=== PATIENT | female | born 1955 | race Hispanic/Latino ===

== ENCOUNTER 2016-11-26 18:21 | Inpatient (IN) | payer MEDICARE ==
[~2016-11-26 18:21] MED LIST: AMIDATE IV ONE; QUELICIN ONE
[2016-11-26] MEDS ORDERED: ARTIFICIAL TEARS OPHTH OINT OU PRN (18:43)
[2016-11-26] MEDS ORDERED: VASELINE LIP THERAPY TP PRN (18:43)
[2016-11-26] MEDS ORDERED: fentaNYL DRIP Premix 2,000 MCG/100 ML BAG IV SCH (19:00)
[2016-11-26] MEDS ORDERED: ATIVAN 100 MG in NACL 0.9% 50 ML, VIAFLEX EMPTY CONTAINER 0 ML IV SCH (19:00)
[2016-11-26] MEDS ORDERED: TYLENOL PR ONE (19:09)
[2016-11-26 19:13] LABS: Basophils % (Auto) 0.6 % (0.0-1.8); Eosinophils % (Auto) 0.8 % (0.0-4.3); Hematocrit 30.2 % (30.3-42.9); Hemoglobin 9.7 gm/dl (10.1-14.3); Mean Corpuscular HGB Conc 32 % (30-34); Mean Corpuscular Hemoglobin 32 pg (28-32); Mean Corpuscular Volume 98 fl (79-97); Platelet Count 319 K/mm3 (140-440); Red Blood Count 3.07 M/mm3 (3.65-5.03); Red Cell Distribution Width 18.8 % (13.2-15.2); White Blood Count 7.6 K/mm3 (4.5-11.0)
[2016-11-26] MEDS ORDERED: MILK OF MAGNESIA PO PRN (19:13)
[2016-11-26] MEDS ORDERED: VANCOMYCIN VIAL IV ONE (19:13)
[2016-11-26] MEDS ORDERED: ALUM-MAG HYDROX-SIMETH 200-200-20MG/5ML PO PRN (19:13)
[2016-11-26] MEDS ORDERED: NACL 0.9% 1000 ML IV ONE (19:13)
[2016-11-26] MEDS ORDERED: DULCOLAX PR PRN (19:13)
[2016-11-26] MEDS ORDERED: NACL 0.9% 250ML 250 ML IV ONE (19:13)
--- NOTE | 2016-11-26 19:13 | History and Physical Report ---
History of Present Illness History of present illness: 61 YO Female NHR with GERD, HTN, DM, Atrial Fib, BLE pressure sores presents to ED for evaluation. SNF staff notified ED because patient noticed to be confused , and minimally responsive. Pt transported to [facility] for evaluation. PT unable to provide history. Pt seen and evaluated in ED and found to be in severe distress and unable to protect her airway. Pt intubated and placed on vent support. Pt found to have sepsis, and evidence of aspiration pneumonia, and UTI. Pt treated IAW sepsis protocol. Past History Past Medical History: atrial fib, diabetes, GERD, hypertension Past Surgical History: No surgical history, Other (reviewed) Social history: single. denies: smoking, alcohol abuse, prescription drug abuse Family history: no significant family history (reviewed) Medications and Allergies Allergies Allergy/AdvReac Type Severity Reaction Status Date / Time codeine Allergy Unknown Verified 11/26/16 18:38 Active Meds: Active Medications Hydrophilic Ointment (Vaseline Lip Therapy) 1 applic TP Q2HR PRN PRN Reason: Dry Lips Fentanyl Citrate (Fentanyl Drip Premix) 2,000 mcg in 100 mls @ 3.969 mls/hr IV TITR OCTAVIO; 1 MCG/KG/HR PRN Reason: Protocol Lorazepam 100 mg/ Sodium Chloride/ Miscellaneous Information 100 mls @ 1 mls/ hr IV TITR OCTAVIO; 1 MG/HR PRN Reason: Protocol Multi-Ingred Cream/Lotion/Oil/Oint (Artificial Tears Ophth Oint) 1 applic OU Q4HR PRN PRN Reason: Dry Eye(s) Review of Systems ROS unobtainable: due to mental status Exam - Constitutional Vitals: Temp Pulse Resp BP Pulse Ox 114 H 140/83 100 11/26/16 19:03 11/26/16 19:03 11/26/16 19:03 General appearance: Present: severe distress, cachectic, disheveled, malodorous - Neck Neck: Present: supple, normal ROM - Respiratory Respiratory effort: labored Respiratory: bilateral: diminished - Cardiovascular Rhythm: regular Heart Sounds: Present: S1 & S2 - Extremities Extremities: no ischemia Peripheral Pulses: within normal limits - Abdominal General gastrointestinal: Present: soft, non-tender, non-distended, normal bowel sounds Female genitourinary: Present: normal - Integumentary Integumentary: Present: clear, dry, decreased turgor - Musculoskeletal Musculoskeletal: generalized weakness - Psychiatric Psychiatric: no intact judgment & insight, no memory intact - Neurologic Neurologic: no gait normal Results - Labs CBC & Chem 7: 11/26/16 18:40 11/26/16 18:40 Assessment and Plan - Patient Problems (1) Sepsis Current Visit: Yes Status: Acute Qualifiers: Sepsis type: S Plan to address problem: IV ABx, IVF, supportive care, monitor uop q shift, blood cultures, lactate level , The high probability of a clinically significant, sudden or life threatening deterioration of the [cardiac, pulmonary, renal] system(s) required my full and direct attention, intervention and personal management. The aggregate critical care time was [65] minutes. This time is in addition to time spent performing reported procedures but includes the following: [x] Data Review and interpretation [x] Patient assessment and monitoring of vital signs [x] Documentation [x] Medication orders and management (2) Aspiration pneumonia Current Visit: Yes Status: Acute Qualifiers: Aspiration pneumonia type: A Laterality: L Lung location: L Plan to address problem: IV abx, wean vent as tolerated, pulmonary consulted, ABG in am, pneumonia protocol, blood cultures (3) Encephalopathy acute Current Visit: Yes Status: Acute Plan to address problem: Treat pneumonia, sepsis, uti with abx therapy, IVF replacement (4) UTI (urinary tract infection) Current Visit: Yes Status: Acute Qualifiers: Urinary tract infection type: U Hematuria presence: H Indwelling urinary catheter type: I Encounter type: E Plan to address problem: IV abx (5) Respiratory failure Current Visit: Yes Status: Acute Qualifiers: Chronicity: acute Respiratory failure complication: unspecified whether with hypoxia or hypercapnia Qualified Code(s): J96.00 - Acute respiratory failure, unspecified whether with hypoxia or hypercapnia Plan to address problem: Wean vent as tolerated, SBT in am, pulmonary consulted, (6) DVT prophylaxis Current Visit: Yes Status: Acute
--- NOTE | 2016-11-26 19:14 | Emergency Department Report ---
ED General Adult HPI - General Chief complaint: Altered Mental Status Stated complaint: AMS Time Seen by Provider: 11/26/16 19:03 Source: EMS Mode of arrival: Stretcher Limitations: Altered Mental Status - History of Present Illness Initial comments: Patient presents to the emergency department with shallow respirations and obvious respiratory or impending respiratory failure. Medics were summoned to the long term because the patient was said to have slurred speech. Medics noted no focal neurological deficit. On arrival the patient was unable to state her name. She would respond somewhat to stimuli and a nonfocal manner. However, she was clearly unable to protect her airway and required elective intubation. - Related Data Allergies Allergy/AdvReac Type Severity Reaction Status Date / Time codeine Allergy Unknown Verified 11/26/16 18:38 ED Review of Systems ROS: Stated complaint: AMS Other details as noted in HPI Comment: Unobtainable due to pts medical conditions ED Past Medical Hx - Past Medical History Hx Hypertension: Yes Hx Diabetes: Yes Hx GERD: Yes Hx Psychiatric Treatment: Yes Additional medical history: gi bleed, anemia, a-fib - Surgical History Additional Surgical History: unknown - Social History Smoking Status: Unknown if ever smoked Substance Use Type: None ED Physical Exam - General Limitations: Altered Mental Status General appearance: alert, in no apparent distress - Head Head exam: Present: atraumatic, normocephalic - Eye Eye exam: Present: normal appearance - ENT ENT exam: Present: mucous membranes moist - Neck Neck exam: Present: normal inspection - Respiratory Respiratory exam: Present: respiratory distress, rhonchi, accessory muscle use, decreased breath sounds - Cardiovascular Cardiovascular Exam: Present: regular rate, normal rhythm. Absent: systolic murmur, diastolic murmur, rubs, gallop - GI/Abdominal GI/Abdominal exam: Present: soft, normal bowel sounds. Absent: distended, tenderness, guarding, rebound, rigid - Extremities Exam Extremities exam: Present: normal inspection - Back Exam Back exam: Present: normal inspection - Neurological Exam Neurological exam: Present: altered, CN II-XII intact (exam is very limited. There is no facial paresis. The eyes are conjugate. The pupils were equal and reactive.). Absent: motor sensory deficit (the patient withdraws minimally to painful stimuli and a symmetrical fashion exam is limited secondary to mental status.) - Psychiatric Psychiatric exam: Present: other (somnolent) - Skin Skin exam: Present: warm, dry, intact, normal color. Absent: rash ED Course Vital Signs 11/26/16 11/26/16 18:39 19:03 Pulse Rate 112 H 114 H Blood Pressure 121/67 140/83 O2 Sat by Pulse 100 100 Oximetry - Reevaluation(s) Reevaluation #1: CT the head is Pending. Patient was treated for pulmonary edema UTI sepsis pneumonia could not be excluded and respiratory failure. She is admitted to the hospitalist service further care and evaluation. CT the head ordered for altered mental status. An acute stroke is not clinically suspected. 11/26/16 19:49 Reevaluation #2: Patient will be admitted by Dr. Gutierrez to the intensive care unit. 11/26/16 19:50 - Central Line Placement Right SC Consent Obtained: emergent situation Time Out Performed: No Patient Placed on Monitor/Pulse Ox: No MD Prep: mask, gown, gloves Central Line Prep: Chlorhexidine scrub Local Anesthesia Used: Lidocaine 1% Amount of Anesthesia Used (mls): 3 Ultrasound Used for Placement: No Central Line Lumen Inserted: triple Bloods Obtained for Lab: Yes Central Line Position: good blood return, all ports aspirated, flus, sutured in place with 3-0 Dressing Applied: Tegaderm Post Procedure X-Ray: tip of catheter in good p Patient Tolerated Procedure: well Complications: none (single puncture inserted without difficulty.) - Intubation Time Out Performed: No Sedative: Etomidate Paralytic: Succinylcholine Laryngoscope: Caesar Size: 4 ET Tube Size: 7.5 Tube Secured Depth (cm): 23 Tube Secured Location: lips Tube Placement Confirmation: visualized tube passing t, equal breath sounds bilat, no breath sounds over epi, confirmation by capnometr Intubation Complications: none Additional Comments: To position was little too close to the jose pulled back 1-2 cm ED Medical Decision Making - Lab Data Result diagrams: 11/26/16 18:40 11/26/16 18:40 Laboratory Results - last 24 hr 11/26/16 11/26/16 11/26/16 18:35 18:40 18:40 WBC 7.6 RBC 3.07 L Hgb 9.7 L Hct 30.2 L MCV 98 H MCH 32 MCHC 32 RDW 18.8 H Plt Count 319 Lymph % (Auto) 20.0 [place] % (Auto) 8.8 H Eos % (Auto) 0.8 Baso % (Auto) 0.6 Lymph # 1.5 [place] # 0.7 Eos # 0.1 Baso # 0.0 Seg Neutrophils % 69.8 Seg Neutrophils # 5.3 PT 15.8 H INR 1.20 H VBG pH Sodium Potassium Chloride Carbon Dioxide Anion Gap BUN Creatinine Estimated GFR BUN/Creatinine Ratio Glucose Lactic Acid Calcium Total Bilirubin AST ALT Alkaline Phosphatase Total Protein Albumin Albumin/Globulin Ratio Urine Color Matilde Urine Turbidity Turbid Urine pH 6.0 Ur Specific [place] 1.018 Urine Protein 100 mg/dl Urine Glucose (UA) Neg Urine Ketones Neg Urine Blood Neg Urine Nitrite Neg Urine Bilirubin Neg Urine Urobilinogen < 2.0 Ur Leukocyte Esterase Mod Urine WBC (Auto) > 182.0 H Urine RBC (Auto) 6.0 Urine Bacteria (Auto) 4+ Urine WBC Clumps 3+ Urine Mucus 3+ 11/26/16 11/26/16 11/26/16 18:40 18:40 18:40 WBC RBC Hgb Hct MCV MCH MCHC RDW Plt Count Lymph % (Auto) [place] % (Auto) Eos % (Auto) Baso % (Auto) Lymph # [place] # Eos # Baso # Seg Neutrophils % Seg Neutrophils # PT INR VBG pH 7.376 Sodium 141 Potassium 4.4 Chloride 106.4 Carbon Dioxide 25 Anion Gap 14 BUN 10 Creatinine 0.4 L Estimated GFR > 60 BUN/Creatinine Ratio 25.00 Glucose 107 H Lactic Acid 1.70 Calcium 7.5 L Total Bilirubin 0.20 AST 15 ALT 7 Alkaline Phosphatase 256 H Total Protein 4.9 L Albumin 1.6 L Albumin/Globulin Ratio 0.5 Urine Color Urine Turbidity Urine pH Ur Specific [place] Urine Protein Urine Glucose (UA) Urine Ketones Urine Blood Urine Nitrite Urine Bilirubin Urine Urobilinogen Ur Leukocyte Esterase Urine WBC (Auto) Urine RBC (Auto) Urine Bacteria (Auto) Urine WBC Clumps Urine Mucus - EKG Data -: EKG Interpreted by Me EKG shows normal: sinus rhythm Rate: tachycardia - EKG Data Interpretation: nonspecific ST-T wave олег, other (low-voltage EKG appears to be sinus tachycardia) - Radiology Data interpreted by me: Chest x-ray shows an endotracheal tube tilted slightly towards the right mainstem but still above the jose. This has been moved back (I have ordered it to be withdrawn 1-2 cm with respiratory. The right subclavian line is in the SVC. There is no pneumothorax. There are bilateral effusions. This may be more likely to be the picture of pulmonary edema but pneumonia cannot be excluded. Critical care attestation.: If time is entered above; I have spent that time in minutes in the direct care of this critically ill patient, excluding procedure time. ED Disposition Clinical Impression: Respiratory failure Qualifiers: Chronicity: acute Respiratory failure complication: unspecified whether with hypoxia or hypercapnia Qualified Code(s): J96.00 - Acute respiratory failure, unspecified whether with hypoxia or hypercapnia Pulmonary edema Qualifiers: Chronicity: acute Qualified Code(s): J81.0 - Acute pulmonary edema Altered mental status Qualifiers: Altered mental status type: stupor Qualified Code(s): R40.1 - Stupor Anemia Qualifiers: Anemia type: unspecified type Qualified Code(s): D64.9 - Anemia, unspecified Disposition: DC-09 OP ADMIT IP TO THIS HOSP Is pt being admited?: Yes Does the pt Need Aspirin: Yes Condition: Stable Instructions: Pulmonary Edema (ED) Referrals: PRIMARY CARE, [Primary Care Provider] - 3-5 Days Time of Disposition: 19:52
[2016-11-26 19:23] LABS: Bacteria,Urine 4+ /HPF (Negative); Bilirubin,Urine NEG (Negative); Blood,Urine NEG (Negative); Ketones,Urine NEG (Negative); Leukocyte Esterase,Urine MOD (Negative); Mucus,Urine 3+ /HPF; Nitrite,Urine NEG (Negative); Urobilinogen,Urine < 2.0 mg/dL (<2.0)
[2016-11-26] MEDS ORDERED: SUBLIMAZE ONE (19:24)
[2016-11-26 19:26] LABS: Alanine Aminotransferase 7 units/L (7-56); Albumin 1.6 g/dL (3.9-5); Albumin/Globulin Ratio 0.5 %; Alkaline Phosphatase 256 units/L (35-129); Anion Gap 14 mmol/L; Blood Urea Nitrogen 10 mg/dL (7-17); Calcium 7.5 mg/dL (8.4-10.2); Carbon Dioxide 25 mmol/L (22-30); Chloride 106.4 mmol/L (98-107); Glucose 107 mg/dL (65-100); Potassium 4.4 mmol/L (3.6-5.0); Sodium 141 mmol/L (137-145); Total Protein 4.9 g/dL (6.3-8.2)
[2016-11-26 19:28] LABS: WBC,Urine > 182.0 /HPF (0.0-6.0)
[2016-11-26 19:29] LABS: INR 1.2 (0.87-1.13)
[2016-11-26] MEDS ORDERED: LASIX IV ONE (19:43)
--- NOTE | 2016-11-26 19:43 | XRay Report ---
FINAL REPORT EXAM: XR CHEST 1V AP HISTORY: ETT placement TECHNIQUE: AP portable view of the chest. PRIORS: None. FINDINGS: There is endotracheal tube in place with the distal tip at the proximal right mainstem bronchus. Withdrawal of 3-5 cm is recommended. There is a right-sided central venous catheter with the tip in the right atrium. There is a metallic wire foreign object overlying the right upper chest possibly representing a dental bridge. The cardiac silhouette is mildly to moderately enlarged. There are bilateral patchy infiltrates. There blunting of the bilateral costophrenic angles consistent with pleural effusions. The bones and soft tissues are unremarkable. IMPRESSION: 1. Endotracheal tube is in too far with the distal tip at the proximal right stem bronchus. Withdrawal of 3-5 cm is recommended. 2. Confirm location and identify the metallic wire foreign object overlying the right upper chest that may represent a dental bridge. 3. Cardiomegaly 4. Bilateral patchy infiltrates consistent with pneumonia or pulmonary edema 5. Bilateral pleural effusions I gave a verbal report by phone to Dr. Greenwood at 7:35 p.m. eastern daylight time. He told me that the ET tube had already been repositioned.
[2016-11-26 19:44] LABS: Creatine Kinase MB 1.4 ng/mL (0.0-4.0)
[2016-11-26 19:45] LABS: Creatine Kinase 18 units/L (30-135)
[2016-11-26] MEDS ORDERED: PROTONIX IV ONE (19:45)
[2016-11-26] MEDS ORDERED: ASPIRIN PR ONE (19:52)
[2016-11-26] MEDS ORDERED: VANCOMYCIN PHARMACY TO DOSE IV SCH (20:00)
[2016-11-26] MEDS: UNASYN/NS 3 GM/100 ML 3 GM/100 ML BAG IV SCH (20:02)
[2016-11-26] MEDS: LEVAQUIN 750MG/150ML 750 MG/150 ML BAG IV SCH (20:03)
[2016-11-26] MEDS: VANCOMYCIN VIAL 1,250 MG in NACL 0.9% 250ML 250 ML IV SCH (20:10)
[2016-11-26] MEDS ORDERED: TYLENOL PR PRN (20:22)
[2016-11-26 20:26] LABS: ISTAT Base Excess -1; ISTAT HCO3 24.6; ISTAT PCO2 43.2 (35-45); ISTAT PH 7.364 (7.35-7.45); ISTAT PO2 57 (80-105); ISTAT SO2 88; ISTAT TCO2 26
--- NOTE | 2016-11-26 23:00 | Cat Scan Report ---
FINAL REPORT PROCEDURE: CT HEAD/BRAIN WO CON TECHNIQUE: Computerized tomography of the head was performed without contrast material. HISTORY: AMS COMPARISON: No prior studies are available for comparison. FINDINGS: Fluid in the paranasal sinuses is likely due to indwelling endotracheal tube. Mastoid air cells appear clear. No calvarial fracture is seen. The cerebral ventricles are normal in size. Minimal chronic small vessel ischemic changes are seen in the periventricular white matter. No acute CVA is seen. No acute intracranial hemorrhage or mass effect is seen. IMPRESSION: Minimal chronic small vessel ischemic changes are seen without evidence of acute abnormality.
[2016-11-27] MEDS: UNASYN/NS 3 GM/100 ML 3 GM/100 ML BAG IV SCH ×4 (02:00→20:37)
[2016-11-27] MEDS: VANCOMYCIN VIAL 1,250 MG in NACL 0.9% 250ML 250 ML IV SCH ×2 (04:43→12:54)
[2016-11-27] MEDS ORDERED: NACL 0.9% 1000 ML 1,000 ML IV ONE (04:45)
[2016-11-27 05:52] LABS: ISTAT Base Excess 6; ISTAT HCO3 27.6; ISTAT PCO2 29.9 (35-45); ISTAT PH 7.574 (7.35-7.45); ISTAT PO2 147 (80-105); ISTAT SO2 100; ISTAT TCO2 28
--- NOTE | 2016-11-27 09:50 | XRay Report ---
AP CHEST :11/27/16 01:52 CLINICAL: Intubated.Follow up respiratory failure. COMPARISON:11/26/16 FINDINGS: The endotracheal tube is in satisfactory position. A right PICC line tip is in the SVC. Continued bilateral patchy perihilar lung opacities as well as more peripheral right upper lobe lung opacities. No pneumothorax. IMPRESSION: Bilateral pulmonary edema versus pneumonia without change.
[2016-11-27] MEDS ORDERED: SODIUM BICARBONATE FEEDTUBE PRN (09:57)
[2016-11-27] MEDS ORDERED: SIMPLE SYRUP FEEDTUBE PRN ×2 (09:57)
[2016-11-27] MEDS ORDERED: PANCREAZE DR 10,500 UNIT FEEDTUBE PRN (09:57)
--- NOTE | 2016-11-27 15:59 | Admit Criteria Form ---
Admission Criteria Documentation: RESPIRATORY FAILURE GRG Clinical Indications for Admission to Inpatient Care (Place 'X' for any and all applicable criteria): Hospital admission is needed for appropriate care of the patient because of acute respiratory failure or insufficiency as indicated by ANY ONE of the following(1)(2)(3)(4)(5)(6)(7)(8): [ ]I. Mechanical ventilation needed (acute invasive or noninvasive) [ ]II. Severe ventilation deficit as indicated by ANY ONE of the following (9) [ ]a) Respiratory acidosis (pH less than 7.32 and partial pressure of carbon dioxide greater than 40 mm Hg (5.3 kPa)) [ ]b) Partial pressure of carbon dioxide greater than 44 mm Hg (5.9 kPa ) (new) [ ]c) Airflow measurements less than 25% of predicted (eg, peak expiratory flow rate less than 100 L/minute) [ ]d) Forced vital capacity less than 15 mL/kg of ideal body weight, or 50% decrease in vital capacity from baseline [ ]III. Noncardiac pulmonary edema not resolving with rapid emergency treatment (8) [ X]IV. Severe respiratory distress as indicated by ANY ONE of the following: [ ]a) Severe tachypnea (respiratory rate greater than 30, greater than 45 for 6-month-old, greater than 60 for ) [ ]b) Severe hypoxemia (partial pressure of oxygen less than 50 mm Hg ( 6.7 kPa) on greater than 50% oxygen or partial pressure of oxygen to FIO2 ratio less than 200) [X ]c) Mental status deterioration from respiratory disease [ ]V. Airway obstruction or inadequate protection [A](10)(11) The original [employer] content created by [employer] has been revised. The portions of the content which have been revised are identified through the use of italic text or in bold, and [facility] [employer] has neither reviewed nor approved the modified material. All other unmodified content is copyright [employer]. Please see references footnoted in the original [employer] edition 2016 Admission Criteria Met: Yes
--- NOTE | 2016-11-27 16:42 | Progress Note ---
Assessment and Plan Assessment and plan: 61-year-old female brought via EMS from half-way after she was found to have difficulty of breathing, decreased responsiveness. Patient medical history significant for hypertension, diabetes mellitus, A. fib, bilateral lower extremity pressure sores. Patient was unable to protect her airway and she was intubated in the emergency department. Acute respiratory failure Aspiration pneumonia versus community acquired pneumonia Sepsis with hypotension Acute metabolic encephalopathy UTI - Patient is intubated and mechanically ventilated in the emergency department - Patient is treated according to sepsis protocol with IV antibiotics, fluid, blood cultures taken - Pulmonary consulted The high probability of a clinically significant, sudden or life threatening deterioration of the [neurology, cardiovascular, respiratory] system(s) required my full and direct attention, intervention and personal management. The aggregate critical care time was [x] minutes. This time is in addition to time spent performing reported procedures but includes the following: [x] Data Review and interpretation [x] Patient assessment and monitoring of vital signs [x] Documentation [x] Medication orders and managementDVT prophylaxis - Lovenox Disposition - Transferred to ICU, she insisted in the emergency department waiting for bed. History Interval history: Patient was seen and evaluated this morning, patient is intubated, mechanically ventilated, on sedation. I have discussed the management plan with her brother. Hospitalist Physical - Physical exam Narrative exam: Patient is intubated and mechanically ventilated. The patient appeared well nourished and normally developed. Vital signs as documented. Head exam is unremarkable. No scleral icterus . Neck is without jugular venous distension, thyromegaly, or carotid bruits. Lungs are clear to auscultation. Cardiac exam reveals regular rate and Rhythm. First and second heart sounds normal. No murmurs, rubs or gallops. Abdominal exam reveals normal bowel sounds, no masses, no organomegaly and no aortic enlargement. Extremities clean dressing on bilateral lower extremities, on the sores. REGULATORY SUBMISSIONS SPECIALIST: Sedated. - Constitutional Vitals: Temp Pulse Resp BP Pulse Ox 98.8 F 107 H 12 86/54 100 11/27/16 04:00 11/27/16 12:04 11/27/16 11:45 11/27/16 12:04 11/27/16 12:04 General appearance: Present: severe distress, cachectic, disheveled, malodorous Results - Labs CBC & Chem 7: 11/26/16 18:40 11/26/16 18:40 Labs: Laboratory Last Values WBC 7.6 K/mm3 (4.5-11.0) 11/26/16 18:40 RBC 3.07 M/mm3 (3.65-5.03) L 11/26/16 18:40 Hgb 9.7 gm/dl (10.1-14.3) L 11/26/16 18:40 Hct 30.2 % (30.3-42.9) L 11/26/16 18:40 MCV 98 fl (79-97) H 11/26/16 18:40 MCH 32 pg (28-32) 11/26/16 18:40 MCHC 32 % (30-34) 11/26/16 18:40 RDW 18.8 % (13.2-15.2) H 11/26/16 18:40 Plt Count 319 K/mm3 (140-440) 11/26/16 18:40 Lymph % (Auto) 20.0 % (13.4-35.0) 11/26/16 18:40 [place] % (Auto) 8.8 % (0.0-7.3) H 11/26/16 18:40 Eos % (Auto) 0.8 % (0.0-4.3) 11/26/16 18:40 Baso % (Auto) 0.6 % (0.0-1.8) 11/26/16 18:40 Lymph # 1.5 K/mm3 (1.2-5.4) 11/26/16 18:40 [place] # 0.7 K/mm3 (0.0-0.8) 11/26/16 18:40 Eos # 0.1 K/mm3 (0.0-0.4) 11/26/16 18:40 Baso # 0.0 K/mm3 (0.0-0.1) 11/26/16 18:40 Seg Neutrophils % 69.8 % (40.0-70.0) 11/26/16 18:40 Seg Neutrophils # 5.3 K/mm3 (1.8-7.7) 11/26/16 18:40 PT 15.8 Sec. (12.2-14.9) H 11/26/16 18:40 INR 1.20 (0.87-1.13) H 11/26/16 18:40 POC ABG pH 7.574 (7.35-7.45) H 11/27/16 05:43 POC ABG pCO2 29.9 (35-45) L 11/27/16 05:43 POC ABG pO2 147 (80-105) H 11/27/16 05:43 POC ABG HCO3 27.6 11/27/16 05:43 POC ABG Total CO2 28 11/27/16 05:43 POC ABG O2 Sat 100 11/27/16 05:43 POC ABG Base Excess 6 11/27/16 05:43 VBG pH 7.376 (7.320-7.420) 11/26/16 18:40 FiO2 100 % 11/27/16 05:43 Sodium 141 mmol/L (137-145) 11/26/16 18:40 Potassium 4.4 mmol/L (3.6-5.0) 11/26/16 18:40 Chloride 106.4 mmol/L (98-107) 11/26/16 18:40 Carbon Dioxide 25 mmol/L (22-30) 11/26/16 18:40 Anion Gap 14 mmol/L 11/26/16 18:40 BUN 10 mg/dL (7-17) 11/26/16 18:40 Creatinine 0.4 mg/dL (0.7-1.2) L 11/26/16 18:40 Estimated GFR > 60 ml/min 11/26/16 18:40 BUN/Creatinine Ratio 25.00 % 11/26/16 18:40 Glucose 107 mg/dL (65-100) H 11/26/16 18:40 Lactic Acid 1.70 mmol/L (0.7-2.0) 11/26/16 18:40 Calcium 7.5 mg/dL (8.4-10.2) L 11/26/16 18:40 Total Bilirubin 0.20 mg/dL (0.1-1.2) 11/26/16 18:40 AST 15 units/L (5-40) 11/26/16 18:40 ALT 7 units/L (7-56) 11/26/16 18:40 Alkaline Phosphatase 256 units/L (35-129) H 11/26/16 18:40 Total Creatine Kinase 18 units/L (30-135) L 11/26/16 18:40 CK-MB (CK-2) 1.4 ng/mL (0.0-4.0) 11/26/16 18:40 CK-MB (CK-2) Rel Index 7.7 (0-4) H 11/26/16 18:40 Troponin T < 0.010 ng/mL (0.00-0.029) 11/26/16 18:40 NT-Pro-B Natriuret Pep 67005 pg/mL (0-900) H 11/26/16 18:40 Total Protein 4.9 g/dL (6.3-8.2) L 11/26/16 18:40 Albumin 1.6 g/dL (3.9-5) L 11/26/16 18:40 Albumin/Globulin Ratio 0.5 % 11/26/16 18:40 Urine Color Matilde (Yellow) 11/26/16 18:35 Urine Turbidity Turbid (Clear) 11/26/16 18:35 Urine pH 6.0 (5.0-7.0) 11/26/16 18:35 Ur Specific [place] 1.018 (1.003-1.030) 11/26/16 18:35 Urine Protein 100 mg/dl mg/dL (Negative) 11/26/16 18:35 Urine Glucose (UA) Neg mg/dL (Negative) 11/26/16 18:35 Urine Ketones Neg mg/dL (Negative) 11/26/16 18:35 Urine Blood Neg (Negative) 11/26/16 18:35 Urine Nitrite Neg (Negative) 11/26/16 18:35 Urine Bilirubin Neg (Negative) 11/26/16 18:35 Urine Urobilinogen < 2.0 mg/dL (<2.0) 11/26/16 18:35 Ur Leukocyte Esterase Mod (Negative) 11/26/16 18:35 Urine WBC (Auto) > 182.0 /HPF (0.0-6.0) H 11/26/16 18:35 Urine RBC (Auto) 6.0 /HPF (0.0-6.0) 11/26/16 18:35 Urine Bacteria (Auto) 4+ /HPF (Negative) 11/26/16 18:35 Urine WBC Clumps 3+ /HPF 11/26/16 18:35 Urine Mucus 3+ /HPF 11/26/16 18:35
[2016-11-27] MEDS: LEVAQUIN 750MG/150ML 750 MG/150 ML BAG IV SCH (22:06)
[2016-11-27] MEDS: NACL 0.9% 1000 ML 1,000 ML IV SCH (22:07)
[2016-11-28] MEDS ORDERED: LEVOPHED DRIP 4 MG/NS 250 ML 4 MG/250 ML BAG IV SCH (02:00)
[2016-11-28] MEDS: UNASYN/NS 3 GM/100 ML 3 GM/100 ML BAG IV SCH ×3 (02:20→13:59)
[2016-11-28 05:34] LABS: Hematocrit 30.9 % (30.3-42.9); Hemoglobin 9.4 gm/dl (10.1-14.3); Mean Corpuscular HGB Conc 31 % (30-34); Mean Corpuscular Hemoglobin 31 pg (28-32); Mean Corpuscular Volume 102 fl (79-97); Platelet Count 145 K/mm3 (140-440); Red Blood Count 3.04 M/mm3 (3.65-5.03); Red Cell Distribution Width 19.9 % (13.2-15.2); White Blood Count 6.5 K/mm3 (4.5-11.0)
[2016-11-28 05:41] LABS: BUN/Creatinine Ratio 23.33; Blood Urea Nitrogen 7 mg/dL (7-17); Carbon Dioxide 20 mmol/L (22-30); Glucose 66 mg/dL (65-100); Sodium 140 mmol/L (137-145)
[2016-11-28 05:51] LABS: Anion Gap 14 mmol/L
[2016-11-28 07:07] LABS: Basophils % (Manual) 0 % (0.0-1.8); Blastocytes % (Manual) 0 %; Platelet Estimate Consistent w Auto
[2016-11-28 07:08] LABS: Diff Status Complete; Macrocytosis Few
--- NOTE | 2016-11-28 08:59 | XRay Report ---
AP CHEST: HISTORY: Followup respiratory failure Lines and support devices remain in good position. A nasogastric tube has been inserted which is followed to the proximal stomach. Mild cardiomegaly and moderate pulmonary venous congestion are identified. Small pleural effusions are likely present. Little change is demonstrated since yesterday's exam. IMPRESSION: No significant change.
[2016-11-28] MEDS ORDERED: LOVENOX SUB-Q SCH ×2 (10:00)
[2016-11-28] MEDS: VANCOMYCIN VIAL 1,250 MG in NACL 0.9% 250ML 250 ML IV SCH ×3 (10:27→17:13)
[2016-11-28] MEDS: NACL 0.9% 1000 ML 1,000 ML IV SCH (10:35)
--- NOTE | 2016-11-28 12:27 | Consultation ---
History of Present Illness Consult date: 11/28/16 Reason for consult: dyspnea, other (acute respiratory failure) History of present illness: 61-year-old female that were asked to see at the ICU, after admitted with respiratory failure. The patient is currently intubated and history is obtained from record review. 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 On arrival, response was poor and it was decided to intubate the patient because of increasing respiratory distress. She was then transferred to the hospital and admitted to the ICU last night. History of prior events his scarce. No documented history of aspiration or prior fever. No family at the bedside. Past History Past Medical History: atrial fib, diabetes, GERD, hypertension Past Surgical History: No surgical history, Other (reviewed) Social history: single. denies: smoking, alcohol abuse, prescription drug abuse Family history: no significant family history (reviewed) Medications and Allergies Allergies Allergy/AdvReac Type Severity Reaction Status Date / Time codeine Allergy Unknown Verified 11/26/16 18:38 Active Meds: Active Medications Acetaminophen (Tylenol) 650 mg NV Q4H PRN PRN Reason: Pain, Mild (1-3) Last Admin: 11/26/16 19:05 Dose: 650 mg Al Hydrox/Mg Hydrox/Simethicone (Alum-Mag Hydrox-Simeth [id number]/5ml) 30 ml PO Q4H PRN PRN Reason: Indigestion Lipase/Protease/Amylase (Pancreaze Dr 10,500 Unit) 1 each FEEDTUBE PRN PRN PRN Reason: For Clogged Feeding Tube Bisacodyl (Dulcolax) 10 mg NV QDAY PRN PRN Reason: constipation unrelieved by MOM Enoxaparin Sodium (Lovenox) 40 mg SUB-Q QDAY@1000 OCTAVIO Last Admin: 11/28/16 09:09 Dose: 40 mg Hydrophilic Ointment (Vaseline Lip Therapy) 1 applic TP Q2HR PRN PRN Reason: Dry Lips Fentanyl Citrate (Fentanyl Drip Premix) 2,000 mcg in 100 mls @ 3.969 mls/hr IV TITR OCTAVIO; 1 MCG/KG/HR PRN Reason: Protocol Last Admin: 11/26/16 22:22 Dose: 1 mcg/kg/hr, 3.969 mls/hr Lorazepam 100 mg/ Sodium Chloride/ Miscellaneous Information 100 mls @ 1 mls/ hr IV TITR OCTAVIO; 1 MG/HR PRN Reason: Protocol Last Titration: 11/28/16 12:21 Dose: 2 mg/hr, 2 mls/hr Ampicillin Sodium/Sulbactam Sodium (Unasyn/Ns 3 Gm/100 Ml) 3 gm in 100 mls @ 100 mls/hr IV Q6H OCTAVIO PRN Reason: Protocol Last Admin: 11/28/16 08:57 Dose: 100 mls/hr Levofloxacin/Dextrose (Levaquin 750mg/150ml) 750 mg in 150 mls @ 100 mls/hr IV Q24H OCTAVIO PRN Reason: Protocol Last Admin: 11/27/16 22:06 Dose: 100 mls/hr Vancomycin HCl 1,250 mg/ (Sodium Chloride) 250 mls @ 166.667 mls/hr IV Q8H OCTAVIO Last Admin: 11/28/16 10:27 Dose: 166.667 mls/hr Sodium Chloride (Nacl 0.9% 1000 Ml) 1,000 mls @ 75 mls/hr IV DIRECT OCTAVIO Last Admin: 11/28/16 10:35 Dose: 75 mls/hr Norepinephrine (Levophed Drip 4 Mg/Ns 250 Ml) 4 mg in 250 mls @ 7.5 mls/hr IV TITR OCTAVIO; 2 MCG/MIN PRN Reason: Protocol Magnesium Hydroxide (Milk Of Magnesia) 30 ml PO Q4H PRN PRN Reason: Constipation Multi-Ingred Cream/Lotion/Oil/Oint (Artificial Tears Ophth Oint) 1 applic OU Q4HR PRN PRN Reason: Dry Eye(s) Simple Syrup (Simple Syrup) 15 ml FEEDTUBE PRN PRN PRN Reason: Hypoglycemia Last Admin: 11/28/16 00:22 Dose: 15 ml Simple Syrup (Simple Syrup) 30 ml FEEDTUBE PRN PRN PRN Reason: Hypoglycemia Sodium Bicarbonate (Sodium Bicarbonate) 325 mg FEEDTUBE PRN PRN PRN Reason: For Clogged Feeding Tube Vancomycin HCl (Vancomycin Pharmacy To Dose) 1 each IV PKCONSULT OCTAVIO PRN Reason: Protocol Review of Systems ROS unobtainable: due to endotracheal tube, due to mental status Physical Examination Vital signs: Vital Signs Pulse Pulse Ox 111 H 96 11/26/16 18:18 11/26/16 18:18 General appearance: no acute distress, other (sedated and intubated) Eyes: non-icteric ENT: other (ETT of 22) Effort: normal Ascultation: Bilateral: clear, diminished breath sounds, rhonchi (sporadic) Cardiovascular: regular rate and rhythm Gastrointestinal: normoactive bowel sounds, non-distended Integumentary: normal Extremities: no cyanosis, no edema other (sedated, RASS -3) Results - Laboratory Findings CBC and BMP: 11/28/16 04:52 11/28/16 04:52 ABG POC ABG pH 7.574 (7.35-7.45) H 11/27/16 05:43 POC ABG pCO2 29.9 (35-45) L 11/27/16 05:43 POC ABG pO2 147 (80-105) H 11/27/16 05:43 POC ABG HCO3 27.6 11/27/16 05:43 POC ABG Total CO2 28 11/27/16 05:43 POC ABG O2 Sat 100 11/27/16 05:43 PT/INR, D-dimer PT 15.8 Sec. (12.2-14.9) H 11/26/16 18:40 INR 1.20 (0.87-1.13) H 11/26/16 18:40 Abnormal lab findings: Abnormal Labs 11/26/16 11/27/16 11/27/16 20:20 05:43 23:43 RBC Hgb MCV RDW Seg Neuts % (Manual) Lymphocytes % (Manual) Lymphocytes # (Manual) POC ABG pH 7.574 H POC ABG pCO2 29.9 L POC ABG pO2 57 L 147 H Chloride Carbon Dioxide Creatinine POC Glucose 63 L Calcium 11/28/16 11/28/16 04:52 04:52 RBC 3.04 L Hgb 9.4 L MCV 102 H D RDW 19.9 H Seg Neuts % (Manual) 83.0 H Lymphocytes % (Manual) 6.0 L Lymphocytes # (Manual) 0.4 L POC ABG pH POC ABG pCO2 POC ABG pO2 Chloride 110.0 H Carbon Dioxide 20 L Creatinine 0.3 L POC Glucose Calcium 7.0 L Assessment and Plan Acute respiratory failure Aspiration pneumonia. Chest x-ray postintubation with not only infiltrates AMS. Mr. evaluate further for stroke. Poorly controlled blood sugar. Sliding scale initiated Recommendations Adjust tidal volume down from 400 mL Adjust FiO2 to maintain oximetry over 94% at all times Ventilator protocol orders. Suggest holding on sedation and monitor neurological status. Zosyn IV ETTtube culture Neurology evaluation DVT prophylaxis PUD prophylaxis
--- NOTE | 2016-11-28 17:08 | Progress Note ---
Assessment and Plan Assessment and plan: 61-year-old female brought via EMS from [facility] after she was found to have difficulty of breathing, decreased responsiveness. Patient medical history significant for hypertension, diabetes mellitus, A. fib, bilateral lower extremity pressure sores. Patient was unable to protect her airway and she was intubated in the emergency department. Acute respiratory failure Aspiration pneumonia versus community acquired pneumonia Sepsis with hypotension Acute metabolic encephalopathy UTI - Patient is intubated and mechanically ventilated in the emergency department - Patient is treated according to sepsis protocol with IV vancomycin and clindamycin, IV fluids - Blood culture negative so far - Pulmonary consult appreciated - Sedation was off and the patient didn't wake up, neurology consult is placed The high probability of a clinically significant, sudden or life threatening deterioration of the [neurology, cardiovascular, respiratory] system(s) required my full and direct attention, intervention and personal management. The aggregate critical care time was [x] minutes. This time is in addition to time spent performing reported procedures but includes the following: [x] Data Review and interpretation [x] Patient assessment and monitoring of vital signs [x] Documentation [x] Medication orders and managementDVT prophylaxis - Lovenox Disposition - Transferred to ICU, she insisted in the emergency department waiting for bed. History Interval history: Patient was seen and evaluated this morning, patient is intubated, mechanically ventilated, on sedation. I have discussed the management plan with her brother yesterday, nobody was in the room today. Hospitalist Physical - Physical exam Narrative exam: Patient is intubated and mechanically ventilated. The patient appeared well nourished and normally developed. Vital signs as documented. Head exam is unremarkable. No scleral icterus . Neck is without jugular venous distension, thyromegaly, or carotid bruits. Lungs are clear to auscultation. Cardiac exam reveals regular rate and Rhythm. First and second heart sounds normal. No murmurs, rubs or gallops. Abdominal exam reveals normal bowel sounds, no masses, no organomegaly and no aortic enlargement. Extremities clean dressing on bilateral lower extremities, on the sores. 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 - Constitutional Vitals: Temp Pulse Resp BP Pulse Ox 97.5 F L 108 H 25 H 110/68 100 11/28/16 16:00 11/28/16 15:00 11/28/16 15:00 11/28/16 15:11/28/16 15:00 General appearance: Present: severe distress, cachectic, disheveled, malodorous Results - Labs CBC & Chem 7: 11/28/16 04:52 11/28/16 04:52 Labs: Laboratory Last Values WBC 6.5 K/mm3 (4.5-11.0) 11/28/16 04:52 RBC 3.04 M/mm3 (3.65-5.03) L 11/28/16 04:52 Hgb 9.4 gm/dl (10.1-14.3) L 11/28/16 04:52 Hct 30.9 % (30.3-42.9) 11/28/16 04:52 MCV 102 fl (79-97) H D 11/28/16 04:52 MCH 31 pg (28-32) 11/28/16 04:52 MCHC 31 % (30-34) 11/28/16 04:52 RDW 19.9 % (13.2-15.2) H 11/28/16 04:52 Plt Count 145 K/mm3 (140-440) 11/28/16 04:52 Lymph % (Auto) Basic Acoustic Analyst 11/28/16 04:52 [place] % (Auto) Basic Acoustic Analyst 11/28/16 04:52 Eos % (Auto) Basic Acoustic Analyst 11/28/16 04:52 Baso % (Auto) Basic Acoustic Analyst 11/28/16 04:52 Lymph # Basic Acoustic Analyst 11/28/16 04:52 [place] # Basic Acoustic Analyst 11/28/16 04:52 Eos # Basic Acoustic Analyst 11/28/16 04:52 Baso # Basic Acoustic Analyst 11/28/16 04:52 Add Manual Diff Complete 11/28/16 04:52 Total Counted 100 11/28/16 04:52 Seg Neutrophils % Basic Acoustic Analyst 11/28/16 04:52 Seg Neuts % (Manual) 83.0 % (40.0-70.0) H 11/28/16 04:52 Band Neutrophils % 7.0 % 11/28/16 04:52 Lymphocytes % (Manual) 6.0 % (13.4-35.0) L 11/28/16 04:52 Reactive Lymphs % (Man) 0 % 11/28/16 04:52 Monocytes % (Manual) 1.0 % (0.0-7.3) 11/28/16 04:52 Eosinophils % (Manual) 3.0 % (0.0-4.3) 11/28/16 04:52 Basophils % (Manual) 0 % (0.0-1.8) 11/28/16 04:52 Metamyelocytes % 0 % 11/28/16 04:52 Myelocytes % 0 % 11/28/16 04:52 Promyelocytes % 0 % 11/28/16 04:52 Blast Cells % 0 % 11/28/16 04:52 Nucleated RBC % Not Reportable 11/28/16 04:52 Seg Neutrophils # Basic Acoustic Analyst 11/28/16 04:52 Seg Neutrophils # Man 5.4 K/mm3 (1.8-7.7) 11/28/16 04:52 Band Neutrophils # 0.5 K/mm3 11/28/16 04:52 Lymphocytes # (Manual) 0.4 K/mm3 (1.2-5.4) L 11/28/16 04:52 Abs React Lymphs (Man) 0.0 K/mm3 11/28/16 04:52 Monocytes # (Manual) 0.1 K/mm3 (0.0-0.8) 11/28/16 04:52 Eosinophils # (Manual) 0.2 K/mm3 (0.0-0.4) 11/28/16 04:52 Basophils # (Manual) 0.0 K/mm3 (0.0-0.1) 11/28/16 04:52 Metamyelocytes # 0.0 K/mm3 11/28/16 04:52 Myelocytes # 0.0 K/mm3 11/28/16 04:52 Promyelocytes # 0.0 K/mm3 11/28/16 04:52 Blast Cells # 0.0 K/mm3 11/28/16 04:52 WBC Morphology Not Reportable 11/28/16 04:52 Hypersegmented Neuts Not Reportable 11/28/16 04:52 Hyposegmented Neuts Not Reportable 11/28/16 04:52 Hypogranular Neuts Not Reportable 11/28/16 04:52 Smudge Cells Not Reportable 11/28/16 04:52 Toxic Granulation Not Reportable 11/28/16 04:52 Toxic Vacuolation Not Reportable 11/28/16 04:52 Dohle Bodies Not Reportable 11/28/16 04:52 Pelger-Huet Anomaly Not Reportable 11/28/16 04:52 Caitlin Rods Not Reportable 11/28/16 04:52 Platelet Estimate Consistent w auto 11/28/16 04:52 Clumped Platelets Not Reportable 11/28/16 04:52 Plt Clumps, EDTA Not Reportable 11/28/16 04:52 Large Platelets Not Reportable 11/28/16 04:52 Giant Platelets Not Reportable 11/28/16 04:52 Platelet Satelliting Not Reportable 11/28/16 04:52 Plt Morphology Comment Not Reportable 11/28/16 04:52 RBC Morphology Not Reportable 11/28/16 04:52 Dimorphic RBCs Not Reportable 11/28/16 04:52 Polychromasia Not Reportable 11/28/16 04:52 Hypochromasia Not Reportable 11/28/16 04:52 Poikilocytosis Not Reportable 11/28/16 04:52 Anisocytosis Not Reportable 11/28/16 04:52 Microcytosis Not Reportable 11/28/16 04:52 Macrocytosis Few 11/28/16 04:52 Spherocytes Not Reportable 11/28/16 04:52 Pappenheimer Bodies Not Reportable 11/28/16 04:52 Sickle Cells Not Reportable 11/28/16 04:52 Target Cells Not Reportable 11/28/16 04:52 Tear Drop Cells Not Reportable 11/28/16 04:52 Ovalocytes Not Reportable 11/28/16 04:52 Helmet Cells Not Reportable 11/28/16 04:52 Sheets-Niota Bodies Not Reportable 11/28/16 04:52 Adams Rings Not Reportable 11/28/16 04:52 Dave Cells Not Reportable 11/28/16 04:52 Bite Cells Not Reportable 11/28/16 04:52 Crenated Cell Not Reportable 11/28/16 04:52 Elliptocytes Not Reportable 11/28/16 04:52 Acanthocytes (Spur) Not Reportable 11/28/16 04:52 Rouleaux Not Reportable 11/28/16 04:52 Hemoglobin C Crystals Not Reportable 11/28/16 04:52 Schistocytes Not Reportable 11/28/16 04:52 Malaria parasites Not Reportable 11/28/16 04:52 Javon Bodies Not Reportable 11/28/16 04:52 Hem Pathologist Commnt No 11/28/16 04:52 PT 15.8 Sec. (12.2-14.9) H 11/26/16 18:40 INR 1.20 (0.87-1.13) H 11/26/16 18:40 POC ABG pH 7.574 (7.35-7.45) H 11/27/16 05:43 POC ABG pCO2 29.9 (35-45) L 11/27/16 05:43 POC ABG pO2 147 (80-105) H 11/27/16 05:43 POC ABG HCO3 27.6 11/27/16 05:43 POC ABG Total CO2 28 11/27/16 05:43 POC ABG O2 Sat 100 11/27/16 05:43 POC ABG Base Excess 6 11/27/16 05:43 VBG pH 7.376 (7.320-7.420) 11/26/16 18:40 FiO2 100 % 11/27/16 05:43 Sodium 140 mmol/L (137-145) 11/28/16 04:52 Potassium 4.0 mmol/L (3.6-5.0) 11/28/16 04:52 Chloride 110.0 mmol/L (98-107) H 11/28/16 04:52 Carbon Dioxide 20 mmol/L (22-30) L 11/28/16 04:52 Anion Gap 14 mmol/L 11/28/16 04:52 BUN 7 mg/dL (7-17) 11/28/16 04:52 Creatinine 0.3 mg/dL (0.7-1.2) L 11/28/16 04:52 Estimated GFR > 60 ml/min 11/28/16 04:52 BUN/Creatinine Ratio 23.33 % 11/28/16 04:52 Glucose 66 mg/dL (65-100) 11/28/16 04:52 POC Glucose 84 (70-105) 11/28/16 12:16 Lactic Acid 0.90 mmol/L (0.7-2.0) 11/27/16 20:41 Calcium 7.0 mg/dL (8.4-10.2) L 11/28/16 04:52 Total Bilirubin 0.20 mg/dL (0.1-1.2) 11/26/16 18:40 AST 15 units/L (5-40) 11/26/16 18:40 ALT 7 units/L (7-56) 11/26/16 18:40 Alkaline Phosphatase 256 units/L (35-129) H 11/26/16 18:40 Total Creatine Kinase 18 units/L (30-135) L 11/26/16 18:40 CK-MB (CK-2) 1.4 ng/mL (0.0-4.0) 11/26/16 18:40 CK-MB (CK-2) Rel Index 7.7 (0-4) H 11/26/16 18:40 Troponin T < 0.010 ng/mL (0.00-0.029) 11/26/16 18:40 NT-Pro-B Natriuret Pep 13034 pg/mL (0-900) H 11/26/16 18:40 Total Protein 4.9 g/dL (6.3-8.2) L 11/26/16 18:40 Albumin 1.6 g/dL (3.9-5) L 11/26/16 18:40 Albumin/Globulin Ratio 0.5 % 11/26/16 18:40 Urine Color Matilde (Yellow) 11/26/16 18:35 Urine Turbidity Turbid (Clear) 11/26/16 18:35 Urine pH 6.0 (5.0-7.0) 11/26/16 18:35 Ur Specific [place] 1.018 (1.003-1.030) 11/26/16 18:35 Urine Protein 100 mg/dl mg/dL (Negative) 11/26/16 18:35 Urine Glucose (UA) Neg mg/dL (Negative) 11/26/16 18:35 Urine Ketones Neg mg/dL (Negative) 11/26/16 18:35 Urine Blood Neg (Negative) 11/26/16 18:35 Urine Nitrite Neg (Negative) 11/26/16 18:35 Urine Bilirubin Neg (Negative) 11/26/16 18:35 Urine Urobilinogen < 2.0 mg/dL (<2.0) 11/26/16 18:35 Ur Leukocyte Esterase Mod (Negative) 11/26/16 18:35 Urine WBC (Auto) > 182.0 /HPF (0.0-6.0) H 11/26/16 18:35 Urine RBC (Auto) 6.0 /HPF (0.0-6.0) 11/26/16 18:35 Urine Bacteria (Auto) 4+ /HPF (Negative) 11/26/16 18:35 Urine WBC Clumps 3+ /HPF 11/26/16 18:35 Urine Mucus 3+ /HPF 11/26/16 18:35 Blood Type B POSITIVE 11/26/16 20:38 Antibody Screen TNR 11/26/16 20:38 NIRAV Antibody Screen Negative 11/26/16 20:38
[2016-11-28] MEDS ORDERED: CLEOCIN 600 MG/50 mL 600 MG/50 ML BAG IV SCH (18:00)
[2016-11-28] MEDS: FEOSOL PO SCH (20:52)
[2016-11-28] MEDS: SENOKOT PO SCH (21:30)
[2016-11-28] MEDS: LOPRESSOR PO SCH (21:34)
[2016-11-28] MEDS: REMERON PO SCH (21:35)
[2016-11-29] MEDS: NACL 0.9% 1000 ML 1,000 ML IV SCH ×3 (00:08→20:02)
[2016-11-29] MEDS: VANCOMYCIN VIAL 1,250 MG in NACL 0.9% 250ML 250 ML IV SCH ×2 (00:08→09:11)
[2016-11-29] MEDS: CLEOCIN 600 MG/50 mL 600 MG/50 ML BAG IV SCH ×3 (05:06→20:02)
[2016-11-29 05:49] LABS: Basophils % (Auto) 0.2 % (0.0-1.8); Eosinophils % (Auto) 1.1 % (0.0-4.3); Hematocrit 28.6 % (30.3-42.9); Hemoglobin 9.2 gm/dl (10.1-14.3); Mean Corpuscular HGB Conc 32 % (30-34); Mean Corpuscular Hemoglobin 31 pg (28-32); Mean Corpuscular Volume 97 fl (79-97); Platelet Count 204 K/mm3 (140-440); Red Blood Count 2.95 M/mm3 (3.65-5.03); Red Cell Distribution Width 19.5 % (13.2-15.2); White Blood Count 6.2 K/mm3 (4.5-11.0)
[2016-11-29 06:07] LABS: Anion Gap 14 mmol/L; Blood Urea Nitrogen 6 mg/dL (7-17); Calcium 7.1 mg/dL (8.4-10.2); Carbon Dioxide 22 mmol/L (22-30); Chloride 112.3 mmol/L (98-107); Glucose 100 mg/dL (65-100); Potassium 3.1 mmol/L (3.6-5.0); Sodium 145 mmol/L (137-145)
[2016-11-29 06:35] LABS: ISTAT Base Excess -1; ISTAT HCO3 22.2; ISTAT PCO2 30.2 (35-45); ISTAT PH 7.474 (7.35-7.45); ISTAT PO2 95 (80-105); ISTAT SO2 98; ISTAT TCO2 23
[2016-11-29] MEDS: XARELTO PO SCH (09:11)
[2016-11-29] MEDS: LOPRESSOR PO SCH ×2 (09:11→21:25)
[2016-11-29] MEDS: FEOSOL PO SCH (09:11)
[2016-11-29] MEDS ORDERED: POTASSIUM CHLORIDE FEEDTUBE ONE ×2 (10:00→14:00)
--- NOTE | 2016-11-29 10:00 | XRay Report ---
AP CHEST: HISTORY: Followup respiratory failure Mild improvement in the pulmonary venous congestion and small bilateral pleural effusions is demonstrated since yesterday's exam. Borderline to mild cardiomegaly is stable. There are atelectatic changes at the left lung base. No convincing pneumonia or pneumothorax. IMPRESSION: Mild improvement in CHF since yesterday's exam.
[2016-11-29] MEDS: PEPCID PO SCH ×2 (10:15→21:25)
--- NOTE | 2016-11-29 13:01 | Progress Note ---
Assessment and Plan Acute respiratory failure Aspiration pneumonia. Chest x-ray postintubation with not only infiltrates AMS. Poorly controlled blood sugar. Recommendations Continue vent support Neurology consult DVT prophylaxis SBT reassessment in am CCT 35 min Subjective Date of service: 11/29/16 Interval history: Intubated.Off sedation sunce last night. Brother in room- states she used to be talkative in NH until recently, when she was noted more slurred, confused Objective Vital Signs - 12hr 11/29/16 11/29/16 11/29/16 01:30 02:00 02:30 Temperature Pulse Rate 110 H 109 H 110 H Pulse Rate [ From Monitor] Respiratory 16 13 19 Rate Blood Pressure 114/64 110/63 121/61 O2 Sat by Pulse 99 100 100 Oximetry 11/29/16 11/29/16 11/29/16 03:00 03:30 04:00 Temperature 98.8 F Pulse Rate 111 H 112 H 110 H Pulse Rate [ 119 H From Monitor] Respiratory 22 25 H 24 Rate Blood Pressure 117/67 112/64 122/73 O2 Sat by Pulse 99 98 99 Oximetry 11/29/16 11/29/16 11/29/16 04:30 05:00 05:30 Temperature Pulse Rate 152 H 123 H 119 H Pulse Rate [ From Monitor] Respiratory 11 L 25 H 8 L Rate Blood Pressure 125/66 114/64 106/58 O2 Sat by Pulse 95 99 99 Oximetry 11/29/16 11/29/16 11/29/16 06:00 06:30 07:00 Temperature Pulse Rate 119 H 116 H 110 H Pulse Rate [ From Monitor] Respiratory 8 L 25 H 17 Rate Blood Pressure 108/64 103/61 114/63 O2 Sat by Pulse 99 100 99 Oximetry 11/29/16 11/29/16 11/29/16 07:30 08:00 08:30 Temperature 98.6 F Pulse Rate 119 H 119 H 120 H Pulse Rate [ From Monitor] Respiratory 23 25 H 20 Rate Blood Pressure 110/65 104/62 105/61 O2 Sat by Pulse 100 100 100 Oximetry 11/29/16 11/29/16 11/29/16 09:00 09:11 09:30 Temperature Pulse Rate 120 H 120 H 115 H Pulse Rate [ From Monitor] Respiratory 23 24 Rate Blood Pressure 101/60 101/60 100/59 O2 Sat by Pulse 100 100 Oximetry 11/29/16 11/29/16 11/29/16 10:00 10:30 11:00 Temperature Pulse Rate 115 H 114 H 112 H Pulse Rate [ From Monitor] Respiratory 21 24 20 Rate Blood Pressure 97/61 93/57 95/59 O2 Sat by Pulse 100 100 100 Oximetry 11/29/16 11/29/16 11/29/16 11:29 11:30 12:00 Temperature Pulse Rate 112 H 112 H 114 H Pulse Rate [ From Monitor] Respiratory 21 27 H Rate Blood Pressure 96/59 92/58 92/56 O2 Sat by Pulse 100 100 100 Oximetry Constitutional: no acute distress, comatose, other ( intubated) Eyes: non-icteric ENT: other (ETT of 22) Effort: normal Ascultation: Bilateral: clear, diminished breath sounds Cardiovascular: regular rate and rhythm Gastrointestinal: normoactive bowel sounds, non-distended Integumentary: normal Extremities: no cyanosis, no edema CBC and BMP: 11/29/16 05:15 11/29/16 05:15 ABG, PT/INR, D-dimer: ABG POC ABG pH 7.474 (7.35-7.45) H 11/29/16 05:23 POC ABG pCO2 30.2 (35-45) L 11/29/16 05:23 POC ABG pO2 95 (80-105) 11/29/16 05:23 POC ABG HCO3 22.2 11/29/16 05:23 POC ABG Total CO2 23 11/29/16 05:23 POC ABG O2 Sat 98 11/29/16 05:23 PT/INR, D-dimer PT 15.8 Sec. (12.2-14.9) H 11/26/16 18:40 INR 1.20 (0.87-1.13) H 11/26/16 18:40 Abnormal lab findings: Abnormal Labs 11/26/16 11/27/16 11/27/16 20:20 05:43 23:43 RBC Hgb Hct MCV RDW Lymph % (Auto) [place] % (Auto) Lymph # Seg Neutrophils % Seg Neuts % (Manual) Lymphocytes % (Manual) Lymphocytes # (Manual) POC ABG pH 7.574 H POC ABG pCO2 29.9 L POC ABG pO2 57 L 147 H Potassium Chloride Carbon Dioxide BUN Creatinine POC Glucose 63 L Calcium Vancomycin Trough 11/28/16 11/28/16 11/29/16 04:52 04:52 05:15 RBC 3.04 L 2.95 L Hgb 9.4 L 9.2 L Hct 28.6 L MCV 102 H D RDW 19.9 H 19.5 H Lymph % (Auto) 13.1 L [place] % (Auto) 7.9 H Lymph # 0.8 L Seg Neutrophils % 77.7 H Seg Neuts % (Manual) 83.0 H Lymphocytes % (Manual) 6.0 L Lymphocytes # (Manual) 0.4 L POC ABG pH POC ABG pCO2 POC ABG pO2 Potassium Chloride 110.0 H Carbon Dioxide 20 L BUN Creatinine 0.3 L POC Glucose Calcium 7.0 L Vancomycin Trough 11/29/16 11/29/16 11/29/16 05:15 05:23 06:18 RBC Hgb Hct MCV RDW Lymph % (Auto) [place] % (Auto) Lymph # Seg Neutrophils % Seg Neuts % (Manual) Lymphocytes % (Manual) Lymphocytes # (Manual) POC ABG pH 7.474 H POC ABG pCO2 30.2 L POC ABG pO2 Potassium 3.1 L D Chloride 112.3 H Carbon Dioxide BUN 6 L Creatinine 0.3 L POC Glucose 120 H Calcium 7.1 L Vancomycin Trough 11/29/16 11/29/16 07:05 11:54 RBC Hgb Hct MCV RDW Lymph % (Auto) [place] % (Auto) Lymph # Seg Neutrophils % Seg Neuts % (Manual) Lymphocytes % (Manual) Lymphocytes # (Manual) POC ABG pH POC ABG pCO2 POC ABG pO2 Potassium Chloride Carbon Dioxide BUN Creatinine POC Glucose 122 H Calcium Vancomycin Trough 41.9 H
--- NOTE | 2016-11-29 13:16 | Consultation ---
History of Present Illness Consult date: 11/29/16 Requesting physician: TRIPP GUARDADO Reason for Consult: AMS Chief complaint: AMS limits direct hx History of present illness: 61 YO F Hx HTN/DM2/AFib Tsf from [place] 11/27 for difficulty of breathing, decreased responsiveness unable to protect her airway and she was intubated in the emergency department found to have Acute respiratory failure, Aspiration pneumonia versus community acquired pneumonia. Sepsis with hypotension and Acute metabolic encephalopathy as well as UTI. off sedation since 11/28 PM she is not following commands. Sx of AMS are constant. Sx are constant but waxing and waning. There are no clear aggravating, relieving or temporal factors. Severity is such to limit ADLs. Past History Past Medical History: atrial fib, diabetes, GERD, hypertension Past Surgical History: No surgical history, Other (reviewed) Social history: single. denies: smoking, alcohol abuse, prescription drug abuse Family history: no significant family history (reviewed) Medications and Allergies Allergies Allergy/AdvReac Type Severity Reaction Status Date / Time codeine Allergy Unknown Verified 11/26/16 18:38 Home Medications Medication Instructions Recorded Confirmed Last Taken Type Acetaminophen [Shake That Ache] 500 mg PO Q6H PRN 11/28/16 11/28/16 Unknown History Ascorbic Acid [Vitamin C with [place] 500 mg PO BID 11/28/16 11/28/16 Unknown History Hips] Cholecalciferol Vit D3 [Vitamin D3] 50,000 unit PO QWEEK 11/28/16 11/28/16 Unknown History Docusate Sodium [Dok] 100 mg PO BID 11/28/16 11/28/16 Unknown History Esomeprazole Magnesium [NexIUM] 40 mg PO QAM 11/28/16 11/28/16 Unknown History Ferrous Sulfate [Feosol] 325 mg PO TID 11/28/16 11/28/16 Unknown History Metoprolol [Lopressor] 75 mg PO BID 11/28/16 11/28/16 Unknown History Mirtazapine [Remeron] 15 mg PO HS 11/28/16 11/28/16 Unknown History Multivitamin Tab [Multiple Vitamin 1 each PO QDAY 11/28/16 11/28/16 Unknown History TAB (Theragran)] Rivaroxaban [Xarelto] 20 mg PO QAM 11/28/16 11/28/16 Unknown History Sennosides [Senna Lax] 8.6 mg PO HS 11/28/16 11/28/16 Unknown History Vitamin A Palmitate [Vitamin A] 10,000 unit PO QDAY 11/28/16 11/28/16 Unknown History Zinc Sulfate 220 mg PO QDAY 11/28/16 11/28/16 Unknown History Active Meds: Active Medications Acetaminophen (Tylenol) 650 mg CO Q4H PRN PRN Reason: Pain, Mild (1-3) Last Admin: 11/26/16 19:05 Dose: 650 mg Al Hydrox/Mg Hydrox/Simethicone (Alum-Mag Hydrox-Simeth [phone]/5ml) 30 ml PO Q4H PRN PRN Reason: Indigestion Lipase/Protease/Amylase (Pancreaze Dr 10,500 Unit) 1 each FEEDTUBE PRN PRN PRN Reason: For Clogged Feeding Tube Bisacodyl (Dulcolax) 10 mg CO QDAY PRN PRN Reason: constipation unrelieved by MOM Famotidine (Pepcid) 20 mg PO BID OCT[facility] Last Admin: 11/29/16 10:15 Dose: 20 mg Ferrous Sulfate (Ferrous Sulfate) 300 mg PO TID OCTAV[facility] Hydrophilic Ointment (Vaseline Lip Therapy) 1 applic TP Q2HR PRN PRN Reason: Dry Lips Fentanyl Citrate (Fentanyl Drip Premix) 2,000 mcg in 100 mls @ 3.969 mls/hr IV TITR OCTAVIO; 1 MCG/KG/HR PRN Reason: Protocol Last Titration: 11/28/16 07:00 Dose: 0 mcg/kg/hr, 0 mls/hr Lorazepam 100 mg/ Sodium Chloride/ Miscellaneous Information 100 mls @ 1 mls/ hr IV TITR OCTAVIO; 1 MG/HR PRN Reason: Protocol Last Titration: 11/28/16 17:20 Dose: 0 mg/hr, 0 mls/hr Sodium Chloride (Nacl 0.9% 1000 Ml) 1,000 mls @ 75 mls/hr IV DIRECT OCTAVIO Last Admin: 11/29/16 00:08 Dose: 75 mls/hr Norepinephrine (Levophed Drip 4 Mg/Ns 250 Ml) 4 mg in 250 mls @ 7.5 mls/hr IV TITR OCTAVIO; 2 MCG/MIN PRN Reason: Protocol Clindamycin HCl (Cleocin 600 Mg/50 Ml) 600 mg in 50 mls @ 100 mls/hr IV Q8H OCTAVIO PRN Reason: Protocol Last Admin: 11/29/16 05:06 Dose: 100 mls/hr Magnesium Hydroxide (Milk Of Magnesia) 30 ml PO Q4H PRN PRN Reason: Constipation Metoprolol Tartrate (Lopressor) 75 mg PO BID [facility] Last Admin: 11/29/16 09:11 Dose: 75 mg Mirtazapine (Remeron) 15 mg PO [facility] Last Admin: 11/28/16 21:35 Dose: Not Given Multi-Ingred Cream/Lotion/Oil/Oint (Artificial Tears Ophth Oint) 1 applic OU Q4HR PRN PRN Reason: Dry Eye(s) Rivaroxaban (Xarelto) 20 mg PO QAM [facility] PRN Reason: Protocol Last Admin: 11/29/16 09:11 Dose: 20 mg Senna (Senokot) 8.6 mg PO [facility] Last Admin: 11/28/16 21:30 Dose: 8.6 mg Simple Syrup (Simple Syrup) 15 ml FEEDTUBE PRN PRN PRN Reason: Hypoglycemia Last Admin: 11/28/16 00:22 Dose: 15 ml Simple Syrup (Simple Syrup) 30 ml FEEDTUBE PRN PRN PRN Reason: Hypoglycemia Sodium Bicarbonate (Sodium Bicarbonate) 325 mg FEEDTUBE PRN PRN PRN Reason: For Clogged Feeding Tube Vancomycin HCl (Vancomycin Pharmacy To Dose) 1 each IV PKCONSULT [facility] PRN Reason: Protocol Review of Systems ROS unobtainable: due to endotracheal tube, due to mental status Physical Examination - Vital Signs Vital Signs: Vital Signs Pulse Pulse Ox 111 H 96 11/26/16 18:18 11/26/16 18:18 - Constitutional General appearance: acutely ill, chronically ill - EENT EENT: Present: ATNC, PERRL, mucous membranes moist, hearing intact - Respiratory Respiratory: Present: chest non-tender, normal breath sounds, decreased breath sounds - Cardiovascular Cardiovascular: Present: regular rate Extremities: Present: no peripheral edema bilatateraly, no clubbing, cyanosis, no inflammation, no ischemia or petechiae - Gastrointestinal Gastrointestinal: Present: normoactive bowel sounds, soft, non-distended - Integumentary Integumentary: Present: normal - Neurologic Cranial nerve examination: PERRL, face symmetric, intact, intact corneal reflex Speech examination: other (no speech, not following commands) Detailed motor examination: other (faint UE/LE withdrawal 1-2/5) Motor examination - right side: 2/5: biceps, triceps, wrist flexion, wrist extension, muffle operator, hip flexors, knee extensors, dorsiflexion, toe extension (EHL) , plantarflexion Motor examination - left side: 2/5: biceps, triceps, wrist flexion, wrist extension, muffle operator, hip flexors, knee extensors, dorsiflexion, toe extension (EHL) , plantarflexion Detailed sensory examination: intact, pain Reflexes: 0: ankle, knee, 1+: bicep, tricep - Musculoskeletal Musculoskeletal: Present: no fluid collection, no pain, normal range of motion Results - Laboratory Findings CBC and BMP: 11/29/16 05:15 11/29/16 05:15 Abnormal Lab Findings: Abnormal Labs 11/26/16 11/27/16 11/27/16 20:20 05:43 23:43 RBC Hgb Hct MCV RDW Lymph % (Auto) [place] % (Auto) Lymph # Seg Neutrophils % Seg Neuts % (Manual) Lymphocytes % (Manual) Lymphocytes # (Manual) POC ABG pH 7.574 H POC ABG pCO2 29.9 L POC ABG pO2 57 L 147 H Potassium Chloride Carbon Dioxide BUN Creatinine POC Glucose 63 L Calcium Vancomycin Trough 11/28/16 11/28/16 11/29/16 04:52 04:52 05:15 RBC 3.04 L 2.95 L Hgb 9.4 L 9.2 L Hct 28.6 L MCV 102 H D RDW 19.9 H 19.5 H Lymph % (Auto) 13.1 L [place] % (Auto) 7.9 H Lymph # 0.8 L Seg Neutrophils % 77.7 H Seg Neuts % (Manual) 83.0 H Lymphocytes % (Manual) 6.0 L Lymphocytes # (Manual) 0.4 L POC ABG pH POC ABG pCO2 POC ABG pO2 Potassium Chloride 110.0 H Carbon Dioxide 20 L BUN Creatinine 0.3 L POC Glucose Calcium 7.0 L Vancomycin Trough 11/29/16 11/29/16 11/29/16 05:15 05:23 06:18 RBC Hgb Hct MCV RDW Lymph % (Auto) [place] % (Auto) Lymph # Seg Neutrophils % Seg Neuts % (Manual) Lymphocytes % (Manual) Lymphocytes # (Manual) POC ABG pH 7.474 H POC ABG pCO2 30.2 L POC ABG pO2 Potassium 3.1 L D Chloride 112.3 H Carbon Dioxide BUN 6 L Creatinine 0.3 L POC Glucose 120 H Calcium 7.1 L Vancomycin Trough 11/29/16 11/29/16 07:05 11:54 RBC Hgb Hct MCV RDW Lymph % (Auto) [place] % (Auto) Lymph # Seg Neutrophils % Seg Neuts % (Manual) Lymphocytes % (Manual) Lymphocytes # (Manual) POC ABG pH POC ABG pCO2 POC ABG pO2 Potassium Chloride Carbon Dioxide BUN Creatinine POC Glucose 122 H Calcium Vancomycin Trough 41.9 H Assessment and Plan 61 YO F Hx HTN/DM2/AFib Tsf from [place] 11/27 for SOB/AMS intubated in the emergency department found to have Acute resp failure, Asp PNA vs. CAP, Sepsis with hypotension as well as UTI. On exam pt w/ depressed level of arousal, poor attention/concentration, paucity of speech, not following midline/peripheral commands but slight faint withdrawal to pain. I suspect toxic metabolic infectious derangement as the etiology for neurologic decompensation. There is no clear new focality on neurologic examination to suggest acute HYDROLOGICAL TECHNICAL OFFICER process e.g. Stroke, Seizure or Meningitis. CTH neg. TSH/B12/NH4 neg Recommendations: 1. MRI Brain w/o [place] to r/o acute HYDROLOGICAL TECHNICAL OFFICER lesion. 2. Cont Infectious work up/medical management for UTI, PNA, cellulitis, bacteremia, etc. 3. Avoid hyponatremia,o/hyper-calcemia, hypo/hyperglycemia, acidosis, hypoxia/ hypoxemia, hypercarbia/hypercapnia 4. Avoid institution of any new psychoactive medications (e.g. antihistamines, anticholinergics, BZD, hypnotics, opiates) as able unless low doses of low potency antipsychotic needed for behavioral issues complicating medical care 5. Specific neurologic assessment of likelihood of prognosis back to baseline @ this point is limited as there is no active primary neurologic issue ongoing, and therefore prognosis will be completely secondary to any potential progress patient is able to make from multiple ongoing critical medical issues as above. 6. Thiamine/Folate/CIWA protocol accordingly for any hx obtained to suggest EtOH withdrawal 7. Cont home meds-there is no neurologic indication to change
--- NOTE | 2016-11-29 13:42 | Progress Note ---
Assessment and Plan Assessment and plan: 61-year-old female brought via EMS from longterm after she was found to have difficulty of breathing, decreased responsiveness. Patient medical history significant for hypertension, diabetes mellitus, A. fib, bilateral lower extremity pressure sores. Patient was unable to protect her airway and she was intubated in the emergency department. Acute respiratory failure Aspiration pneumonia versus community acquired pneumonia Sepsis with hypotension Acute metabolic encephalopathy UTI - Patient is intubated and on mechanical ventilation - Patient is treated according to sepsis protocol with IV vancomycin and clindamycin, IV fluids - Blood culture negative so far - Pulmonary consult appreciated - Sedation was off and the patient didn't wake up, neurology consult is placed - MRI ordered Prognosis is poor. Patient is Full code. The high probability of a clinically significant, sudden or life threatening deterioration of the [neurology, cardiovascular, respiratory] system(s) required my full and direct attention, intervention and personal management. The aggregate critical care time was [x] minutes. This time is in addition to time spent performing reported procedures but includes the following: [x] Data Review and interpretation [x] Patient assessment and monitoring of vital signs [x] Documentation [x] Medication orders and managementDVT prophylaxis - Lovenox Disposition - Transferred to ICU, she insisted in the emergency department waiting for bed. History Interval history: Patient was seen and evaluated this morning, patient is intubated, mechanically ventilated, she is off sedation and comatose. I have discussed the management plan with her brothers, they were in the room while I examine the patient. Hospitalist Physical - Physical exam Narrative exam: Patient is intubated and mechanically ventilated. Comatose. The patient appeared well nourished and normally developed. Vital signs as documented. Head exam is unremarkable. No scleral icterus . Neck is without jugular venous distension, thyromegaly, or carotid bruits. Lungs are clear to auscultation. Cardiac exam reveals regular rate and Rhythm. First and second heart sounds normal. No murmurs, rubs or gallops. Abdominal exam reveals normal bowel sounds, no masses, no organomegaly and no aortic enlargement. Extremities clean dressing on bilateral lower extremities, on the sores. HEMODIALYSIS PATIENT CARE SPECIALIST: comatose. - Constitutional Vitals: Temp Pulse Resp BP Pulse Ox 98.2 F 114 H 27 H 92/56 100 11/29/16 12:00 11/29/16 12:00 11/29/16 12:00 11/29/16 12:00 11/29/16 12:00 General appearance: Present: severe distress, cachectic, disheveled, malodorous Results - Labs CBC & Chem 7: 11/29/16 05:15 11/29/16 05:15 Labs: Laboratory Last Values WBC 6.2 K/mm3 (4.5-11.0) 11/29/16 05:15 RBC 2.95 M/mm3 (3.65-5.03) L 11/29/16 05:15 Hgb 9.2 gm/dl (10.1-14.3) L 11/29/16 05:15 Hct 28.6 % (30.3-42.9) L 11/29/16 05:15 MCV 97 fl (79-97) D 11/29/16 05:15 MCH 31 pg (28-32) 11/29/16 05:15 MCHC 32 % (30-34) 11/29/16 05:15 RDW 19.5 % (13.2-15.2) H 11/29/16 05:15 Plt Count 204 K/mm3 (140-440) 11/29/16 05:15 Lymph % (Auto) 13.1 % (13.4-35.0) L 11/29/16 05:15 [place] % (Auto) 7.9 % (0.0-7.3) H 11/29/16 05:15 Eos % (Auto) 1.1 % (0.0-4.3) 11/29/16 05:15 Baso % (Auto) 0.2 % (0.0-1.8) 11/29/16 05:15 Lymph # 0.8 K/mm3 (1.2-5.4) L 11/29/16 05:15 [place] # 0.5 K/mm3 (0.0-0.8) 11/29/16 05:15 Eos # 0.1 K/mm3 (0.0-0.4) 11/29/16 05:15 Baso # 0.0 K/mm3 (0.0-0.1) 11/29/16 05:15 Add Manual Diff Complete 11/28/16 04:52 Total Counted 100 11/28/16 04:52 Seg Neutrophils % 77.7 % (40.0-70.0) H 11/29/16 05:15 Seg Neuts % (Manual) 83.0 % (40.0-70.0) H 11/28/16 04:52 Band Neutrophils % 7.0 % 11/28/16 04:52 Lymphocytes % (Manual) 6.0 % (13.4-35.0) L 11/28/16 04:52 Reactive Lymphs % (Man) 0 % 11/28/16 04:52 Monocytes % (Manual) 1.0 % (0.0-7.3) 11/28/16 04:52 Eosinophils % (Manual) 3.0 % (0.0-4.3) 11/28/16 04:52 Basophils % (Manual) 0 % (0.0-1.8) 11/28/16 04:52 Metamyelocytes % 0 % 11/28/16 04:52 Myelocytes % 0 % 11/28/16 04:52 Promyelocytes % 0 % 11/28/16 04:52 Blast Cells % 0 % 11/28/16 04:52 Nucleated RBC % Not Reportable 11/28/16 04:52 Seg Neutrophils # 4.9 K/mm3 (1.8-7.7) 11/29/16 05:15 Seg Neutrophils # Man 5.4 K/mm3 (1.8-7.7) 11/28/16 04:52 Band Neutrophils # 0.5 K/mm3 11/28/16 04:52 Lymphocytes # (Manual) 0.4 K/mm3 (1.2-5.4) L 11/28/16 04:52 Abs React Lymphs (Man) 0.0 K/mm3 11/28/16 04:52 Monocytes # (Manual) 0.1 K/mm3 (0.0-0.8) 11/28/16 04:52 Eosinophils # (Manual) 0.2 K/mm3 (0.0-0.4) 11/28/16 04:52 Basophils # (Manual) 0.0 K/mm3 (0.0-0.1) 11/28/16 04:52 Metamyelocytes # 0.0 K/mm3 11/28/16 04:52 Myelocytes # 0.0 K/mm3 11/28/16 04:52 Promyelocytes # 0.0 K/mm3 11/28/16 04:52 Blast Cells # 0.0 K/mm3 11/28/16 04:52 WBC Morphology Not Reportable 11/28/16 04:52 Hypersegmented Neuts Not Reportable 11/28/16 04:52 Hyposegmented Neuts Not Reportable 11/28/16 04:52 Hypogranular Neuts Not Reportable 11/28/16 04:52 Smudge Cells Not Reportable 11/28/16 04:52 Toxic Granulation Not Reportable 11/28/16 04:52 Toxic Vacuolation Not Reportable 11/28/16 04:52 Dohle Bodies Not Reportable 11/28/16 04:52 Pelger-Huet Anomaly Not Reportable 11/28/16 04:52 Caitlin Rods Not Reportable 11/28/16 04:52 Platelet Estimate Consistent w auto 11/28/16 04:52 Clumped Platelets Not Reportable 11/28/16 04:52 Plt Clumps, EDTA Not Reportable 11/28/16 04:52 Large Platelets Not Reportable 11/28/16 04:52 Giant Platelets Not Reportable 11/28/16 04:52 Platelet Satelliting Not Reportable 11/28/16 04:52 Plt Morphology Comment Not Reportable 11/28/16 04:52 RBC Morphology Not Reportable 11/28/16 04:52 Dimorphic RBCs Not Reportable 11/28/16 04:52 Polychromasia Not Reportable 11/28/16 04:52 Hypochromasia Not Reportable 11/28/16 04:52 Poikilocytosis Not Reportable 11/28/16 04:52 Anisocytosis Not Reportable 11/28/16 04:52 Microcytosis Not Reportable 11/28/16 04:52 Macrocytosis Few 11/28/16 04:52 Spherocytes Not Reportable 11/28/16 04:52 Pappenheimer Bodies Not Reportable 11/28/16 04:52 Sickle Cells Not Reportable 11/28/16 04:52 Target Cells Not Reportable 11/28/16 04:52 Tear Drop Cells Not Reportable 11/28/16 04:52 Ovalocytes Not Reportable 11/28/16 04:52 Helmet Cells Not Reportable 11/28/16 04:52 [place] Bodies Not Reportable 11/28/16 04:52 [place] Rings Not Reportable 11/28/16 04:52 [place] Cells Not Reportable 11/28/16 04:52 Bite Cells Not Reportable 11/28/16 04:52 Crenated Cell Not Reportable 11/28/16 04:52 Elliptocytes Not Reportable 11/28/16 04:52 Acanthocytes (Spur) Not Reportable 11/28/16 04:52 Rouleaux Not Reportable 11/28/16 04:52 Hemoglobin C Crystals Not Reportable 11/28/16 04:52 Schistocytes Not Reportable 11/28/16 04:52 Malaria parasites Not Reportable 11/28/16 04:52 Javon Bodies Not Reportable 11/28/16 04:52 Hem Pathologist Commnt No 11/28/16 04:52 PT 15.8 Sec. (12.2-14.9) H 11/26/16 18:40 INR 1.20 (0.87-1.13) H 11/26/16 18:40 POC ABG pH 7.474 (7.35-7.45) H 11/29/16 05:23 POC ABG pCO2 30.2 (35-45) L 11/29/16 05:23 POC ABG pO2 95 (80-105) 11/29/16 05:23 POC ABG HCO3 22.2 11/29/16 05:23 POC ABG Total CO2 23 11/29/16 05:23 POC ABG O2 Sat 98 11/29/16 05:23 POC ABG Base Excess -1 11/29/16 05:23 VBG pH 7.376 (7.320-7.420) 11/26/16 18:40 FiO2 40 % 11/29/16 05:23 Sodium 145 mmol/L (137-145) 11/29/16 05:15 Potassium 3.1 mmol/L (3.6-5.0) L D 11/29/16 05:15 Chloride 112.3 mmol/L (98-107) H 11/29/16 05:15 Carbon Dioxide 22 mmol/L (22-30) 11/29/16 05:15 Anion Gap 14 mmol/L 11/29/16 05:15 BUN 6 mg/dL (7-17) L 11/29/16 05:15 Creatinine 0.3 mg/dL (0.7-1.2) L 11/29/16 05:15 Estimated GFR > 60 ml/min 11/29/16 05:15 BUN/Creatinine Ratio 20.00 % 11/29/16 05:15 Glucose 100 mg/dL (65-100) 11/29/16 05:15 POC Glucose 122 (70-105) H 11/29/16 11:54 Lactic Acid 0.90 mmol/L (0.7-2.0) 11/27/16 20:41 Calcium 7.1 mg/dL (8.4-10.2) L 11/29/16 05:15 Total Bilirubin 0.20 mg/dL (0.1-1.2) 11/26/16 18:40 AST 15 units/L (5-40) 11/26/16 18:40 ALT 7 units/L (7-56) 11/26/16 18:40 Alkaline Phosphatase 256 units/L (35-129) H 11/26/16 18:40 Ammonia 37.0 umol/L (25-60) 11/29/16 11:15 Total Creatine Kinase 18 units/L (30-135) L 11/26/16 18:40 CK-MB (CK-2) 1.4 ng/mL (0.0-4.0) 11/26/16 18:40 CK-MB (CK-2) Rel Index 7.7 (0-4) H 11/26/16 18:40 Troponin T < 0.010 ng/mL (0.00-0.029) 11/26/16 18:40 NT-Pro-B Natriuret Pep 03538 pg/mL (0-900) H 11/26/16 18:40 Total Protein 4.9 g/dL (6.3-8.2) L 11/26/16 18:40 Albumin 1.6 g/dL (3.9-5) L 11/26/16 18:40 Albumin/Globulin Ratio 0.5 % 11/26/16 18:40 Vitamin B12 768.6 pg/mL (211-911) 11/29/16 11:15 TSH 2.120 mlU/mL (0.270-4.200) 11/29/16 11:15 Urine Color Matilde (Yellow) 11/26/16 18:35 Urine Turbidity Turbid (Clear) 11/26/16 18:35 Urine pH 6.0 (5.0-7.0) 11/26/16 18:35 Ur Specific [place] 1.018 (1.003-1.030) 11/26/16 18:35 Urine Protein 100 mg/dl mg/dL (Negative) 11/26/16 18:35 Urine Glucose (UA) Neg mg/dL (Negative) 11/26/16 18:35 Urine Ketones Neg mg/dL (Negative) 11/26/16 18:35 Urine Blood Neg (Negative) 11/26/16 18:35 Urine Nitrite Neg (Negative) 11/26/16 18:35 Urine Bilirubin Neg (Negative) 11/26/16 18:35 Urine Urobilinogen < 2.0 mg/dL (<2.0) 11/26/16 18:35 Ur Leukocyte Esterase Mod (Negative) 11/26/16 18:35 Urine WBC (Auto) > 182.0 /HPF (0.0-6.0) H 11/26/16 18:35 Urine RBC (Auto) 6.0 /HPF (0.0-6.0) 11/26/16 18:35 Urine Bacteria (Auto) 4+ /HPF (Negative) 11/26/16 18:35 Urine WBC Clumps 3+ /HPF 11/26/16 18:35 Urine Mucus 3+ /HPF 11/26/16 18:35 Vancomycin Trough 41.9 ug/mL (5.0-20.0) H 11/29/16 07:05 Blood Type B POSITIVE 11/26/16 20:38 Antibody Screen TNR 11/26/16 20:38 NIRAV Antibody Screen Negative 11/26/16 20:38
[2016-11-29] MEDS: FERROUS SULFATE PO SCH ×2 (14:53→20:03)
[2016-11-29] MEDS: REMERON PO SCH (21:25)
[2016-11-29] MEDS: SENOKOT PO SCH (21:26)
[2016-11-30 04:17] LABS: ISTAT Base Excess -2; ISTAT HCO3 22.1; ISTAT PCO2 30.6 (35-45); ISTAT PH 7.468 (7.35-7.45); ISTAT PO2 85 (80-105); ISTAT SO2 97; ISTAT TCO2 23
[2016-11-30] MEDS: CLEOCIN 600 MG/50 mL 600 MG/50 ML BAG IV SCH (05:38)
[2016-11-30] MEDS: NACL 0.9% 1000 ML 1,000 ML IV SCH ×2 (05:39→20:13)
--- NOTE | 2016-11-30 07:38 | XRay Report ---
Single view chest: Compared to 11/29/16. History: Followup of respiratory failure. Findings: Cardiomegaly. Trachea is midline. Stable support system. Bilateral pleural effusion with mild pulmonary venous congestion. No significant interval change. Impression: No significant interval change.
[2016-11-30 08:02] LABS: Hematocrit 24.8 % (30.3-42.9); Hemoglobin 7.7 gm/dl (10.1-14.3); Mean Corpuscular HGB Conc 31 % (30-34); Mean Corpuscular Hemoglobin 31 pg (28-32); Mean Corpuscular Volume 99 fl (79-97); Platelet Count 165 K/mm3 (140-440); Red Blood Count 2.51 M/mm3 (3.65-5.03); Red Cell Distribution Width 19.4 % (13.2-15.2); White Blood Count 5.8 K/mm3 (4.5-11.0)
[2016-11-30 08:23] LABS: Alanine Aminotransferase 6 units/L (7-56); Alkaline Phosphatase 167 units/L (35-129); Anion Gap 12 mmol/L; Blood Urea Nitrogen 7 mg/dL (7-17); Calcium 7.1 mg/dL (8.4-10.2); Carbon Dioxide 23 mmol/L (22-30); Chloride 113.7 mmol/L (98-107); Glucose 97 mg/dL (65-100); Potassium 3.9 mmol/L (3.6-5.0); Sodium 145 mmol/L (137-145)
--- NOTE | 2016-11-30 09:05 | Progress Note ---
Assessment and Plan Acute respiratory failure. Adequate bedside oximetry and ABGs. Aspiration pneumonia. Completed antibiotics AMS. Renal improvement Poorly controlled blood sugar. Recommendations Continue current ventilator support Will wait for MRI today for further review of neurological status. Plan is to proceed with weaning assessment trial in the next 24 hours, once neurological evaluation/MRI testing updated Discussed with patient's family at the bedside in detail. All questions answered Critical care time was 31 minutes of [id number] evaluation and coordination of care Subjective Date of service: 11/30/16 Principal diagnosis: acute respiratory failure Interval history: No new events overnight. He remains intubated. Objective Vital Signs - 12hr 11/29/16 11/29/16 11/29/16 21:25 21:30 22:00 Temperature Pulse Rate 111 H 111 H 113 H Pulse Rate [ From Monitor] Respiratory 20 21 Rate Blood Pressure 96/54 98/58 87/51 O2 Sat by Pulse 99 99 Oximetry 11/29/16 11/29/16 11/29/16 22:30 23:00 23:01 Temperature Pulse Rate 108 H 107 H 107 H Pulse Rate [ From Monitor] Respiratory 20 23 20 Rate Blood Pressure 88/51 106/60 106/60 O2 Sat by Pulse 98 99 98 Oximetry 11/29/16 11/29/16 11/30/16 23:30 23:44 00:00 Temperature 100.3 F H Pulse Rate 108 H 108 H 109 H Pulse Rate [ From Monitor] Respiratory 22 18 Rate Blood Pressure 93/53 93/53 95/54 O2 Sat by Pulse 99 99 99 Oximetry 11/30/16 11/30/16 11/30/16 00:30 01:00 01:30 Temperature Pulse Rate 109 H 108 H 109 H Pulse Rate [ From Monitor] Respiratory 22 20 18 Rate Blood Pressure 91/50 92/52 89/50 O2 Sat by Pulse 99 99 99 Oximetry 11/30/16 11/30/16 11/30/16 02:00 02:30 03:01 Temperature Pulse Rate 109 H 111 H 121 H Pulse Rate [ 114 H From Monitor] Respiratory 18 22 20 Rate Blood Pressure 90/51 100/54 94/67 O2 Sat by Pulse 99 98 Oximetry 11/30/16 11/30/16 11/30/16 03:31 03:49 04:00 Temperature 99.0 F Pulse Rate 118 H 118 H 119 H Pulse Rate [ From Monitor] Respiratory 19 25 H Rate Blood Pressure 111/62 111/62 104/60 O2 Sat by Pulse 98 97 98 Oximetry 11/30/16 11/30/16 11/30/16 04:30 05:00 05:30 Temperature Pulse Rate 117 H 117 H 118 H Pulse Rate [ From Monitor] Respiratory 19 18 14 Rate Blood Pressure 99/57 97/57 90/51 O2 Sat by Pulse 98 98 98 Oximetry 11/30/16 11/30/16 11/30/16 06:00 06:30 07:00 Temperature Pulse Rate 115 H 113 H 113 H Pulse Rate [ 111 H From Monitor] Respiratory 23 24 18 Rate Blood Pressure 101/61 98/57 102/58 O2 Sat by Pulse 98 98 99 Oximetry 11/30/16 11/30/16 11/30/16 07:30 08:00 08:31 Temperature 98.7 F Pulse Rate 113 H 116 H Pulse Rate [ 117 H From Monitor] Respiratory 22 22 22 Rate Blood Pressure 100/55 110/60 O2 Sat by Pulse 98 99 99 Oximetry Constitutional: no acute distress, comatose, other ( intubated) Eyes: non-icteric ENT: other (ETT of 22) Effort: normal Ascultation: Bilateral: clear, diminished breath sounds Cardiovascular: regular rate and rhythm Gastrointestinal: normoactive bowel sounds, non-distended Integumentary: normal Extremities: no cyanosis, no edema Neurologic: other ( 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 (12.2-14.9) H 11/26/16 18:40 INR 1.20 (0.87-1.13) H 11/26/16 18:40 Abnormal lab findings: Abnormal Labs 11/26/16 11/27/16 11/27/16 20:20 05:43 23:43 RBC Hgb Hct MCV RDW Lymph % (Auto) [place] % (Auto) Lymph # Seg Neutrophils % Seg Neuts % (Manual) Lymphocytes % (Manual) Lymphocytes # (Manual) POC ABG pH 7.574 H POC ABG pCO2 29.9 L POC ABG pO2 57 L 147 H Potassium Chloride Carbon Dioxide BUN Creatinine POC Glucose 63 L Calcium ALT Alkaline Phosphatase Albumin Vancomycin Trough 11/28/16 11/28/16 11/29/16 04:52 04:52 05:15 RBC 3.04 L 2.95 L Hgb 9.4 L 9.2 L Hct 28.6 L MCV 102 H D RDW 19.9 H 19.5 H Lymph % (Auto) 13.1 L [place] % (Auto) 7.9 H Lymph # 0.8 L Seg Neutrophils % 77.7 H Seg Neuts % (Manual) 83.0 H Lymphocytes % (Manual) 6.0 L Lymphocytes # (Manual) 0.4 L POC ABG pH POC ABG pCO2 POC ABG pO2 Potassium Chloride 110.0 H Carbon Dioxide 20 L BUN Creatinine 0.3 L POC Glucose Calcium 7.0 L ALT Alkaline Phosphatase Albumin Vancomycin Trough 11/29/16 11/29/16 11/29/16 05:15 05:23 06:18 RBC Hgb Hct MCV RDW Lymph % (Auto) [place] % (Auto) Lymph # Seg Neutrophils % Seg Neuts % (Manual) Lymphocytes % (Manual) Lymphocytes # (Manual) POC ABG pH 7.474 H POC ABG pCO2 30.2 L POC ABG pO2 Potassium 3.1 L D Chloride 112.3 H Carbon Dioxide BUN 6 L Creatinine 0.3 L POC Glucose 120 H Calcium 7.1 L ALT Alkaline Phosphatase Albumin Vancomycin Trough 11/29/16 11/29/16 11/29/16 07:05 11:54 18:31 RBC Hgb Hct MCV RDW Lymph % (Auto) [place] % (Auto) Lymph # Seg Neutrophils % Seg Neuts % (Manual) Lymphocytes % (Manual) Lymphocytes # (Manual) POC ABG pH POC ABG pCO2 POC ABG pO2 Potassium Chloride Carbon Dioxide BUN Creatinine POC Glucose 122 H 179 H Calcium ALT Alkaline Phosphatase Albumin Vancomycin Trough 41.9 H 06/11/30/16 11/30/16 23:16 04:01 07:40 RBC 2.51 L Hgb 7.7 L Hct 24.8 L MCV 99 H RDW 19.4 H Lymph % (Auto) [place] % (Auto) Lymph # Seg Neutrophils % Seg Neuts % (Manual) Lymphocytes % (Manual) Lymphocytes # (Manual) POC ABG pH 7.468 H POC ABG pCO2 30.6 L POC ABG pO2 Potassium Chloride Carbon Dioxide BUN Creatinine POC Glucose 149 H Calcium ALT Alkaline Phosphatase Albumin Vancomycin Trough 11/30/16 07:40 RBC Hgb Hct MCV RDW Lymph % (Auto) [place] % (Auto) Lymph # Seg Neutrophils % Seg Neuts % (Manual) Lymphocytes % (Manual) Lymphocytes # (Manual) POC ABG pH POC ABG pCO2 POC ABG pO2 Potassium Chloride 113.7 H Carbon Dioxide BUN Creatinine 0.5 L D POC Glucose Calcium 7.1 L ALT 6 L Alkaline Phosphatase 167 H Albumin 1.0 L Vancomycin Trough
[2016-11-30] MEDS: XARELTO PO SCH (09:16)
[2016-11-30] MEDS: FERROUS SULFATE PO SCH ×3 (09:16→20:13)
[2016-11-30] MEDS: LOPRESSOR PO SCH ×2 (09:16→21:39)
[2016-11-30] MEDS: PEPCID PO SCH ×2 (09:17→21:39)
[2016-11-30 09:40] LABS: Albumin/Globulin Ratio 0.3 %
--- NOTE | 2016-11-30 13:36 | Magnetic Resonance Report ---
MRI of the brain with and without contrast. History: Altered metal status. Procedure: Routine brain protocol without contrast. Findings: The posterior fossa is normal. The ventricles are normal in size and contour. There is mild hyperintense T2 and flair signal in the periventricular white matter bilaterally. There are no masses or extra-axial collections. There is no restricted diffusion. The pituitary gland is normal. After gadolinium administration, there are no areas of abnormal parenchymal enhancement. Extensive abnormal hyperintensity is seen in the mastoid air cells bilaterally. There is diffuse hyperintense signal in the sphenoid and right maxillary sinus with minimal involvement of the anterior ethmoid air cells. Impression: 1. No acute intracranial abnormalities. 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 2. Chronic bilateral mastoiditis. 3. Findings in the paranasal sinuses which are most pronounced in the sphenoid sinus could represent acute or chronic sinusitis.
--- NOTE | 2016-11-30 15:54 | Progress Note ---
Assessment and Plan Assessment and plan: --Acute hypoxic respiratory failure requiring intubation continue supportive care pulmonary following,wean as tolerated and extubate --Sepsis with hypotension now off pressors,closely monitor --Aspiration pneumonia continue antibiotics and f/u cultures --Metabolic encephalopathy MRI no acute findings --History of A. fib rate controlled Continue beta blockers --Chronic anticoagulation ,on Xeralto closely monitor --DVT prophylaxis; patient on Xeralto Plan of care d/w family at bed side Critical care time 32 min The high probability of a clinically significant, sudden or life threatening deterioration of the [neurology, cardiovascular, respiratory] system(s) required my full and direct attention, intervention and personal management. The aggregate critical care time was [32] minutes. This time is in addition to time spent performing reported procedures but includes the following: [x] Data Review and interpretation [x] Patient assessment and monitoring of vital signs [x] Documentation [x] Medication orders and managementDVT prophylaxis History Interval history: Patient seen and evaluated,med records reviewed Orally intubated sedated Hospitalist Physical - Constitutional Vitals: Temp Pulse Resp BP Pulse Ox 98.8 F 117 H 22 90/54 100 11/30/16 12:00 11/30/16 15:00 11/30/16 15:00 11/30/16 15:00 11/30/16 15:00 General appearance: Present: no acute distress, cachectic, disheveled, other ( intubated and sedated) - EENT Eyes: Present: PERRL, EOM intact - Neck Neck: Present: supple, normal ROM - Respiratory Respiratory effort: normal Respiratory: bilateral: diminished, rhonchi, negative: rales, wheezing - Cardiovascular Rhythm: regular Heart Sounds: Present: S1 & S2 - Extremities Extremities: no ischemia, pulses intact, pulses symmetrical Peripheral Pulses: within normal limits - Abdominal General gastrointestinal: soft, non-tender, non-distended, normal bowel sounds - Integumentary Integumentary: Present: clear, warm - Psychiatric Psychiatric: other (sedated) - Neurologic Neurologic: other (sedated) Results - Labs CBC & Chem 7: 11/30/16 07:40 11/30/16 07:40 Labs: Laboratory Last Values WBC 5.8 K/mm3 (4.5-11.0) 11/30/16 07:40 RBC 2.51 M/mm3 (3.65-5.03) L 11/30/16 07:40 Hgb 7.7 gm/dl (10.1-14.3) L 11/30/16 07:40 Hct 24.8 % (30.3-42.9) L 11/30/16 07:40 MCV 99 fl (79-97) H 11/30/16 07:40 MCH 31 pg (28-32) 11/30/16 07:40 MCHC 31 % (30-34) 11/30/16 07:40 RDW 19.4 % (13.2-15.2) H 11/30/16 07:40 Plt Count 165 K/mm3 (140-440) 11/30/16 07:40 Lymph % (Auto) 13.1 % (13.4-35.0) L 11/29/16 05:15 [place] % (Auto) 7.9 % (0.0-7.3) H 11/29/16 05:15 Eos % (Auto) 1.1 % (0.0-4.3) 11/29/16 05:15 Baso % (Auto) 0.2 % (0.0-1.8) 11/29/16 05:15 Lymph # 0.8 K/mm3 (1.2-5.4) L 11/29/16 05:15 [place] # 0.5 K/mm3 (0.0-0.8) 11/29/16 05:15 Eos # 0.1 K/mm3 (0.0-0.4) 11/29/16 05:15 Baso # 0.0 K/mm3 (0.0-0.1) 11/29/16 05:15 Add Manual Diff Complete 11/28/16 04:52 Total Counted 100 11/28/16 04:52 Seg Neutrophils % 77.7 % (40.0-70.0) H 11/29/16 05:15 Seg Neuts % (Manual) 83.0 % (40.0-70.0) H 11/28/16 04:52 Band Neutrophils % 7.0 % 11/28/16 04:52 Lymphocytes % (Manual) 6.0 % (13.4-35.0) L 11/28/16 04:52 Reactive Lymphs % (Man) 0 % 11/28/16 04:52 Monocytes % (Manual) 1.0 % (0.0-7.3) 11/28/16 04:52 Eosinophils % (Manual) 3.0 % (0.0-4.3) 11/28/16 04:52 Basophils % (Manual) 0 % (0.0-1.8) 11/28/16 04:52 Metamyelocytes % 0 % 11/28/16 04:52 Myelocytes % 0 % 11/28/16 04:52 Promyelocytes % 0 % 11/28/16 04:52 Blast Cells % 0 % 11/28/16 04:52 Nucleated RBC % Not Reportable 11/28/16 04:52 Seg Neutrophils # 4.9 K/mm3 (1.8-7.7) 11/29/16 05:15 Seg Neutrophils # Man 5.4 K/mm3 (1.8-7.7) 11/28/16 04:52 Band Neutrophils # 0.5 K/mm3 11/28/16 04:52 Lymphocytes # (Manual) 0.4 K/mm3 (1.2-5.4) L 11/28/16 04:52 Abs React Lymphs (Man) 0.0 K/mm3 11/28/16 04:52 Monocytes # (Manual) 0.1 K/mm3 (0.0-0.8) 11/28/16 04:52 Eosinophils # (Manual) 0.2 K/mm3 (0.0-0.4) 11/28/16 04:52 Basophils # (Manual) 0.0 K/mm3 (0.0-0.1) 11/28/16 04:52 Metamyelocytes # 0.0 K/mm3 11/28/16 04:52 Myelocytes # 0.0 K/mm3 11/28/16 04:52 Promyelocytes # 0.0 K/mm3 11/28/16 04:52 Blast Cells # 0.0 K/mm3 11/28/16 04:52 WBC Morphology Not Reportable 11/28/16 04:52 Hypersegmented Neuts Not Reportable 11/28/16 04:52 Hyposegmented Neuts Not Reportable 11/28/16 04:52 Hypogranular Neuts Not Reportable 11/28/16 04:52 Smudge Cells Not Reportable 11/28/16 04:52 Toxic Granulation Not Reportable 11/28/16 04:52 Toxic Vacuolation Not Reportable 11/28/16 04:52 Dohle Bodies Not Reportable 11/28/16 04:52 Pelger-Huet Anomaly Not Reportable 11/28/16 04:52 Caitlin Rods Not Reportable 11/28/16 04:52 Platelet Estimate Consistent w auto 11/28/16 04:52 Clumped Platelets Not Reportable 11/28/16 04:52 Plt Clumps, EDTA Not Reportable 11/28/16 04:52 Large Platelets Not Reportable 11/28/16 04:52 Giant Platelets Not Reportable 11/28/16 04:52 Platelet Satelliting Not Reportable 11/28/16 04:52 Plt Morphology Comment Not Reportable 11/28/16 04:52 RBC Morphology Not Reportable 11/28/16 04:52 Dimorphic RBCs Not Reportable 11/28/16 04:52 Polychromasia Not Reportable 11/28/16 04:52 Hypochromasia Not Reportable 11/28/16 04:52 Poikilocytosis Not Reportable 11/28/16 04:52 Anisocytosis Not Reportable 11/28/16 04:52 Microcytosis Not Reportable 11/28/16 04:52 Macrocytosis Few 11/28/16 04:52 Spherocytes Not Reportable 11/28/16 04:52 Pappenheimer Bodies Not Reportable 11/28/16 04:52 Sickle Cells Not Reportable 11/28/16 04:52 Target Cells Not Reportable 11/28/16 04:52 Tear Drop Cells Not Reportable 11/28/16 04:52 Ovalocytes Not Reportable 11/28/16 04:52 Helmet Cells Not Reportable 11/28/16 04:52 [place] Bodies Not Reportable 11/28/16 04:52 [place] Rings Not Reportable 11/28/16 04:52 Dave Cells Not Reportable 11/28/16 04:52 Bite Cells Not Reportable 11/28/16 04:52 Crenated Cell Not Reportable 11/28/16 04:52 Elliptocytes Not Reportable 11/28/16 04:52 Acanthocytes (Spur) Not Reportable 11/28/16 04:52 Rouleaux Not Reportable 11/28/16 04:52 Hemoglobin C Crystals Not Reportable 11/28/16 04:52 Schistocytes Not Reportable 11/28/16 04:52 Malaria parasites Not Reportable 11/28/16 04:52 Javon Bodies Not Reportable 11/28/16 04:52 Hem Pathologist Commnt No 11/28/16 04:52 PT 15.8 Sec. (12.2-14.9) H 11/26/16 18:40 INR 1.20 (0.87-1.13) H 11/26/16 18:40 POC ABG pH 7.468 (7.35-7.45) H 11/30/16 04:01 POC ABG pCO2 30.6 (35-45) L 11/30/16 04:01 POC ABG pO2 85 (80-105) 11/30/16 04:01 POC ABG HCO3 22.1 11/30/16 04:01 POC ABG Total CO2 23 11/30/16 04:01 POC ABG O2 Sat 97 11/30/16 04:01 POC ABG Base Excess -2 11/30/16 04:01 VBG pH 7.376 (7.320-7.420) 11/26/16 18:40 FiO2 40 % 11/30/16 04:01 Sodium 145 mmol/L (137-145) 11/30/16 07:40 Potassium 3.9 mmol/L (3.6-5.0) D 11/30/16 07:40 Chloride 113.7 mmol/L (98-107) H 11/30/16 07:40 Carbon Dioxide 23 mmol/L (22-30) 11/30/16 07:40 Anion Gap 12 mmol/L 11/30/16 07:40 BUN 7 mg/dL (7-17) 11/30/16 07:40 Creatinine 0.5 mg/dL (0.7-1.2) L D 11/30/16 07:40 Estimated GFR > 60 ml/min 11/30/16 07:40 BUN/Creatinine Ratio 14.00 % 11/30/16 07:40 Glucose 97 mg/dL (65-100) 11/30/16 07:40 POC Glucose 134 (70-105) H 11/30/16 12:42 Lactic Acid 0.90 mmol/L (0.7-2.0) 11/27/16 20:41 Calcium 7.1 mg/dL (8.4-10.2) L 11/30/16 07:40 Total Bilirubin 0.30 mg/dL (0.1-1.2) 11/30/16 07:40 AST 9 units/L (5-40) 11/30/16 07:40 ALT 6 units/L (7-56) L 11/30/16 07:40 Alkaline Phosphatase 167 units/L (35-129) H 11/30/16 07:40 Ammonia 37.0 umol/L (25-60) 11/29/16 11:15 Total Creatine Kinase 18 units/L (30-135) L 11/26/16 18:40 CK-MB (CK-2) 1.4 ng/mL (0.0-4.0) 11/26/16 18:40 CK-MB (CK-2) Rel Index 7.7 (0-4) H 11/26/16 18:40 Troponin T < 0.010 ng/mL (0.00-0.029) 11/26/16 18:40 NT-Pro-B Natriuret Pep 87072 pg/mL (0-900) H 11/26/16 18:40 Total Protein 4.0 g/dL (6.3-8.2) L 11/30/16 07:40 Albumin 1.0 g/dL (3.9-5) L 11/30/16 07:40 Albumin/Globulin Ratio 0.3 % 11/30/16 07:40 Vitamin B12 768.6 pg/mL (211-911) 11/29/16 11:15 TSH 2.120 mlU/mL (0.270-4.200) 11/29/16 11:15 Urine Color Matilde (Yellow) 11/26/16 18:35 Urine Turbidity Turbid (Clear) 11/26/16 18:35 Urine pH 6.0 (5.0-7.0) 11/26/16 18:35 Ur Specific [place] 1.018 (1.003-1.030) 11/26/16 18:35 Urine Protein 100 mg/dl mg/dL (Negative) 11/26/16 18:35 Urine Glucose (UA) Neg mg/dL (Negative) 11/26/16 18:35 Urine Ketones Neg mg/dL (Negative) 11/26/16 18:35 Urine Blood Neg (Negative) 11/26/16 18:35 Urine Nitrite Neg (Negative) 11/26/16 18:35 Urine Bilirubin Neg (Negative) 11/26/16 18:35 Urine Urobilinogen < 2.0 mg/dL (<2.0) 11/26/16 18:35 Ur Leukocyte Esterase Mod (Negative) 11/26/16 18:35 Urine WBC (Auto) > 182.0 /HPF (0.0-6.0) H 11/26/16 18:35 Urine RBC (Auto) 6.0 /HPF (0.0-6.0) 11/26/16 18:35 Urine Bacteria (Auto) 4+ /HPF (Negative) 11/26/16 18:35 Urine WBC Clumps 3+ /HPF 11/26/16 18:35 Urine Mucus 3+ /HPF 11/26/16 18:35 Vancomycin Trough 41.9 ug/mL (5.0-20.0) H 11/29/16 07:05 Blood Type B POSITIVE 11/26/16 20:38 Antibody Screen TNR 11/26/16 20:38 NIRAV Antibody Screen Negative 11/26/16 20:38
[2016-11-30] MEDS: SENOKOT PO SCH (21:40)
[2016-11-30] MEDS: REMERON PO SCH (21:40)
[2016-12-01 07:04] LABS: Basophils % (Auto) 0.8 % (0.0-1.8); Eosinophils % (Auto) 2.1 % (0.0-4.3); Hematocrit 25.4 % (30.3-42.9); Hemoglobin 8.1 gm/dl (10.1-14.3); Mean Corpuscular HGB Conc 32 % (30-34); Mean Corpuscular Hemoglobin 31 pg (28-32); Mean Corpuscular Volume 98 fl (79-97); Platelet Count 187 K/mm3 (140-440); Red Cell Distribution Width 19.7 % (13.2-15.2)
[2016-12-01 07:17] LABS: Anion Gap 13 mmol/L; Blood Urea Nitrogen 8 mg/dL (7-17); Calcium 7.3 mg/dL (8.4-10.2); Carbon Dioxide 22 mmol/L (22-30); Chloride 113.8 mmol/L (98-107); Glucose 120 mg/dL (65-100); Potassium 3.8 mmol/L (3.6-5.0); Sodium 145 mmol/L (137-145)
--- NOTE | 2016-12-01 07:48 | Progress Note ---
Assessment and Plan Assessment and plan: --Sepsis with hypotension now off pressors,closely monitor --Acute hypoxic respiratory failure requiring intubation continue supportive care pulmonary following,wean as tolerated and extubate --Aspiration pneumonia continue antibiotics and f/u cultures --Metabolic encephalopathy MRI no acute findings --History of A. fib rate controlled Continue beta blockers --Chronic anticoagulation ,on Xeralto closely monitor --DVT prophylaxis; patient on Xeralto Plan of care d/w family at bed side Critical care time 32 min The high probability of a clinically significant, sudden or life threatening deterioration of the [neurology, cardiovascular, respiratory] system(s) required my full and direct attention, intervention and personal management. The aggregate critical care time was [31] minutes. This time is in addition to time spent performing reported procedures but includes the following: [x] Data Review and interpretation [x] Patient assessment and monitoring of vital signs [x] Documentation [x] Medication orders and managementDVT prophylaxis Hospitalist Physical - Constitutional Vitals: Temp Pulse Resp BP Pulse Ox 99.6 F 110 H 14 101/62 99 12/01/16 05:00 12/01/16 07:00 12/01/16 07:00 12/01/16 07:00 12/01/16 07:00 General appearance: Present: no acute distress, cachectic, disheveled, other ( intubated and sedated) - EENT Eyes: Present: PERRL, EOM intact - Neck Neck: Present: supple, normal ROM - Respiratory Respiratory effort: normal Respiratory: bilateral: diminished, rhonchi, negative: rales, wheezing - Cardiovascular Rhythm: regular Heart Sounds: Present: S1 & S2 - Extremities Extremities: no ischemia, pulses intact, pulses symmetrical - Abdominal General gastrointestinal: soft, non-tender, non-distended, normal bowel sounds - Integumentary Integumentary: Present: clear, warm - Psychiatric Psychiatric: other (intubated and sedated) - Neurologic Neurologic: other ( sedated) Results - Labs CBC & Chem 7: 12/01/16 06:36 12/01/16 06:36 Labs: Laboratory Last Values WBC 6.0 K/mm3 (4.5-11.0) 12/01/16 06:36 RBC 2.60 M/mm3 (3.65-5.03) L 12/01/16 06:36 Hgb 8.1 gm/dl (10.1-14.3) L 12/01/16 06:36 Hct 25.4 % (30.3-42.9) L 12/01/16 06:36 MCV 98 fl (79-97) H 12/01/16 06:36 MCH 31 pg (28-32) 12/01/16 06:36 MCHC 32 % (30-34) 12/01/16 06:36 RDW 19.7 % (13.2-15.2) H 12/01/16 06:36 Plt Count 187 K/mm3 (140-440) 12/01/16 06:36 Lymph % (Auto) 18.9 % (13.4-35.0) 12/01/16 06:36 [place] % (Auto) 9.0 % (0.0-7.3) H 12/01/16 06:36 Eos % (Auto) 2.1 % (0.0-4.3) 12/01/16 06:36 Baso % (Auto) 0.8 % (0.0-1.8) 12/01/16 06:36 Lymph # 1.1 K/mm3 (1.2-5.4) L 12/01/16 06:36 [place] # 0.5 K/mm3 (0.0-0.8) 12/01/16 06:36 Eos # 0.1 K/mm3 (0.0-0.4) 12/01/16 06:36 Baso # 0.0 K/mm3 (0.0-0.1) 12/01/16 06:36 Add Manual Diff Complete 11/28/16 04:52 Total Counted 100 11/28/16 04:52 Seg Neutrophils % 69.2 % (40.0-70.0) 12/01/16 06:36 Seg Neuts % (Manual) 83.0 % (40.0-70.0) H 11/28/16 04:52 Band Neutrophils % 7.0 % 11/28/16 04:52 Lymphocytes % (Manual) 6.0 % (13.4-35.0) L 11/28/16 04:52 Reactive Lymphs % (Man) 0 % 11/28/16 04:52 Monocytes % (Manual) 1.0 % (0.0-7.3) 11/28/16 04:52 Eosinophils % (Manual) 3.0 % (0.0-4.3) 11/28/16 04:52 Basophils % (Manual) 0 % (0.0-1.8) 11/28/16 04:52 Metamyelocytes % 0 % 11/28/16 04:52 Myelocytes % 0 % 11/28/16 04:52 Promyelocytes % 0 % 11/28/16 04:52 Blast Cells % 0 % 11/28/16 04:52 Nucleated RBC % Not Reportable 11/28/16 04:52 Seg Neutrophils # 4.2 K/mm3 (1.8-7.7) 12/01/16 06:36 Seg Neutrophils # Man 5.4 K/mm3 (1.8-7.7) 11/28/16 04:52 Band Neutrophils # 0.5 K/mm3 11/28/16 04:52 Lymphocytes # (Manual) 0.4 K/mm3 (1.2-5.4) L 11/28/16 04:52 Abs React Lymphs (Man) 0.0 K/mm3 11/28/16 04:52 Monocytes # (Manual) 0.1 K/mm3 (0.0-0.8) 11/28/16 04:52 Eosinophils # (Manual) 0.2 K/mm3 (0.0-0.4) 11/28/16 04:52 Basophils # (Manual) 0.0 K/mm3 (0.0-0.1) 11/28/16 04:52 Metamyelocytes # 0.0 K/mm3 11/28/16 04:52 Myelocytes # 0.0 K/mm3 11/28/16 04:52 Promyelocytes # 0.0 K/mm3 11/28/16 04:52 Blast Cells # 0.0 K/mm3 11/28/16 04:52 WBC Morphology Not Reportable 11/28/16 04:52 Hypersegmented Neuts Not Reportable 11/28/16 04:52 Hyposegmented Neuts Not Reportable 11/28/16 04:52 Hypogranular Neuts Not Reportable 11/28/16 04:52 Smudge Cells Not Reportable 11/28/16 04:52 Toxic Granulation Not Reportable 11/28/16 04:52 Toxic Vacuolation Not Reportable 11/28/16 04:52 Dohle Bodies Not Reportable 11/28/16 04:52 Pelger-Huet Anomaly Not Reportable 11/28/16 04:52 Caitlin Rods Not Reportable 11/28/16 04:52 Platelet Estimate Consistent w auto 11/28/16 04:52 Clumped Platelets Not Reportable 11/28/16 04:52 Plt Clumps, EDTA Not Reportable 11/28/16 04:52 Large Platelets Not Reportable 11/28/16 04:52 Giant Platelets Not Reportable 11/28/16 04:52 Platelet Satelliting Not Reportable 11/28/16 04:52 Plt Morphology Comment Not Reportable 11/28/16 04:52 RBC Morphology Not Reportable 11/28/16 04:52 Dimorphic RBCs Not Reportable 11/28/16 04:52 Polychromasia Not Reportable 11/28/16 04:52 Hypochromasia Not Reportable 11/28/16 04:52 Poikilocytosis Not Reportable 11/28/16 04:52 Anisocytosis Not Reportable 11/28/16 04:52 Microcytosis Not Reportable 11/28/16 04:52 Macrocytosis Few 11/28/16 04:52 Spherocytes Not Reportable 11/28/16 04:52 Pappenheimer Bodies Not Reportable 11/28/16 04:52 Sickle Cells Not Reportable 11/28/16 04:52 Target Cells Not Reportable 11/28/16 04:52 Tear Drop Cells Not Reportable 11/28/16 04:52 Ovalocytes Not Reportable 11/28/16 04:52 Helmet Cells Not Reportable 11/28/16 04:52 Sheets-Ellis Bodies Not Reportable 11/28/16 04:52 [place] Rings Not Reportable 11/28/16 04:52 Dave Cells Not Reportable 11/28/16 04:52 Bite Cells Not Reportable 11/28/16 04:52 Crenated Cell Not Reportable 11/28/16 04:52 Elliptocytes Not Reportable 11/28/16 04:52 Acanthocytes (Spur) Not Reportable 11/28/16 04:52 Rouleaux Not Reportable 11/28/16 04:52 Hemoglobin C Crystals Not Reportable 11/28/16 04:52 Schistocytes Not Reportable 11/28/16 04:52 Malaria parasites Not Reportable 11/28/16 04:52 Javon Bodies Not Reportable 11/28/16 04:52 Hem Pathologist Commnt No 11/28/16 04:52 PT 15.8 Sec. (12.2-14.9) H 11/26/16 18:40 INR 1.20 (0.87-1.13) H 11/26/16 18:40 POC ABG pH 7.468 (7.35-7.45) H 11/30/16 04:01 POC ABG pCO2 30.6 (35-45) L 11/30/16 04:01 POC ABG pO2 85 (80-105) 11/30/16 04:01 POC ABG HCO3 22.1 11/30/16 04:01 POC ABG Total CO2 23 11/30/16 04:01 POC ABG O2 Sat 97 11/30/16 04:01 POC ABG Base Excess -2 11/30/16 04:01 VBG pH 7.376 (7.320-7.420) 11/26/16 18:40 FiO2 40 % 11/30/16 04:01 Sodium 145 mmol/L (137-145) 12/01/16 06:36 Potassium 3.8 mmol/L (3.6-5.0) 12/01/16 06:36 Chloride 113.8 mmol/L (98-107) H 12/01/16 06:36 Carbon Dioxide 22 mmol/L (22-30) 12/01/16 06:36 Anion Gap 13 mmol/L 12/01/16 06:36 BUN 8 mg/dL (7-17) 12/01/16 06:36 Creatinine 0.5 mg/dL (0.7-1.2) L 12/01/16 06:36 Estimated GFR > 60 ml/min 12/01/16 06:36 BUN/Creatinine Ratio 16.00 % 12/01/16 06:36 Glucose 120 mg/dL (65-100) H 12/01/16 06:36 POC Glucose 134 (70-105) H 12/01/16 05:52 Lactic Acid 0.90 mmol/L (0.7-2.0) 11/27/16 20:41 Calcium 7.3 mg/dL (8.4-10.2) L 12/01/16 06:36 Magnesium 1.80 mg/dL (1.7-2.3) 12/01/16 06:36 Total Bilirubin 0.30 mg/dL (0.1-1.2) 11/30/16 07:40 AST 9 units/L (5-40) 11/30/16 07:40 ALT 6 units/L (7-56) L 11/30/16 07:40 Alkaline Phosphatase 167 units/L (35-129) H 11/30/16 07:40 Ammonia 37.0 umol/L (25-60) 11/29/16 11:15 Total Creatine Kinase 18 units/L (30-135) L 11/26/16 18:40 CK-MB (CK-2) 1.4 ng/mL (0.0-4.0) 11/26/16 18:40 CK-MB (CK-2) Rel Index 7.7 (0-4) H 11/26/16 18:40 Troponin T < 0.010 ng/mL (0.00-0.029) 11/26/16 18:40 NT-Pro-B Natriuret Pep 52610 pg/mL (0-900) H 11/26/16 18:40 Total Protein 4.0 g/dL (6.3-8.2) L 11/30/16 07:40 Albumin 1.0 g/dL (3.9-5) L 11/30/16 07:40 Albumin/Globulin Ratio 0.3 % 11/30/16 07:40 Vitamin B12 768.6 pg/mL (211-911) 11/29/16 11:15 TSH 2.120 mlU/mL (0.270-4.200) 11/29/16 11:15 Urine Color Matilde (Yellow) 11/26/16 18:35 Urine Turbidity Turbid (Clear) 11/26/16 18:35 Urine pH 6.0 (5.0-7.0) 11/26/16 18:35 Ur Specific [place] 1.018 (1.003-1.030) 11/26/16 18:35 Urine Protein 100 mg/dl mg/dL (Negative) 11/26/16 18:35 Urine Glucose (UA) Neg mg/dL (Negative) 11/26/16 18:35 Urine Ketones Neg mg/dL (Negative) 11/26/16 18:35 Urine Blood Neg (Negative) 11/26/16 18:35 Urine Nitrite Neg (Negative) 11/26/16 18:35 Urine Bilirubin Neg (Negative) 11/26/16 18:35 Urine Urobilinogen < 2.0 mg/dL (<2.0) 11/26/16 18:35 Ur Leukocyte Esterase Mod (Negative) 11/26/16 18:35 Urine WBC (Auto) > 182.0 /HPF (0.0-6.0) H 11/26/16 18:35 Urine RBC (Auto) 6.0 /HPF (0.0-6.0) 11/26/16 18:35 Urine Bacteria (Auto) 4+ /HPF (Negative) 11/26/16 18:35 Urine WBC Clumps 3+ /HPF 11/26/16 18:35 Urine Mucus 3+ /HPF 11/26/16 18:35 Vancomycin Trough 41.9 ug/mL (5.0-20.0) H 11/29/16 07:05 Blood Type B POSITIVE 11/26/16 20:38 Antibody Screen TNR 11/26/16 20:38 NIRAV Antibody Screen Negative 11/26/16 20:38
--- NOTE | 2016-12-01 08:54 | XRay Report ---
Portable chest: Respiratory failure. Bilateral patchy pulmonary opacities are present with possible consolidation at left lung base. Evidence of bilateral effusions. Mild vascular congestion. Normal cardiac size. Numerous well positioned life support tubes. Compared to several prior exams the patchy changes in the right mid to lower one may be slightly worse with no significant changes otherwise. Impressions: 1. Congestive changes with bilateral effusions. 2. Bilateral areas of infiltrate/atelectasis versus focal fluid accumulation in the pulmonary spaces.
--- NOTE | 2016-12-01 08:55 | Progress Note ---
Assessment and Plan Acute respiratory failure. Sepsis. No fever. Had single Vanco dose, CXR with congestion,+ fever last 24 hr AMS. Neuro following, see comments. Sinusitis.See MRI Poorly controlled blood sugar. Improved Recommendations Continue vent support SBT trial if no other procedures today.Plan is to evaluate tolerance, can not extubate due to neuro status DVT, PUD prophylaxis Start Levofl. Check cultures, monitor fever Decrease IVS rate Will hold on Lasix x now due to BP changes No family at bedside Critical care time was 31 minutes of [id number] evaluation and coordination of care Subjective Date of service: 12/01/16 Principal diagnosis: acute respiratory failure Interval history: Intubated Objective Vital Signs - 12hr 11/30/16 11/30/16 11/30/16 21:00 21:30 21:39 Temperature Pulse Rate 110 H 110 H 110 H Pulse Rate [ From Monitor] Respiratory 21 26 H Rate Blood Pressure 95/58 104/60 104/60 O2 Sat by Pulse 100 100 Oximetry 11/30/16 11/30/16 11/30/16 22:00 22:30 22:48 Temperature Pulse Rate 110 H 109 H 110 H Pulse Rate [ From Monitor] Respiratory 22 18 15 Rate Blood Pressure 97/57 98/52 98/52 O2 Sat by Pulse 100 100 100 Oximetry 11/30/16 11/30/16 11/30/16 23:00 23:30 23:52 Temperature Pulse Rate 110 H 110 H 109 H Pulse Rate [ From Monitor] Respiratory 26 H 26 H Rate Blood Pressure 98/52 91/52 91/52 O2 Sat by Pulse 95 98 98 Oximetry 12/01/16 12/01/16 12/01/16 00:00 00:30 00:38 Temperature 98.1 F 98.1 F Pulse Rate 110 H 110 H Pulse Rate [ From Monitor] Respiratory 23 27 H Rate Blood Pressure 98/59 101/52 O2 Sat by Pulse 98 99 Oximetry 12/01/16 12/01/16 12/01/16 01:00 01:30 02:00 Temperature Pulse Rate 110 H 110 H 110 H Pulse Rate [ From Monitor] Respiratory 21 21 26 H Rate Blood Pressure 98/57 94/56 100/58 O2 Sat by Pulse 98 99 99 Oximetry 12/01/16 12/01/16 12/01/16 02:30 03:00 03:30 Temperature Pulse Rate 110 H 109 H 110 H Pulse Rate [ From Monitor] Respiratory 21 18 10 L Rate Blood Pressure 93/54 93/54 94/57 O2 Sat by Pulse 99 99 99 Oximetry 12/01/16 12/01/16 12/01/16 04:00 04:30 05:00 Temperature 99.6 F 99.6 F Pulse Rate 110 H 109 H 109 H Pulse Rate [ 109 H From Monitor] Respiratory 12 10 L 22 Rate Blood Pressure 104/59 98/56 102/59 O2 Sat by Pulse 99 99 99 Oximetry 12/01/16 12/01/16 12/01/16 05:30 06:00 06:30 Temperature Pulse Rate 111 H 111 H 110 H Pulse Rate [ From Monitor] Respiratory 16 14 15 Rate Blood Pressure 104/59 98/56 102/66 O2 Sat by Pulse 98 98 98 Oximetry 12/01/16 12/01/16 12/01/16 07:00 07:30 08:00 Temperature Pulse Rate 110 H 109 H 110 H Pulse Rate [ 110 H From Monitor] Respiratory 14 13 16 Rate Blood Pressure 101/62 101/60 100/58 O2 Sat by Pulse 99 99 99 Oximetry Constitutional: no acute distress, other ( intubated) Eyes: non-icteric ENT: other (ETT in position) Effort: normal Ascultation: Bilateral: clear, diminished breath sounds, rhonchi (sporadic) Cardiovascular: regular rate and rhythm Gastrointestinal: normoactive bowel sounds, non-distended Integumentary: normal Extremities: no cyanosis, no edema Neurologic: other ( stuporous, 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 (12.2-14.9) H 11/26/16 18:40 INR 1.20 (0.87-1.13) H 11/26/16 18:40 Abnormal lab findings: Abnormal Labs 11/26/16 11/27/16 11/27/16 20:20 05:43 23:43 RBC Hgb Hct MCV RDW Lymph % (Auto) [place] % (Auto) Lymph # Seg Neutrophils % Seg Neuts % (Manual) Lymphocytes % (Manual) Lymphocytes # (Manual) POC ABG pH 7.574 H POC ABG pCO2 29.9 L POC ABG pO2 57 L 147 H Potassium Chloride Carbon Dioxide BUN Creatinine Glucose POC Glucose 63 L Calcium ALT Alkaline Phosphatase Total Protein Albumin Vancomycin Trough 11/28/16 11/28/16 11/29/16 04:52 04:52 05:15 RBC 3.04 L 2.95 L Hgb 9.4 L 9.2 L Hct 28.6 L MCV 102 H D RDW 19.9 H 19.5 H Lymph % (Auto) 13.1 L [place] % (Auto) 7.9 H Lymph # 0.8 L Seg Neutrophils % 77.7 H Seg Neuts % (Manual) 83.0 H Lymphocytes % (Manual) 6.0 L Lymphocytes # (Manual) 0.4 L POC ABG pH POC ABG pCO2 POC ABG pO2 Potassium Chloride 110.0 H Carbon Dioxide 20 L BUN Creatinine 0.3 L Glucose POC Glucose Calcium 7.0 L ALT Alkaline Phosphatase Total Protein Albumin Vancomycin Trough 11/29/16 11/29/16 11/29/16 05:15 05:23 06:18 RBC Hgb Hct MCV RDW Lymph % (Auto) [place] % (Auto) Lymph # Seg Neutrophils % Seg Neuts % (Manual) Lymphocytes % (Manual) Lymphocytes # (Manual) POC ABG pH 7.474 H POC ABG pCO2 30.2 L POC ABG pO2 Potassium 3.1 L D Chloride 112.3 H Carbon Dioxide BUN 6 L Creatinine 0.3 L Glucose POC Glucose 120 H Calcium 7.1 L ALT Alkaline Phosphatase Total Protein Albumin Vancomycin Trough 11/29/16 11/29/16 11/29/16 07:05 11:54 18:31 RBC Hgb Hct MCV RDW Lymph % (Auto) [place] % (Auto) Lymph # Seg Neutrophils % Seg Neuts % (Manual) Lymphocytes % (Manual) Lymphocytes # (Manual) POC ABG pH POC ABG pCO2 POC ABG pO2 Potassium Chloride Carbon Dioxide BUN Creatinine Glucose POC Glucose 122 H 179 H Calcium ALT Alkaline Phosphatase Total Protein Albumin Vancomycin Trough 41.9 H 11/29/16 11/30/16 11/30/16 23:16 04:01 07:40 RBC 2.51 L Hgb 7.7 L Hct 24.8 L MCV 99 H RDW 19.4 H Lymph % (Auto) [place] % (Auto) Lymph # Seg Neutrophils % Seg Neuts % (Manual) Lymphocytes % (Manual) Lymphocytes # (Manual) POC ABG pH 7.468 H POC ABG pCO2 30.6 L POC ABG pO2 Potassium Chloride Carbon Dioxide BUN Creatinine Glucose POC Glucose 149 H Calcium ALT Alkaline Phosphatase Total Protein Albumin Vancomycin Trough 11/30/16 11/30/16 11/30/16 07:40 12:42 17:30 RBC Hgb Hct MCV RDW Lymph % (Auto) [place] % (Auto) Lymph # Seg Neutrophils % Seg Neuts % (Manual) Lymphocytes % (Manual) Lymphocytes # (Manual) POC ABG pH POC ABG pCO2 POC ABG pO2 Potassium Chloride 113.7 H Carbon Dioxide BUN Creatinine 0.5 L D Glucose POC Glucose 134 H 114 H Calcium 7.1 L ALT 6 L Alkaline Phosphatase 167 H Total Protein 4.0 L Albumin 1.0 L Vancomycin Trough 11/30/16 12/01/16 12/01/16 23:39 05:52 06:36 RBC 2.60 L Hgb 8.1 L Hct 25.4 L MCV 98 H RDW 19.7 H Lymph % (Auto) [place] % (Auto) 9.0 H Lymph # 1.1 L Seg Neutrophils % Seg Neuts % (Manual) Lymphocytes % (Manual) Lymphocytes # (Manual) POC ABG pH POC ABG pCO2 POC ABG pO2 Potassium Chloride Carbon Dioxide BUN Creatinine Glucose POC Glucose 121 H 134 H Calcium ALT Alkaline Phosphatase Total Protein Albumin Vancomycin Trough 12/01/16 06:36 RBC Hgb Hct MCV RDW Lymph % (Auto) [place] % (Auto) Lymph # Seg Neutrophils % Seg Neuts % (Manual) Lymphocytes % (Manual) Lymphocytes # (Manual) POC ABG pH POC ABG pCO2 POC ABG pO2 Potassium Chloride 113.8 H Carbon Dioxide BUN Creatinine 0.5 L Glucose 120 H POC Glucose Calcium 7.3 L ALT Alkaline Phosphatase Total Protein Albumin Vancomycin Trough
--- NOTE | 2016-12-01 09:11 | Event Note ---
Date: 12/01/16 MRI Brain reviewed and neg for acute/chronic lesions. 61 YO F Hx HTN/DM2/AFib Tsf from [place] 11/27 for SOB/AMS intubated in the emergency department found to have Acute resp failure, Asp PNA vs. CAP, Sepsis with hypotension as well as UTI. On exam pt w/ depressed level of arousal, poor attention/concentration, paucity of speech, not following midline/peripheral commands but slight faint withdrawal to pain. I suspect toxic metabolic infectious derangement as the etiology for neurologic decompensation. There is no clear new focality on neurologic examination to suggest acute COMMISSIONED SECURITY OFFICER process e.g. Stroke, Seizure or Meningitis. CTH neg. TSH/B12/NH4 neg Recommendations: 1. Cont Infectious work up/medical management for UTI, PNA, cellulitis, bacteremia, etc. 2. Avoid hyponatremia,o/hyper-calcemia, hypo/hyperglycemia, acidosis, hypoxia/ hypoxemia, hypercarbia/hypercapnia 3. Avoid institution of any new psychoactive medications (e.g. antihistamines, anticholinergics, BZD, hypnotics, opiates) as able unless low doses of low potency antipsychotic needed for behavioral issues complicating medical care 4. Specific neurologic assessment of likelihood of prognosis back to baseline @ this point is limited as there is no active primary neurologic issue ongoing, and therefore prognosis will be completely secondary to any potential progress patient is able to make from multiple ongoing critical medical issues as above. 5. Thiamine/Folate/CIWA protocol accordingly for any hx obtained to suggest EtOH withdrawal 6. Cont home meds-there is no neurologic indication to change 7. We can revisit as needed.
[2016-12-01] MEDS: NACL 0.9% 1000 ML 1,000 ML IV SCH (09:20)
[2016-12-01] MEDS: LOPRESSOR PO SCH ×2 (09:21→22:19)
[2016-12-01] MEDS: PEPCID PO SCH ×2 (09:21→22:19)
[2016-12-01] MEDS: XARELTO PO SCH (09:21)
[2016-12-01] MEDS: FERROUS SULFATE PO SCH ×3 (09:21→20:12)
[2016-12-01] MEDS: LEVAQUIN 750MG/150ML 750 MG/150 ML BAG IV SCH (12:25)
[2016-12-01] MEDS: REMERON PO SCH (22:19)
[2016-12-01] MEDS: SENOKOT PO SCH (22:20)
[2016-12-02 05:37] LABS: ISTAT Base Excess -3; ISTAT HCO3 21.1; ISTAT PCO2 30.9 (35-45); ISTAT PH 7.442 (7.35-7.45); ISTAT PO2 77 (80-105); ISTAT SO2 96; ISTAT TCO2 22
[2016-12-02] MEDS: FERROUS SULFATE PO SCH ×3 (08:13→21:41)
--- NOTE | 2016-12-02 08:56 | Progress Note ---
Assessment and Plan Acute respiratory failure. Sepsis. No fever. On ABX.Cultures pending AMS. Neuro following,toxic metabolic encephalopathy, see comments. Some sporadic spontaneous movement today Sinusitis.See MRI Poorly controlled blood sugar. Improved Recommendations SBT evaluation,trial Monitor tolerance May not be able to extubate, even if tolerated , until neuro response improves further Continue ABX, monitor fevr Monitor BS Critical care time was 31 minutes of [id number] evaluation and coordination of care Subjective Date of service: 12/02/16 Principal diagnosis: acute respiratory failure Interval history: intubated,not sedated Objective Vital Signs - 12hr 12/01/16 12/01/16 12/01/16 21:00 21:30 22:00 Temperature Pulse Rate 112 H 113 H 113 H Pulse Rate [ From Monitor] Respiratory 25 H 25 H 23 Rate Blood Pressure 112/58 112/62 108/58 O2 Sat by Pulse 98 98 98 Oximetry 12/01/16 12/01/16 12/01/16 22:19 22:30 23:00 Temperature Pulse Rate 113 H 113 H 112 H Pulse Rate [ From Monitor] Respiratory 13 11 L Rate Blood Pressure 108/58 117/65 108/55 O2 Sat by Pulse 98 98 Oximetry 12/01/16 12/01/16 12/02/16 23:30 23:56 00:00 Temperature 99.1 F Pulse Rate 111 H 111 H 111 H Pulse Rate [ From Monitor] Respiratory 22 17 19 Rate Blood Pressure 106/55 106/55 105/57 O2 Sat by Pulse 98 98 98 Oximetry 12/02/16 12/02/16 12/02/16 00:30 00:45 01:00 Temperature Pulse Rate 112 H 111 H 113 H Pulse Rate [ From Monitor] Respiratory 21 23 Rate Blood Pressure 121/61 105/57 121/61 O2 Sat by Pulse 98 98 Oximetry 12/02/16 12/02/16 12/02/16 01:07 01:30 02:00 Temperature 99.1 F Pulse Rate 113 H 112 H Pulse Rate [ From Monitor] Respiratory 13 26 H Rate Blood Pressure 121/61 114/66 O2 Sat by Pulse 97 Oximetry 12/02/16 12/02/16 12/02/16 02:30 03:00 03:30 Temperature Pulse Rate 112 H 112 H 113 H Pulse Rate [ From Monitor] Respiratory 19 17 25 H Rate Blood Pressure 108/59 102/60 101/59 O2 Sat by Pulse 97 97 97 Oximetry 12/02/16 12/02/16 12/02/16 03:32 04:00 04:30 Temperature 98.6 F Pulse Rate 115 H 113 H Pulse Rate [ From Monitor] Respiratory 17 16 Rate Blood Pressure 112/88 99/44 O2 Sat by Pulse 96 97 Oximetry 12/02/16 12/02/16 12/02/16 04:52 05:00 05:30 Temperature Pulse Rate 137 H 130 H 115 H Pulse Rate [ From Monitor] Respiratory 10 L 16 Rate Blood Pressure 99/44 99/44 117/69 O2 Sat by Pulse 97 98 Oximetry 12/02/16 12/02/16 12/02/16 06:00 06:30 07:00 Temperature Pulse Rate 113 H 112 H 111 H Pulse Rate [ From Monitor] Respiratory 9 L 15 13 Rate Blood Pressure 119/68 119/68 123/74 O2 Sat by Pulse 97 99 99 Oximetry 12/02/16 12/02/16 12/02/16 07:30 08:00 08:10 Temperature Pulse Rate 110 H 111 H Pulse Rate [ 111 H From Monitor] Respiratory 11 L 16 16 Rate Blood Pressure 115/59 128/74 O2 Sat by Pulse 99 99 Oximetry Constitutional: no acute distress, other ( intubated) Eyes: non-icteric ENT: other (ETT in position) Effort: normal Ascultation: Bilateral: clear, diminished breath sounds, rhonchi (sporadic) Cardiovascular: regular rate and rhythm Gastrointestinal: normoactive bowel sounds, non-distended Integumentary: normal Extremities: no cyanosis, no edema Neurologic: other ( stuporous, 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 (12.2-14.9) H 11/26/16 18:40 INR 1.20 (0.87-1.13) H 11/26/16 18:40 Abnormal lab findings: Abnormal Labs 11/26/16 11/27/16 11/27/16 20:20 05:43 23:43 RBC Hgb Hct MCV RDW Lymph % (Auto) [place] % (Auto) Lymph # Seg Neutrophils % Seg Neuts % (Manual) Lymphocytes % (Manual) Lymphocytes # (Manual) POC ABG pH 7.574 H POC ABG pCO2 29.9 L POC ABG pO2 57 L 147 H Potassium Chloride Carbon Dioxide BUN Creatinine Glucose POC Glucose 63 L Calcium ALT Alkaline Phosphatase Total Protein Albumin Vancomycin Trough 11/28/16 11/28/16 11/29/16 04:52 04:52 05:15 RBC 3.04 L 2.95 L Hgb 9.4 L 9.2 L Hct 28.6 L MCV 102 H D RDW 19.9 H 19.5 H Lymph % (Auto) 13.1 L [place] % (Auto) 7.9 H Lymph # 0.8 L Seg Neutrophils % 77.7 H Seg Neuts % (Manual) 83.0 H Lymphocytes % (Manual) 6.0 L Lymphocytes # (Manual) 0.4 L POC ABG pH POC ABG pCO2 POC ABG pO2 Potassium Chloride 110.0 H Carbon Dioxide 20 L BUN Creatinine 0.3 L Glucose POC Glucose Calcium 7.0 L ALT Alkaline Phosphatase Total Protein Albumin Vancomycin Trough 11/29/16 11/29/16 11/29/16 05:15 05:23 06:18 RBC Hgb Hct MCV RDW Lymph % (Auto) [place] % (Auto) Lymph # Seg Neutrophils % Seg Neuts % (Manual) Lymphocytes % (Manual) Lymphocytes # (Manual) POC ABG pH 7.474 H POC ABG pCO2 30.2 L POC ABG pO2 Potassium 3.1 L D Chloride 112.3 H Carbon Dioxide BUN 6 L Creatinine 0.3 L Glucose POC Glucose 120 H Calcium 7.1 L ALT Alkaline Phosphatase Total Protein Albumin Vancomycin Trough 11/29/16 11/29/16 11/29/16 07:05 11:54 18:31 RBC Hgb Hct MCV RDW Lymph % (Auto) [place] % (Auto) Lymph # Seg Neutrophils % Seg Neuts % (Manual) Lymphocytes % (Manual) Lymphocytes # (Manual) POC ABG pH POC ABG pCO2 POC ABG pO2 Potassium Chloride Carbon Dioxide BUN Creatinine Glucose POC Glucose 122 H 179 H Calcium ALT Alkaline Phosphatase Total Protein Albumin Vancomycin Trough 41.9 H 11/29/16 11/30/16 11/30/16 23:16 04:01 07:40 RBC 2.51 L Hgb 7.7 L Hct 24.8 L MCV 99 H RDW 19.4 H Lymph % (Auto) [place] % (Auto) Lymph # Seg Neutrophils % Seg Neuts % (Manual) Lymphocytes % (Manual) Lymphocytes # (Manual) POC ABG pH 7.468 H POC ABG pCO2 30.6 L POC ABG pO2 Potassium Chloride Carbon Dioxide BUN Creatinine Glucose POC Glucose 149 H Calcium ALT Alkaline Phosphatase Total Protein Albumin Vancomycin Trough 11/30/16 11/30/16 11/30/16 07:40 12:42 17:30 RBC Hgb Hct MCV RDW Lymph % (Auto) [place] % (Auto) Lymph # Seg Neutrophils % Seg Neuts % (Manual) Lymphocytes % (Manual) Lymphocytes # (Manual) POC ABG pH POC ABG pCO2 POC ABG pO2 Potassium Chloride 113.7 H Carbon Dioxide BUN Creatinine 0.5 L D Glucose POC Glucose 134 H 114 H Calcium 7.1 L ALT 6 L Alkaline Phosphatase 167 H Total Protein 4.0 L Albumin 1.0 L Vancomycin Trough 11/30/16 12/01/16 12/01/16 23:39 05:52 06:36 RBC 2.60 L Hgb 8.1 L Hct 25.4 L MCV 98 H RDW 19.7 H Lymph % (Auto) [place] % (Auto) 9.0 H Lymph # 1.1 L Seg Neutrophils % Seg Neuts % (Manual) Lymphocytes % (Manual) Lymphocytes # (Manual) POC ABG pH POC ABG pCO2 POC ABG pO2 Potassium Chloride Carbon Dioxide BUN Creatinine Glucose POC Glucose 121 H 134 H Calcium ALT Alkaline Phosphatase Total Protein Albumin Vancomycin Trough 12/01/16 12/01/16 12/01/16 06:36 11:34 17:40 RBC Hgb Hct MCV RDW Lymph % (Auto) [place] % (Auto) Lymph # Seg Neutrophils % Seg Neuts % (Manual) Lymphocytes % (Manual) Lymphocytes # (Manual) POC ABG pH POC ABG pCO2 POC ABG pO2 Potassium Chloride 113.8 H Carbon Dioxide BUN Creatinine 0.5 L Glucose 120 H POC Glucose 167 H 117 H Calcium 7.3 L ALT Alkaline Phosphatase Total Protein Albumin Vancomycin Trough 12/02/16 12/02/16 12/02/16 00:35 05:03 05:44 RBC Hgb Hct MCV RDW Lymph % (Auto) [place] % (Auto) Lymph # Seg Neutrophils % Seg Neuts % (Manual) Lymphocytes % (Manual) Lymphocytes # (Manual) POC ABG pH POC ABG pCO2 30.9 L POC ABG pO2 77 L Potassium Chloride Carbon Dioxide BUN Creatinine Glucose POC Glucose 129 H 154 H Calcium ALT Alkaline Phosphatase Total Protein Albumin Vancomycin Trough
--- NOTE | 2016-12-02 09:12 | XRay Report ---
Single view chest: Compared to 12/01/16. History: Followup of respiratory failure. Findings: One cardiomegaly. Stable support system. I lateral airspace opacities with suspicion of bilateral pleural effusion. No significant interval change. Impression: No significant interval change.
[2016-12-02] MEDS: LOPRESSOR PO SCH ×2 (09:18→21:40)
[2016-12-02] MEDS: NACL 0.9% 1000 ML 1,000 ML IV SCH (09:18)
[2016-12-02] MEDS: PEPCID PO SCH ×2 (09:19→21:39)
[2016-12-02] MEDS: XARELTO PO SCH (09:19)
[2016-12-02] MEDS: LEVAQUIN 750MG/150ML 750 MG/150 ML BAG IV SCH (09:19)
[2016-12-02] MEDS: LASIX IV SCH ×2 (13:01→21:39)
--- NOTE | 2016-12-02 18:37 | Progress Note ---
Assessment and Plan Assessment and plan: 61-year-old female brought via EMS from [facility] after she was found to have difficulty of breathing, decreased responsiveness. Patient medical history significant for hypertension, diabetes mellitus, A. fib, bilateral lower extremity pressure sores. Patient was unable to protect her airway and she was intubated in the emergency department. Acute respiratory failure Aspiration pneumonia versus community acquired pneumonia Sepsis with hypotension Acute metabolic encephalopathy UTI - Patient is intubated and on mechanical ventilation - Patient is treated according to sepsis protocol with IV vancomycin and clindamycin, IV fluids - Blood culture negative so far - Pulmonary consult appreciated - Sedation was off and the patient didn't wake up, neurology consult is placed - MRI ordered Prognosis is poor. Patient is Full code. The high probability of a clinically significant, sudden or life threatening deterioration of the [neurology, cardiovascular, respiratory] system(s) required my full and direct attention, intervention and personal management. The aggregate critical care time was [x] minutes. This time is in addition to time spent performing reported procedures but includes the following: [x] Data Review and interpretation [x] Patient assessment and monitoring of vital signs [x] Documentation [x] Medication orders and managementDVT prophylaxis - Lovenox Disposition - Transferred to ICU, she insisted in the emergency department waiting for bed. History Interval history: Patient was seen and evaluated this morning, patient is intubated, mechanically ventilated. I have discussed the management plan with her brother, he was in the room while I examine the patient. Hospitalist Physical - Physical exam Narrative exam: Patient is intubated and mechanically ventilated. Comatose. The patient appeared well nourished and normally developed. Vital signs as documented. Head exam is unremarkable. No scleral icterus . Neck is without jugular venous distension, thyromegaly, or carotid bruits. Lungs are clear to auscultation. Cardiac exam reveals regular rate and Rhythm. First and second heart sounds normal. No murmurs, rubs or gallops. Abdominal exam reveals normal bowel sounds, no masses, no organomegaly and no aortic enlargement. Extremities clean dressing on bilateral lower extremities, on the sores. 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 - Constitutional Vitals: Temp Pulse Resp BP Pulse Ox 98.6 F 112 H 19 150/54 99 12/02/16 16:00 12/02/16 18:00 12/02/16 18:00 12/02/16 18:00 12/02/16 18:00 General appearance: Present: no acute distress, cachectic, disheveled, other ( intubated and sedated) Results - Labs CBC & Chem 7: 12/01/16 06:36 12/01/16 06:36 Labs: Laboratory Last Values WBC 6.0 K/mm3 (4.5-11.0) 12/01/16 06:36 RBC 2.60 M/mm3 (3.65-5.03) L 12/01/16 06:36 Hgb 8.1 gm/dl (10.1-14.3) L 12/01/16 06:36 Hct 25.4 % (30.3-42.9) L 12/01/16 06:36 MCV 98 fl (79-97) H 12/01/16 06:36 MCH 31 pg (28-32) 12/01/16 06:36 MCHC 32 % (30-34) 12/01/16 06:36 RDW 19.7 % (13.2-15.2) H 12/01/16 06:36 Plt Count 187 K/mm3 (140-440) 12/01/16 06:36 Lymph % (Auto) 18.9 % (13.4-35.0) 12/01/16 06:36 [place] % (Auto) 9.0 % (0.0-7.3) H 12/01/16 06:36 Eos % (Auto) 2.1 % (0.0-4.3) 12/01/16 06:36 Baso % (Auto) 0.8 % (0.0-1.8) 12/01/16 06:36 Lymph # 1.1 K/mm3 (1.2-5.4) L 12/01/16 06:36 [place] # 0.5 K/mm3 (0.0-0.8) 12/01/16 06:36 Eos # 0.1 K/mm3 (0.0-0.4) 12/01/16 06:36 Baso # 0.0 K/mm3 (0.0-0.1) 12/01/16 06:36 Add Manual Diff Complete 11/28/16 04:52 Total Counted 100 11/28/16 04:52 Seg Neutrophils % 69.2 % (40.0-70.0) 12/01/16 06:36 Seg Neuts % (Manual) 83.0 % (40.0-70.0) H 11/28/16 04:52 Band Neutrophils % 7.0 % 11/28/16 04:52 Lymphocytes % (Manual) 6.0 % (13.4-35.0) L 11/28/16 04:52 Reactive Lymphs % (Man) 0 % 11/28/16 04:52 Monocytes % (Manual) 1.0 % (0.0-7.3) 11/28/16 04:52 Eosinophils % (Manual) 3.0 % (0.0-4.3) 11/28/16 04:52 Basophils % (Manual) 0 % (0.0-1.8) 11/28/16 04:52 Metamyelocytes % 0 % 11/28/16 04:52 Myelocytes % 0 % 11/28/16 04:52 Promyelocytes % 0 % 11/28/16 04:52 Blast Cells % 0 % 11/28/16 04:52 Nucleated RBC % Not Reportable 11/28/16 04:52 Seg Neutrophils # 4.2 K/mm3 (1.8-7.7) 12/01/16 06:36 Seg Neutrophils # Man 5.4 K/mm3 (1.8-7.7) 11/28/16 04:52 Band Neutrophils # 0.5 K/mm3 11/28/16 04:52 Lymphocytes # (Manual) 0.4 K/mm3 (1.2-5.4) L 11/28/16 04:52 Abs React Lymphs (Man) 0.0 K/mm3 11/28/16 04:52 Monocytes # (Manual) 0.1 K/mm3 (0.0-0.8) 11/28/16 04:52 Eosinophils # (Manual) 0.2 K/mm3 (0.0-0.4) 11/28/16 04:52 Basophils # (Manual) 0.0 K/mm3 (0.0-0.1) 11/28/16 04:52 Metamyelocytes # 0.0 K/mm3 11/28/16 04:52 Myelocytes # 0.0 K/mm3 11/28/16 04:52 Promyelocytes # 0.0 K/mm3 11/28/16 04:52 Blast Cells # 0.0 K/mm3 11/28/16 04:52 WBC Morphology Not Reportable 11/28/16 04:52 Hypersegmented Neuts Not Reportable 11/28/16 04:52 Hyposegmented Neuts Not Reportable 11/28/16 04:52 Hypogranular Neuts Not Reportable 11/28/16 04:52 Smudge Cells Not Reportable 11/28/16 04:52 Toxic Granulation Not Reportable 11/28/16 04:52 Toxic Vacuolation Not Reportable 11/28/16 04:52 Dohle Bodies Not Reportable 11/28/16 04:52 Pelger-Huet Anomaly Not Reportable 11/28/16 04:52 Caitlin Rods Not Reportable 11/28/16 04:52 Platelet Estimate Consistent w auto 11/28/16 04:52 Clumped Platelets Not Reportable 11/28/16 04:52 Plt Clumps, EDTA Not Reportable 11/28/16 04:52 Large Platelets Not Reportable 11/28/16 04:52 Giant Platelets Not Reportable 11/28/16 04:52 Platelet Satelliting Not Reportable 11/28/16 04:52 Plt Morphology Comment Not Reportable 11/28/16 04:52 RBC Morphology Not Reportable 11/28/16 04:52 Dimorphic RBCs Not Reportable 11/28/16 04:52 Polychromasia Not Reportable 11/28/16 04:52 Hypochromasia Not Reportable 11/28/16 04:52 Poikilocytosis Not Reportable 11/28/16 04:52 Anisocytosis Not Reportable 11/28/16 04:52 Microcytosis Not Reportable 11/28/16 04:52 Macrocytosis Few 11/28/16 04:52 Spherocytes Not Reportable 11/28/16 04:52 Pappenheimer Bodies Not Reportable 11/28/16 04:52 Sickle Cells Not Reportable 11/28/16 04:52 Target Cells Not Reportable 11/28/16 04:52 Tear Drop Cells Not Reportable 11/28/16 04:52 Ovalocytes Not Reportable 11/28/16 04:52 Helmet Cells Not Reportable 11/28/16 04:52 Sheets-Ardencroft Bodies Not Reportable 11/28/16 04:52 Coral Rings Not Reportable 11/28/16 04:52 Dave Cells Not Reportable 11/28/16 04:52 Bite Cells Not Reportable 11/28/16 04:52 Crenated Cell Not Reportable 11/28/16 04:52 Elliptocytes Not Reportable 11/28/16 04:52 Acanthocytes (Spur) Not Reportable 11/28/16 04:52 Rouleaux Not Reportable 11/28/16 04:52 Hemoglobin C Crystals Not Reportable 11/28/16 04:52 Schistocytes Not Reportable 11/28/16 04:52 Malaria parasites Not Reportable 11/28/16 04:52 Javon Bodies Not Reportable 11/28/16 04:52 Hem Pathologist Commnt No 11/28/16 04:52 PT 15.8 Sec. (12.2-14.9) H 11/26/16 18:40 INR 1.20 (0.87-1.13) H 11/26/16 18:40 POC ABG pH 7.442 (7.35-7.45) 12/02/16 05:03 POC ABG pCO2 30.9 (35-45) L 12/02/16 05:03 POC ABG pO2 77 (80-105) L 12/02/16 05:03 POC ABG HCO3 21.1 12/02/16 05:03 POC ABG Total CO2 22 12/02/16 05:03 POC ABG O2 Sat 96 12/02/16 05:03 POC ABG Base Excess -3 12/02/16 05:03 VBG pH 7.376 (7.320-7.420) 11/26/16 18:40 FiO2 35 % 12/02/16 05:03 Sodium 145 mmol/L (137-145) 12/01/16 06:36 Potassium 3.8 mmol/L (3.6-5.0) 12/01/16 06:36 Chloride 113.8 mmol/L (98-107) H 12/01/16 06:36 Carbon Dioxide 22 mmol/L (22-30) 12/01/16 06:36 Anion Gap 13 mmol/L 12/01/16 06:36 BUN 8 mg/dL (7-17) 12/01/16 06:36 Creatinine 0.5 mg/dL (0.7-1.2) L 12/01/16 06:36 Estimated GFR > 60 ml/min 12/01/16 06:36 BUN/Creatinine Ratio 16.00 % 12/01/16 06:36 Glucose 120 mg/dL (65-100) H 12/01/16 06:36 POC Glucose 135 (70-105) H 12/02/16 18:03 Lactic Acid 0.90 mmol/L (0.7-2.0) 11/27/16 20:41 Calcium 7.3 mg/dL (8.4-10.2) L 12/01/16 06:36 Magnesium 1.80 mg/dL (1.7-2.3) 12/01/16 06:36 Total Bilirubin 0.30 mg/dL (0.1-1.2) 11/30/16 07:40 AST 9 units/L (5-40) 11/30/16 07:40 ALT 6 units/L (7-56) L 11/30/16 07:40 Alkaline Phosphatase 167 units/L (35-129) H 11/30/16 07:40 Ammonia 37.0 umol/L (25-60) 11/29/16 11:15 Total Creatine Kinase 18 units/L (30-135) L 11/26/16 18:40 CK-MB (CK-2) 1.4 ng/mL (0.0-4.0) 11/26/16 18:40 CK-MB (CK-2) Rel Index 7.7 (0-4) H 11/26/16 18:40 Troponin T < 0.010 ng/mL (0.00-0.029) 11/26/16 18:40 NT-Pro-B Natriuret Pep 72569 pg/mL (0-900) H 11/26/16 18:40 Total Protein 4.0 g/dL (6.3-8.2) L 11/30/16 07:40 Albumin 1.0 g/dL (3.9-5) L 11/30/16 07:40 Albumin/Globulin Ratio 0.3 % 11/30/16 07:40 Vitamin B12 768.6 pg/mL (211-911) 11/29/16 11:15 TSH 2.120 mlU/mL (0.270-4.200) 11/29/16 11:15 Urine Color Matilde (Yellow) 11/26/16 18:35 Urine Turbidity Turbid (Clear) 11/26/16 18:35 Urine pH 6.0 (5.0-7.0) 11/26/16 18:35 Ur Specific Justice 1.018 (1.003-1.030) 11/26/16 18:35 Urine Protein 100 mg/dl mg/dL (Negative) 11/26/16 18:35 Urine Glucose (UA) Neg mg/dL (Negative) 11/26/16 18:35 Urine Ketones Neg mg/dL (Negative) 11/26/16 18:35 Urine Blood Neg (Negative) 11/26/16 18:35 Urine Nitrite Neg (Negative) 11/26/16 18:35 Urine Bilirubin Neg (Negative) 11/26/16 18:35 Urine Urobilinogen < 2.0 mg/dL (<2.0) 11/26/16 18:35 Ur Leukocyte Esterase Mod (Negative) 11/26/16 18:35 Urine WBC (Auto) > 182.0 /HPF (0.0-6.0) H 11/26/16 18:35 Urine RBC (Auto) 6.0 /HPF (0.0-6.0) 11/26/16 18:35 Urine Bacteria (Auto) 4+ /HPF (Negative) 11/26/16 18:35 Urine WBC Clumps 3+ /HPF 11/26/16 18:35 Urine Mucus 3+ /HPF 11/26/16 18:35 Vancomycin Trough 41.9 ug/mL (5.0-20.0) H 11/29/16 07:05 Blood Type B POSITIVE 11/26/16 20:38 Antibody Screen TNR 11/26/16 20:38 NIRAV Antibody Screen Negative 11/26/16 20:38
[2016-12-02] MEDS: DILAUDID IV PRN (21:38)
[2016-12-02] MEDS: REMERON PO SCH (21:39)
[2016-12-03] MEDS: DILAUDID IV PRN ×2 (05:48→21:06)
[2016-12-03 06:03] LABS: Basophils % (Auto) 0.7 % (0.0-1.8); Eosinophils % (Auto) 2.2 % (0.0-4.3); Hematocrit 24.8 % (30.3-42.9); Mean Corpuscular HGB Conc 32 % (30-34); Mean Corpuscular Hemoglobin 32 pg (28-32); Mean Corpuscular Volume 99 fl (79-97); Platelet Count 219 K/mm3 (140-440); Red Cell Distribution Width 18.8 % (13.2-15.2); White Blood Count 5.3 K/mm3 (4.5-11.0)
[2016-12-03] MEDS: FERROUS SULFATE PO SCH ×3 (08:21→21:06)
--- NOTE | 2016-12-03 09:19 | XRay Report ---
Single view chest: Compared to 12/02/16. History: Followup respiratory failure. Findings: Cardiomegaly. Stable support system. Pulmonary venous congestion with bilateral pleural effusion. No significant interval change. Impression: No significant interval change.
[2016-12-03] MEDS: PEPCID PO SCH ×2 (09:27→21:05)
[2016-12-03] MEDS: XARELTO PO SCH (09:27)
[2016-12-03] MEDS: LOPRESSOR PO SCH ×2 (09:27→21:04)
[2016-12-03] MEDS: LASIX IV SCH ×2 (09:27→21:05)
[2016-12-03] MEDS: LEVAQUIN 750MG/150ML 750 MG/150 ML BAG IV SCH (09:28)
[2016-12-03 10:16] LABS: Anion Gap 14 mmol/L; Blood Urea Nitrogen 11 mg/dL (7-17); Calcium 7.5 mg/dL (8.4-10.2); Carbon Dioxide 23 mmol/L (22-30); Chloride 109.9 mmol/L (98-107); Glucose 162 mg/dL (65-100); Potassium 3.5 mmol/L (3.6-5.0); Sodium 143 mmol/L (137-145)
[2016-12-03 10:38] LABS: ISTAT Base Excess -1; ISTAT HCO3 23.8; ISTAT PCO2 36.4 (35-45); ISTAT PH 7.423 (7.35-7.45); ISTAT PO2 80 (80-105); ISTAT SO2 96; ISTAT TCO2 25
--- NOTE | 2016-12-03 11:39 | Progress Note ---
Assessment and Plan - Patient Problems (1) Acute respiratory failure Current Visit: Yes Status: Acute Qualifiers: Respiratory failure complication: R (2) Altered mental status Current Visit: Yes Status: Acute Qualifiers: Altered mental status type: stupor Coma depth: C Coma timing: C Qualified Code(s): R40.1 - Stupor (3) Aspiration pneumonia Current Visit: Yes Status: Acute Qualifiers: Aspiration pneumonia type: A Laterality: L Lung location: L (4) Encephalopathy acute Current Visit: Yes Status: Acute Subjective Principal diagnosis: acute respiratory failure Interval history: awake still appears weak Objective Vital Signs - 12hr 12/03/16 12/03/16 12/03/16 00:00 00:09 00:30 Temperature Pulse Rate 112 H 112 H 112 H Pulse Rate [ From Monitor] Respiratory 20 18 Rate Blood Pressure 141/64 141/64 147/52 O2 Sat by Pulse 95 98 98 Oximetry 12/03/16 12/03/16 12/03/16 01:00 01:30 02:00 Temperature Pulse Rate 99 H 101 H 112 H Pulse Rate [ From Monitor] Respiratory 23 20 29 H Rate Blood Pressure 134/52 137/42 137/42 O2 Sat by Pulse 98 98 97 Oximetry 12/03/16 12/03/16 12/03/16 02:30 03:00 03:30 Temperature Pulse Rate 112 H 113 H 113 H Pulse Rate [ From Monitor] Respiratory 17 21 23 Rate Blood Pressure 122/64 116/67 117/71 O2 Sat by Pulse 99 98 99 Oximetry 12/03/16 12/03/16 12/03/16 03:55 04:00 04:30 Temperature 99.6 F Pulse Rate 113 H 113 H Pulse Rate [ From Monitor] Respiratory 15 25 H Rate Blood Pressure 116/67 121/79 O2 Sat by Pulse 98 97 Oximetry 12/03/16 12/03/16 12/03/16 04:45 05:00 05:30 Temperature Pulse Rate 112 H 112 H 113 H Pulse Rate [ From Monitor] Respiratory 22 19 Rate Blood Pressure 111/75 110/65 100/64 O2 Sat by Pulse 100 100 98 Oximetry 12/03/16 12/03/16 12/03/16 06:00 06:30 07:00 Temperature Pulse Rate 112 H 111 H 111 H Pulse Rate [ From Monitor] Respiratory 21 20 17 Rate Blood Pressure 120/55 108/54 107/61 O2 Sat by Pulse 99 99 99 Oximetry 12/03/16 12/03/16 12/03/16 07:30 07:40 07:43 Temperature Pulse Rate 112 H 111 H 111 H Pulse Rate [ From Monitor] Respiratory 17 24 Rate Blood Pressure 104/71 104/71 104/71 O2 Sat by Pulse 100 100 99 Oximetry 12/03/16 12/03/16 12/03/16 08:00 08:30 09:00 Temperature 99.7 F H Pulse Rate 111 H 110 H 111 H Pulse Rate [ 110 H From Monitor] Respiratory 25 H 25 H 26 H Rate Blood Pressure 106/61 113/65 112/62 O2 Sat by Pulse 99 99 99 Oximetry 12/03/16 12/03/16 12/03/16 09:27 09:30 10:00 Temperature Pulse Rate 110 H 111 H 110 H Pulse Rate [ From Monitor] Respiratory 21 27 H Rate Blood Pressure 112/62 122/68 114/64 O2 Sat by Pulse 99 98 Oximetry 12/03/16 12/03/16 10:20 10:24 Temperature Pulse Rate 98 H 99 H Pulse Rate [ From Monitor] Respiratory 24 Rate Blood Pressure 114/64 O2 Sat by Pulse 98 Oximetry Constitutional: no acute distress, other (intubated) Eyes: non-icteric ENT: other (ETT in position) Effort: normal Ascultation: Bilateral: clear, diminished breath sounds, rhonchi (rare) Cardiovascular: regular rate and rhythm Gastrointestinal: normoactive bowel sounds, non-distended Integumentary: normal Extremities: no cyanosis, no edema Neurologic: other ( stuporous, slightly up from her eyes spinner concrete pipe and tactile stimuli) CBC and BMP: 12/03/16 05:30 12/03/16 09:35 ABG, PT/INR, D-dimer: ABG POC ABG pH 7.423 (7.35-7.45) 12/03/16 10:23 POC ABG pCO2 36.4 (35-45) 12/03/16 10:23 POC ABG pO2 80 (80-105) 12/03/16 10:23 POC ABG HCO3 23.8 12/03/16 10:23 POC ABG Total CO2 25 12/03/16 10:23 POC ABG O2 Sat 96 12/03/16 10:23 PT/INR, D-dimer PT 15.8 Sec. (12.2-14.9) H 11/26/16 18:40 INR 1.20 (0.87-1.13) H 11/26/16 18:40 Abnormal lab findings: Abnormal Labs 11/26/16 11/27/16 11/27/16 20:20 05:43 23:43 RBC Hgb Hct MCV RDW Lymph % (Auto) Becker % (Auto) Lymph # Seg Neutrophils % Seg Neuts % (Manual) Lymphocytes % (Manual) Lymphocytes # (Manual) POC ABG pH 7.574 H POC ABG pCO2 29.9 L POC ABG pO2 57 L 147 H Potassium Chloride Carbon Dioxide BUN Creatinine Glucose POC Glucose 63 L Calcium ALT Alkaline Phosphatase Total Protein Albumin Vancomycin Trough 11/28/16 11/28/16 11/29/16 04:52 04:52 05:15 RBC 3.04 L 2.95 L Hgb 9.4 L 9.2 L Hct 28.6 L MCV 102 H D RDW 19.9 H 19.5 H Lymph % (Auto) 13.1 L Becker % (Auto) 7.9 H Lymph # 0.8 L Seg Neutrophils % 77.7 H Seg Neuts % (Manual) 83.0 H Lymphocytes % (Manual) 6.0 L Lymphocytes # (Manual) 0.4 L POC ABG pH POC ABG pCO2 POC ABG pO2 Potassium Chloride 110.0 H Carbon Dioxide 20 L BUN Creatinine 0.3 L Glucose POC Glucose Calcium 7.0 L ALT Alkaline Phosphatase Total Protein Albumin Vancomycin Trough 11/29/16 11/29/16 11/29/16 05:15 05:23 06:18 RBC Hgb Hct MCV RDW Lymph % (Auto) Becker % (Auto) Lymph # Seg Neutrophils % Seg Neuts % (Manual) Lymphocytes % (Manual) Lymphocytes # (Manual) POC ABG pH 7.474 H POC ABG pCO2 30.2 L POC ABG pO2 Potassium 3.1 L D Chloride 112.3 H Carbon Dioxide BUN 6 L Creatinine 0.3 L Glucose POC Glucose 120 H Calcium 7.1 L ALT Alkaline Phosphatase Total Protein Albumin Vancomycin Trough 11/29/16 11/29/16 11/29/16 07:05 11:54 18:31 RBC Hgb Hct MCV RDW Lymph % (Auto) Becker % (Auto) Lymph # Seg Neutrophils % Seg Neuts % (Manual) Lymphocytes % (Manual) Lymphocytes # (Manual) POC ABG pH POC ABG pCO2 POC ABG pO2 Potassium Chloride Carbon Dioxide BUN Creatinine Glucose POC Glucose 122 H 179 H Calcium ALT Alkaline Phosphatase Total Protein Albumin Vancomycin Trough 41.9 H 11/29/16 11/30/16 11/30/16 23:16 04:01 07:40 RBC 2.51 L Hgb 7.7 L Hct 24.8 L MCV 99 H RDW 19.4 H Lymph % (Auto) Becker % (Auto) Lymph # Seg Neutrophils % Seg Neuts % (Manual) Lymphocytes % (Manual) Lymphocytes # (Manual) POC ABG pH 7.468 H POC ABG pCO2 30.6 L POC ABG pO2 Potassium Chloride Carbon Dioxide BUN Creatinine Glucose POC Glucose 149 H Calcium ALT Alkaline Phosphatase Total Protein Albumin Vancomycin Trough 11/30/16 11/30/16 11/30/16 07:40 12:42 17:30 RBC Hgb Hct MCV RDW Lymph % (Auto) Becker % (Auto) Lymph # Seg Neutrophils % Seg Neuts % (Manual) Lymphocytes % (Manual) Lymphocytes # (Manual) POC ABG pH POC ABG pCO2 POC ABG pO2 Potassium Chloride 113.7 H Carbon Dioxide BUN Creatinine 0.5 L D Glucose POC Glucose 134 H 114 H Calcium 7.1 L ALT 6 L Alkaline Phosphatase 167 H Total Protein 4.0 L Albumin 1.0 L Vancomycin Trough 11/30/16 12/01/16 12/01/16 23:39 05:52 06:36 RBC 2.60 L Hgb 8.1 L Hct 25.4 L MCV 98 H RDW 19.7 H Lymph % (Auto) Becker % (Auto) 9.0 H Lymph # 1.1 L Seg Neutrophils % Seg Neuts % (Manual) Lymphocytes % (Manual) Lymphocytes # (Manual) POC ABG pH POC ABG pCO2 POC ABG pO2 Potassium Chloride Carbon Dioxide BUN Creatinine Glucose POC Glucose 121 H 134 H Calcium ALT Alkaline Phosphatase Total Protein Albumin Vancomycin Trough 12/01/16 12/01/16 12/01/16 06:36 11:34 17:40 RBC Hgb Hct MCV RDW Lymph % (Auto) Becker % (Auto) Lymph # Seg Neutrophils % Seg Neuts % (Manual) Lymphocytes % (Manual) Lymphocytes # (Manual) POC ABG pH POC ABG pCO2 POC ABG pO2 Potassium Chloride 113.8 H Carbon Dioxide BUN Creatinine 0.5 L Glucose 120 H POC Glucose 167 H 117 H Calcium 7.3 L ALT Alkaline Phosphatase Total Protein Albumin Vancomycin Trough 12/02/16 12/02/16 12/02/16 00:35 05:03 05:44 RBC Hgb Hct MCV RDW Lymph % (Auto) Becker % (Auto) Lymph # Seg Neutrophils % Seg Neuts % (Manual) Lymphocytes % (Manual) Lymphocytes # (Manual) POC ABG pH POC ABG pCO2 30.9 L POC ABG pO2 77 L Potassium Chloride Carbon Dioxide BUN Creatinine Glucose POC Glucose 129 H 154 H Calcium ALT Alkaline Phosphatase Total Protein Albumin Vancomycin Trough 12/02/16 12/02/16 12/03/16 18:03 23:53 05:17 RBC Hgb Hct MCV RDW Lymph % (Auto) Becker % (Auto) Lymph # Seg Neutrophils % Seg Neuts % (Manual) Lymphocytes % (Manual) Lymphocytes # (Manual) POC ABG pH POC ABG pCO2 POC ABG pO2 Potassium Chloride Carbon Dioxide BUN Creatinine Glucose POC Glucose 135 H 158 H 177 H Calcium ALT Alkaline Phosphatase Total Protein Albumin Vancomycin Trough 12/03/16 12/03/16 05:30 09:35 RBC 2.50 L Hgb 8.0 L Hct 24.8 L MCV 99 H RDW 18.8 H Lymph % (Auto) Becker % (Auto) 11.9 H Lymph # Seg Neutrophils % Seg Neuts % (Manual) Lymphocytes % (Manual) Lymphocytes # (Manual) POC ABG pH POC ABG pCO2 POC ABG pO2 Potassium 3.5 L Chloride 109.9 H Carbon Dioxide BUN Creatinine 0.4 L Glucose 162 H POC Glucose Calcium 7.5 L ALT Alkaline Phosphatase Total Protein Albumin Vancomycin Trough Chest x-ray: report reviewed, image reviewed
--- NOTE | 2016-12-03 14:08 | Progress Note ---
Assessment and Plan Assessment and plan: 61-year-old female brought via EMS from long-term after she was found to have difficulty of breathing, decreased responsiveness. Patient medical history significant for hypertension, diabetes mellitus, A. fib, bilateral lower extremity pressure sores. Patient was unable to protect her airway and she was intubated in the emergency department. Acute respiratory failure Aspiration pneumonia versus community acquired pneumonia Sepsis with hypotension Acute metabolic encephalopathy Cardiomegaly, bilateral pleural effusion - Patient is currently on CPAP - Patient is on Levaquin - Blood culture negative - Pulmonary consult appreciated Patient is Full code. Disposition - Continue ICU care The high probability of a clinically significant, sudden or life threatening deterioration of the [neurology, cardiovascular, respiratory] system(s) required my full and direct attention, intervention and personal management. The aggregate critical care time was [x] minutes. This time is in addition to time spent performing reported procedures but includes the following: [x] Data Review and interpretation [x] Patient assessment and monitoring of vital signs [x] Documentation [x] Medication orders and managementDVT prophylaxis History Interval history: Patient was seen and evaluated this morning, patient is on CPAP. Patient open her eyes and able to follow simple commends. Hospitalist Physical - Physical exam Narrative exam: Patient is on CPAP. The patient appeared well nourished and normally developed. Vital signs as documented. Head exam is unremarkable. No scleral icterus . Neck is without jugular venous distension, thyromegaly, or carotid bruits. Lungs are clear to auscultation. Cardiac exam reveals irregular rate and Rhythm. Abdominal exam reveals normal bowel sounds, no masses, no organomegaly and no aortic enlargement. Extremities patient has minimal edema. [employer]: Patient opened her eyes and follow simple, and - Constitutional Vitals: Temp Pulse Resp BP Pulse Ox 98.8 F 110 H 22 107/59 100 12/03/16 12:24 12/03/16 13:00 12/03/16 13:00 12/03/16 13:00 12/03/16 13:00 General appearance: Present: no acute distress, cachectic, disheveled, other ( intubated and sedated) Results - Labs CBC & Chem 7: 12/03/16 05:30 12/03/16 09:35 Labs: Laboratory Last Values WBC 5.3 K/mm3 (4.5-11.0) 12/03/16 05:30 RBC 2.50 M/mm3 (3.65-5.03) L 12/03/16 05:30 Hgb 8.0 gm/dl (10.1-14.3) L 12/03/16 05:30 Hct 24.8 % (30.3-42.9) L 12/03/16 05:30 MCV 99 fl (79-97) H 12/03/16 05:30 MCH 32 pg (28-32) 12/03/16 05:30 MCHC 32 % (30-34) 12/03/16 05:30 RDW 18.8 % (13.2-15.2) H 12/03/16 05:30 Plt Count 219 K/mm3 (140-440) 12/03/16 05:30 Lymph % (Auto) 21.8 % (13.4-35.0) 12/03/16 05:30 Miner % (Auto) 11.9 % (0.0-7.3) H 12/03/16 05:30 Eos % (Auto) 2.2 % (0.0-4.3) 12/03/16 05:30 Baso % (Auto) 0.7 % (0.0-1.8) 12/03/16 05:30 Lymph # 1.2 K/mm3 (1.2-5.4) 12/03/16 05:30 Miner # 0.6 K/mm3 (0.0-0.8) 12/03/16 05:30 Eos # 0.1 K/mm3 (0.0-0.4) 12/03/16 05:30 Baso # 0.0 K/mm3 (0.0-0.1) 12/03/16 05:30 Add Manual Diff Complete 11/28/16 04:52 Total Counted 100 11/28/16 04:52 Seg Neutrophils % 63.4 % (40.0-70.0) 12/03/16 05:30 Seg Neuts % (Manual) 83.0 % (40.0-70.0) H 11/28/16 04:52 Band Neutrophils % 7.0 % 11/28/16 04:52 Lymphocytes % (Manual) 6.0 % (13.4-35.0) L 11/28/16 04:52 Reactive Lymphs % (Man) 0 % 11/28/16 04:52 Monocytes % (Manual) 1.0 % (0.0-7.3) 11/28/16 04:52 Eosinophils % (Manual) 3.0 % (0.0-4.3) 11/28/16 04:52 Basophils % (Manual) 0 % (0.0-1.8) 11/28/16 04:52 Metamyelocytes % 0 % 11/28/16 04:52 Myelocytes % 0 % 11/28/16 04:52 Promyelocytes % 0 % 11/28/16 04:52 Blast Cells % 0 % 11/28/16 04:52 Nucleated RBC % Not Reportable 11/28/16 04:52 Seg Neutrophils # 3.3 K/mm3 (1.8-7.7) 12/03/16 05:30 Seg Neutrophils # Man 5.4 K/mm3 (1.8-7.7) 11/28/16 04:52 Band Neutrophils # 0.5 K/mm3 11/28/16 04:52 Lymphocytes # (Manual) 0.4 K/mm3 (1.2-5.4) L 11/28/16 04:52 Abs React Lymphs (Man) 0.0 K/mm3 11/28/16 04:52 Monocytes # (Manual) 0.1 K/mm3 (0.0-0.8) 11/28/16 04:52 Eosinophils # (Manual) 0.2 K/mm3 (0.0-0.4) 11/28/16 04:52 Basophils # (Manual) 0.0 K/mm3 (0.0-0.1) 11/28/16 04:52 Metamyelocytes # 0.0 K/mm3 11/28/16 04:52 Myelocytes # 0.0 K/mm3 11/28/16 04:52 Promyelocytes # 0.0 K/mm3 11/28/16 04:52 Blast Cells # 0.0 K/mm3 11/28/16 04:52 WBC Morphology Not Reportable 11/28/16 04:52 Hypersegmented Neuts Not Reportable 11/28/16 04:52 Hyposegmented Neuts Not Reportable 11/28/16 04:52 Hypogranular Neuts Not Reportable 11/28/16 04:52 Smudge Cells Not Reportable 11/28/16 04:52 Toxic Granulation Not Reportable 11/28/16 04:52 Toxic Vacuolation Not Reportable 11/28/16 04:52 Dohle Bodies Not Reportable 11/28/16 04:52 Pelger-Huet Anomaly Not Reportable 11/28/16 04:52 Caitlin Rods Not Reportable 11/28/16 04:52 Platelet Estimate Consistent w auto 11/28/16 04:52 Clumped Platelets Not Reportable 11/28/16 04:52 Plt Clumps, EDTA Not Reportable 11/28/16 04:52 Large Platelets Not Reportable 11/28/16 04:52 Giant Platelets Not Reportable 11/28/16 04:52 Platelet Satelliting Not Reportable 11/28/16 04:52 Plt Morphology Comment Not Reportable 11/28/16 04:52 RBC Morphology Not Reportable 11/28/16 04:52 Dimorphic RBCs Not Reportable 11/28/16 04:52 Polychromasia Not Reportable 11/28/16 04:52 Hypochromasia Not Reportable 11/28/16 04:52 Poikilocytosis Not Reportable 11/28/16 04:52 Anisocytosis Not Reportable 11/28/16 04:52 Microcytosis Not Reportable 11/28/16 04:52 Macrocytosis Few 11/28/16 04:52 Spherocytes Not Reportable 11/28/16 04:52 Pappenheimer Bodies Not Reportable 11/28/16 04:52 Sickle Cells Not Reportable 11/28/16 04:52 Target Cells Not Reportable 11/28/16 04:52 Tear Drop Cells Not Reportable 11/28/16 04:52 Ovalocytes Not Reportable 11/28/16 04:52 Helmet Cells Not Reportable 11/28/16 04:52 Sheets-[place] Bodies Not Reportable 11/28/16 04:52 [place] Rings Not Reportable 11/28/16 04:52 [place] Cells Not Reportable 11/28/16 04:52 Bite Cells Not Reportable 11/28/16 04:52 Crenated Cell Not Reportable 11/28/16 04:52 Elliptocytes Not Reportable 11/28/16 04:52 Acanthocytes (Spur) Not Reportable 11/28/16 04:52 Rouleaux Not Reportable 11/28/16 04:52 Hemoglobin C Crystals Not Reportable 11/28/16 04:52 Schistocytes Not Reportable 11/28/16 04:52 Malaria parasites Not Reportable 11/28/16 04:52 Javon Bodies Not Reportable 11/28/16 04:52 Hem Pathologist Commnt No 11/28/16 04:52 PT 15.8 Sec. (12.2-14.9) H 11/26/16 18:40 INR 1.20 (0.87-1.13) H 11/26/16 18:40 POC ABG pH 7.423 (7.35-7.45) 12/03/16 10:23 POC ABG pCO2 36.4 (35-45) 12/03/16 10:23 POC ABG pO2 80 (80-105) 12/03/16 10:23 POC ABG HCO3 23.8 12/03/16 10:23 POC ABG Total CO2 25 12/03/16 10:23 POC ABG O2 Sat 96 12/03/16 10:23 POC ABG Base Excess -1 12/03/16 10:23 VBG pH 7.376 (7.320-7.420) 11/26/16 18:40 FiO2 35 % 12/03/16 10:23 Sodium 143 mmol/L (137-145) 12/03/16 09:35 Potassium 3.5 mmol/L (3.6-5.0) L 12/03/16 09:35 Chloride 109.9 mmol/L (98-107) H 12/03/16 09:35 Carbon Dioxide 23 mmol/L (22-30) 12/03/16 09:35 Anion Gap 14 mmol/L 12/03/16 09:35 BUN 11 mg/dL (7-17) 12/03/16 09:35 Creatinine 0.4 mg/dL (0.7-1.2) L 12/03/16 09:35 Estimated GFR > 60 ml/min 12/03/16 09:35 BUN/Creatinine Ratio 27.50 % 12/03/16 09:35 Glucose 162 mg/dL (65-100) H 12/03/16 09:35 POC Glucose 157 (70-105) H 12/03/16 11:46 Lactic Acid 0.90 mmol/L (0.7-2.0) 11/27/16 20:41 Calcium 7.5 mg/dL (8.4-10.2) L 12/03/16 09:35 Magnesium 1.80 mg/dL (1.7-2.3) 12/01/16 06:36 Total Bilirubin 0.30 mg/dL (0.1-1.2) 11/30/16 07:40 AST 9 units/L (5-40) 11/30/16 07:40 ALT 6 units/L (7-56) L 11/30/16 07:40 Alkaline Phosphatase 167 units/L (35-129) H 11/30/16 07:40 Ammonia 37.0 umol/L (25-60) 11/29/16 11:15 Total Creatine Kinase 18 units/L (30-135) L 11/26/16 18:40 CK-MB (CK-2) 1.4 ng/mL (0.0-4.0) 11/26/16 18:40 CK-MB (CK-2) Rel Index 7.7 (0-4) H 11/26/16 18:40 Troponin T < 0.010 ng/mL (0.00-0.029) 11/26/16 18:40 NT-Pro-B Natriuret Pep 75822 pg/mL (0-900) H 11/26/16 18:40 Total Protein 4.0 g/dL (6.3-8.2) L 11/30/16 07:40 Albumin 1.0 g/dL (3.9-5) L 11/30/16 07:40 Albumin/Globulin Ratio 0.3 % 11/30/16 07:40 Vitamin B12 768.6 pg/mL (211-911) 11/29/16 11:15 TSH 2.120 mlU/mL (0.270-4.200) 11/29/16 11:15 Urine Color Matilde (Yellow) 11/26/16 18:35 Urine Turbidity Turbid (Clear) 11/26/16 18:35 Urine pH 6.0 (5.0-7.0) 11/26/16 18:35 Ur Specific Sunol 1.018 (1.003-1.030) 11/26/16 18:35 Urine Protein 100 mg/dl mg/dL (Negative) 11/26/16 18:35 Urine Glucose (UA) Neg mg/dL (Negative) 11/26/16 18:35 Urine Ketones Neg mg/dL (Negative) 11/26/16 18:35 Urine Blood Neg (Negative) 11/26/16 18:35 Urine Nitrite Neg (Negative) 11/26/16 18:35 Urine Bilirubin Neg (Negative) 11/26/16 18:35 Urine Urobilinogen < 2.0 mg/dL (<2.0) 11/26/16 18:35 Ur Leukocyte Esterase Mod (Negative) 11/26/16 18:35 Urine WBC (Auto) > 182.0 /HPF (0.0-6.0) H 11/26/16 18:35 Urine RBC (Auto) 6.0 /HPF (0.0-6.0) 11/26/16 18:35 Urine Bacteria (Auto) 4+ /HPF (Negative) 11/26/16 18:35 Urine WBC Clumps 3+ /HPF 11/26/16 18:35 Urine Mucus 3+ /HPF 11/26/16 18:35 Vancomycin Trough 41.9 ug/mL (5.0-20.0) H 11/29/16 07:05 Blood Type B POSITIVE 11/26/16 20:38 Antibody Screen TNR 11/26/16 20:38 NIRAV Antibody Screen Negative 11/26/16 20:38
[2016-12-03] MEDS: REMERON PO SCH (21:04)
[2016-12-04 06:20] LABS: ISTAT Base Excess 1; ISTAT HCO3 25.7; ISTAT PCO2 37.9 (35-45); ISTAT PH 7.438 (7.35-7.45); ISTAT PO2 116 (80-105); ISTAT SO2 99; ISTAT TCO2 27
[2016-12-04 08:42] LABS: Basophils % (Auto) 0.7 % (0.0-1.8); Eosinophils % (Auto) 1.5 % (0.0-4.3); Hematocrit 23.7 % (30.3-42.9); Hemoglobin 7.5 gm/dl (10.1-14.3); Mean Corpuscular HGB Conc 32 % (30-34); Mean Corpuscular Hemoglobin 31 pg (28-32); Mean Corpuscular Volume 98 fl (79-97); Platelet Count 208 K/mm3 (140-440); Red Blood Count 2.41 M/mm3 (3.65-5.03); Red Cell Distribution Width 18.4 % (13.2-15.2)
[2016-12-04 08:57] LABS: Anion Gap 12 mmol/L; Blood Urea Nitrogen 11 mg/dL (7-17); Calcium 7.5 mg/dL (8.4-10.2); Carbon Dioxide 26 mmol/L (22-30); Glucose 160 mg/dL (65-100); Potassium 3.3 mmol/L (3.6-5.0); Sodium 143 mmol/L (137-145)
[2016-12-04] MEDS: LOPRESSOR PO SCH (09:23)
[2016-12-04] MEDS: LASIX IV SCH (09:24)
[2016-12-04] MEDS: XARELTO PO SCH (09:24)
[2016-12-04] MEDS: FERROUS SULFATE PO SCH ×2 (09:24→15:20)
[2016-12-04] MEDS: PEPCID PO SCH (09:24)
[2016-12-04] MEDS: LEVAQUIN 750MG/150ML 750 MG/150 ML BAG IV SCH (09:24)
--- NOTE | 2016-12-04 10:52 | Progress Note ---
Assessment and Plan - Patient Problems (1) Acute respiratory failure Current Visit: Yes Status: Acute Qualifiers: Respiratory failure complication: R (2) Altered mental status Current Visit: Yes Status: Acute Qualifiers: Altered mental status type: stupor Coma depth: C Coma timing: C Qualified Code(s): R40.1 - Stupor (3) Aspiration pneumonia Current Visit: Yes Status: Acute Qualifiers: Aspiration pneumonia type: A Laterality: L Lung location: L (4) Encephalopathy acute Current Visit: Yes Status: Acute Subjective Principal diagnosis: acute respiratory failure Interval history: abg from this am noted pt extubated but doesnt want to cough Objective Vital Signs - 12hr 12/03/16 12/03/16 12/04/16 23:00 23:30 00:00 Temperature 99.9 F H Pulse Rate 114 H 114 H 113 H Pulse Rate [ From Monitor] Respiratory 25 H 18 25 H Rate Blood Pressure 106/51 116/60 97/51 O2 Sat by Pulse 99 100 100 Oximetry 12/04/16 12/04/16 12/04/16 00:24 00:30 01:00 Temperature Pulse Rate 114 H 114 H 114 H Pulse Rate [ From Monitor] Respiratory 18 28 H Rate Blood Pressure 97/51 110/47 107/59 O2 Sat by Pulse 100 99 99 Oximetry 12/04/16 12/04/16 12/04/16 01:30 02:00 02:30 Temperature Pulse Rate 114 H 114 H 114 H Pulse Rate [ From Monitor] Respiratory 15 25 H 18 Rate Blood Pressure 105/53 95/63 100/63 O2 Sat by Pulse 99 100 100 Oximetry 12/04/16 12/04/16 12/04/16 03:01 03:30 04:00 Temperature 99.3 F Pulse Rate 114 H 113 H Pulse Rate [ From Monitor] Respiratory 22 25 H 21 Rate Blood Pressure 49/32 93/41 O2 Sat by Pulse 99 100 95 Oximetry 12/04/16 12/04/16 12/04/16 04:01 04:30 05:00 Temperature Pulse Rate 113 H 113 H 114 H Pulse Rate [ From Monitor] Respiratory 19 25 H 29 H Rate Blood Pressure 91/22 85/30 105/49 O2 Sat by Pulse 100 99 100 Oximetry 12/04/16 12/04/16 12/04/16 05:29 05:31 06:01 Temperature Pulse Rate 114 H 114 H 114 H Pulse Rate [ From Monitor] Respiratory 27 H 11 L 22 Rate Blood Pressure 105/49 109/62 123/54 O2 Sat by Pulse 100 99 99 Oximetry 12/04/16 12/04/16 12/04/16 06:30 07:00 07:30 Temperature Pulse Rate 115 H 113 H 114 H Pulse Rate [ From Monitor] Respiratory 22 27 H 22 Rate Blood Pressure 127/54 135/68 119/58 O2 Sat by Pulse 99 100 100 Oximetry 12/04/16 12/04/16 12/04/16 07:45 07:53 07:54 Temperature 99.3 F Pulse Rate 113 H Pulse Rate [ 114 H From Monitor] Respiratory 15 25 H Rate Blood Pressure 119/58 O2 Sat by Pulse 100 100 Oximetry 12/04/16 12/04/16 12/04/16 08:00 08:30 09:00 Temperature Pulse Rate 114 H 113 H 113 H Pulse Rate [ From Monitor] Respiratory 28 H 26 H 30 H Rate Blood Pressure 129/53 122/49 123/58 O2 Sat by Pulse 100 100 100 Oximetry 12/04/16 12/04/16 12/04/16 09:23 09:30 09:56 Temperature Pulse Rate 114 H 114 H Pulse Rate [ From Monitor] Respiratory 29 H Rate Blood Pressure 123/58 126/60 O2 Sat by Pulse 100 100 Oximetry 12/04/16 12/04/16 10:00 10:20 Temperature Pulse Rate 110 H Pulse Rate [ 114 H From Monitor] Respiratory 18 Rate Blood Pressure 122/56 O2 Sat by Pulse 88 98 Oximetry Constitutional: no acute distress Eyes: non-icteric Effort: normal Ascultation: Bilateral: clear, diminished breath sounds, rhonchi (rare) Cardiovascular: regular rate and rhythm Gastrointestinal: normoactive bowel sounds, non-distended Integumentary: normal Extremities: no cyanosis, no edema Neurologic: other ( stuporous, slightly up from her eyes rn utilization management um and tactile stimuli) CBC and BMP: 12/04/16 08:15 12/04/16 08:15 ABG, PT/INR, D-dimer: ABG POC ABG pH 7.438 (7.35-7.45) 12/04/16 05:29 POC ABG pCO2 37.9 (35-45) 12/04/16 05:29 POC ABG pO2 116 (80-105) H 12/04/16 05:29 POC ABG HCO3 25.7 12/04/16 05:29 POC ABG Total CO2 27 12/04/16 05:29 POC ABG O2 Sat 99 12/04/16 05:29 PT/INR, D-dimer PT 15.8 Sec. (12.2-14.9) H 11/26/16 18:40 INR 1.20 (0.87-1.13) H 11/26/16 18:40 Abnormal lab findings: Abnormal Labs 11/26/16 11/27/16 11/27/16 20:20 05:43 23:43 RBC Hgb Hct MCV RDW Lymph % (Auto) [place] % (Auto) Lymph # Seg Neutrophils % Seg Neuts % (Manual) Lymphocytes % (Manual) Lymphocytes # (Manual) POC ABG pH 7.574 H POC ABG pCO2 29.9 L POC ABG pO2 57 L 147 H Potassium Chloride Carbon Dioxide BUN Creatinine Glucose POC Glucose 63 L Calcium ALT Alkaline Phosphatase Total Protein Albumin Vancomycin Trough 11/28/16 11/28/16 11/29/16 04:52 04:52 05:15 RBC 3.04 L 2.95 L Hgb 9.4 L 9.2 L Hct 28.6 L MCV 102 H D RDW 19.9 H 19.5 H Lymph % (Auto) 13.1 L [place] % (Auto) 7.9 H Lymph # 0.8 L Seg Neutrophils % 77.7 H Seg Neuts % (Manual) 83.0 H Lymphocytes % (Manual) 6.0 L Lymphocytes # (Manual) 0.4 L POC ABG pH POC ABG pCO2 POC ABG pO2 Potassium Chloride 110.0 H Carbon Dioxide 20 L BUN Creatinine 0.3 L Glucose POC Glucose Calcium 7.0 L ALT Alkaline Phosphatase Total Protein Albumin Vancomycin Trough 11/29/16 11/29/16 11/29/16 05:15 05:23 06:18 RBC Hgb Hct MCV RDW Lymph % (Auto) [place] % (Auto) Lymph # Seg Neutrophils % Seg Neuts % (Manual) Lymphocytes % (Manual) Lymphocytes # (Manual) POC ABG pH 7.474 H POC ABG pCO2 30.2 L POC ABG pO2 Potassium 3.1 L D Chloride 112.3 H Carbon Dioxide BUN 6 L Creatinine 0.3 L Glucose POC Glucose 120 H Calcium 7.1 L ALT Alkaline Phosphatase Total Protein Albumin Vancomycin Trough 11/29/16 11/29/16 11/29/16 07:05 11:54 18:31 RBC Hgb Hct MCV RDW Lymph % (Auto) [place] % (Auto) Lymph # Seg Neutrophils % Seg Neuts % (Manual) Lymphocytes % (Manual) Lymphocytes # (Manual) POC ABG pH POC ABG pCO2 POC ABG pO2 Potassium Chloride Carbon Dioxide BUN Creatinine Glucose POC Glucose 122 H 179 H Calcium ALT Alkaline Phosphatase Total Protein Albumin Vancomycin Trough 41.9 H 11/29/16 11/30/16 11/30/16 23:16 04:01 07:40 RBC 2.51 L Hgb 7.7 L Hct 24.8 L MCV 99 H RDW 19.4 H Lymph % (Auto) [place] % (Auto) Lymph # Seg Neutrophils % Seg Neuts % (Manual) Lymphocytes % (Manual) Lymphocytes # (Manual) POC ABG pH 7.468 H POC ABG pCO2 30.6 L POC ABG pO2 Potassium Chloride Carbon Dioxide BUN Creatinine Glucose POC Glucose 149 H Calcium ALT Alkaline Phosphatase Total Protein Albumin Vancomycin Trough 11/30/16 11/30/16 11/30/16 07:40 12:42 17:30 RBC Hgb Hct MCV RDW Lymph % (Auto) [place] % (Auto) Lymph # Seg Neutrophils % Seg Neuts % (Manual) Lymphocytes % (Manual) Lymphocytes # (Manual) POC ABG pH POC ABG pCO2 POC ABG pO2 Potassium Chloride 113.7 H Carbon Dioxide BUN Creatinine 0.5 L D Glucose POC Glucose 134 H 114 H Calcium 7.1 L ALT 6 L Alkaline Phosphatase 167 H Total Protein 4.0 L Albumin 1.0 L Vancomycin Trough 11/30/16 12/01/16 12/01/16 23:39 05:52 06:36 RBC 2.60 L Hgb 8.1 L Hct 25.4 L MCV 98 H RDW 19.7 H Lymph % (Auto) [place] % (Auto) 9.0 H Lymph # 1.1 L Seg Neutrophils % Seg Neuts % (Manual) Lymphocytes % (Manual) Lymphocytes # (Manual) POC ABG pH POC ABG pCO2 POC ABG pO2 Potassium Chloride Carbon Dioxide BUN Creatinine Glucose POC Glucose 121 H 134 H Calcium ALT Alkaline Phosphatase Total Protein Albumin Vancomycin Trough 12/01/16 12/01/16 12/01/16 06:36 11:34 17:40 RBC Hgb Hct MCV RDW Lymph % (Auto) [place] % (Auto) Lymph # Seg Neutrophils % Seg Neuts % (Manual) Lymphocytes % (Manual) Lymphocytes # (Manual) POC ABG pH POC ABG pCO2 POC ABG pO2 Potassium Chloride 113.8 H Carbon Dioxide BUN Creatinine 0.5 L Glucose 120 H POC Glucose 167 H 117 H Calcium 7.3 L ALT Alkaline Phosphatase Total Protein Albumin Vancomycin Trough 12/02/16 12/02/16 12/02/16 00:35 05:03 05:44 RBC Hgb Hct MCV RDW Lymph % (Auto) [place] % (Auto) Lymph # Seg Neutrophils % Seg Neuts % (Manual) Lymphocytes % (Manual) Lymphocytes # (Manual) POC ABG pH POC ABG pCO2 30.9 L POC ABG pO2 77 L Potassium Chloride Carbon Dioxide BUN Creatinine Glucose POC Glucose 129 H 154 H Calcium ALT Alkaline Phosphatase Total Protein Albumin Vancomycin Trough 12/02/16 12/02/16 12/03/16 18:03 23:53 05:17 RBC Hgb Hct MCV RDW Lymph % (Auto) [place] % (Auto) Lymph # Seg Neutrophils % Seg Neuts % (Manual) Lymphocytes % (Manual) Lymphocytes # (Manual) POC ABG pH POC ABG pCO2 POC ABG pO2 Potassium Chloride Carbon Dioxide BUN Creatinine Glucose POC Glucose 135 H 158 H 177 H Calcium ALT Alkaline Phosphatase Total Protein Albumin Vancomycin Trough 12/03/16 12/03/16 12/03/16 05:30 09:35 11:46 RBC 2.50 L Hgb 8.0 L Hct 24.8 L MCV 99 H RDW 18.8 H Lymph % (Auto) [place] % (Auto) 11.9 H Lymph # Seg Neutrophils % Seg Neuts % (Manual) Lymphocytes % (Manual) Lymphocytes # (Manual) POC ABG pH POC ABG pCO2 POC ABG pO2 Potassium 3.5 L Chloride 109.9 H Carbon Dioxide BUN Creatinine 0.4 L Glucose 162 H POC Glucose 157 H Calcium 7.5 L ALT Alkaline Phosphatase Total Protein Albumin Vancomycin Trough 12/03/16 12/03/16 12/04/16 18:25 23:32 05:24 RBC Hgb Hct MCV RDW Lymph % (Auto) [place] % (Auto) Lymph # Seg Neutrophils % Seg Neuts % (Manual) Lymphocytes % (Manual) Lymphocytes # (Manual) POC ABG pH POC ABG pCO2 POC ABG pO2 Potassium Chloride Carbon Dioxide BUN Creatinine Glucose POC Glucose 134 H 152 H 176 H Calcium ALT Alkaline Phosphatase Total Protein Albumin Vancomycin Trough 12/04/16 12/04/16 12/04/16 05:29 08:15 08:15 RBC 2.41 L Hgb 7.5 L Hct 23.7 L MCV 98 H RDW 18.4 H Lymph % (Auto) [place] % (Auto) 12.7 H Lymph # 0.9 L Seg Neutrophils % Seg Neuts % (Manual) Lymphocytes % (Manual) Lymphocytes # (Manual) POC ABG pH POC ABG pCO2 POC ABG pO2 116 H Potassium 3.3 L Chloride 108.0 H Carbon Dioxide BUN Creatinine 0.4 L Glucose 160 H POC Glucose Calcium 7.5 L ALT Alkaline Phosphatase Total Protein Albumin Vancomycin Trough
[2016-12-04] MEDS ORDERED: POTASSIUM CHLORIDE FEEDTUBE ONE (11:00)
[2016-12-04] MEDS: SENOKOT PO SCH ×2 (12:22→22:00)
[2016-12-04] MEDS: XOPENEX IH SCH ×2 (13:59→19:59)
--- NOTE | 2016-12-04 14:03 | Progress Note ---
Assessment and Plan Assessment and plan: 61-year-old female brought via EMS from care home after she was found to have difficulty of breathing, decreased responsiveness. Patient medical history significant for hypertension, diabetes mellitus, A. fib, bilateral lower extremity pressure sores. Patient was unable to protect her airway and she was intubated in the emergency department. Acute respiratory failure Aspiration pneumonia versus community acquired pneumonia Sepsis with hypotension Acute metabolic encephalopathy Cardiomegaly, bilateral pleural effusion - Patient is currently on high flow oxygen - Patient is on Levaquin - Blood culture negative - Pulmonary consult appreciated - patient's mentation improved Patient is Full code. Disposition - Continue ICU care The high probability of a clinically significant, sudden or life threatening deterioration of the [neurology, cardiovascular, respiratory] system(s) required my full and direct attention, intervention and personal management. The aggregate critical care time was [x] minutes. This time is in addition to time spent performing reported procedures but includes the following: [x] Data Review and interpretation [x] Patient assessment and monitoring of vital signs [x] Documentation [x] Medication orders and managementDVT prophylaxis History Interval history: Patient was seen and evaluated this morning, patient is on high flow oxygen. Patient's mentation is improved. Hospitalist Physical - Physical exam Narrative exam: Patient is on high flow oxygen. The patient appeared well nourished and normally developed. Vital signs as documented. Head exam is unremarkable. No scleral icterus . Neck is without jugular venous distension, thyromegaly, or carotid bruits. Lungs are clear to auscultation. Cardiac exam reveals irregular rate and Rhythm. Abdominal exam reveals normal bowel sounds, no masses, no organomegaly and no aortic enlargement. Extremities patient has minimal edema. [employer]: Alert. - Constitutional Vitals: Temp Pulse Resp BP Pulse Ox 97.4 F L 111 H 24 104/53 82 L 12/04/16 12:00 12/04/16 13:59 12/04/16 13:59 12/04/16 13:00 12/04/16 13:00 General appearance: Present: no acute distress, cachectic, disheveled, other ( intubated and sedated) Results - Labs CBC & Chem 7: 12/04/16 08:15 12/04/16 08:15 Labs: Laboratory Last Values WBC 5.0 K/mm3 (4.5-11.0) 12/04/16 08:15 RBC 2.41 M/mm3 (3.65-5.03) L 12/04/16 08:15 Hgb 7.5 gm/dl (10.1-14.3) L 12/04/16 08:15 Hct 23.7 % (30.3-42.9) L 12/04/16 08:15 MCV 98 fl (79-97) H 12/04/16 08:15 MCH 31 pg (28-32) 12/04/16 08:15 MCHC 32 % (30-34) 12/04/16 08:15 RDW 18.4 % (13.2-15.2) H 12/04/16 08:15 Plt Count 208 K/mm3 (140-440) 12/04/16 08:15 Lymph % (Auto) 18.0 % (13.4-35.0) 12/04/16 08:15 [place] % (Auto) 12.7 % (0.0-7.3) H 12/04/16 08:15 Eos % (Auto) 1.5 % (0.0-4.3) 12/04/16 08:15 Baso % (Auto) 0.7 % (0.0-1.8) 12/04/16 08:15 Lymph # 0.9 K/mm3 (1.2-5.4) L 12/04/16 08:15 [place] # 0.6 K/mm3 (0.0-0.8) 12/04/16 08:15 Eos # 0.1 K/mm3 (0.0-0.4) 12/04/16 08:15 Baso # 0.0 K/mm3 (0.0-0.1) 12/04/16 08:15 Add Manual Diff Complete 11/28/16 04:52 Total Counted 100 11/28/16 04:52 Seg Neutrophils % 67.1 % (40.0-70.0) 12/04/16 08:15 Seg Neuts % (Manual) 83.0 % (40.0-70.0) H 11/28/16 04:52 Band Neutrophils % 7.0 % 11/28/16 04:52 Lymphocytes % (Manual) 6.0 % (13.4-35.0) L 11/28/16 04:52 Reactive Lymphs % (Man) 0 % 11/28/16 04:52 Monocytes % (Manual) 1.0 % (0.0-7.3) 11/28/16 04:52 Eosinophils % (Manual) 3.0 % (0.0-4.3) 11/28/16 04:52 Basophils % (Manual) 0 % (0.0-1.8) 11/28/16 04:52 Metamyelocytes % 0 % 11/28/16 04:52 Myelocytes % 0 % 11/28/16 04:52 Promyelocytes % 0 % 11/28/16 04:52 Blast Cells % 0 % 11/28/16 04:52 Nucleated RBC % Not Reportable 11/28/16 04:52 Seg Neutrophils # 3.3 K/mm3 (1.8-7.7) 12/04/16 08:15 Seg Neutrophils # Man 5.4 K/mm3 (1.8-7.7) 11/28/16 04:52 Band Neutrophils # 0.5 K/mm3 11/28/16 04:52 Lymphocytes # (Manual) 0.4 K/mm3 (1.2-5.4) L 11/28/16 04:52 Abs React Lymphs (Man) 0.0 K/mm3 11/28/16 04:52 Monocytes # (Manual) 0.1 K/mm3 (0.0-0.8) 11/28/16 04:52 Eosinophils # (Manual) 0.2 K/mm3 (0.0-0.4) 11/28/16 04:52 Basophils # (Manual) 0.0 K/mm3 (0.0-0.1) 11/28/16 04:52 Metamyelocytes # 0.0 K/mm3 11/28/16 04:52 Myelocytes # 0.0 K/mm3 11/28/16 04:52 Promyelocytes # 0.0 K/mm3 11/28/16 04:52 Blast Cells # 0.0 K/mm3 11/28/16 04:52 WBC Morphology Not Reportable 11/28/16 04:52 Hypersegmented Neuts Not Reportable 11/28/16 04:52 Hyposegmented Neuts Not Reportable 11/28/16 04:52 Hypogranular Neuts Not Reportable 11/28/16 04:52 Smudge Cells Not Reportable 11/28/16 04:52 Toxic Granulation Not Reportable 11/28/16 04:52 Toxic Vacuolation Not Reportable 11/28/16 04:52 Dohle Bodies Not Reportable 11/28/16 04:52 Pelger-Huet Anomaly Not Reportable 11/28/16 04:52 Caitlin Rods Not Reportable 11/28/16 04:52 Platelet Estimate Consistent w auto 11/28/16 04:52 Clumped Platelets Not Reportable 11/28/16 04:52 Plt Clumps, EDTA Not Reportable 11/28/16 04:52 Large Platelets Not Reportable 11/28/16 04:52 Giant Platelets Not Reportable 11/28/16 04:52 Platelet Satelliting Not Reportable 11/28/16 04:52 Plt Morphology Comment Not Reportable 11/28/16 04:52 RBC Morphology Not Reportable 11/28/16 04:52 Dimorphic RBCs Not Reportable 11/28/16 04:52 Polychromasia Not Reportable 11/28/16 04:52 Hypochromasia Not Reportable 11/28/16 04:52 Poikilocytosis Not Reportable 11/28/16 04:52 Anisocytosis Not Reportable 11/28/16 04:52 Microcytosis Not Reportable 11/28/16 04:52 Macrocytosis Few 11/28/16 04:52 Spherocytes Not Reportable 11/28/16 04:52 Pappenheimer Bodies Not Reportable 11/28/16 04:52 Sickle Cells Not Reportable 11/28/16 04:52 Target Cells Not Reportable 11/28/16 04:52 Tear Drop Cells Not Reportable 11/28/16 04:52 Ovalocytes Not Reportable 11/28/16 04:52 Helmet Cells Not Reportable 11/28/16 04:52 [place] Bodies Not Reportable 11/28/16 04:52 [place] Rings Not Reportable 11/28/16 04:52 [place] Cells Not Reportable 11/28/16 04:52 Bite Cells Not Reportable 11/28/16 04:52 Crenated Cell Not Reportable 11/28/16 04:52 Elliptocytes Not Reportable 11/28/16 04:52 Acanthocytes (Spur) Not Reportable 11/28/16 04:52 Rouleaux Not Reportable 11/28/16 04:52 Hemoglobin C Crystals Not Reportable 11/28/16 04:52 Schistocytes Not Reportable 11/28/16 04:52 Malaria parasites Not Reportable 11/28/16 04:52 Javon Bodies Not Reportable 11/28/16 04:52 Hem Pathologist Commnt No 11/28/16 04:52 PT 15.8 Sec. (12.2-14.9) H 11/26/16 18:40 INR 1.20 (0.87-1.13) H 11/26/16 18:40 POC ABG pH 7.438 (7.35-7.45) 12/04/16 05:29 POC ABG pCO2 37.9 (35-45) 12/04/16 05:29 POC ABG pO2 116 (80-105) H 12/04/16 05:29 POC ABG HCO3 25.7 12/04/16 05:29 POC ABG Total CO2 27 12/04/16 05:29 POC ABG O2 Sat 99 12/04/16 05:29 POC ABG Base Excess 1 12/04/16 05:29 VBG pH 7.376 (7.320-7.420) 11/26/16 18:40 FiO2 35 % 12/04/16 05:29 Sodium 143 mmol/L (137-145) 12/04/16 08:15 Potassium 3.3 mmol/L (3.6-5.0) L 12/04/16 08:15 Chloride 108.0 mmol/L (98-107) H 12/04/16 08:15 Carbon Dioxide 26 mmol/L (22-30) 12/04/16 08:15 Anion Gap 12 mmol/L 12/04/16 08:15 BUN 11 mg/dL (7-17) 12/04/16 08:15 Creatinine 0.4 mg/dL (0.7-1.2) L 12/04/16 08:15 Estimated GFR > 60 ml/min 12/04/16 08:15 BUN/Creatinine Ratio 27.50 % 12/04/16 08:15 Glucose 160 mg/dL (65-100) H 12/04/16 08:15 POC Glucose 142 (70-105) H 12/04/16 11:42 Lactic Acid 0.90 mmol/L (0.7-2.0) 11/27/16 20:41 Calcium 7.5 mg/dL (8.4-10.2) L 12/04/16 08:15 Magnesium 1.80 mg/dL (1.7-2.3) 12/01/16 06:36 Total Bilirubin 0.30 mg/dL (0.1-1.2) 11/30/16 07:40 AST 9 units/L (5-40) 11/30/16 07:40 ALT 6 units/L (7-56) L 11/30/16 07:40 Alkaline Phosphatase 167 units/L (35-129) H 11/30/16 07:40 Ammonia 37.0 umol/L (25-60) 11/29/16 11:15 Total Creatine Kinase 18 units/L (30-135) L 11/26/16 18:40 CK-MB (CK-2) 1.4 ng/mL (0.0-4.0) 11/26/16 18:40 CK-MB (CK-2) Rel Index 7.7 (0-4) H 11/26/16 18:40 Troponin T < 0.010 ng/mL (0.00-0.029) 11/26/16 18:40 NT-Pro-B Natriuret Pep 78093 pg/mL (0-900) H 11/26/16 18:40 Total Protein 4.0 g/dL (6.3-8.2) L 11/30/16 07:40 Albumin 1.0 g/dL (3.9-5) L 11/30/16 07:40 Albumin/Globulin Ratio 0.3 % 11/30/16 07:40 Vitamin B12 768.6 pg/mL (211-911) 11/29/16 11:15 TSH 2.120 mlU/mL (0.270-4.200) 11/29/16 11:15 Urine Color Matilde (Yellow) 11/26/16 18:35 Urine Turbidity Turbid (Clear) 11/26/16 18:35 Urine pH 6.0 (5.0-7.0) 11/26/16 18:35 Ur Specific [place] 1.018 (1.003-1.030) 11/26/16 18:35 Urine Protein 100 mg/dl mg/dL (Negative) 11/26/16 18:35 Urine Glucose (UA) Neg mg/dL (Negative) 11/26/16 18:35 Urine Ketones Neg mg/dL (Negative) 11/26/16 18:35 Urine Blood Neg (Negative) 11/26/16 18:35 Urine Nitrite Neg (Negative) 11/26/16 18:35 Urine Bilirubin Neg (Negative) 11/26/16 18:35 Urine Urobilinogen < 2.0 mg/dL (<2.0) 11/26/16 18:35 Ur Leukocyte Esterase Mod (Negative) 11/26/16 18:35 Urine WBC (Auto) > 182.0 /HPF (0.0-6.0) H 11/26/16 18:35 Urine RBC (Auto) 6.0 /HPF (0.0-6.0) 11/26/16 18:35 Urine Bacteria (Auto) 4+ /HPF (Negative) 11/26/16 18:35 Urine WBC Clumps 3+ /HPF 11/26/16 18:35 Urine Mucus 3+ /HPF 11/26/16 18:35 Vancomycin Trough 41.9 ug/mL (5.0-20.0) H 11/29/16 07:05 Blood Type B POSITIVE 11/26/16 20:38 Antibody Screen TNR 11/26/16 20:38 NIRAV Antibody Screen Negative 11/26/16 20:38
[2016-12-04 15:27] LABS: ISTAT Base Excess -1; ISTAT HCO3 25.3; ISTAT PCO2 48.9 (35-45); ISTAT PH 7.322 (7.35-7.45); ISTAT PO2 59 (80-105); ISTAT SO2 87; ISTAT TCO2 27
[2016-12-04 17:29] LABS: ISTAT Base Excess 0; ISTAT HCO3 24.7; ISTAT PCO2 36.8 (35-45); ISTAT PH 7.435 (7.35-7.45); ISTAT PO2 77 (80-105); ISTAT SO2 96; ISTAT TCO2 26
[2016-12-04] MEDS: PULMICORT IH SCH (19:59)
[2016-12-05] MEDS: LOPRESSOR PO SCH ×3 (00:05→22:06)
[2016-12-05] MEDS: LASIX IV SCH ×3 (00:05→22:08)
[2016-12-05] MEDS: FERROUS SULFATE PO SCH ×4 (00:05→22:08)
[2016-12-05] MEDS: PEPCID PO SCH ×3 (00:05→22:06)
[2016-12-05] MEDS: DILAUDID IV PRN ×2 (00:49→21:58)
[2016-12-05] MEDS: XOPENEX IH SCH ×4 (01:38→20:30)
[2016-12-05 03:34] LABS: Hematocrit 30.8 % (30.3-42.9); Hemoglobin 9.8 gm/dl (10.1-14.3); Red Blood Count 3.17 M/mm3 (3.65-5.03); White Blood Count 6.9 K/mm3 (4.5-11.0)
[2016-12-05 03:35] LABS: Basophils % (Auto) 0.4 % (0.0-1.8); Eosinophils % (Auto) 1.2 % (0.0-4.3); Mean Corpuscular HGB Conc 32 % (30-34); Mean Corpuscular Hemoglobin 31 pg (28-32); Mean Corpuscular Volume 97 fl (79-97); Platelet Count 184 K/mm3 (140-440)
[2016-12-05 03:51] LABS: Anion Gap 11 mmol/L; BUN/Creatinine Ratio 36.66; Blood Urea Nitrogen 11 mg/dL (7-17); Calcium 7.5 mg/dL (8.4-10.2); Carbon Dioxide 28 mmol/L (22-30); Chloride 105.7 mmol/L (98-107); Glucose 130 mg/dL (65-100); Potassium 3.3 mmol/L (3.6-5.0); Sodium 141 mmol/L (137-145)
[2016-12-05] MEDS: PULMICORT IH SCH ×2 (07:32→20:25)
[2016-12-05] MEDS ORDERED: POTASSIUM CHLORIDE FEEDTUBE ONE (09:00)
[2016-12-05] MEDS: XARELTO PO SCH (09:45)
[2016-12-05] MEDS: LEVAQUIN 750MG/150ML 750 MG/150 ML BAG IV SCH (09:45)
--- NOTE | 2016-12-05 11:32 | Progress Note ---
Assessment and Plan 61 y/o female with acute respiratory failure requiring mechanical ventilation, now extubated with elevated BNP on admission, with history of afib on xarelto 1. Suggest checking ECHO to evaluate left sided squeeze and right sided pressures 2. Continue with IV diuresis as BP and renal function will allow 3. Needs speech assessment as well 4. Continue HFNC, may need to have bipap therapy at night given appearance of last CXR 5. Daily net negative state 6. Ok with stopping abx therapy currently 7. Will continue ICU monitoring for now, re-evaluate tomorrow. Subjective Date of service: 12/05/16 Principal diagnosis: acute respiratory failure Interval history: Extubated on yesterday. currently on HFNC 30 and 50%. Family at bedside. Patient awake, follows commands. Voice is very weak and dentition is very poor. Objective Vital Signs - 12hr 12/04/16 12/05/16 12/05/16 23:31 00:00 00:05 Temperature 99.6 F Pulse Rate 114 H 115 H 117 H Pulse Rate [ Anterior Bilateral Throughout] Respiratory 27 H 25 H Rate Respiratory Rate [Anterior Bilateral Throughout] Blood Pressure 111/54 122/62 120/75 O2 Sat by Pulse 99 100 Oximetry 12/05/16 12/05/16 12/05/16 00:31 00:49 01:00 Temperature Pulse Rate 115 H 115 H Pulse Rate [ Anterior Bilateral Throughout] Respiratory 26 H 33 H 20 Rate Respiratory Rate [Anterior Bilateral Throughout] Blood Pressure 122/62 122/98 O2 Sat by Pulse 100 100 Oximetry 12/05/16 12/05/16 12/05/16 01:31 01:38 01:48 Temperature Pulse Rate 114 H Pulse Rate [ 114 H 115 H Anterior Bilateral Throughout] Respiratory 24 Rate Respiratory 24 28 H Rate [Anterior Bilateral Throughout] Blood Pressure 122/98 O2 Sat by Pulse 100 Oximetry 12/05/16 12/05/16 12/05/16 02:00 02:31 03:00 Temperature Pulse Rate 114 H 114 H 115 H Pulse Rate [ Anterior Bilateral Throughout] Respiratory 27 H 28 H 22 Rate Respiratory Rate [Anterior Bilateral Throughout] Blood Pressure 111/53 111/53 114/62 O2 Sat by Pulse 100 100 100 Oximetry 12/05/16 12/05/16 12/05/16 03:31 03:55 04:00 Temperature 98.5 F Pulse Rate 112 H 105 H Pulse Rate [ Anterior Bilateral Throughout] Respiratory 20 24 Rate Respiratory Rate [Anterior Bilateral Throughout] Blood Pressure 114/62 90/52 O2 Sat by Pulse 99 94 Oximetry 12/05/16 12/05/16 12/05/16 04:01 04:31 05:00 Temperature Pulse Rate 113 H 111 H 110 H Pulse Rate [ Anterior Bilateral Throughout] Respiratory 25 H 24 18 Rate Respiratory Rate [Anterior Bilateral Throughout] Blood Pressure 102/48 102/48 91/43 O2 Sat by Pulse 98 99 99 Oximetry 12/05/16 12/05/16 12/05/16 05:31 06:00 06:31 Temperature Pulse Rate 110 H 110 H 110 H Pulse Rate [ Anterior Bilateral Throughout] Respiratory 20 19 16 Rate Respiratory Rate [Anterior Bilateral Throughout] Blood Pressure 91/43 90/52 90/52 O2 Sat by Pulse 100 97 96 Oximetry 12/05/16 12/05/16 12/05/16 07:00 07:28 07:29 Temperature 97.5 F L Pulse Rate 112 H 112 H Pulse Rate [ Anterior Bilateral Throughout] Respiratory 17 24 Rate Respiratory Rate [Anterior Bilateral Throughout] Blood Pressure 94/48 94/48 O2 Sat by Pulse 95 99 Oximetry 12/05/16 12/05/16 12/05/16 07:31 07:33 07:43 Temperature Pulse Rate 113 H Pulse Rate [ 112 H 112 H Anterior Bilateral Throughout] Respiratory 15 Rate Respiratory 24 24 Rate [Anterior Bilateral Throughout] Blood Pressure 94/48 O2 Sat by Pulse 100 Oximetry 12/05/16 12/05/16 12/05/16 07:46 08:00 09:46 Temperature Pulse Rate 113 H 114 H Pulse Rate [ Anterior Bilateral Throughout] Respiratory 13 Rate Respiratory Rate [Anterior Bilateral Throughout] Blood Pressure 92/47 92/47 O2 Sat by Pulse 100 98 Oximetry Constitutional: no acute distress Eyes: non-icteric Effort: normal Ascultation: Bilateral: diminished breath sounds, rales Cardiovascular: regular rate and rhythm Gastrointestinal: normoactive bowel sounds, non-distended Integumentary: normal Extremities: no cyanosis, no edema Neurologic: other ( stuporous, slightly up from her eyes rehabilitation consultant and tactile stimuli) CBC and BMP: 12/05/16 03:15 12/05/16 03:15 ABG, PT/INR, D-dimer: ABG POC ABG pH 7.435 (7.35-7.45) 12/04/16 16:49 POC ABG pCO2 36.8 (35-45) 12/04/16 16:49 POC ABG pO2 77 (80-105) L 12/04/16 16:49 POC ABG HCO3 24.7 12/04/16 16:49 POC ABG Total CO2 26 12/04/16 16:49 POC ABG O2 Sat 96 12/04/16 16:49 PT/INR, D-dimer PT 15.8 Sec. (12.2-14.9) H 11/26/16 18:40 INR 1.20 (0.87-1.13) H 11/26/16 18:40 Abnormal lab findings: Abnormal Labs 11/26/16 11/27/16 11/27/16 20:20 05:43 23:43 RBC Hgb Hct MCV RDW Lymph % (Auto) [place] % (Auto) Lymph # Seg Neutrophils % Seg Neuts % (Manual) Lymphocytes % (Manual) Lymphocytes # (Manual) POC ABG pH 7.574 H POC ABG pCO2 29.9 L POC ABG pO2 57 L 147 H Potassium Chloride Carbon Dioxide BUN Creatinine Glucose POC Glucose 63 L Calcium ALT Alkaline Phosphatase Total Protein Albumin Vancomycin Trough 11/28/16 11/28/16 11/29/16 04:52 04:52 05:15 RBC 3.04 L 2.95 L Hgb 9.4 L 9.2 L Hct 28.6 L MCV 102 H D RDW 19.9 H 19.5 H Lymph % (Auto) 13.1 L [place] % (Auto) 7.9 H Lymph # 0.8 L Seg Neutrophils % 77.7 H Seg Neuts % (Manual) 83.0 H Lymphocytes % (Manual) 6.0 L Lymphocytes # (Manual) 0.4 L POC ABG pH POC ABG pCO2 POC ABG pO2 Potassium Chloride 110.0 H Carbon Dioxide 20 L BUN Creatinine 0.3 L Glucose POC Glucose Calcium 7.0 L ALT Alkaline Phosphatase Total Protein Albumin Vancomycin Trough 11/29/16 11/29/16 11/29/16 05:15 05:23 06:18 RBC Hgb Hct MCV RDW Lymph % (Auto) [place] % (Auto) Lymph # Seg Neutrophils % Seg Neuts % (Manual) Lymphocytes % (Manual) Lymphocytes # (Manual) POC ABG pH 7.474 H POC ABG pCO2 30.2 L POC ABG pO2 Potassium 3.1 L D Chloride 112.3 H Carbon Dioxide BUN 6 L Creatinine 0.3 L Glucose POC Glucose 120 H Calcium 7.1 L ALT Alkaline Phosphatase Total Protein Albumin Vancomycin Trough 11/29/16 11/29/16 11/29/16 07:05 11:54 18:31 RBC Hgb Hct MCV RDW Lymph % (Auto) [place] % (Auto) Lymph # Seg Neutrophils % Seg Neuts % (Manual) Lymphocytes % (Manual) Lymphocytes # (Manual) POC ABG pH POC ABG pCO2 POC ABG pO2 Potassium Chloride Carbon Dioxide BUN Creatinine Glucose POC Glucose 122 H 179 H Calcium ALT Alkaline Phosphatase Total Protein Albumin Vancomycin Trough 41.9 H 11/29/16 11/30/16 11/30/16 23:16 04:01 07:40 RBC 2.51 L Hgb 7.7 L Hct 24.8 L MCV 99 H RDW 19.4 H Lymph % (Auto) [place] % (Auto) Lymph # Seg Neutrophils % Seg Neuts % (Manual) Lymphocytes % (Manual) Lymphocytes # (Manual) POC ABG pH 7.468 H POC ABG pCO2 30.6 L POC ABG pO2 Potassium Chloride Carbon Dioxide BUN Creatinine Glucose POC Glucose 149 H Calcium ALT Alkaline Phosphatase Total Protein Albumin Vancomycin Trough 11/30/16 11/30/16 11/30/16 07:40 12:42 17:30 RBC Hgb Hct MCV RDW Lymph % (Auto) [place] % (Auto) Lymph # Seg Neutrophils % Seg Neuts % (Manual) Lymphocytes % (Manual) Lymphocytes # (Manual) POC ABG pH POC ABG pCO2 POC ABG pO2 Potassium Chloride 113.7 H Carbon Dioxide BUN Creatinine 0.5 L D Glucose POC Glucose 134 H 114 H Calcium 7.1 L ALT 6 L Alkaline Phosphatase 167 H Total Protein 4.0 L Albumin 1.0 L Vancomycin Trough 11/30/16 12/01/16 12/01/16 23:39 05:52 06:36 RBC 2.60 L Hgb 8.1 L Hct 25.4 L MCV 98 H RDW 19.7 H Lymph % (Auto) [place] % (Auto) 9.0 H Lymph # 1.1 L Seg Neutrophils % Seg Neuts % (Manual) Lymphocytes % (Manual) Lymphocytes # (Manual) POC ABG pH POC ABG pCO2 POC ABG pO2 Potassium Chloride Carbon Dioxide BUN Creatinine Glucose POC Glucose 121 H 134 H Calcium ALT Alkaline Phosphatase Total Protein Albumin Vancomycin Trough 12/01/16 12/01/16 12/01/16 06:36 11:34 17:40 RBC Hgb Hct MCV RDW Lymph % (Auto) [place] % (Auto) Lymph # Seg Neutrophils % Seg Neuts % (Manual) Lymphocytes % (Manual) Lymphocytes # (Manual) POC ABG pH POC ABG pCO2 POC ABG pO2 Potassium Chloride 113.8 H Carbon Dioxide BUN Creatinine 0.5 L Glucose 120 H POC Glucose 167 H 117 H Calcium 7.3 L ALT Alkaline Phosphatase Total Protein Albumin Vancomycin Trough 12/02/16 12/02/16 12/02/16 00:35 05:03 05:44 RBC Hgb Hct MCV RDW Lymph % (Auto) [place] % (Auto) Lymph # Seg Neutrophils % Seg Neuts % (Manual) Lymphocytes % (Manual) Lymphocytes # (Manual) POC ABG pH POC ABG pCO2 30.9 L POC ABG pO2 77 L Potassium Chloride Carbon Dioxide BUN Creatinine Glucose POC Glucose 129 H 154 H Calcium ALT Alkaline Phosphatase Total Protein Albumin Vancomycin Trough 12/02/16 12/02/16 12/03/16 18:03 23:53 05:17 RBC Hgb Hct MCV RDW Lymph % (Auto) [place] % (Auto) Lymph # Seg Neutrophils % Seg Neuts % (Manual) Lymphocytes % (Manual) Lymphocytes # (Manual) POC ABG pH POC ABG pCO2 POC ABG pO2 Potassium Chloride Carbon Dioxide BUN Creatinine Glucose POC Glucose 135 H 158 H 177 H Calcium ALT Alkaline Phosphatase Total Protein Albumin Vancomycin Trough 12/03/16 12/03/16 12/03/16 05:30 09:35 11:46 RBC 2.50 L Hgb 8.0 L Hct 24.8 L MCV 99 H RDW 18.8 H Lymph % (Auto) [place] % (Auto) 11.9 H Lymph # Seg Neutrophils % Seg Neuts % (Manual) Lymphocytes % (Manual) Lymphocytes # (Manual) POC ABG pH POC ABG pCO2 POC ABG pO2 Potassium 3.5 L Chloride 109.9 H Carbon Dioxide BUN Creatinine 0.4 L Glucose 162 H POC Glucose 157 H Calcium 7.5 L ALT Alkaline Phosphatase Total Protein Albumin Vancomycin Trough 12/03/16 12/03/16 12/04/16 18:25 23:32 05:24 RBC Hgb Hct MCV RDW Lymph % (Auto) [place] % (Auto) Lymph # Seg Neutrophils % Seg Neuts % (Manual) Lymphocytes % (Manual) Lymphocytes # (Manual) POC ABG pH POC ABG pCO2 POC ABG pO2 Potassium Chloride Carbon Dioxide BUN Creatinine Glucose POC Glucose 134 H 152 H 176 H Calcium ALT Alkaline Phosphatase Total Protein Albumin Vancomycin Trough 12/04/16 12/04/16 12/04/16 05:29 08:15 08:15 RBC 2.41 L Hgb 7.5 L Hct 23.7 L MCV 98 H RDW 18.4 H Lymph % (Auto) [place] % (Auto) 12.7 H Lymph # 0.9 L Seg Neutrophils % Seg Neuts % (Manual) Lymphocytes % (Manual) Lymphocytes # (Manual) POC ABG pH POC ABG pCO2 POC ABG pO2 116 H Potassium 3.3 L Chloride 108.0 H Carbon Dioxide BUN Creatinine 0.4 L Glucose 160 H POC Glucose Calcium 7.5 L ALT Alkaline Phosphatase Total Protein Albumin Vancomycin Trough 12/04/16 12/04/16 12/04/16 11:42 15:12 16:49 RBC Hgb Hct MCV RDW Lymph % (Auto) [place] % (Auto) Lymph # Seg Neutrophils % Seg Neuts % (Manual) Lymphocytes % (Manual) Lymphocytes # (Manual) POC ABG pH 7.322 L POC ABG pCO2 48.9 H POC ABG pO2 59 L 77 L Potassium Chloride Carbon Dioxide BUN Creatinine Glucose POC Glucose 142 H Calcium ALT Alkaline Phosphatase Total Protein Albumin Vancomycin Trough 12/04/16 12/05/16 12/05/16 18:28 00:10 03:15 RBC 3.17 L Hgb 9.8 L Hct MCV RDW 18.0 H Lymph % (Auto) 10.1 L [place] % (Auto) Lymph # 0.7 L Seg Neutrophils % 81.7 H Seg Neuts % (Manual) Lymphocytes % (Manual) Lymphocytes # (Manual) POC ABG pH POC ABG pCO2 POC ABG pO2 Potassium Chloride Carbon Dioxide BUN Creatinine Glucose POC Glucose 136 H 138 H Calcium ALT Alkaline Phosphatase Total Protein Albumin Vancomycin Trough 12/05/16 12/05/16 03:15 05:38 RBC Hgb Hct MCV RDW Lymph % (Auto) [place] % (Auto) Lymph # Seg Neutrophils % Seg Neuts % (Manual) Lymphocytes % (Manual) Lymphocytes # (Manual) POC ABG pH POC ABG pCO2 POC ABG pO2 Potassium 3.3 L Chloride Carbon Dioxide BUN Creatinine 0.3 L Glucose 130 H POC Glucose 185 H Calcium 7.5 L ALT Alkaline Phosphatase Total Protein Albumin Vancomycin Trough
--- NOTE | 2016-12-05 15:46 | Progress Note ---
Assessment and Plan Assessment and plan: 61-year-old female brought via EMS from [facility] after she was found to have difficulty of breathing, decreased responsiveness. Patient medical history significant for hypertension, diabetes mellitus, A. fib, bilateral lower extremity pressure sores. Patient was unable to protect her airway and she was intubated in the emergency department. Acute respiratory failure Aspiration pneumonia versus community acquired pneumonia Sepsis with hypotension Acute metabolic encephalopathy Cardiomegaly, bilateral pleural effusion - Will do echo - Patient is currently on high flow oxygen - Patient is on Levaquin - Blood culture negative - Pulmonary consult appreciated - patient's mentation improved Patient is Full code. Disposition - Continue ICU care The high probability of a clinically significant, sudden or life threatening deterioration of the [neurology, cardiovascular, respiratory] system(s) required my full and direct attention, intervention and personal management. The aggregate critical care time was [x] minutes. This time is in addition to time spent performing reported procedures but includes the following: [x] Data Review and interpretation [x] Patient assessment and monitoring of vital signs [x] Documentation [x] Medication orders and managementDVT prophylaxis History Interval history: Patient was seen and evaluated this morning, patient is on high flow oxygen. Patient's mentation is improved. Hospitalist Physical - Physical exam Narrative exam: Patient is on high flow oxygen. The patient appeared well nourished and normally developed. Vital signs as documented. Head exam is unremarkable. No scleral icterus . Neck is without jugular venous distension, thyromegaly, or carotid bruits. Lungs are clear to auscultation. Cardiac exam reveals irregular rate and Rhythm. Abdominal exam reveals normal bowel sounds, no masses, no organomegaly and no aortic enlargement. Extremities patient has minimal edema. SLUNK SKIN CURER: Alert. - Constitutional Vitals: Temp Pulse Resp BP Pulse Ox 98.1 F 112 H 24 100/50 95 12/05/16 12:45 12/05/16 15:20 12/05/16 15:20 12/05/16 15:00 12/05/16 15:00 General appearance: Present: no acute distress, cachectic, disheveled, other ( intubated and sedated) Results - Labs CBC & Chem 7: 12/05/16 03:15 12/05/16 03:15 Labs: Laboratory Last Values WBC 6.9 K/mm3 (4.5-11.0) 12/05/16 03:15 RBC 3.17 M/mm3 (3.65-5.03) L 12/05/16 03:15 Hgb 9.8 gm/dl (10.1-14.3) L 12/05/16 03:15 Hct 30.8 % (30.3-42.9) D 12/05/16 03:15 MCV 97 fl (79-97) 12/05/16 03:15 MCH 31 pg (28-32) 12/05/16 03:15 MCHC 32 % (30-34) 12/05/16 03:15 RDW 18.0 % (13.2-15.2) H 12/05/16 03:15 Plt Count 184 K/mm3 (140-440) 12/05/16 03:15 Lymph % (Auto) 10.1 % (13.4-35.0) L 12/05/16 03:15 [place] % (Auto) 6.6 % (0.0-7.3) 12/05/16 03:15 Eos % (Auto) 1.2 % (0.0-4.3) 12/05/16 03:15 Baso % (Auto) 0.4 % (0.0-1.8) 12/05/16 03:15 Lymph # 0.7 K/mm3 (1.2-5.4) L 12/05/16 03:15 [place] # 0.5 K/mm3 (0.0-0.8) 12/05/16 03:15 Eos # 0.1 K/mm3 (0.0-0.4) 12/05/16 03:15 Baso # 0.0 K/mm3 (0.0-0.1) 12/05/16 03:15 Add Manual Diff Complete 11/28/16 04:52 Total Counted 100 11/28/16 04:52 Seg Neutrophils % 81.7 % (40.0-70.0) H 12/05/16 03:15 Seg Neuts % (Manual) 83.0 % (40.0-70.0) H 11/28/16 04:52 Band Neutrophils % 7.0 % 11/28/16 04:52 Lymphocytes % (Manual) 6.0 % (13.4-35.0) L 11/28/16 04:52 Reactive Lymphs % (Man) 0 % 11/28/16 04:52 Monocytes % (Manual) 1.0 % (0.0-7.3) 11/28/16 04:52 Eosinophils % (Manual) 3.0 % (0.0-4.3) 11/28/16 04:52 Basophils % (Manual) 0 % (0.0-1.8) 11/28/16 04:52 Metamyelocytes % 0 % 11/28/16 04:52 Myelocytes % 0 % 11/28/16 04:52 Promyelocytes % 0 % 11/28/16 04:52 Blast Cells % 0 % 11/28/16 04:52 Nucleated RBC % Not Reportable 11/28/16 04:52 Seg Neutrophils # 5.7 K/mm3 (1.8-7.7) 12/05/16 03:15 Seg Neutrophils # Man 5.4 K/mm3 (1.8-7.7) 11/28/16 04:52 Band Neutrophils # 0.5 K/mm3 11/28/16 04:52 Lymphocytes # (Manual) 0.4 K/mm3 (1.2-5.4) L 11/28/16 04:52 Abs React Lymphs (Man) 0.0 K/mm3 11/28/16 04:52 Monocytes # (Manual) 0.1 K/mm3 (0.0-0.8) 11/28/16 04:52 Eosinophils # (Manual) 0.2 K/mm3 (0.0-0.4) 11/28/16 04:52 Basophils # (Manual) 0.0 K/mm3 (0.0-0.1) 11/28/16 04:52 Metamyelocytes # 0.0 K/mm3 11/28/16 04:52 Myelocytes # 0.0 K/mm3 11/28/16 04:52 Promyelocytes # 0.0 K/mm3 11/28/16 04:52 Blast Cells # 0.0 K/mm3 11/28/16 04:52 WBC Morphology Not Reportable 11/28/16 04:52 Hypersegmented Neuts Not Reportable 11/28/16 04:52 Hyposegmented Neuts Not Reportable 11/28/16 04:52 Hypogranular Neuts Not Reportable 11/28/16 04:52 Smudge Cells Not Reportable 11/28/16 04:52 Toxic Granulation Not Reportable 11/28/16 04:52 Toxic Vacuolation Not Reportable 11/28/16 04:52 Dohle Bodies Not Reportable 11/28/16 04:52 Pelger-Huet Anomaly Not Reportable 11/28/16 04:52 Caitlin Rods Not Reportable 11/28/16 04:52 Platelet Estimate Consistent w auto 11/28/16 04:52 Clumped Platelets Not Reportable 11/28/16 04:52 Plt Clumps, EDTA Not Reportable 11/28/16 04:52 Large Platelets Not Reportable 11/28/16 04:52 Giant Platelets Not Reportable 11/28/16 04:52 Platelet Satelliting Not Reportable 11/28/16 04:52 Plt Morphology Comment Not Reportable 11/28/16 04:52 RBC Morphology Not Reportable 11/28/16 04:52 Dimorphic RBCs Not Reportable 11/28/16 04:52 Polychromasia Not Reportable 11/28/16 04:52 Hypochromasia Not Reportable 11/28/16 04:52 Poikilocytosis Not Reportable 11/28/16 04:52 Anisocytosis Not Reportable 11/28/16 04:52 Microcytosis Not Reportable 11/28/16 04:52 Macrocytosis Few 11/28/16 04:52 Spherocytes Not Reportable 11/28/16 04:52 Pappenheimer Bodies Not Reportable 11/28/16 04:52 Sickle Cells Not Reportable 11/28/16 04:52 Target Cells Not Reportable 11/28/16 04:52 Tear Drop Cells Not Reportable 11/28/16 04:52 Ovalocytes Not Reportable 11/28/16 04:52 Helmet Cells Not Reportable 11/28/16 04:52 [place] Bodies Not Reportable 11/28/16 04:52 [place] Rings Not Reportable 11/28/16 04:52 [place] Cells Not Reportable 11/28/16 04:52 Bite Cells Not Reportable 11/28/16 04:52 Crenated Cell Not Reportable 11/28/16 04:52 Elliptocytes Not Reportable 11/28/16 04:52 Acanthocytes (Spur) Not Reportable 11/28/16 04:52 Rouleaux Not Reportable 11/28/16 04:52 Hemoglobin C Crystals Not Reportable 11/28/16 04:52 Schistocytes Not Reportable 11/28/16 04:52 Malaria parasites Not Reportable 11/28/16 04:52 Javon Bodies Not Reportable 11/28/16 04:52 Hem Pathologist Commnt No 11/28/16 04:52 PT 15.8 Sec. (12.2-14.9) H 11/26/16 18:40 INR 1.20 (0.87-1.13) H 11/26/16 18:40 POC ABG pH 7.435 (7.35-7.45) 12/04/16 16:49 POC ABG pCO2 36.8 (35-45) 12/04/16 16:49 POC ABG pO2 77 (80-105) L 12/04/16 16:49 POC ABG HCO3 24.7 12/04/16 16:49 POC ABG Total CO2 26 12/04/16 16:49 POC ABG O2 Sat 96 12/04/16 16:49 POC ABG Base Excess 0 12/04/16 16:49 VBG pH 7.376 (7.320-7.420) 11/26/16 18:40 FiO2 60 % 12/04/16 16:49 Sodium 141 mmol/L (137-145) 12/05/16 03:15 Potassium 3.3 mmol/L (3.6-5.0) L 12/05/16 03:15 Chloride 105.7 mmol/L (98-107) 12/05/16 03:15 Carbon Dioxide 28 mmol/L (22-30) 12/05/16 03:15 Anion Gap 11 mmol/L 12/05/16 03:15 BUN 11 mg/dL (7-17) 12/05/16 03:15 Creatinine 0.3 mg/dL (0.7-1.2) L 12/05/16 03:15 Estimated GFR > 60 ml/min 12/05/16 03:15 BUN/Creatinine Ratio 36.66 % 12/05/16 03:15 Glucose 130 mg/dL (65-100) H 12/05/16 03:15 POC Glucose 178 (70-105) H 12/05/16 12:23 Lactic Acid 0.90 mmol/L (0.7-2.0) 11/27/16 20:41 Calcium 7.5 mg/dL (8.4-10.2) L 12/05/16 03:15 Magnesium 1.80 mg/dL (1.7-2.3) 12/01/16 06:36 Total Bilirubin 0.30 mg/dL (0.1-1.2) 11/30/16 07:40 AST 9 units/L (5-40) 11/30/16 07:40 ALT 6 units/L (7-56) L 11/30/16 07:40 Alkaline Phosphatase 167 units/L (35-129) H 11/30/16 07:40 Ammonia 37.0 umol/L (25-60) 11/29/16 11:15 Total Creatine Kinase 18 units/L (30-135) L 11/26/16 18:40 CK-MB (CK-2) 1.4 ng/mL (0.0-4.0) 11/26/16 18:40 CK-MB (CK-2) Rel Index 7.7 (0-4) H 11/26/16 18:40 Troponin T < 0.010 ng/mL (0.00-0.029) 11/26/16 18:40 NT-Pro-B Natriuret Pep 37553 pg/mL (0-900) H 11/26/16 18:40 Total Protein 4.0 g/dL (6.3-8.2) L 11/30/16 07:40 Albumin 1.0 g/dL (3.9-5) L 11/30/16 07:40 Albumin/Globulin Ratio 0.3 % 11/30/16 07:40 Vitamin B12 768.6 pg/mL (211-911) 11/29/16 11:15 TSH 2.120 mlU/mL (0.270-4.200) 11/29/16 11:15 Urine Color Matilde (Yellow) 11/26/16 18:35 Urine Turbidity Turbid (Clear) 11/26/16 18:35 Urine pH 6.0 (5.0-7.0) 11/26/16 18:35 Ur Specific [place] 1.018 (1.003-1.030) 11/26/16 18:35 Urine Protein 100 mg/dl mg/dL (Negative) 11/26/16 18:35 Urine Glucose (UA) Neg mg/dL (Negative) 11/26/16 18:35 Urine Ketones Neg mg/dL (Negative) 11/26/16 18:35 Urine Blood Neg (Negative) 11/26/16 18:35 Urine Nitrite Neg (Negative) 11/26/16 18:35 Urine Bilirubin Neg (Negative) 11/26/16 18:35 Urine Urobilinogen < 2.0 mg/dL (<2.0) 11/26/16 18:35 Ur Leukocyte Esterase Mod (Negative) 11/26/16 18:35 Urine WBC (Auto) > 182.0 /HPF (0.0-6.0) H 11/26/16 18:35 Urine RBC (Auto) 6.0 /HPF (0.0-6.0) 11/26/16 18:35 Urine Bacteria (Auto) 4+ /HPF (Negative) 11/26/16 18:35 Urine WBC Clumps 3+ /HPF 11/26/16 18:35 Urine Mucus 3+ /HPF 11/26/16 18:35 Vancomycin Trough 41.9 ug/mL (5.0-20.0) H 11/29/16 07:05 Blood Type B POSITIVE 11/26/16 20:38 Antibody Screen TNR 11/26/16 20:38 NIRAV Antibody Screen Negative 11/26/16 20:38
[2016-12-05] MEDS: SENOKOT PO SCH (21:35)
[2016-12-05] MEDS: REMERON PO SCH ×2 (22:08)
[2016-12-06] MEDS: XOPENEX IH SCH ×4 (02:53→20:14)
[2016-12-06 06:54] LABS: Basophils % (Auto) 0.7 % (0.0-1.8); Eosinophils % (Auto) 2.3 % (0.0-4.3); Hematocrit 22.7 % (30.3-42.9); Hemoglobin 7.2 gm/dl (10.1-14.3); Mean Corpuscular HGB Conc 32 % (30-34); Mean Corpuscular Hemoglobin 31 pg (28-32); Mean Corpuscular Volume 99 fl (79-97); Platelet Count 220 K/mm3 (140-440); Red Cell Distribution Width 17.9 % (13.2-15.2); White Blood Count 4.6 K/mm3 (4.5-11.0)
[2016-12-06 07:06] LABS: Anion Gap 14 mmol/L; Blood Urea Nitrogen 12 mg/dL (7-17); Calcium 7.7 mg/dL (8.4-10.2); Carbon Dioxide 27 mmol/L (22-30); Chloride 103.7 mmol/L (98-107); Glucose 138 mg/dL (65-100); Potassium 3.5 mmol/L (3.6-5.0); Sodium 141 mmol/L (137-145)
[2016-12-06] MEDS: PULMICORT IH SCH ×2 (08:43→20:14)
[2016-12-06] MEDS ORDERED: POTASSIUM CHLORIDE FEEDTUBE ONE (09:00)
--- NOTE | 2016-12-06 11:08 | Progress Note ---
Assessment and Plan 61 y/o female with acute respiratory failure requiring mechanical ventilation, now extubated with elevated BNP on admission, with history of afib on xarelto 1. Suggest checking ECHO to evaluate left sided squeeze and right sided pressures 2. Continue with IV diuresis as BP and renal function will allow 3. Needs speech assessment as well 4. Continue HFNC, and bipap at night. Will repeat CXR tomorrow 5. Daily net negative state 6. Feel stable for transfer to floor. Subjective Date of service: 12/06/16 Principal diagnosis: acute respiratory failure Interval history: No acute events. FiO2 down on HFNC but Flow increased. Sats are stable. Wore bipap therapy last night Objective Vital Signs - 12hr 12/05/16 12/06/16 12/06/16 23:30 00:00 00:30 Temperature 99.2 F Pulse Rate 111 H 111 H 110 H Pulse Rate [ Anterior Bilateral Throughout] Pulse Rate [ From Monitor] Respiratory 24 16 23 Rate Respiratory Rate [Anterior Bilateral Throughout] Blood Pressure 111/64 108/73 105/55 O2 Sat by Pulse 99 99 99 Oximetry 12/06/16 12/06/16 12/06/16 01:00 01:30 02:00 Temperature Pulse Rate 111 H 111 H 112 H Pulse Rate [ Anterior Bilateral Throughout] Pulse Rate [ From Monitor] Respiratory 17 22 16 Rate Respiratory Rate [Anterior Bilateral Throughout] Blood Pressure 103/52 102/55 106/58 O2 Sat by Pulse 99 100 100 Oximetry 12/06/16 12/06/16 12/06/16 02:30 02:53 03:00 Temperature Pulse Rate 111 H 109 H Pulse Rate [ 111 H Anterior Bilateral Throughout] Pulse Rate [ From Monitor] Respiratory 22 13 Rate Respiratory 16 Rate [Anterior Bilateral Throughout] Blood Pressure 104/68 99/51 O2 Sat by Pulse 98 100 Oximetry 12/06/16 12/06/16 12/06/16 03:30 03:49 04:00 Temperature 99 F Pulse Rate 112 H 112 H Pulse Rate [ Anterior Bilateral Throughout] Pulse Rate [ From Monitor] Respiratory 13 14 Rate Respiratory Rate [Anterior Bilateral Throughout] Blood Pressure 105/63 116/55 O2 Sat by Pulse 100 100 Oximetry 12/06/16 12/06/16 12/06/16 04:30 05:00 05:30 Temperature Pulse Rate 109 H 109 H 113 H Pulse Rate [ Anterior Bilateral Throughout] Pulse Rate [ From Monitor] Respiratory 21 20 17 Rate Respiratory Rate [Anterior Bilateral Throughout] Blood Pressure 100/54 106/56 106/56 O2 Sat by Pulse 99 100 100 Oximetry 12/06/16 12/06/16 12/06/16 06:00 06:30 07:00 Temperature Pulse Rate 112 H 113 H 110 H Pulse Rate [ Anterior Bilateral Throughout] Pulse Rate [ From Monitor] Respiratory 14 26 H 13 Rate Respiratory Rate [Anterior Bilateral Throughout] Blood Pressure 103/59 103/59 122/54 O2 Sat by Pulse 99 Oximetry 12/06/16 12/06/16 12/06/16 07:30 08:00 08:43 Temperature 97.5 F L Pulse Rate 112 H 111 H Pulse Rate [ Anterior Bilateral Throughout] Pulse Rate [ 109 H From Monitor] Respiratory 14 14 Rate Respiratory Rate [Anterior Bilateral Throughout] Blood Pressure 122/54 117/58 O2 Sat by Pulse 100 100 96 Oximetry 12/06/16 12/06/16 08:44 09:03 Temperature Pulse Rate Pulse Rate [ 111 H 107 H Anterior Bilateral Throughout] Pulse Rate [ From Monitor] Respiratory Rate Respiratory 20 18 Rate [Anterior Bilateral Throughout] Blood Pressure O2 Sat by Pulse Oximetry Constitutional: no acute distress Eyes: non-icteric ENT: other (ETT in position) Effort: normal Ascultation: Bilateral: clear, diminished breath sounds, rales, rhonchi (rare) Cardiovascular: regular rate and rhythm Gastrointestinal: normoactive bowel sounds, non-distended Integumentary: normal Extremities: no cyanosis, no edema Neurologic: other ( stuporous, slightly up from her eyes cotton picker and tactile stimuli) CBC and BMP: 12/06/16 06:37 12/06/16 04:00 ABG, PT/INR, D-dimer: ABG POC ABG pH 7.435 (7.35-7.45) 12/04/16 16:49 POC ABG pCO2 36.8 (35-45) 12/04/16 16:49 POC ABG pO2 77 (80-105) L 12/04/16 16:49 POC ABG HCO3 24.7 12/04/16 16:49 POC ABG Total CO2 26 12/04/16 16:49 POC ABG O2 Sat 96 12/04/16 16:49 PT/INR, D-dimer PT 15.8 Sec. (12.2-14.9) H 11/26/16 18:40 INR 1.20 (0.87-1.13) H 11/26/16 18:40 Abnormal lab findings: Abnormal Labs 11/26/16 11/27/16 11/27/16 20:20 05:43 23:43 RBC Hgb Hct MCV RDW Lymph % (Auto) [place] % (Auto) Lymph # Seg Neutrophils % Seg Neuts % (Manual) Lymphocytes % (Manual) Lymphocytes # (Manual) POC ABG pH 7.574 H POC ABG pCO2 29.9 L POC ABG pO2 57 L 147 H Potassium Chloride Carbon Dioxide BUN Creatinine Glucose POC Glucose 63 L Calcium ALT Alkaline Phosphatase Total Protein Albumin Vancomycin Trough 11/28/16 11/28/16 11/29/16 04:52 04:52 05:15 RBC 3.04 L 2.95 L Hgb 9.4 L 9.2 L Hct 28.6 L MCV 102 H D RDW 19.9 H 19.5 H Lymph % (Auto) 13.1 L [place] % (Auto) 7.9 H Lymph # 0.8 L Seg Neutrophils % 77.7 H Seg Neuts % (Manual) 83.0 H Lymphocytes % (Manual) 6.0 L Lymphocytes # (Manual) 0.4 L POC ABG pH POC ABG pCO2 POC ABG pO2 Potassium Chloride 110.0 H Carbon Dioxide 20 L BUN Creatinine 0.3 L Glucose POC Glucose Calcium 7.0 L ALT Alkaline Phosphatase Total Protein Albumin Vancomycin Trough 11/29/16 11/29/16 11/29/16 05:15 05:23 06:18 RBC Hgb Hct MCV RDW Lymph % (Auto) [place] % (Auto) Lymph # Seg Neutrophils % Seg Neuts % (Manual) Lymphocytes % (Manual) Lymphocytes # (Manual) POC ABG pH 7.474 H POC ABG pCO2 30.2 L POC ABG pO2 Potassium 3.1 L D Chloride 112.3 H Carbon Dioxide BUN 6 L Creatinine 0.3 L Glucose POC Glucose 120 H Calcium 7.1 L ALT Alkaline Phosphatase Total Protein Albumin Vancomycin Trough 11/29/16 11/29/16 11/29/16 07:05 11:54 18:31 RBC Hgb Hct MCV RDW Lymph % (Auto) [place] % (Auto) Lymph # Seg Neutrophils % Seg Neuts % (Manual) Lymphocytes % (Manual) Lymphocytes # (Manual) POC ABG pH POC ABG pCO2 POC ABG pO2 Potassium Chloride Carbon Dioxide BUN Creatinine Glucose POC Glucose 122 H 179 H Calcium ALT Alkaline Phosphatase Total Protein Albumin Vancomycin Trough 41.9 H 11/29/16 11/30/16 11/30/16 23:16 04:01 07:40 RBC 2.51 L Hgb 7.7 L Hct 24.8 L MCV 99 H RDW 19.4 H Lymph % (Auto) [place] % (Auto) Lymph # Seg Neutrophils % Seg Neuts % (Manual) Lymphocytes % (Manual) Lymphocytes # (Manual) POC ABG pH 7.468 H POC ABG pCO2 30.6 L POC ABG pO2 Potassium Chloride Carbon Dioxide BUN Creatinine Glucose POC Glucose 149 H Calcium ALT Alkaline Phosphatase Total Protein Albumin Vancomycin Trough 11/30/16 11/30/16 11/30/16 07:40 12:42 17:30 RBC Hgb Hct MCV RDW Lymph % (Auto) [place] % (Auto) Lymph # Seg Neutrophils % Seg Neuts % (Manual) Lymphocytes % (Manual) Lymphocytes # (Manual) POC ABG pH POC ABG pCO2 POC ABG pO2 Potassium Chloride 113.7 H Carbon Dioxide BUN Creatinine 0.5 L D Glucose POC Glucose 134 H 114 H Calcium 7.1 L ALT 6 L Alkaline Phosphatase 167 H Total Protein 4.0 L Albumin 1.0 L Vancomycin Trough 11/30/16 12/01/16 12/01/16 23:39 05:52 06:36 RBC 2.60 L Hgb 8.1 L Hct 25.4 L MCV 98 H RDW 19.7 H Lymph % (Auto) [place] % (Auto) 9.0 H Lymph # 1.1 L Seg Neutrophils % Seg Neuts % (Manual) Lymphocytes % (Manual) Lymphocytes # (Manual) POC ABG pH POC ABG pCO2 POC ABG pO2 Potassium Chloride Carbon Dioxide BUN Creatinine Glucose POC Glucose 121 H 134 H Calcium ALT Alkaline Phosphatase Total Protein Albumin Vancomycin Trough 12/01/16 12/01/16 12/01/16 06:36 11:34 17:40 RBC Hgb Hct MCV RDW Lymph % (Auto) [place] % (Auto) Lymph # Seg Neutrophils % Seg Neuts % (Manual) Lymphocytes % (Manual) Lymphocytes # (Manual) POC ABG pH POC ABG pCO2 POC ABG pO2 Potassium Chloride 113.8 H Carbon Dioxide BUN Creatinine 0.5 L Glucose 120 H POC Glucose 167 H 117 H Calcium 7.3 L ALT Alkaline Phosphatase Total Protein Albumin Vancomycin Trough 12/02/16 12/02/16 12/02/16 00:35 05:03 05:44 RBC Hgb Hct MCV RDW Lymph % (Auto) [place] % (Auto) Lymph # Seg Neutrophils % Seg Neuts % (Manual) Lymphocytes % (Manual) Lymphocytes # (Manual) POC ABG pH POC ABG pCO2 30.9 L POC ABG pO2 77 L Potassium Chloride Carbon Dioxide BUN Creatinine Glucose POC Glucose 129 H 154 H Calcium ALT Alkaline Phosphatase Total Protein Albumin Vancomycin Trough 12/02/16 12/02/16 12/03/16 18:03 23:53 05:17 RBC Hgb Hct MCV RDW Lymph % (Auto) [place] % (Auto) Lymph # Seg Neutrophils % Seg Neuts % (Manual) Lymphocytes % (Manual) Lymphocytes # (Manual) POC ABG pH POC ABG pCO2 POC ABG pO2 Potassium Chloride Carbon Dioxide BUN Creatinine Glucose POC Glucose 135 H 158 H 177 H Calcium ALT Alkaline Phosphatase Total Protein Albumin Vancomycin Trough 12/03/16 12/03/16 12/03/16 05:30 09:35 11:46 RBC 2.50 L Hgb 8.0 L Hct 24.8 L MCV 99 H RDW 18.8 H Lymph % (Auto) [place] % (Auto) 11.9 H Lymph # Seg Neutrophils % Seg Neuts % (Manual) Lymphocytes % (Manual) Lymphocytes # (Manual) POC ABG pH POC ABG pCO2 POC ABG pO2 Potassium 3.5 L Chloride 109.9 H Carbon Dioxide BUN Creatinine 0.4 L Glucose 162 H POC Glucose 157 H Calcium 7.5 L ALT Alkaline Phosphatase Total Protein Albumin Vancomycin Trough 12/03/16 12/03/16 12/04/16 18:25 23:32 05:24 RBC Hgb Hct MCV RDW Lymph % (Auto) [place] % (Auto) Lymph # Seg Neutrophils % Seg Neuts % (Manual) Lymphocytes % (Manual) Lymphocytes # (Manual) POC ABG pH POC ABG pCO2 POC ABG pO2 Potassium Chloride Carbon Dioxide BUN Creatinine Glucose POC Glucose 134 H 152 H 176 H Calcium ALT Alkaline Phosphatase Total Protein Albumin Vancomycin Trough 12/04/16 12/04/16 12/04/16 05:29 08:15 08:15 RBC 2.41 L Hgb 7.5 L Hct 23.7 L MCV 98 H RDW 18.4 H Lymph % (Auto) [place] % (Auto) 12.7 H Lymph # 0.9 L Seg Neutrophils % Seg Neuts % (Manual) Lymphocytes % (Manual) Lymphocytes # (Manual) POC ABG pH POC ABG pCO2 POC ABG pO2 116 H Potassium 3.3 L Chloride 108.0 H Carbon Dioxide BUN Creatinine 0.4 L Glucose 160 H POC Glucose Calcium 7.5 L ALT Alkaline Phosphatase Total Protein Albumin Vancomycin Trough 12/04/16 12/04/16 12/04/16 11:42 15:12 16:49 RBC Hgb Hct MCV RDW Lymph % (Auto) [place] % (Auto) Lymph # Seg Neutrophils % Seg Neuts % (Manual) Lymphocytes % (Manual) Lymphocytes # (Manual) POC ABG pH 7.322 L POC ABG pCO2 48.9 H POC ABG pO2 59 L 77 L Potassium Chloride Carbon Dioxide BUN Creatinine Glucose POC Glucose 142 H Calcium ALT Alkaline Phosphatase Total Protein Albumin Vancomycin Trough 12/04/16 12/05/16 12/05/16 18:28 00:10 03:15 RBC 3.17 L Hgb 9.8 L Hct MCV RDW 18.0 H Lymph % (Auto) 10.1 L [place] % (Auto) Lymph # 0.7 L Seg Neutrophils % 81.7 H Seg Neuts % (Manual) Lymphocytes % (Manual) Lymphocytes # (Manual) POC ABG pH POC ABG pCO2 POC ABG pO2 Potassium Chloride Carbon Dioxide BUN Creatinine Glucose POC Glucose 136 H 138 H Calcium ALT Alkaline Phosphatase Total Protein Albumin Vancomycin Trough 12/05/16 12/05/16 12/05/16 03:15 05:38 12:23 RBC Hgb Hct MCV RDW Lymph % (Auto) [place] % (Auto) Lymph # Seg Neutrophils % Seg Neuts % (Manual) Lymphocytes % (Manual) Lymphocytes # (Manual) POC ABG pH POC ABG pCO2 POC ABG pO2 Potassium 3.3 L Chloride Carbon Dioxide BUN Creatinine 0.3 L Glucose 130 H POC Glucose 185 H 178 H Calcium 7.5 L ALT Alkaline Phosphatase Total Protein Albumin Vancomycin Trough 12/05/16 12/05/16 12/06/16 16:14 18:29 00:06 RBC Hgb Hct MCV RDW Lymph % (Auto) [place] % (Auto) Lymph # Seg Neutrophils % Seg Neuts % (Manual) Lymphocytes % (Manual) Lymphocytes # (Manual) POC ABG pH POC ABG pCO2 POC ABG pO2 Potassium Chloride Carbon Dioxide BUN Creatinine Glucose POC Glucose 145 H 147 H 163 H Calcium ALT Alkaline Phosphatase Total Protein Albumin Vancomycin Trough 12/06/16 12/06/16 12/06/16 04:00 05:15 06:37 RBC 2.30 L Hgb 7.2 L Hct 22.7 L D MCV 99 H RDW 17.9 H Lymph % (Auto) [place] % (Auto) 9.5 H Lymph # 0.9 L Seg Neutrophils % Seg Neuts % (Manual) Lymphocytes % (Manual) Lymphocytes # (Manual) POC ABG pH POC ABG pCO2 POC ABG pO2 Potassium 3.5 L Chloride Carbon Dioxide BUN Creatinine 0.4 L Glucose 138 H POC Glucose 190 H Calcium 7.7 L ALT Alkaline Phosphatase Total Protein Albumin Vancomycin Trough
[2016-12-06] MEDS ORDERED: ADRENALIN ONE (11:33)
--- NOTE | 2016-12-06 11:48 | Procedure Note ---
Date of procedure: 12/06/16 Pre-op diagnosis: Cardiac Arrest Post-op diagnosis: same Procedure: Intubation Anesthesia: epidural Surgeon: NEHA SANTOS (patient intubated with 3 Mac 7.5 ETT single attempt) Estimated blood loss: none Specimen disposition: other Condition: critical Disposition: ICU
--- NOTE | 2016-12-06 11:57 | Event Note ---
Date: 12/06/16 Wilfred kahn was called at 11:30 patient become unresponsive and the monitor showed asystole. The patient was resuscitated according to ACLS protocol and after 2 minutes of chest compression and epi, she had pulse and BP was 155/88. There were food particles found on suction. The cause of the cardiac arrest is respiratory failure secondary to Aspiration. Patient was intubated and placed on clindamycin for possible aspiration pneumonia. patient is unresponsive.
[2016-12-06] MEDS: LASIX IV SCH ×2 (12:00→22:09)
[2016-12-06] MEDS: LOPRESSOR PO SCH ×2 (12:00→22:07)
[2016-12-06 12:52] LABS: Hematocrit 28.3 % (30.3-42.9); Hemoglobin 8.6 gm/dl (10.1-14.3); Mean Corpuscular HGB Conc 30 % (30-34); Mean Corpuscular Hemoglobin 31 pg (28-32); Mean Corpuscular Volume 101 fl (79-97); Platelet Count 389 K/mm3 (140-440); Red Blood Count 2.79 M/mm3 (3.65-5.03); Red Cell Distribution Width 18.4 % (13.2-15.2)
--- NOTE | 2016-12-06 12:57 | XRay Report ---
SUPINE KUB: History: Nasogastric tube placement. Findings: The nasogastric tube is coiled in the upper esophagus. Replacement is recommended. Limited views of the upper abdomen suggest dilated loops of small bowel. Consider further imaging. IMPRESSION: The nasogastric tube is coiled in the proximal esophagus. There is suggestion of dilated loops of small bowel in the upper abdomen which are incompletely included in this exam.
--- NOTE | 2016-12-06 12:59 | XRay Report ---
AP CHEST: HISTORY: Cardiac arrest A nasogastric tube is coiled in the proximal esophagus. A nasogastric tube appears to terminate just above the jose. Right subclavian venous catheter terminates at the cavoatrial junction. There is near complete opacification of the left lung. This may represent large areas of atelectasis. There are mild congestive changes in the right lung. Small right pleural effusion. Heart size is obscured by the opacified left hemithorax but appears within normal limits.
[2016-12-06 13:02] LABS: Anion Gap 18 mmol/L; Blood Urea Nitrogen 12 mg/dL (7-17); Calcium 8.4 mg/dL (8.4-10.2); Carbon Dioxide 23 mmol/L (22-30); Chloride 100.6 mmol/L (98-107); Glucose 143 mg/dL (65-100); Potassium 5.5 mmol/L (3.6-5.0); Sodium 136 mmol/L (137-145)
[2016-12-06] MEDS ORDERED: CLEOCIN 600 MG/50 mL 600 MG/50 ML BAG IV SCH (14:00)
[2016-12-06 14:27] LABS: ISTAT Base Excess -2; ISTAT HCO3 22.6; ISTAT PCO2 36.7 (35-45); ISTAT PH 7.399 (7.35-7.45); ISTAT PO2 98 (80-105); ISTAT SO2 98; ISTAT TCO2 24
[2016-12-06] MEDS: NACL 0.9% 500 ML 500 ML IV SCH (14:30)
[2016-12-06] MEDS ORDERED: CORDARONE 150 MG in D5W 100 ML IV ONE (15:00)
--- NOTE | 2016-12-06 15:39 | Progress Note ---
Assessment and Plan Assessment and plan: Patient went into asystole this morning due to aspiration of food and she was resuscitated according to ACLS protocol and survived. Acute respiratory failure and aspiration, hospital-acquired pneumonia - Chest x-ray shows opacification of the left lung - Left pleural effusion - Patient is intubated and on mechanical ventilation - I put on IV vancomycin and Zosyn for possible hospital-acquired pneumonia - Patient was treated with IV antibiotics previously - We'll do blood culture - Pulmonary is following A. fib with RVR - Cardiology consulted Sepsis with hypotension - IV fluid and IV antibiotics Acute metabolic encephalopathy Patient is Full code. Disposition - Continue ICU care Prognosis is very poor The high probability of a clinically significant, sudden or life threatening deterioration of the [neurology, cardiovascular, respiratory] system(s) required my full and direct attention, intervention and personal management. The aggregate critical care time was [x] minutes. This time is in addition to time spent performing reported procedures but includes the following: [x] Data Review and interpretation [x] Patient assessment and monitoring of vital signs [x] Documentation [x] Medication orders and managementDVT prophylaxis History Interval history: Patient was seen and evaluated this morning, patient was on high flow oxygen. Patient's mentation was improved. Around 11 AM the patient aspirated and went into asystole and she was resuscitated according to ACLS protocol, and now she is intubated. Hospitalist Physical - Physical exam Narrative exam: Patient is intubated and on mechanical ventilation Vital signs as documented. Head exam is unremarkable. No scleral icterus . Neck is without jugular venous distension, thyromegaly, or carotid bruits. Lungs are clear to auscultation. Cardiac exam reveals irregular rate and Rhythm. Abdominal exam reveals normal bowel sounds, no masses, no organomegaly and no aortic enlargement. Extremities patient has minimal edema. 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 - Constitutional Vitals: Temp Pulse Resp BP Pulse Ox 97.5 F L 133 H 26 H 123/52 100 12/06/16 12:00 12/06/16 15:00 12/06/16 15:00 12/06/16 15:00 12/06/16 15:00 General appearance: Present: no acute distress, cachectic, disheveled, other ( intubated and sedated) Results - Labs CBC & Chem 7: 12/06/16 11:55 12/06/16 11:55 Labs: Laboratory Last Values WBC 15.0 K/mm3 (4.5-11.0) H 12/06/16 11:55 RBC 2.79 M/mm3 (3.65-5.03) L 12/06/16 11:55 Hgb 8.6 gm/dl (10.1-14.3) L 12/06/16 11:55 Hct 28.3 % (30.3-42.9) L 12/06/16 11:55 MCV 101 fl (79-97) H 12/06/16 11:55 MCH 31 pg (28-32) 12/06/16 11:55 MCHC 30 % (30-34) 12/06/16 11:55 RDW 18.4 % (13.2-15.2) H 12/06/16 11:55 Plt Count 389 K/mm3 (140-440) 12/06/16 11:55 Lymph % (Auto) 18.9 % (13.4-35.0) 12/06/16 06:37 [place] % (Auto) 9.5 % (0.0-7.3) H 12/06/16 06:37 Eos % (Auto) 2.3 % (0.0-4.3) 12/06/16 06:37 Baso % (Auto) 0.7 % (0.0-1.8) 12/06/16 06:37 Lymph # 0.9 K/mm3 (1.2-5.4) L 12/06/16 06:37 [place] # 0.4 K/mm3 (0.0-0.8) 12/06/16 06:37 Eos # 0.1 K/mm3 (0.0-0.4) 12/06/16 06:37 Baso # 0.0 K/mm3 (0.0-0.1) 12/06/16 06:37 Add Manual Diff Complete 11/28/16 04:52 Total Counted 100 11/28/16 04:52 Seg Neutrophils % 68.6 % (40.0-70.0) 12/06/16 06:37 Seg Neuts % (Manual) 83.0 % (40.0-70.0) H 11/28/16 04:52 Band Neutrophils % 7.0 % 11/28/16 04:52 Lymphocytes % (Manual) 6.0 % (13.4-35.0) L 11/28/16 04:52 Reactive Lymphs % (Man) 0 % 11/28/16 04:52 Monocytes % (Manual) 1.0 % (0.0-7.3) 11/28/16 04:52 Eosinophils % (Manual) 3.0 % (0.0-4.3) 11/28/16 04:52 Basophils % (Manual) 0 % (0.0-1.8) 11/28/16 04:52 Metamyelocytes % 0 % 11/28/16 04:52 Myelocytes % 0 % 11/28/16 04:52 Promyelocytes % 0 % 11/28/16 04:52 Blast Cells % 0 % 11/28/16 04:52 Nucleated RBC % Not Reportable 11/28/16 04:52 Seg Neutrophils # 3.2 K/mm3 (1.8-7.7) 12/06/16 06:37 Seg Neutrophils # Man 5.4 K/mm3 (1.8-7.7) 11/28/16 04:52 Band Neutrophils # 0.5 K/mm3 11/28/16 04:52 Lymphocytes # (Manual) 0.4 K/mm3 (1.2-5.4) L 11/28/16 04:52 Abs React Lymphs (Man) 0.0 K/mm3 11/28/16 04:52 Monocytes # (Manual) 0.1 K/mm3 (0.0-0.8) 11/28/16 04:52 Eosinophils # (Manual) 0.2 K/mm3 (0.0-0.4) 11/28/16 04:52 Basophils # (Manual) 0.0 K/mm3 (0.0-0.1) 11/28/16 04:52 Metamyelocytes # 0.0 K/mm3 11/28/16 04:52 Myelocytes # 0.0 K/mm3 11/28/16 04:52 Promyelocytes # 0.0 K/mm3 11/28/16 04:52 Blast Cells # 0.0 K/mm3 11/28/16 04:52 WBC Morphology Not Reportable 11/28/16 04:52 Hypersegmented Neuts Not Reportable 11/28/16 04:52 Hyposegmented Neuts Not Reportable 11/28/16 04:52 Hypogranular Neuts Not Reportable 11/28/16 04:52 Smudge Cells Not Reportable 11/28/16 04:52 Toxic Granulation Not Reportable 11/28/16 04:52 Toxic Vacuolation Not Reportable 11/28/16 04:52 Dohle Bodies Not Reportable 11/28/16 04:52 Pelger-Huet Anomaly Not Reportable 11/28/16 04:52 Caitlin Rods Not Reportable 11/28/16 04:52 Platelet Estimate Consistent w auto 11/28/16 04:52 Clumped Platelets Not Reportable 11/28/16 04:52 Plt Clumps, EDTA Not Reportable 11/28/16 04:52 Large Platelets Not Reportable 11/28/16 04:52 Giant Platelets Not Reportable 11/28/16 04:52 Platelet Satelliting Not Reportable 11/28/16 04:52 Plt Morphology Comment Not Reportable 11/28/16 04:52 RBC Morphology Not Reportable 11/28/16 04:52 Dimorphic RBCs Not Reportable 11/28/16 04:52 Polychromasia Not Reportable 11/28/16 04:52 Hypochromasia Not Reportable 11/28/16 04:52 Poikilocytosis Not Reportable 11/28/16 04:52 Anisocytosis Not Reportable 11/28/16 04:52 Microcytosis Not Reportable 11/28/16 04:52 Macrocytosis Few 11/28/16 04:52 Spherocytes Not Reportable 11/28/16 04:52 Pappenheimer Bodies Not Reportable 11/28/16 04:52 Sickle Cells Not Reportable 11/28/16 04:52 Target Cells Not Reportable 11/28/16 04:52 Tear Drop Cells Not Reportable 11/28/16 04:52 Ovalocytes Not Reportable 11/28/16 04:52 Helmet Cells Not Reportable 11/28/16 04:52 [place] Bodies Not Reportable 11/28/16 04:52 Cable Rings Not Reportable 11/28/16 04:52 [place] Cells Not Reportable 11/28/16 04:52 Bite Cells Not Reportable 11/28/16 04:52 Crenated Cell Not Reportable 11/28/16 04:52 Elliptocytes Not Reportable 11/28/16 04:52 Acanthocytes (Spur) Not Reportable 11/28/16 04:52 Rouleaux Not Reportable 11/28/16 04:52 Hemoglobin C Crystals Not Reportable 11/28/16 04:52 Schistocytes Not Reportable 11/28/16 04:52 Malaria parasites Not Reportable 11/28/16 04:52 Javon Bodies Not Reportable 11/28/16 04:52 Hem Pathologist Commnt No 11/28/16 04:52 PT 15.8 Sec. (12.2-14.9) H 11/26/16 18:40 INR 1.20 (0.87-1.13) H 11/26/16 18:40 POC ABG pH 7.399 (7.35-7.45) 12/06/16 14:19 POC ABG pCO2 36.7 (35-45) 12/06/16 14:19 POC ABG pO2 98 (80-105) 12/06/16 14:19 POC ABG HCO3 22.6 12/06/16 14:19 POC ABG Total CO2 24 12/06/16 14:19 POC ABG O2 Sat 98 12/06/16 14:19 POC ABG Base Excess -2 12/06/16 14:19 VBG pH 7.376 (7.320-7.420) 11/26/16 18:40 FiO2 100 % 12/06/16 14:19 Sodium 136 mmol/L (137-145) L 12/06/16 11:55 Potassium 5.5 mmol/L (3.6-5.0) H D 12/06/16 11:55 Chloride 100.6 mmol/L (98-107) 12/06/16 11:55 Carbon Dioxide 23 mmol/L (22-30) 12/06/16 11:55 Anion Gap 18 mmol/L 12/06/16 11:55 BUN 12 mg/dL (7-17) 12/06/16 11:55 Creatinine 0.3 mg/dL (0.7-1.2) L 12/06/16 11:55 Estimated GFR > 60 ml/min 12/06/16 11:55 BUN/Creatinine Ratio 40.00 % 12/06/16 11:55 Glucose 143 mg/dL (65-100) H 12/06/16 11:55 POC Glucose 154 (70-105) H 12/06/16 12:10 Lactic Acid 5.70 mmol/L (0.7-2.0) H* 12/06/16 11:55 Calcium 8.4 mg/dL (8.4-10.2) 12/06/16 11:55 Magnesium 1.80 mg/dL (1.7-2.3) 12/01/16 06:36 Total Bilirubin 0.30 mg/dL (0.1-1.2) 11/30/16 07:40 AST 9 units/L (5-40) 11/30/16 07:40 ALT 6 units/L (7-56) L 11/30/16 07:40 Alkaline Phosphatase 167 units/L (35-129) H 11/30/16 07:40 Ammonia 37.0 umol/L (25-60) 11/29/16 11:15 Total Creatine Kinase 18 units/L (30-135) L 11/26/16 18:40 CK-MB (CK-2) 1.4 ng/mL (0.0-4.0) 11/26/16 18:40 CK-MB (CK-2) Rel Index 7.7 (0-4) H 11/26/16 18:40 Troponin T < 0.010 ng/mL (0.00-0.029) 11/26/16 18:40 C-Reactive Protein 8.10 mg/dL (0.00-1.30) H 12/06/16 11:55 NT-Pro-B Natriuret Pep 27961 pg/mL (0-900) H 11/26/16 18:40 Total Protein 4.0 g/dL (6.3-8.2) L 11/30/16 07:40 Albumin 1.0 g/dL (3.9-5) L 11/30/16 07:40 Albumin/Globulin Ratio 0.3 % 11/30/16 07:40 Vitamin B12 768.6 pg/mL (211-911) 11/29/16 11:15 TSH 2.120 mlU/mL (0.270-4.200) 11/29/16 11:15 Urine Color Matilde (Yellow) 11/26/16 18:35 Urine Turbidity Turbid (Clear) 11/26/16 18:35 Urine pH 6.0 (5.0-7.0) 11/26/16 18:35 Ur Specific [place] 1.018 (1.003-1.030) 11/26/16 18:35 Urine Protein 100 mg/dl mg/dL (Negative) 11/26/16 18:35 Urine Glucose (UA) Neg mg/dL (Negative) 11/26/16 18:35 Urine Ketones Neg mg/dL (Negative) 11/26/16 18:35 Urine Blood Neg (Negative) 11/26/16 18:35 Urine Nitrite Neg (Negative) 11/26/16 18:35 Urine Bilirubin Neg (Negative) 11/26/16 18:35 Urine Urobilinogen < 2.0 mg/dL (<2.0) 11/26/16 18:35 Ur Leukocyte Esterase Mod (Negative) 11/26/16 18:35 Urine WBC (Auto) > 182.0 /HPF (0.0-6.0) H 11/26/16 18:35 Urine RBC (Auto) 6.0 /HPF (0.0-6.0) 11/26/16 18:35 Urine Bacteria (Auto) 4+ /HPF (Negative) 11/26/16 18:35 Urine WBC Clumps 3+ /HPF 11/26/16 18:35 Urine Mucus 3+ /HPF 11/26/16 18:35 Vancomycin Trough 41.9 ug/mL (5.0-20.0) H 11/29/16 07:05 Blood Type B POSITIVE 11/26/16 20:38 Antibody Screen TNR 11/26/16 20:38 NIRAV Antibody Screen Negative 11/26/16 20:38
[2016-12-06] MEDS ORDERED: VANCOMYCIN PHARMACY TO DOSE IV SCH (16:00)
[2016-12-06] MEDS: CORDARONE 900 MG in D5W 482 ML IV SCH (16:06)
[2016-12-06] MEDS ORDERED: VANCOMYCIN 1,500 MG in NACL 0.9% 500 ML 500 ML IV ONE (16:30)
[2016-12-06] MEDS: PEPCID PO SCH ×2 (17:42→22:09)
[2016-12-06] MEDS: XARELTO PO SCH (17:42)
[2016-12-06] MEDS: FERROUS SULFATE PO SCH ×2 (17:42→22:10)
[2016-12-06] MEDS: ZOSYN/NS 4.5GM/100ML 4.5 GM/100 ML VIAL IV SCH (17:47)
--- NOTE | 2016-12-06 21:43 | XRay Report ---
FINAL REPORT EXAM: XR ABDOMEN 1V AP HISTORY: NG tube Placement COMPARISONS: Chest radiograph 11/26/2016 FINDINGS: Portable upper abdominal radiograph Enteric tube courses along the expected location of the stomach with distal tip oriented to the right. Right subclavian line and patchy bilateral airspace disease appears similar to 11/26/2016. No supine evidence of pneumoperitoneum. IMPRESSION: Satisfactory appearance of nasogastric tube.
[2016-12-06] MEDS: REMERON PO SCH (22:09)
[2016-12-06] MEDS: SENOKOT PO SCH (22:11)
[2016-12-07] MEDS: ZOSYN/NS 4.5GM/100ML 4.5 GM/100 ML VIAL IV SCH ×2 (00:10→06:15)
[2016-12-07] MEDS: XOPENEX IH SCH ×4 (02:59→20:28)
[2016-12-07] MEDS ORDERED: VANCOMYCIN/NS 1 GM/250 ML 1 GM/250 ML BAG IV SCH (04:00)
[2016-12-07 05:26] LABS: Basophils % (Auto) 0.3 % (0.0-1.8); Eosinophils % (Auto) 0.2 % (0.0-4.3); Hematocrit 23.1 % (30.3-42.9); Hemoglobin 7.3 gm/dl (10.1-14.3); Mean Corpuscular HGB Conc 32 % (30-34); Mean Corpuscular Hemoglobin 31 pg (28-32); Mean Corpuscular Volume 98 fl (79-97); Platelet Count 258 K/mm3 (140-440); Red Blood Count 2.36 M/mm3 (3.65-5.03); Red Cell Distribution Width 17.8 % (13.2-15.2)
[2016-12-07 05:53] LABS: Alanine Aminotransferase 11 units/L (7-56); Albumin 1.6 g/dL (3.9-5); Albumin/Globulin Ratio 0.5 %; Alkaline Phosphatase 142 units/L (35-129); Anion Gap 17 mmol/L; Blood Urea Nitrogen 13 mg/dL (7-17); Calcium 7.5 mg/dL (8.4-10.2); Carbon Dioxide 24 mmol/L (22-30); Chloride 103.6 mmol/L (98-107); Glucose 88 mg/dL (65-100); Sodium 141 mmol/L (137-145); Total Protein 4.7 g/dL (6.3-8.2)
[2016-12-07 06:06] LABS: Potassium 3.7 mmol/L (3.6-5.0)
[2016-12-07 06:27] LABS: ISTAT Base Excess 2; ISTAT HCO3 24.7; ISTAT PCO2 31.1 (35-45); ISTAT PH 7.508 (7.35-7.45); ISTAT PO2 131 (80-105); ISTAT SO2 99; ISTAT TCO2 26
--- NOTE | 2016-12-07 07:48 | XRay Report ---
AP CHEST: HISTORY: Hypoxemia Significantly improved aeration of the left lung is demonstrated since yesterday's exam at 1211 hrs. This appears to represent resolution of large areas of atelectasis. Mild cardiomegaly, mild pulmonary venous congestion and small bilateral pleural effusions are evident. Lines and tubes remain in good position. IMPRESSION: CHF. Resolved left lung atelectasis.
[2016-12-07] MEDS: LASIX IV SCH ×2 (09:34→22:53)
[2016-12-07] MEDS: PEPCID PO SCH ×2 (09:34→22:53)
[2016-12-07] MEDS: FERROUS SULFATE PO SCH ×3 (09:34→22:54)
[2016-12-07] MEDS: XARELTO PO SCH (09:34)
--- NOTE | 2016-12-07 11:05 | Progress Note ---
Assessment and Plan 61 y/o female with acute respiratory failure requiring mechanical ventilation, now extubated with elevated BNP on admission, with history of afib on xarelto 1. Ordered 2-d Echo to be done today. 2. Continue with IV diuresis as BP and renal function will allow 3. Given inability to protect airway, will likely need trach, given most recent code from yesterday. Code likely secondary to mucous plugging from patient not able to clear throat. 4. Daily net negative state 5. Discussed current deposition on IT rounds CCT 31 minutes. Subjective Date of service: 12/07/16 Principal diagnosis: acute respiratory failure Interval history: Patient had PEA arrest on yesterday. Appears to have been secondary to mucous plugging, likely from not being able to clear airway. CXR consistent with left lung collapse. This am, lung is re-expanded and obstruction is gone. No family currently at bedside. Also developed afib with RVR which she has a history of and was started on amio drip by cards. Objective Vital Signs - 12hr 12/06/16 12/07/16 12/07/16 23:30 00:00 00:02 Temperature 100.3 F H Pulse Rate 88 98 H 101 H Pulse Rate [ Anterior Bilateral Throughout] Pulse Rate [ From Monitor] Pulse Rate [ 90 Right Radial] Respiratory 16 18 Rate Respiratory Rate [Anterior Bilateral Throughout] Blood Pressure 97/53 96/44 98/44 O2 Sat by Pulse 100 100 100 Oximetry 12/07/16 12/07/16 12/07/16 00:30 01:00 01:30 Temperature Pulse Rate 79 92 H 88 Pulse Rate [ Anterior Bilateral Throughout] Pulse Rate [ From Monitor] Pulse Rate [ Right Radial] Respiratory 18 20 18 Rate Respiratory Rate [Anterior Bilateral Throughout] Blood Pressure 94/41 100/47 96/45 O2 Sat by Pulse 100 100 100 Oximetry 12/07/16 12/07/16 12/07/16 02:00 02:30 03:00 Temperature Pulse Rate 91 H 85 87 Pulse Rate [ Anterior Bilateral Throughout] Pulse Rate [ From Monitor] Pulse Rate [ Right Radial] Respiratory 18 19 18 Rate Respiratory Rate [Anterior Bilateral Throughout] Blood Pressure 106/44 94/50 99/45 O2 Sat by Pulse 100 100 100 Oximetry 12/07/16 12/07/16 12/07/16 03:01 03:30 04:00 Temperature 98.1 F Pulse Rate 116 H 91 H Pulse Rate [ 88 Anterior Bilateral Throughout] Pulse Rate [ From Monitor] Pulse Rate [ Right Radial] Respiratory 20 18 Rate Respiratory 18 Rate [Anterior Bilateral Throughout] Blood Pressure 96/45 92/52 O2 Sat by Pulse 100 100 Oximetry 12/07/16 12/07/16 12/07/16 04:30 05:00 05:30 Temperature Pulse Rate 83 79 85 Pulse Rate [ Anterior Bilateral Throughout] Pulse Rate [ From Monitor] Pulse Rate [ Right Radial] Respiratory 19 18 20 Rate Respiratory Rate [Anterior Bilateral Throughout] Blood Pressure 95/39 91/41 98/39 O2 Sat by Pulse 100 100 98 Oximetry 12/07/16 12/07/16 12/07/16 06:00 06:21 06:30 Temperature Pulse Rate 102 H 91 H 106 H Pulse Rate [ Anterior Bilateral Throughout] Pulse Rate [ From Monitor] Pulse Rate [ Right Radial] Respiratory 22 20 Rate Respiratory Rate [Anterior Bilateral Throughout] Blood Pressure 96/46 96/46 115/53 O2 Sat by Pulse 100 100 97 Oximetry 12/07/16 12/07/16 12/07/16 07:00 07:30 08:00 Temperature 99.6 F Pulse Rate 111 H 82 90 Pulse Rate [ Anterior Bilateral Throughout] Pulse Rate [ 90 From Monitor] Pulse Rate [ Right Radial] Respiratory 20 18 21 Rate Respiratory Rate [Anterior Bilateral Throughout] Blood Pressure 100/53 87/43 92/45 O2 Sat by Pulse 100 100 99 Oximetry 12/07/16 08:30 Temperature Pulse Rate 95 H Pulse Rate [ Anterior Bilateral Throughout] Pulse Rate [ From Monitor] Pulse Rate [ Right Radial] Respiratory 20 Rate Respiratory Rate [Anterior Bilateral Throughout] Blood Pressure 103/45 O2 Sat by Pulse 100 Oximetry Constitutional: no acute distress Eyes: non-icteric ENT: other (ETT in position) Effort: normal Ascultation: Bilateral: clear, diminished breath sounds, rales, rhonchi (rare) Cardiovascular: regular rate and rhythm Gastrointestinal: normoactive bowel sounds, non-distended Integumentary: normal Extremities: no cyanosis, no edema Neurologic: other ( stuporous, 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 (12.2-14.9) H 11/26/16 18:40 INR 1.20 (0.87-1.13) H 11/26/16 18:40 Abnormal lab findings: Abnormal Labs 11/26/16 11/27/16 11/27/16 20:20 05:43 23:43 WBC RBC Hgb Hct MCV RDW Lymph % (Auto) [place] % (Auto) Lymph # Seg Neutrophils % Seg Neuts % (Manual) Lymphocytes % (Manual) Lymphocytes # (Manual) POC ABG pH 7.574 H POC ABG pCO2 29.9 L POC ABG pO2 57 L 147 H Sodium Potassium Chloride Carbon Dioxide BUN Creatinine Glucose POC Glucose 63 L Lactic Acid Calcium ALT Alkaline Phosphatase C-Reactive Protein Total Protein Albumin Vancomycin Trough 11/28/16 11/28/16 11/29/16 04:52 04:52 05:15 WBC RBC 3.04 L 2.95 L Hgb 9.4 L 9.2 L Hct 28.6 L MCV 102 H D RDW 19.9 H 19.5 H Lymph % (Auto) 13.1 L [place] % (Auto) 7.9 H Lymph # 0.8 L Seg Neutrophils % 77.7 H Seg Neuts % (Manual) 83.0 H Lymphocytes % (Manual) 6.0 L Lymphocytes # (Manual) 0.4 L POC ABG pH POC ABG pCO2 POC ABG pO2 Sodium Potassium Chloride 110.0 H Carbon Dioxide 20 L BUN Creatinine 0.3 L Glucose POC Glucose Lactic Acid Calcium 7.0 L ALT Alkaline Phosphatase C-Reactive Protein Total Protein Albumin Vancomycin Trough 11/29/16 11/29/16 11/29/16 05:15 05:23 06:18 WBC RBC Hgb Hct MCV RDW Lymph % (Auto) [place] % (Auto) Lymph # Seg Neutrophils % Seg Neuts % (Manual) Lymphocytes % (Manual) Lymphocytes # (Manual) POC ABG pH 7.474 H POC ABG pCO2 30.2 L POC ABG pO2 Sodium Potassium 3.1 L D Chloride 112.3 H Carbon Dioxide BUN 6 L Creatinine 0.3 L Glucose POC Glucose 120 H Lactic Acid Calcium 7.1 L ALT Alkaline Phosphatase C-Reactive Protein Total Protein Albumin Vancomycin Trough 11/29/16 11/29/16 11/29/16 07:05 11:54 18:31 WBC RBC Hgb Hct MCV RDW Lymph % (Auto) [place] % (Auto) Lymph # Seg Neutrophils % Seg Neuts % (Manual) Lymphocytes % (Manual) Lymphocytes # (Manual) POC ABG pH POC ABG pCO2 POC ABG pO2 Sodium Potassium Chloride Carbon Dioxide BUN Creatinine Glucose POC Glucose 122 H 179 H Lactic Acid Calcium ALT Alkaline Phosphatase C-Reactive Protein Total Protein Albumin Vancomycin Trough 41.9 H 11/29/16 11/30/16 11/30/16 23:16 04:01 07:40 WBC RBC 2.51 L Hgb 7.7 L Hct 24.8 L MCV 99 H RDW 19.4 H Lymph % (Auto) [place] % (Auto) Lymph # Seg Neutrophils % Seg Neuts % (Manual) Lymphocytes % (Manual) Lymphocytes # (Manual) POC ABG pH 7.468 H POC ABG pCO2 30.6 L POC ABG pO2 Sodium Potassium Chloride Carbon Dioxide BUN Creatinine Glucose POC Glucose 149 H Lactic Acid Calcium ALT Alkaline Phosphatase C-Reactive Protein Total Protein Albumin Vancomycin Trough 11/30/16 11/30/16 11/30/16 07:40 12:42 17:30 WBC RBC Hgb Hct MCV RDW Lymph % (Auto) [place] % (Auto) Lymph # Seg Neutrophils % Seg Neuts % (Manual) Lymphocytes % (Manual) Lymphocytes # (Manual) POC ABG pH POC ABG pCO2 POC ABG pO2 Sodium Potassium Chloride 113.7 H Carbon Dioxide BUN Creatinine 0.5 L D Glucose POC Glucose 134 H 114 H Lactic Acid Calcium 7.1 L ALT 6 L Alkaline Phosphatase 167 H C-Reactive Protein Total Protein 4.0 L Albumin 1.0 L Vancomycin Trough 11/30/16 12/01/16 12/01/16 23:39 05:52 06:36 WBC RBC 2.60 L Hgb 8.1 L Hct 25.4 L MCV 98 H RDW 19.7 H Lymph % (Auto) [place] % (Auto) 9.0 H Lymph # 1.1 L Seg Neutrophils % Seg Neuts % (Manual) Lymphocytes % (Manual) Lymphocytes # (Manual) POC ABG pH POC ABG pCO2 POC ABG pO2 Sodium Potassium Chloride Carbon Dioxide BUN Creatinine Glucose POC Glucose 121 H 134 H Lactic Acid Calcium ALT Alkaline Phosphatase C-Reactive Protein Total Protein Albumin Vancomycin Trough 12/01/16 12/01/16 12/01/16 06:36 11:34 17:40 WBC RBC Hgb Hct MCV RDW Lymph % (Auto) [place] % (Auto) Lymph # Seg Neutrophils % Seg Neuts % (Manual) Lymphocytes % (Manual) Lymphocytes # (Manual) POC ABG pH POC ABG pCO2 POC ABG pO2 Sodium Potassium Chloride 113.8 H Carbon Dioxide BUN Creatinine 0.5 L Glucose 120 H POC Glucose 167 H 117 H Lactic Acid Calcium 7.3 L ALT Alkaline Phosphatase C-Reactive Protein Total Protein Albumin Vancomycin Trough 12/02/16 12/02/16 12/02/16 00:35 05:03 05:44 WBC RBC Hgb Hct MCV RDW Lymph % (Auto) [place] % (Auto) Lymph # Seg Neutrophils % Seg Neuts % (Manual) Lymphocytes % (Manual) Lymphocytes # (Manual) POC ABG pH POC ABG pCO2 30.9 L POC ABG pO2 77 L Sodium Potassium Chloride Carbon Dioxide BUN Creatinine Glucose POC Glucose 129 H 154 H Lactic Acid Calcium ALT Alkaline Phosphatase C-Reactive Protein Total Protein Albumin Vancomycin Trough 12/02/16 12/02/16 12/03/16 18:03 23:53 05:17 WBC RBC Hgb Hct MCV RDW Lymph % (Auto) [place] % (Auto) Lymph # Seg Neutrophils % Seg Neuts % (Manual) Lymphocytes % (Manual) Lymphocytes # (Manual) POC ABG pH POC ABG pCO2 POC ABG pO2 Sodium Potassium Chloride Carbon Dioxide BUN Creatinine Glucose POC Glucose 135 H 158 H 177 H Lactic Acid Calcium ALT Alkaline Phosphatase C-Reactive Protein Total Protein Albumin Vancomycin Trough 12/03/16 12/03/16 12/03/16 05:30 09:35 11:46 WBC RBC 2.50 L Hgb 8.0 L Hct 24.8 L MCV 99 H RDW 18.8 H Lymph % (Auto) [place] % (Auto) 11.9 H Lymph # Seg Neutrophils % Seg Neuts % (Manual) Lymphocytes % (Manual) Lymphocytes # (Manual) POC ABG pH POC ABG pCO2 POC ABG pO2 Sodium Potassium 3.5 L Chloride 109.9 H Carbon Dioxide BUN Creatinine 0.4 L Glucose 162 H POC Glucose 157 H Lactic Acid Calcium 7.5 L ALT Alkaline Phosphatase C-Reactive Protein Total Protein Albumin Vancomycin Trough 12/03/16 12/03/16 12/04/16 18:25 23:32 05:24 WBC RBC Hgb Hct MCV RDW Lymph % (Auto) [place] % (Auto) Lymph # Seg Neutrophils % Seg Neuts % (Manual) Lymphocytes % (Manual) Lymphocytes # (Manual) POC ABG pH POC ABG pCO2 POC ABG pO2 Sodium Potassium Chloride Carbon Dioxide BUN Creatinine Glucose POC Glucose 134 H 152 H 176 H Lactic Acid Calcium ALT Alkaline Phosphatase C-Reactive Protein Total Protein Albumin Vancomycin Trough 12/04/16 12/04/16 12/04/16 05:29 08:15 08:15 WBC RBC 2.41 L Hgb 7.5 L Hct 23.7 L MCV 98 H RDW 18.4 H Lymph % (Auto) [place] % (Auto) 12.7 H Lymph # 0.9 L Seg Neutrophils % Seg Neuts % (Manual) Lymphocytes % (Manual) Lymphocytes # (Manual) POC ABG pH POC ABG pCO2 POC ABG pO2 116 H Sodium Potassium 3.3 L Chloride 108.0 H Carbon Dioxide BUN Creatinine 0.4 L Glucose 160 H POC Glucose Lactic Acid Calcium 7.5 L ALT Alkaline Phosphatase C-Reactive Protein Total Protein Albumin Vancomycin Trough 12/04/16 12/04/16 12/04/16 11:42 15:12 16:49 WBC RBC Hgb Hct MCV RDW Lymph % (Auto) [place] % (Auto) Lymph # Seg Neutrophils % Seg Neuts % (Manual) Lymphocytes % (Manual) Lymphocytes # (Manual) POC ABG pH 7.322 L POC ABG pCO2 48.9 H POC ABG pO2 59 L 77 L Sodium Potassium Chloride Carbon Dioxide BUN Creatinine Glucose POC Glucose 142 H Lactic Acid Calcium ALT Alkaline Phosphatase C-Reactive Protein Total Protein Albumin Vancomycin Trough 12/04/16 12/05/16 12/05/16 18:28 00:10 03:15 WBC RBC 3.17 L Hgb 9.8 L Hct MCV RDW 18.0 H Lymph % (Auto) 10.1 L [place] % (Auto) Lymph # 0.7 L Seg Neutrophils % 81.7 H Seg Neuts % (Manual) Lymphocytes % (Manual) Lymphocytes # (Manual) POC ABG pH POC ABG pCO2 POC ABG pO2 Sodium Potassium Chloride Carbon Dioxide BUN Creatinine Glucose POC Glucose 136 H 138 H Lactic Acid Calcium ALT Alkaline Phosphatase C-Reactive Protein Total Protein Albumin Vancomycin Trough 12/05/16 12/05/16 12/05/16 03:15 05:38 12:23 WBC RBC Hgb Hct MCV RDW Lymph % (Auto) [place] % (Auto) Lymph # Seg Neutrophils % Seg Neuts % (Manual) Lymphocytes % (Manual) Lymphocytes # (Manual) POC ABG pH POC ABG pCO2 POC ABG pO2 Sodium Potassium 3.3 L Chloride Carbon Dioxide BUN Creatinine 0.3 L Glucose 130 H POC Glucose 185 H 178 H Lactic Acid Calcium 7.5 L ALT Alkaline Phosphatase C-Reactive Protein Total Protein Albumin Vancomycin Trough 12/05/16 12/05/16 12/06/16 16:14 18:29 00:06 WBC RBC Hgb Hct MCV RDW Lymph % (Auto) [place] % (Auto) Lymph # Seg Neutrophils % Seg Neuts % (Manual) Lymphocytes % (Manual) Lymphocytes # (Manual) POC ABG pH POC ABG pCO2 POC ABG pO2 Sodium Potassium Chloride Carbon Dioxide BUN Creatinine Glucose POC Glucose 145 H 147 H 163 H Lactic Acid Calcium ALT Alkaline Phosphatase C-Reactive Protein Total Protein Albumin Vancomycin Trough 12/06/16 12/06/16 12/06/16 04:00 05:15 06:37 WBC RBC 2.30 L Hgb 7.2 L Hct 22.7 L D MCV 99 H RDW 17.9 H Lymph % (Auto) [place] % (Auto) 9.5 H Lymph # 0.9 L Seg Neutrophils % Seg Neuts % (Manual) Lymphocytes % (Manual) Lymphocytes # (Manual) POC ABG pH POC ABG pCO2 POC ABG pO2 Sodium Potassium 3.5 L Chloride Carbon Dioxide BUN Creatinine 0.4 L Glucose 138 H POC Glucose 190 H Lactic Acid Calcium 7.7 L ALT Alkaline Phosphatase C-Reactive Protein Total Protein Albumin Vancomycin Trough 12/06/16 12/06/16 12/06/16 11:55 11:55 11:55 WBC 15.0 H RBC 2.79 L Hgb 8.6 L Hct 28.3 L MCV 101 H RDW 18.4 H Lymph % (Auto) [place] % (Auto) Lymph # Seg Neutrophils % Seg Neuts % (Manual) Lymphocytes % (Manual) Lymphocytes # (Manual) POC ABG pH POC ABG pCO2 POC ABG pO2 Sodium 136 L Potassium 5.5 H D Chloride Carbon Dioxide BUN Creatinine 0.3 L Glucose 143 H POC Glucose Lactic Acid 5.70 H* Calcium ALT Alkaline Phosphatase C-Reactive Protein Total Protein Albumin Vancomycin Trough 12/06/16 12/06/16 12/07/16 11:55 12:10 05:00 WBC RBC Hgb Hct MCV RDW Lymph % (Auto) [place] % (Auto) Lymph # Seg Neutrophils % Seg Neuts % (Manual) Lymphocytes % (Manual) Lymphocytes # (Manual) POC ABG pH POC ABG pCO2 POC ABG pO2 Sodium Potassium Chloride Carbon Dioxide BUN Creatinine 0.4 L Glucose POC Glucose 154 H Lactic Acid Calcium 7.5 L ALT Alkaline Phosphatase 142 H C-Reactive Protein 8.10 H Total Protein 4.7 L Albumin 1.6 L Vancomycin Trough 12/07/16 12/07/16 05:00 06:14 WBC RBC 2.36 L Hgb 7.3 L Hct 23.1 L MCV 98 H D RDW 17.8 H Lymph % (Auto) [place] % (Auto) 8.5 H Lymph # 1.0 L Seg Neutrophils % 76.9 H Seg Neuts % (Manual) Lymphocytes % (Manual) Lymphocytes # (Manual) POC ABG pH 7.508 H POC ABG pCO2 31.1 L POC ABG pO2 131 H Sodium Potassium Chloride Carbon Dioxide BUN Creatinine Glucose POC Glucose Lactic Acid Calcium ALT Alkaline Phosphatase C-Reactive Protein Total Protein Albumin Vancomycin Trough
[2016-12-07] MEDS: CORDARONE 900 MG in D5W 482 ML IV SCH (11:06)
[2016-12-07] MEDS: LOPRESSOR PO SCH (11:07)
[2016-12-07] MEDS: PULMICORT IH SCH ×2 (11:27→20:28)
--- NOTE | 2016-12-07 13:21 | Consultation ---
History of Present Illness Consult date: 12/07/16 Requesting physician: TRIPP GUARDADO Consult reason: atrial fibrillation History of present illness: The patient is a 61 year old female with a history of hypertension, atrial fibrillation who was admitted to [facility] from [facility] on 11/27 for altered mental status and respiratory distress. She was intubated in the ER and found to have pneumonia as well as a urinary tract infection. She was treated for sepsis however she apparently remained encephalopathic. Yesterday on 12/06 around 11:30 am, she became unresponsive and the monitor showed asystole. ACLS protocol was initiated and according to documentation after 2 minutes of CPR and epinephrine, a pulse was regained and BP was 155/88. The cause of the cardiac arrest is felt to be a pulmonary arrest secondary to possible aspiration. Rhythm following the code was atrial fibrillation with RVR. Past History Past Medical History: atrial fib, diabetes, GERD, hypertension Past Surgical History: No surgical history Social history: single. denies: smoking, alcohol abuse, prescription drug abuse Family history: no significant family history Medications and Allergies Allergies Allergy/AdvReac Type Severity Reaction Status Date / Time codeine Allergy Unknown Verified 11/26/16 18:38 Home Medications Medication Instructions Recorded Confirmed Last Taken Type Acetaminophen [Shake That Ache] 500 mg PO Q6H PRN 11/28/16 11/28/16 Unknown History Ascorbic Acid [Vitamin C with [place] 500 mg PO BID 11/28/16 11/28/16 Unknown History Hips] Cholecalciferol Vit D3 [Vitamin D3] 50,000 unit PO QWEEK 11/28/16 11/28/16 Unknown History Docusate Sodium [Dok] 100 mg PO BID 11/28/16 11/28/16 Unknown History Esomeprazole Magnesium [NexIUM] 40 mg PO QAM 11/28/16 11/28/16 Unknown History Ferrous Sulfate [Feosol] 325 mg PO TID 11/28/16 11/28/16 Unknown History Metoprolol [Lopressor] 75 mg PO BID 11/28/16 11/28/16 Unknown History Mirtazapine [Remeron] 15 mg PO HS 11/28/16 11/28/16 Unknown History Multivitamin Tab [Multiple Vitamin 1 each PO QDAY 11/28/16 11/28/16 Unknown History TAB (Theragran)] Rivaroxaban [Xarelto] 20 mg PO QAM 11/28/16 11/28/16 Unknown History Sennosides [Senna Lax] 8.6 mg PO HS 11/28/16 11/28/16 Unknown History Vitamin A Palmitate [Vitamin A] 10,000 unit PO QDAY 11/28/16 11/28/16 Unknown History Zinc Sulfate 220 mg PO QDAY 11/28/16 11/28/16 Unknown History Active Meds: Active Medications Acetaminophen (Tylenol) 650 mg OR Q4H PRN PRN Reason: Pain, Mild (1-3) Last Admin: 11/26/16 19:05 Dose: 650 mg Al Hydrox/Mg Hydrox/Simethicone (Alum-Mag Hydrox-Simeth [phone]) 30 ml PO Q4H PRN PRN Reason: Indigestion Lipase/Protease/Amylase (Pancreaze Dr 10,500 Unit) 1 each FEEDTUBE PRN PRN PRN Reason: For Clogged Feeding Tube Bisacodyl (Dulcolax) 10 mg OR QDAY PRN PRN Reason: constipation unrelieved by MOM Budesonide (Pulmicort) 0.5 mg IH Q12HRT [facility] Last Admin: 12/07/16 11:27 Dose: 0.5 mg Famotidine (Pepcid) 20 mg PO BID [facility] Last Admin: 12/07/16 09:34 Dose: 20 mg Ferrous Sulfate (Ferrous Sulfate) 300 mg PO TID [facility] Last Admin: 12/07/16 09:34 Dose: 300 mg Furosemide (Lasix) 20 mg IV BID [facility] Last Admin: 12/07/16 09:34 Dose: 20 mg Hydromorphone HCl (Dilaudid) 1 mg IV Q3H PRN PRN Reason: Pain , Severe (7-10) Last Admin: 12/05/16 21:58 Dose: 1 mg Hydrophilic Ointment (Vaseline Lip Therapy) 1 applic TP Q2HR PRN PRN Reason: Dry Lips Amiodarone HCl 900 mg/ (Dextrose) 500 mls @ 33.33 mls/hr IV DIRECT OCTAVIO; 1 MG /MIN PRN Reason: Protocol Last Infusion: 12/07/16 11:07 Dose: 0.5 mg/min, 16.66 mls/hr Insulin Human Regular (Novolin R) 0 units SUB-Q Q6HR OCTAVIO PRN Reason: Protocol Last Admin: 12/07/16 07:26 Dose: Not Given Levalbuterol HCl (Xopenex) 1.25 mg IH Q6HRT [facility] Last Admin: 12/07/16 11:27 Dose: 1.25 mg Magnesium Hydroxide (Milk Of Magnesia) 30 ml PO Q4H PRN PRN Reason: Constipation Mirtazapine (Remeron) 15 mg PO [facility] Last Admin: 12/06/16 22:09 Dose: Not Given Multi-Ingred Cream/Lotion/Oil/Oint (Artificial Tears Ophth Oint) 1 applic OU Q4HR PRN PRN Reason: Dry Eye(s) Rivaroxaban (Xarelto) [facility] [place] PR[facility] Reason: Protocol Last Admin: 12/07/16 09:34 Dose: 20 mg Senna (Senokot) 8.6 mg PO [facility] Last Admin: 12/06/16 22:11 Dose: Not Given Simple Syrup (Simple Syrup) 15 ml FEEDTUBE PRN PRN PRN Reason: Hypoglycemia Last Admin: 11/28/16 00:22 Dose: 15 ml Simple Syrup (Simple Syrup) 30 ml FEEDTUBE PRN PRN PRN Reason: Hypoglycemia Sodium Bicarbonate (Sodium Bicarbonate) 325 mg FEEDTUBE PRN PRN PRN Reason: For Clogged Feeding Tube Review of Systems ROS unobtainable: due to endotracheal tube, due to mental status Physical Examination Last Vital Signs Temp 99.5 F 12/07/16 12:00 Pulse 92 H 12/07/16 16:05 Resp 20 12/07/16 16:05 BP 90/47 12/07/16 14:00 Pulse Ox 100 12/07/16 14:00 General appearance: no acute distress (intubated, unresponsive) HEENT: Positive: Normocephaly, Mucus Membranes Moist Neck: Positive: neck supple, trachea midline Cardiac: Positive: irregularly irregular, S1/S2 Lungs: Positive: Rhonchi Neuro: Positive: Other (intubated, unresponsive) Abdomen: Positive: Soft Skin: Positive: Clear. Negative: Rash Extremities: Absent: edema Results 12/07/16 05:00 12/07/16 05:00 Cardiac Enzymes 12/07/16 Range/Units 05:00 AST 30 (5-40) units/L CBC 12/07/16 Range/Units 05:00 WBC 7.0 (4.5-11.0) K/mm3 RBC 2.36 L (3.65-5.03) M/mm3 Hgb 7.3 L (10.1-14.3) gm/dl Hct 23.1 L (30.3-42.9) % Plt Count 258 (140-440) K/mm3 Lymph # 1.0 L (1.2-5.4) K/mm3 [place] # 0.6 (0.0-0.8) K/mm3 Eos # 0.0 (0.0-0.4) K/mm3 Baso # 0.0 (0.0-0.1) K/mm3 Comprehensive Metabolic Panel 12/06/16 12/07/16 Range/Units 11:55 05:00 Sodium 141 (137-145) mmol/L Potassium 5.5 H D 3.7 D (3.6-5.0) mmol/L Chloride 103.6 (98-107) mmol/L Carbon Dioxide 24 (22-30) mmol/L BUN 13 (7-17) mg/dL Creatinine 0.4 L (0.7-1.2) mg/dL Glucose 88 (65-100) mg/dL Calcium 7.5 L (8.4-10.2) mg/dL AST 30 (5-40) units/L ALT 11 (7-56) units/L Alkaline Phosphatase 142 H (35-129) units/L Total Protein 4.7 L (6.3-8.2) g/dL Albumin 1.6 L (3.9-5) g/dL - Imaging and Cardiology Echo: pending EKG: image reviewed EKG interpretations - Telemetry EKG Rhythm: Atrial Fibrillation - EKG Supraventricular dysrhythmia: atrial fibrillation Assessment and Plan Atrial fibrillation with RVR continue amiodarone gtt continue Xarelto S/p cardiac arrest-->appears to have been a respiratory arrest due to possible aspiration Acute respiratory failure Acute encephalopathy Hx. of hypertension BP currently low-normal will monitor Diabetes Anemia Continue amiodarone gtt. Obtain echocardiogram. Overall poor prognosis. The patient has been seen in conjunction with Dr. Guadalupe who agrees with the assessment and plan of care. Thank you Dr. Guardado for allowing us to participate in the care of this patient.
--- NOTE | 2016-12-07 16:33 | Progress Note ---
Assessment and Plan Assessment and plan: Patient was coded yesterday and resuscitated according to ACLS protocol Acute respiratory failure secondary to to mucus plugging - Patient is intubated - Chest x-ray cleared out after mucus was suctioned - Pulmonary is following - Patient needs trach A. fib with RVR - Cardiology consulted - On amiodarone drip, continue prior DEXA Sepsis with hypotension - Resolved Acute metabolic encephalopathy Debility Patient is Full code. Disposition - Continue ICU care Prognosis poor The high probability of a clinically significant, sudden or life threatening deterioration of the [neurology, cardiovascular, respiratory] system(s) required my full and direct attention, intervention and personal management. The aggregate critical care time was [x] minutes. This time is in addition to time spent performing reported procedures but includes the following: [x] Data Review and interpretation [x] Patient assessment and monitoring of vital signs [x] Documentation [x] Medication orders and managementDVT prophylaxis History Interval history: Patient was seen and evaluated this morning, patient was on high flow oxygen. Patient's mentation was improved. Around 11 AM the patient aspirated and CODED resuscitated according to ACLS protocol, currently intubated. Hospitalist Physical - Physical exam Narrative exam: Patient is intubated and on mechanical ventilation, breathing over the vent, open her eyes. Vital signs as documented. Head exam is unremarkable. No scleral icterus . Neck is without jugular venous distension, thyromegaly, or carotid bruits. Lungs are clear to auscultation. Cardiac exam reveals irregular rate and Rhythm. Abdominal exam reveals normal bowel sounds, no masses, no organomegaly and no aortic enlargement. Extremities patient has minimal edema. 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 - Constitutional Vitals: Temp Pulse Resp BP Pulse Ox 99.5 F 92 H 20 90/47 100 12/07/16 12:00 12/07/16 16:05 12/07/16 16:05 12/07/16 14:00 12/07/16 14:00 General appearance: Present: no acute distress (intubated, unresponsive) Results - Labs CBC & Chem 7: 12/07/16 05:00 12/07/16 05:00 Labs: Laboratory Last Values WBC 7.0 K/mm3 (4.5-11.0) 12/07/16 05:00 RBC 2.36 M/mm3 (3.65-5.03) L 12/07/16 05:00 Hgb 7.3 gm/dl (10.1-14.3) L 12/07/16 05:00 Hct 23.1 % (30.3-42.9) L 12/07/16 05:00 MCV 98 fl (79-97) H D 12/07/16 05:00 MCH 31 pg (28-32) 12/07/16 05:00 MCHC 32 % (30-34) 12/07/16 05:00 RDW 17.8 % (13.2-15.2) H 12/07/16 05:00 Plt Count 258 K/mm3 (140-440) 12/07/16 05:00 Lymph % (Auto) 14.1 % (13.4-35.0) 12/07/16 05:00 [place] % (Auto) 8.5 % (0.0-7.3) H 12/07/16 05:00 Eos % (Auto) 0.2 % (0.0-4.3) 12/07/16 05:00 Baso % (Auto) 0.3 % (0.0-1.8) 12/07/16 05:00 Lymph # 1.0 K/mm3 (1.2-5.4) L 12/07/16 05:00 [place] # 0.6 K/mm3 (0.0-0.8) 12/07/16 05:00 Eos # 0.0 K/mm3 (0.0-0.4) 12/07/16 05:00 Baso # 0.0 K/mm3 (0.0-0.1) 12/07/16 05:00 Add Manual Diff Complete 11/28/16 04:52 Total Counted 100 11/28/16 04:52 Seg Neutrophils % 76.9 % (40.0-70.0) H 12/07/16 05:00 Seg Neuts % (Manual) 83.0 % (40.0-70.0) H 11/28/16 04:52 Band Neutrophils % 7.0 % 11/28/16 04:52 Lymphocytes % (Manual) 6.0 % (13.4-35.0) L 11/28/16 04:52 Reactive Lymphs % (Man) 0 % 11/28/16 04:52 Monocytes % (Manual) 1.0 % (0.0-7.3) 11/28/16 04:52 Eosinophils % (Manual) 3.0 % (0.0-4.3) 11/28/16 04:52 Basophils % (Manual) 0 % (0.0-1.8) 11/28/16 04:52 Metamyelocytes % 0 % 11/28/16 04:52 Myelocytes % 0 % 11/28/16 04:52 Promyelocytes % 0 % 11/28/16 04:52 Blast Cells % 0 % 11/28/16 04:52 Nucleated RBC % Not Reportable 11/28/16 04:52 Seg Neutrophils # 5.4 K/mm3 (1.8-7.7) 12/07/16 05:00 Seg Neutrophils # Man 5.4 K/mm3 (1.8-7.7) 11/28/16 04:52 Band Neutrophils # 0.5 K/mm3 11/28/16 04:52 Lymphocytes # (Manual) 0.4 K/mm3 (1.2-5.4) L 11/28/16 04:52 Abs React Lymphs (Man) 0.0 K/mm3 11/28/16 04:52 Monocytes # (Manual) 0.1 K/mm3 (0.0-0.8) 11/28/16 04:52 Eosinophils # (Manual) 0.2 K/mm3 (0.0-0.4) 11/28/16 04:52 Basophils # (Manual) 0.0 K/mm3 (0.0-0.1) 11/28/16 04:52 Metamyelocytes # 0.0 K/mm3 11/28/16 04:52 Myelocytes # 0.0 K/mm3 11/28/16 04:52 Promyelocytes # 0.0 K/mm3 11/28/16 04:52 Blast Cells # 0.0 K/mm3 11/28/16 04:52 WBC Morphology Not Reportable 11/28/16 04:52 Hypersegmented Neuts Not Reportable 11/28/16 04:52 Hyposegmented Neuts Not Reportable 11/28/16 04:52 Hypogranular Neuts Not Reportable 11/28/16 04:52 Smudge Cells Not Reportable 11/28/16 04:52 Toxic Granulation Not Reportable 11/28/16 04:52 Toxic Vacuolation Not Reportable 11/28/16 04:52 Dohle Bodies Not Reportable 11/28/16 04:52 Pelger-Huet Anomaly Not Reportable 11/28/16 04:52 Caitlin Rods Not Reportable 11/28/16 04:52 Platelet Estimate Consistent w auto 11/28/16 04:52 Clumped Platelets Not Reportable 11/28/16 04:52 Plt Clumps, EDTA Not Reportable 11/28/16 04:52 Large Platelets Not Reportable 11/28/16 04:52 Giant Platelets Not Reportable 11/28/16 04:52 Platelet Satelliting Not Reportable 11/28/16 04:52 Plt Morphology Comment Not Reportable 11/28/16 04:52 RBC Morphology Not Reportable 11/28/16 04:52 Dimorphic RBCs Not Reportable 11/28/16 04:52 Polychromasia Not Reportable 11/28/16 04:52 Hypochromasia Not Reportable 11/28/16 04:52 Poikilocytosis Not Reportable 11/28/16 04:52 Anisocytosis Not Reportable 11/28/16 04:52 Microcytosis Not Reportable 11/28/16 04:52 Macrocytosis Few 11/28/16 04:52 Spherocytes Not Reportable 11/28/16 04:52 Pappenheimer Bodies Not Reportable 11/28/16 04:52 Sickle Cells Not Reportable 11/28/16 04:52 Target Cells Not Reportable 11/28/16 04:52 Tear Drop Cells Not Reportable 11/28/16 04:52 Ovalocytes Not Reportable 11/28/16 04:52 Helmet Cells Not Reportable 11/28/16 04:52 [place] Bodies Not Reportable 11/28/16 04:52 [place] Rings Not Reportable 11/28/16 04:52 [place] Cells Not Reportable 11/28/16 04:52 Bite Cells Not Reportable 11/28/16 04:52 Crenated Cell Not Reportable 11/28/16 04:52 Elliptocytes Not Reportable 11/28/16 04:52 Acanthocytes (Spur) Not Reportable 11/28/16 04:52 Rouleaux Not Reportable 11/28/16 04:52 Hemoglobin C Crystals Not Reportable 11/28/16 04:52 Schistocytes Not Reportable 11/28/16 04:52 Malaria parasites Not Reportable 11/28/16 04:52 Javon Bodies Not Reportable 11/28/16 04:52 Hem Pathologist Commnt No 11/28/16 04:52 PT 15.8 Sec. (12.2-14.9) H 11/26/16 18:40 INR 1.20 (0.87-1.13) H 11/26/16 18:40 POC ABG pH 7.508 (7.35-7.45) H 12/07/16 06:14 POC ABG pCO2 31.1 (35-45) L 12/07/16 06:14 POC ABG pO2 131 (80-105) H 12/07/16 06:14 POC ABG HCO3 24.7 12/07/16 06:14 POC ABG Total CO2 26 12/07/16 06:14 POC ABG O2 Sat 99 12/07/16 06:14 POC ABG Base Excess 2 12/07/16 06:14 VBG pH 7.376 (7.320-7.420) 11/26/16 18:40 FiO2 70 % 12/07/16 06:14 Sodium 141 mmol/L (137-145) 12/07/16 05:00 Potassium 3.7 mmol/L (3.6-5.0) D 12/07/16 05:00 Chloride 103.6 mmol/L (98-107) 12/07/16 05:00 Carbon Dioxide 24 mmol/L (22-30) 12/07/16 05:00 Anion Gap 17 mmol/L 12/07/16 05:00 BUN 13 mg/dL (7-17) 12/07/16 05:00 Creatinine 0.4 mg/dL (0.7-1.2) L 12/07/16 05:00 Estimated GFR > 60 ml/min 12/07/16 05:00 BUN/Creatinine Ratio 32.50 % 12/07/16 05:00 Glucose 88 mg/dL (65-100) 12/07/16 05:00 POC Glucose 93 (70-105) 12/07/16 05:27 Lactic Acid 1.40 mmol/L (0.7-2.0) 12/06/16 19:03 Calcium 7.5 mg/dL (8.4-10.2) L 12/07/16 05:00 Magnesium 1.80 mg/dL (1.7-2.3) 12/01/16 06:36 Total Bilirubin 0.40 mg/dL (0.1-1.2) 12/07/16 05:00 AST 30 units/L (5-40) 12/07/16 05:00 ALT 11 units/L (7-56) 12/07/16 05:00 Alkaline Phosphatase 142 units/L (35-129) H 12/07/16 05:00 Ammonia 37.0 umol/L (25-60) 11/29/16 11:15 Total Creatine Kinase 18 units/L (30-135) L 11/26/16 18:40 CK-MB (CK-2) 1.4 ng/mL (0.0-4.0) 11/26/16 18:40 CK-MB (CK-2) Rel Index 7.7 (0-4) H 11/26/16 18:40 Troponin T < 0.010 ng/mL (0.00-0.029) 11/26/16 18:40 C-Reactive Protein 8.10 mg/dL (0.00-1.30) H 12/06/16 11:55 NT-Pro-B Natriuret Pep 48281 pg/mL (0-900) H 11/26/16 18:40 Total Protein 4.7 g/dL (6.3-8.2) L 12/07/16 05:00 Albumin 1.6 g/dL (3.9-5) L 12/07/16 05:00 Albumin/Globulin Ratio 0.5 % 12/07/16 05:00 Vitamin B12 768.6 pg/mL (211-911) 11/29/16 11:15 TSH 2.120 mlU/mL (0.270-4.200) 11/29/16 11:15 Urine Color Matilde (Yellow) 11/26/16 18:35 Urine Turbidity Turbid (Clear) 11/26/16 18:35 Urine pH 6.0 (5.0-7.0) 11/26/16 18:35 Ur Specific [place] 1.018 (1.003-1.030) 11/26/16 18:35 Urine Protein 100 mg/dl mg/dL (Negative) 11/26/16 18:35 Urine Glucose (UA) Neg mg/dL (Negative) 11/26/16 18:35 Urine Ketones Neg mg/dL (Negative) 11/26/16 18:35 Urine Blood Neg (Negative) 11/26/16 18:35 Urine Nitrite Neg (Negative) 11/26/16 18:35 Urine Bilirubin Neg (Negative) 11/26/16 18:35 Urine Urobilinogen < 2.0 mg/dL (<2.0) 11/26/16 18:35 Ur Leukocyte Esterase Mod (Negative) 11/26/16 18:35 Urine WBC (Auto) > 182.0 /HPF (0.0-6.0) H 11/26/16 18:35 Urine RBC (Auto) 6.0 /HPF (0.0-6.0) 11/26/16 18:35 Urine Bacteria (Auto) 4+ /HPF (Negative) 11/26/16 18:35 Urine WBC Clumps 3+ /HPF 11/26/16 18:35 Urine Mucus 3+ /HPF 11/26/16 18:35 Vancomycin Trough 41.9 ug/mL (5.0-20.0) H 11/29/16 07:05 Blood Type B POSITIVE 11/26/16 20:38 Antibody Screen TNR 11/26/16 20:38 NIRAV Antibody Screen Negative 11/26/16 20:38
[2016-12-07] MEDS: REMERON PO SCH (22:53)
[2016-12-07] MEDS: SENOKOT PO SCH (22:55)
[2016-12-08] MEDS: XOPENEX IH SCH ×4 (01:56→20:11)
[2016-12-08 05:30] LABS: Basophils % (Auto) 0.6 % (0.0-1.8); Eosinophils % (Auto) 1.5 % (0.0-4.3); Hematocrit 22.2 % (30.3-42.9); Hemoglobin 7.1 gm/dl (10.1-14.3); Mean Corpuscular HGB Conc 32 % (30-34); Mean Corpuscular Hemoglobin 32 pg (28-32); Mean Corpuscular Volume 98 fl (79-97); Platelet Count 263 K/mm3 (140-440); Red Blood Count 2.26 M/mm3 (3.65-5.03); Red Cell Distribution Width 17.6 % (13.2-15.2); White Blood Count 6.2 K/mm3 (4.5-11.0)
[2016-12-08 05:48] LABS: ISTAT Base Excess 1; ISTAT HCO3 24.1; ISTAT PCO2 31.5 (35-45); ISTAT PH 7.492 (7.35-7.45); ISTAT PO2 112 (80-105); ISTAT SO2 99; ISTAT TCO2 25
[2016-12-08 05:52] LABS: Anion Gap 12 mmol/L; Blood Urea Nitrogen 13 mg/dL (7-17); Calcium 7.7 mg/dL (8.4-10.2); Carbon Dioxide 27 mmol/L (22-30); Chloride 102.5 mmol/L (98-107); Glucose 124 mg/dL (65-100); Sodium 138 mmol/L (137-145)
[2016-12-08] MEDS: FERROUS SULFATE PO SCH ×3 (07:59→22:00)
--- NOTE | 2016-12-08 08:57 | Progress Note ---
Assessment and Plan Paroxysmal atrial fibrillation-->currently sinus rhythm initiate PO amiodarone and d/c amiodarone gtt continue Xarelto await echo findings S/p cardiac arrest-->appears to have been a respiratory arrest due to possible aspiration will check troponin x 2 Acute respiratory failure Acute encephalopathy Hypokalemia replace to keep K+ ~ 4.0 Hx. of hypertension BP currently low-normal will monitor Diabetes Anemia The patient has been seen in conjunction with Dr. Zavala who agrees with the assessment and plan of care. Subjective Date of service: 12/08/16 Principal diagnosis: acute respiratory failure Interval history: The patient remains intubated. Opens eyes to voice. Sinus rhythm on the monitor. Objective Last Vital Signs Temp 99.6 F 12/08/16 08:00 Pulse 75 12/08/16 08:00 Resp 17 12/08/16 08:00 BP 99/51 12/08/16 08:00 Pulse Ox 100 12/08/16 08:00 - Physical Examination General: No Apparent Distress (intubated) HEENT: Positive: Normocephaly, Mucus Membranes Moist Neck: Positive: neck supple, trachea midline Cardiac: Positive: Reg Rate and Rhythm, S1/S2 Lungs: Positive: Decreased Breath Sounds Neuro: Positive: Other (intubated, minimally responsive) Abdomen: Positive: Soft Skin: Positive: Clear. Negative: Rash Extremities: Absent: edema - Labs and Meds CBC 12/08/16 Range/Units 04:00 WBC 6.2 (4.5-11.0) K/mm3 RBC 2.26 L (3.65-5.03) M/mm3 Hgb 7.1 L (10.1-14.3) gm/dl Hct 22.2 L (30.3-42.9) % Plt Count 263 (140-440) K/mm3 Lymph # 1.0 L (1.2-5.4) K/mm3 [place] # 0.6 (0.0-0.8) K/mm3 Eos # 0.1 (0.0-0.4) K/mm3 Baso # 0.0 (0.0-0.1) K/mm3 Comprehensive Metabolic Panel 12/08/16 Range/Units 04:00 Sodium 138 (137-145) mmol/L Potassium 3.0 L (3.6-5.0) mmol/L Chloride 102.5 (98-107) mmol/L Carbon Dioxide 27 (22-30) mmol/L BUN 13 (7-17) mg/dL Creatinine 0.5 L (0.7-1.2) mg/dL Glucose 124 H (65-100) mg/dL Calcium 7.7 L (8.4-10.2) mg/dL - Imaging and Cardiology EKG: image reviewed Echo: pending - Telemetry EKG Rhythm: Sinus Rhythm
[2016-12-08] MEDS: LASIX IV SCH ×2 (09:28→22:01)
[2016-12-08] MEDS: POTASSIUM CHLORIDE FEEDTUBE SCH ×3 (09:28→17:32)
[2016-12-08] MEDS: PEPCID PO SCH ×2 (09:28→22:00)
[2016-12-08] MEDS: PULMICORT IH SCH ×2 (09:40→20:11)
--- NOTE | 2016-12-08 10:29 | Progress Note ---
Assessment and Plan 61 y/o female with acute respiratory failure requiring mechanical ventilation, now extubated with elevated BNP on admission, with history of afib on xarelto, now with acute respiratory failure requiring mechanical ventilation secondary to aspiration of a mucus plug, now cleared. 1. Echo done, not read yet. 2. Continue with IV diuresis as BP and renal function will allow 3. Given inability to protect airway, will likely need trach, given most recent code from yesterday. Code likely secondary to mucous plugging from patient not able to clear throat. 4. Daily net negative state 5. Discussed current deposition on IT rounds 6. Long discussion with brothers, one at bedside one on the phone. They will make decision soon about trach. Explained the need for it. Also explained to them the trach does not fix the underlying problem which is weakness in the oropharynx region and the inability to protect airway. Not sure if she will recover from that standpoint and I stressed that point with the brothers. CCT 31 minutes. Subjective Date of service: 12/08/16 Principal diagnosis: acute respiratory failure Interval history: No acute events. Awake, alert. Nods head appropriately. Brother at bedside. Objective Vital Signs - 12hr 12/07/16 12/07/16 12/07/16 22:30 23:01 23:25 Temperature Pulse Rate 87 82 86 Pulse Rate [ Anterior Bilateral Throughout] Pulse Rate [ From Monitor] Respiratory 18 18 18 Rate Respiratory Rate [Anterior Bilateral Throughout] Blood Pressure 99/48 92/48 105/55 O2 Sat by Pulse 100 100 100 Oximetry 12/07/16 12/08/16 12/08/16 23:30 00:00 00:03 Temperature 98.8 F Pulse Rate 92 H 71 94 H Pulse Rate [ Anterior Bilateral Throughout] Pulse Rate [ 75 From Monitor] Respiratory 18 18 Rate Respiratory Rate [Anterior Bilateral Throughout] Blood Pressure 99/54 104/50 99/54 O2 Sat by Pulse 99 100 100 Oximetry 12/08/16 12/08/16 12/08/16 00:30 01:01 01:30 Temperature Pulse Rate 73 84 75 Pulse Rate [ Anterior Bilateral Throughout] Pulse Rate [ From Monitor] Respiratory 18 18 18 Rate Respiratory Rate [Anterior Bilateral Throughout] Blood Pressure 95/53 100/52 113/55 O2 Sat by Pulse 100 100 100 Oximetry 12/08/16 12/08/16 12/08/16 01:57 02:00 02:17 Temperature Pulse Rate 69 Pulse Rate [ 78 80 Anterior Bilateral Throughout] Pulse Rate [ From Monitor] Respiratory 18 Rate Respiratory 18 23 Rate [Anterior Bilateral Throughout] Blood Pressure 111/35 O2 Sat by Pulse 100 Oximetry 12/08/16 12/08/16 12/08/16 02:30 03:00 03:30 Temperature Pulse Rate 88 81 78 Pulse Rate [ Anterior Bilateral Throughout] Pulse Rate [ From Monitor] Respiratory 17 15 18 Rate Respiratory Rate [Anterior Bilateral Throughout] Blood Pressure 116/67 107/51 103/49 O2 Sat by Pulse 100 100 100 Oximetry 12/08/16 12/08/16 12/08/16 03:51 04:00 04:30 Temperature 99.0 F Pulse Rate 78 79 75 Pulse Rate [ Anterior Bilateral Throughout] Pulse Rate [ 76 From Monitor] Respiratory 18 22 Rate Respiratory Rate [Anterior Bilateral Throughout] Blood Pressure 103/49 110/54 112/52 O2 Sat by Pulse 100 100 100 Oximetry 12/08/16 12/08/16 12/08/16 05:00 05:30 06:00 Temperature Pulse Rate 78 91 H 83 Pulse Rate [ Anterior Bilateral Throughout] Pulse Rate [ From Monitor] Respiratory 18 16 16 Rate Respiratory Rate [Anterior Bilateral Throughout] Blood Pressure 108/50 107/59 114/57 O2 Sat by Pulse 100 100 92 Oximetry 12/08/16 12/08/16 12/08/16 06:30 07:00 07:30 Temperature Pulse Rate 75 68 79 Pulse Rate [ Anterior Bilateral Throughout] Pulse Rate [ From Monitor] Respiratory 20 17 20 Rate Respiratory Rate [Anterior Bilateral Throughout] Blood Pressure 104/53 97/51 106/53 O2 Sat by Pulse 100 100 100 Oximetry 12/08/16 12/08/16 12/08/16 08:00 08:30 09:00 Temperature 99.6 F Pulse Rate 75 83 76 Pulse Rate [ Anterior Bilateral Throughout] Pulse Rate [ From Monitor] Respiratory 17 20 16 Rate Respiratory Rate [Anterior Bilateral Throughout] Blood Pressure 99/51 105/56 106/52 O2 Sat by Pulse 100 100 100 Oximetry 12/08/16 12/08/16 12/08/16 09:30 09:41 10:00 Temperature Pulse Rate 73 79 75 Pulse Rate [ Anterior Bilateral Throughout] Pulse Rate [ From Monitor] Respiratory 18 16 Rate Respiratory Rate [Anterior Bilateral Throughout] Blood Pressure 107/49 107/49 107/52 O2 Sat by Pulse 100 100 100 Oximetry Constitutional: no acute distress Eyes: non-icteric ENT: other (ETT in position) Effort: normal Ascultation: Right: rales, Bilateral: clear, diminished breath sounds Percussion: Bilateral: not dull Cardiovascular: irregular rhythm Gastrointestinal: normoactive bowel sounds, non-distended Integumentary: normal Extremities: no cyanosis, no edema CBC and BMP: 12/08/16 04:00 12/08/16 04:00 ABG, PT/INR, D-dimer: ABG POC ABG pH 7.492 (7.35-7.45) H 12/08/16 05:16 POC ABG pCO2 31.5 (35-45) L 12/08/16 05:16 POC ABG pO2 112 (80-105) H 12/08/16 05:16 POC ABG HCO3 24.1 12/08/16 05:16 POC ABG Total CO2 25 12/08/16 05:16 POC ABG O2 Sat 99 12/08/16 05:16 PT/INR, D-dimer PT 15.8 Sec. (12.2-14.9) H 11/26/16 18:40 INR 1.20 (0.87-1.13) H 11/26/16 18:40 Abnormal lab findings: Abnormal Labs 11/26/16 11/27/16 11/27/16 20:20 05:43 23:43 WBC RBC Hgb Hct MCV RDW Lymph % (Auto) [place] % (Auto) Lymph # Seg Neutrophils % Seg Neuts % (Manual) Lymphocytes % (Manual) Lymphocytes # (Manual) POC ABG pH 7.574 H POC ABG pCO2 29.9 L POC ABG pO2 57 L 147 H Sodium Potassium Chloride Carbon Dioxide BUN Creatinine Glucose POC Glucose 63 L Lactic Acid Calcium ALT Alkaline Phosphatase C-Reactive Protein Total Protein Albumin Vancomycin Trough 11/28/16 11/28/16 11/29/16 04:52 04:52 05:15 WBC RBC 3.04 L 2.95 L Hgb 9.4 L 9.2 L Hct 28.6 L MCV 102 H D RDW 19.9 H 19.5 H Lymph % (Auto) 13.1 L [place] % (Auto) 7.9 H Lymph # 0.8 L Seg Neutrophils % 77.7 H Seg Neuts % (Manual) 83.0 H Lymphocytes % (Manual) 6.0 L Lymphocytes # (Manual) 0.4 L POC ABG pH POC ABG pCO2 POC ABG pO2 Sodium Potassium Chloride 110.0 H Carbon Dioxide 20 L BUN Creatinine 0.3 L Glucose POC Glucose Lactic Acid Calcium 7.0 L ALT Alkaline Phosphatase C-Reactive Protein Total Protein Albumin Vancomycin Trough 11/29/16 11/29/16 11/29/16 05:15 05:23 06:18 WBC RBC Hgb Hct MCV RDW Lymph % (Auto) [place] % (Auto) Lymph # Seg Neutrophils % Seg Neuts % (Manual) Lymphocytes % (Manual) Lymphocytes # (Manual) POC ABG pH 7.474 H POC ABG pCO2 30.2 L POC ABG pO2 Sodium Potassium 3.1 L D Chloride 112.3 H Carbon Dioxide BUN 6 L Creatinine 0.3 L Glucose POC Glucose 120 H Lactic Acid Calcium 7.1 L ALT Alkaline Phosphatase C-Reactive Protein Total Protein Albumin Vancomycin Trough 11/29/16 11/29/16 11/29/16 07:05 11:54 18:31 WBC RBC Hgb Hct MCV RDW Lymph % (Auto) [place] % (Auto) Lymph # Seg Neutrophils % Seg Neuts % (Manual) Lymphocytes % (Manual) Lymphocytes # (Manual) POC ABG pH POC ABG pCO2 POC ABG pO2 Sodium Potassium Chloride Carbon Dioxide BUN Creatinine Glucose POC Glucose 122 H 179 H Lactic Acid Calcium ALT Alkaline Phosphatase C-Reactive Protein Total Protein Albumin Vancomycin Trough 41.9 H 11/29/16 11/30/16 11/30/16 23:16 04:01 07:40 WBC RBC 2.51 L Hgb 7.7 L Hct 24.8 L MCV 99 H RDW 19.4 H Lymph % (Auto) [place] % (Auto) Lymph # Seg Neutrophils % Seg Neuts % (Manual) Lymphocytes % (Manual) Lymphocytes # (Manual) POC ABG pH 7.468 H POC ABG pCO2 30.6 L POC ABG pO2 Sodium Potassium Chloride Carbon Dioxide BUN Creatinine Glucose POC Glucose 149 H Lactic Acid Calcium ALT Alkaline Phosphatase C-Reactive Protein Total Protein Albumin Vancomycin Trough 11/30/16 11/30/16 11/30/16 07:40 12:42 17:30 WBC RBC Hgb Hct MCV RDW Lymph % (Auto) [place] % (Auto) Lymph # Seg Neutrophils % Seg Neuts % (Manual) Lymphocytes % (Manual) Lymphocytes # (Manual) POC ABG pH POC ABG pCO2 POC ABG pO2 Sodium Potassium Chloride 113.7 H Carbon Dioxide BUN Creatinine 0.5 L D Glucose POC Glucose 134 H 114 H Lactic Acid Calcium 7.1 L ALT 6 L Alkaline Phosphatase 167 H C-Reactive Protein Total Protein 4.0 L Albumin 1.0 L Vancomycin Trough 11/30/16 12/01/16 12/01/16 23:39 05:52 06:36 WBC RBC 2.60 L Hgb 8.1 L Hct 25.4 L MCV 98 H RDW 19.7 H Lymph % (Auto) [place] % (Auto) 9.0 H Lymph # 1.1 L Seg Neutrophils % Seg Neuts % (Manual) Lymphocytes % (Manual) Lymphocytes # (Manual) POC ABG pH POC ABG pCO2 POC ABG pO2 Sodium Potassium Chloride Carbon Dioxide BUN Creatinine Glucose POC Glucose 121 H 134 H Lactic Acid Calcium ALT Alkaline Phosphatase C-Reactive Protein Total Protein Albumin Vancomycin Trough 12/01/16 12/01/16 12/01/16 06:36 11:34 17:40 WBC RBC Hgb Hct MCV RDW Lymph % (Auto) [place] % (Auto) Lymph # Seg Neutrophils % Seg Neuts % (Manual) Lymphocytes % (Manual) Lymphocytes # (Manual) POC ABG pH POC ABG pCO2 POC ABG pO2 Sodium Potassium Chloride 113.8 H Carbon Dioxide BUN Creatinine 0.5 L Glucose 120 H POC Glucose 167 H 117 H Lactic Acid Calcium 7.3 L ALT Alkaline Phosphatase C-Reactive Protein Total Protein Albumin Vancomycin Trough 12/02/16 12/02/16 12/02/16 00:35 05:03 05:44 WBC RBC Hgb Hct MCV RDW Lymph % (Auto) [place] % (Auto) Lymph # Seg Neutrophils % Seg Neuts % (Manual) Lymphocytes % (Manual) Lymphocytes # (Manual) POC ABG pH POC ABG pCO2 30.9 L POC ABG pO2 77 L Sodium Potassium Chloride Carbon Dioxide BUN Creatinine Glucose POC Glucose 129 H 154 H Lactic Acid Calcium ALT Alkaline Phosphatase C-Reactive Protein Total Protein Albumin Vancomycin Trough 12/02/16 12/02/16 12/03/16 18:03 23:53 05:17 WBC RBC Hgb Hct MCV RDW Lymph % (Auto) [place] % (Auto) Lymph # Seg Neutrophils % Seg Neuts % (Manual) Lymphocytes % (Manual) Lymphocytes # (Manual) POC ABG pH POC ABG pCO2 POC ABG pO2 Sodium Potassium Chloride Carbon Dioxide BUN Creatinine Glucose POC Glucose 135 H 158 H 177 H Lactic Acid Calcium ALT Alkaline Phosphatase C-Reactive Protein Total Protein Albumin Vancomycin Trough 12/03/16 12/03/16 12/03/16 05:30 09:35 11:46 WBC RBC 2.50 L Hgb 8.0 L Hct 24.8 L MCV 99 H RDW 18.8 H Lymph % (Auto) [place] % (Auto) 11.9 H Lymph # Seg Neutrophils % Seg Neuts % (Manual) Lymphocytes % (Manual) Lymphocytes # (Manual) POC ABG pH POC ABG pCO2 POC ABG pO2 Sodium Potassium 3.5 L Chloride 109.9 H Carbon Dioxide BUN Creatinine 0.4 L Glucose 162 H POC Glucose 157 H Lactic Acid Calcium 7.5 L ALT Alkaline Phosphatase C-Reactive Protein Total Protein Albumin Vancomycin Trough 12/03/16 12/03/16 12/04/16 18:25 23:32 05:24 WBC RBC Hgb Hct MCV RDW Lymph % (Auto) [place] % (Auto) Lymph # Seg Neutrophils % Seg Neuts % (Manual) Lymphocytes % (Manual) Lymphocytes # (Manual) POC ABG pH POC ABG pCO2 POC ABG pO2 Sodium Potassium Chloride Carbon Dioxide BUN Creatinine Glucose POC Glucose 134 H 152 H 176 H Lactic Acid Calcium ALT Alkaline Phosphatase C-Reactive Protein Total Protein Albumin Vancomycin Trough 12/04/16 12/04/16 12/04/16 05:29 08:15 08:15 WBC RBC 2.41 L Hgb 7.5 L Hct 23.7 L MCV 98 H RDW 18.4 H Lymph % (Auto) [place] % (Auto) 12.7 H Lymph # 0.9 L Seg Neutrophils % Seg Neuts % (Manual) Lymphocytes % (Manual) Lymphocytes # (Manual) POC ABG pH POC ABG pCO2 POC ABG pO2 116 H Sodium Potassium 3.3 L Chloride 108.0 H Carbon Dioxide BUN Creatinine 0.4 L Glucose 160 H POC Glucose Lactic Acid Calcium 7.5 L ALT Alkaline Phosphatase C-Reactive Protein Total Protein Albumin Vancomycin Trough 12/04/16 12/04/16 12/04/16 11:42 15:12 16:49 WBC RBC Hgb Hct MCV RDW Lymph % (Auto) [place] % (Auto) Lymph # Seg Neutrophils % Seg Neuts % (Manual) Lymphocytes % (Manual) Lymphocytes # (Manual) POC ABG pH 7.322 L POC ABG pCO2 48.9 H POC ABG pO2 59 L 77 L Sodium Potassium Chloride Carbon Dioxide BUN Creatinine Glucose POC Glucose 142 H Lactic Acid Calcium ALT Alkaline Phosphatase C-Reactive Protein Total Protein Albumin Vancomycin Trough 12/04/16 12/05/16 12/05/16 18:28 00:10 03:15 WBC RBC 3.17 L Hgb 9.8 L Hct MCV RDW 18.0 H Lymph % (Auto) 10.1 L [place] % (Auto) Lymph # 0.7 L Seg Neutrophils % 81.7 H Seg Neuts % (Manual) Lymphocytes % (Manual) Lymphocytes # (Manual) POC ABG pH POC ABG pCO2 POC ABG pO2 Sodium Potassium Chloride Carbon Dioxide BUN Creatinine Glucose POC Glucose 136 H 138 H Lactic Acid Calcium ALT Alkaline Phosphatase C-Reactive Protein Total Protein Albumin Vancomycin Trough 12/05/16 12/05/16 12/05/16 03:15 05:38 12:23 WBC RBC Hgb Hct MCV RDW Lymph % (Auto) [place] % (Auto) Lymph # Seg Neutrophils % Seg Neuts % (Manual) Lymphocytes % (Manual) Lymphocytes # (Manual) POC ABG pH POC ABG pCO2 POC ABG pO2 Sodium Potassium 3.3 L Chloride Carbon Dioxide BUN Creatinine 0.3 L Glucose 130 H POC Glucose 185 H 178 H Lactic Acid Calcium 7.5 L ALT Alkaline Phosphatase C-Reactive Protein Total Protein Albumin Vancomycin Trough 12/05/16 12/05/16 12/06/16 16:14 18:29 00:06 WBC RBC Hgb Hct MCV RDW Lymph % (Auto) [place] % (Auto) Lymph # Seg Neutrophils % Seg Neuts % (Manual) Lymphocytes % (Manual) Lymphocytes # (Manual) POC ABG pH POC ABG pCO2 POC ABG pO2 Sodium Potassium Chloride Carbon Dioxide BUN Creatinine Glucose POC Glucose 145 H 147 H 163 H Lactic Acid Calcium ALT Alkaline Phosphatase C-Reactive Protein Total Protein Albumin Vancomycin Trough 12/06/16 12/06/16 12/06/16 04:00 05:15 06:37 WBC RBC 2.30 L Hgb 7.2 L Hct 22.7 L D MCV 99 H RDW 17.9 H Lymph % (Auto) [place] % (Auto) 9.5 H Lymph # 0.9 L Seg Neutrophils % Seg Neuts % (Manual) Lymphocytes % (Manual) Lymphocytes # (Manual) POC ABG pH POC ABG pCO2 POC ABG pO2 Sodium Potassium 3.5 L Chloride Carbon Dioxide BUN Creatinine 0.4 L Glucose 138 H POC Glucose 190 H Lactic Acid Calcium 7.7 L ALT Alkaline Phosphatase C-Reactive Protein Total Protein Albumin Vancomycin Trough 12/06/16 12/06/16 12/06/16 11:55 11:55 11:55 WBC 15.0 H RBC 2.79 L Hgb 8.6 L Hct 28.3 L MCV 101 H RDW 18.4 H Lymph % (Auto) [place] % (Auto) Lymph # Seg Neutrophils % Seg Neuts % (Manual) Lymphocytes % (Manual) Lymphocytes # (Manual) POC ABG pH POC ABG pCO2 POC ABG pO2 Sodium 136 L Potassium 5.5 H D Chloride Carbon Dioxide BUN Creatinine 0.3 L Glucose 143 H POC Glucose Lactic Acid 5.70 H* Calcium ALT Alkaline Phosphatase C-Reactive Protein Total Protein Albumin Vancomycin Trough 12/06/16 12/06/16 12/07/16 11:55 12:10 05:00 WBC RBC Hgb Hct MCV RDW Lymph % (Auto) [place] % (Auto) Lymph # Seg Neutrophils % Seg Neuts % (Manual) Lymphocytes % (Manual) Lymphocytes # (Manual) POC ABG pH POC ABG pCO2 POC ABG pO2 Sodium Potassium Chloride Carbon Dioxide BUN Creatinine 0.4 L Glucose POC Glucose 154 H Lactic Acid Calcium 7.5 L ALT Alkaline Phosphatase 142 H C-Reactive Protein 8.10 H Total Protein 4.7 L Albumin 1.6 L Vancomycin Trough 12/07/16 12/07/16 12/07/16 05:00 06:14 16:52 WBC RBC 2.36 L Hgb 7.3 L Hct 23.1 L MCV 98 H D RDW 17.8 H Lymph % (Auto) [place] % (Auto) 8.5 H Lymph # 1.0 L Seg Neutrophils % 76.9 H Seg Neuts % (Manual) Lymphocytes % (Manual) Lymphocytes # (Manual) POC ABG pH 7.508 H POC ABG pCO2 31.1 L POC ABG pO2 131 H Sodium Potassium Chloride Carbon Dioxide BUN Creatinine Glucose POC Glucose 130 H Lactic Acid Calcium ALT Alkaline Phosphatase C-Reactive Protein Total Protein Albumin Vancomycin Trough 12/07/16 12/08/16 12/08/16 23:37 04:00 04:00 WBC RBC 2.26 L Hgb 7.1 L Hct 22.2 L MCV 98 H RDW 17.6 H Lymph % (Auto) [place] % (Auto) 9.5 H Lymph # 1.0 L Seg Neutrophils % 71.7 H Seg Neuts % (Manual) Lymphocytes % (Manual) Lymphocytes # (Manual) POC ABG pH POC ABG pCO2 POC ABG pO2 Sodium Potassium 3.0 L Chloride Carbon Dioxide BUN Creatinine 0.5 L Glucose 124 H POC Glucose 107 H Lactic Acid Calcium 7.7 L ALT Alkaline Phosphatase C-Reactive Protein Total Protein Albumin Vancomycin Trough 12/08/16 12/08/16 05:16 05:34 WBC RBC Hgb Hct MCV RDW Lymph % (Auto) [place] % (Auto) Lymph # Seg Neutrophils % Seg Neuts % (Manual) Lymphocytes % (Manual) Lymphocytes # (Manual) POC ABG pH 7.492 H POC ABG pCO2 31.5 L POC ABG pO2 112 H Sodium Potassium Chloride Carbon Dioxide BUN Creatinine Glucose POC Glucose 148 H Lactic Acid Calcium ALT Alkaline Phosphatase C-Reactive Protein Total Protein Albumin Vancomycin Trough
[2016-12-08] MEDS: XARELTO PO SCH (10:56)
[2016-12-08] MEDS: CORDARONE PO SCH ×2 (10:56→22:00)
[2016-12-08] MEDS ORDERED: HEPARIN 10,000 UNITS/10 ML IV ONE (11:00)
[2016-12-08 11:24] LABS: INR 1.34 (0.87-1.13)
[2016-12-08 11:25] LABS: Partial Thromboplastin Time 34.5 Sec. (24.2-36.6)
[2016-12-08] MEDS: HEPARIN/ 0.45% NACL-25,000 UNIT/500 ML 25,000 UNIT/500 ML BAG IV SCH (11:52)
--- NOTE | 2016-12-08 16:11 | Progress Note ---
Assessment and Plan Assessment and plan: Patient was coded yesterday and resuscitated according to ACLS protocol Acute respiratory failure secondary to to mucus plugging - Patient is intubated - Chest x-ray cleared out after mucus was suctioned - Pulmonary is following - Patient needs trach A. fib with RVR - Cardiology consulted - On amiodarone drip, continue prior DEXA Sepsis with hypotension - Resolved Acute metabolic encephalopathy Debility Patient is Full code. Disposition - Continue ICU care - Patient need PEG and Trach and possible transfer to LTACH The high probability of a clinically significant, sudden or life threatening deterioration of the [neurology, cardiovascular, respiratory] system(s) required my full and direct attention, intervention and personal management. The aggregate critical care time was [x] minutes. This time is in addition to time spent performing reported procedures but includes the following: [x] Data Review and interpretation [x] Patient assessment and monitoring of vital signs [x] Documentation [x] Medication orders and managementDVT prophylaxis History Interval history: Patient was seen and evaluated this morning, patient is intubated and on CPAP. Hospitalist Physical - Physical exam Narrative exam: Patient is intubated and on mechanical ventilation, breathing over the vent, open her eyes. Vital signs as documented. Head exam is unremarkable. No scleral icterus . Neck is without jugular venous distension, thyromegaly, or carotid bruits. Lungs are clear to auscultation. Cardiac exam reveals irregular rate and Rhythm. Abdominal exam reveals normal bowel sounds, no masses, no organomegaly and no aortic enlargement. Extremities patient has minimal edema. [employer]: Open her eyes. - Constitutional Vitals: Temp Pulse Resp BP Pulse Ox 98.6 F 70 16 112/55 100 12/08/16 12:00 12/08/16 15:18 12/08/16 14:00 12/08/16 15:18 12/08/16 15:18 General appearance: Present: no acute distress (intubated, unresponsive) Results - Labs CBC & Chem 7: 12/08/16 04:00 12/08/16 04:00 Labs: Laboratory Last Values WBC 6.2 K/mm3 (4.5-11.0) 12/08/16 04:00 RBC 2.26 M/mm3 (3.65-5.03) L 12/08/16 04:00 Hgb 7.1 gm/dl (10.1-14.3) L 12/08/16 04:00 Hct 22.2 % (30.3-42.9) L 12/08/16 04:00 MCV 98 fl (79-97) H 12/08/16 04:00 MCH 32 pg (28-32) 12/08/16 04:00 MCHC 32 % (30-34) 12/08/16 04:00 RDW 17.6 % (13.2-15.2) H 12/08/16 04:00 Plt Count 263 K/mm3 (140-440) 12/08/16 04:00 Lymph % (Auto) 16.7 % (13.4-35.0) 12/08/16 04:00 Coleman % (Auto) 9.5 % (0.0-7.3) H 12/08/16 04:00 Eos % (Auto) 1.5 % (0.0-4.3) 12/08/16 04:00 Baso % (Auto) 0.6 % (0.0-1.8) 12/08/16 04:00 Lymph # 1.0 K/mm3 (1.2-5.4) L 12/08/16 04:00 Coleman # 0.6 K/mm3 (0.0-0.8) 12/08/16 04:00 Eos # 0.1 K/mm3 (0.0-0.4) 12/08/16 04:00 Baso # 0.0 K/mm3 (0.0-0.1) 12/08/16 04:00 Add Manual Diff Complete 11/28/16 04:52 Total Counted 100 11/28/16 04:52 Seg Neutrophils % 71.7 % (40.0-70.0) H 12/08/16 04:00 Seg Neuts % (Manual) 83.0 % (40.0-70.0) H 11/28/16 04:52 Band Neutrophils % 7.0 % 11/28/16 04:52 Lymphocytes % (Manual) 6.0 % (13.4-35.0) L 11/28/16 04:52 Reactive Lymphs % (Man) 0 % 11/28/16 04:52 Monocytes % (Manual) 1.0 % (0.0-7.3) 11/28/16 04:52 Eosinophils % (Manual) 3.0 % (0.0-4.3) 11/28/16 04:52 Basophils % (Manual) 0 % (0.0-1.8) 11/28/16 04:52 Metamyelocytes % 0 % 11/28/16 04:52 Myelocytes % 0 % 11/28/16 04:52 Promyelocytes % 0 % 11/28/16 04:52 Blast Cells % 0 % 11/28/16 04:52 Nucleated RBC % Not Reportable 11/28/16 04:52 Seg Neutrophils # 4.5 K/mm3 (1.8-7.7) 12/08/16 04:00 Seg Neutrophils # Man 5.4 K/mm3 (1.8-7.7) 11/28/16 04:52 Band Neutrophils # 0.5 K/mm3 11/28/16 04:52 Lymphocytes # (Manual) 0.4 K/mm3 (1.2-5.4) L 11/28/16 04:52 Abs React Lymphs (Man) 0.0 K/mm3 11/28/16 04:52 Monocytes # (Manual) 0.1 K/mm3 (0.0-0.8) 11/28/16 04:52 Eosinophils # (Manual) 0.2 K/mm3 (0.0-0.4) 11/28/16 04:52 Basophils # (Manual) 0.0 K/mm3 (0.0-0.1) 11/28/16 04:52 Metamyelocytes # 0.0 K/mm3 11/28/16 04:52 Myelocytes # 0.0 K/mm3 11/28/16 04:52 Promyelocytes # 0.0 K/mm3 11/28/16 04:52 Blast Cells # 0.0 K/mm3 11/28/16 04:52 WBC Morphology Not Reportable 11/28/16 04:52 Hypersegmented Neuts Not Reportable 11/28/16 04:52 Hyposegmented Neuts Not Reportable 11/28/16 04:52 Hypogranular Neuts Not Reportable 11/28/16 04:52 Smudge Cells Not Reportable 11/28/16 04:52 Toxic Granulation Not Reportable 11/28/16 04:52 Toxic Vacuolation Not Reportable 11/28/16 04:52 Dohle Bodies Not Reportable 11/28/16 04:52 Pelger-Huet Anomaly Not Reportable 11/28/16 04:52 Caitlin Rods Not Reportable 11/28/16 04:52 Platelet Estimate Consistent w auto 11/28/16 04:52 Clumped Platelets Not Reportable 11/28/16 04:52 Plt Clumps, EDTA Not Reportable 11/28/16 04:52 Large Platelets Not Reportable 11/28/16 04:52 Giant Platelets Not Reportable 11/28/16 04:52 Platelet Satelliting Not Reportable 11/28/16 04:52 Plt Morphology Comment Not Reportable 11/28/16 04:52 RBC Morphology Not Reportable 11/28/16 04:52 Dimorphic RBCs Not Reportable 11/28/16 04:52 Polychromasia Not Reportable 11/28/16 04:52 Hypochromasia Not Reportable 11/28/16 04:52 Poikilocytosis Not Reportable 11/28/16 04:52 Anisocytosis Not Reportable 11/28/16 04:52 Microcytosis Not Reportable 11/28/16 04:52 Macrocytosis Few 11/28/16 04:52 Spherocytes Not Reportable 11/28/16 04:52 Pappenheimer Bodies Not Reportable 11/28/16 04:52 Sickle Cells Not Reportable 11/28/16 04:52 Target Cells Not Reportable 11/28/16 04:52 Tear Drop Cells Not Reportable 11/28/16 04:52 Ovalocytes Not Reportable 11/28/16 04:52 Helmet Cells Not Reportable 11/28/16 04:52 Sheets-[place] Bodies Not Reportable 11/28/16 04:52 [place] Rings Not Reportable 11/28/16 04:52 Dave Cells Not Reportable 11/28/16 04:52 Bite Cells Not Reportable 11/28/16 04:52 Crenated Cell Not Reportable 11/28/16 04:52 Elliptocytes Not Reportable 11/28/16 04:52 Acanthocytes (Spur) Not Reportable 11/28/16 04:52 Rouleaux Not Reportable 11/28/16 04:52 Hemoglobin C Crystals Not Reportable 11/28/16 04:52 Schistocytes Not Reportable 11/28/16 04:52 Malaria parasites Not Reportable 11/28/16 04:52 Javon Bodies Not Reportable 11/28/16 04:52 Hem Pathologist Commnt No 11/28/16 04:52 PT 17.3 Sec. (12.2-14.9) H 12/08/16 10:45 INR 1.34 (0.87-1.13) H 12/08/16 10:45 APTT 34.5 Sec. (24.2-36.6) 12/08/16 10:45 POC ABG pH 7.492 (7.35-7.45) H 12/08/16 05:16 POC ABG pCO2 31.5 (35-45) L 12/08/16 05:16 POC ABG pO2 112 (80-105) H 12/08/16 05:16 POC ABG HCO3 24.1 12/08/16 05:16 POC ABG Total CO2 25 12/08/16 05:16 POC ABG O2 Sat 99 12/08/16 05:16 POC ABG Base Excess 1 12/08/16 05:16 VBG pH 7.376 (7.320-7.420) 11/26/16 18:40 FiO2 40 % 12/08/16 05:16 Sodium 138 mmol/L (137-145) 12/08/16 04:00 Potassium 3.0 mmol/L (3.6-5.0) L 12/08/16 04:00 Chloride 102.5 mmol/L (98-107) 12/08/16 04:00 Carbon Dioxide 27 mmol/L (22-30) 12/08/16 04:00 Anion Gap 12 mmol/L 12/08/16 04:00 BUN 13 mg/dL (7-17) 12/08/16 04:00 Creatinine 0.5 mg/dL (0.7-1.2) L 12/08/16 04:00 Estimated GFR > 60 ml/min 12/08/16 04:00 BUN/Creatinine Ratio 26.00 % 12/08/16 04:00 Glucose 124 mg/dL (65-100) H 12/08/16 04:00 POC Glucose 205 (70-105) H 12/08/16 12:09 Lactic Acid 1.40 mmol/L (0.7-2.0) 12/06/16 19:03 Calcium 7.7 mg/dL (8.4-10.2) L 12/08/16 04:00 Magnesium 2.00 mg/dL (1.7-2.3) 12/08/16 09:17 Total Bilirubin 0.40 mg/dL (0.1-1.2) 12/07/16 05:00 AST 30 units/L (5-40) 12/07/16 05:00 ALT 11 units/L (7-56) 12/07/16 05:00 Alkaline Phosphatase 142 units/L (35-129) H 12/07/16 05:00 Ammonia 37.0 umol/L (25-60) 11/29/16 11:15 Total Creatine Kinase 18 units/L (30-135) L 11/26/16 18:40 CK-MB (CK-2) 1.4 ng/mL (0.0-4.0) 11/26/16 18:40 CK-MB (CK-2) Rel Index 7.7 (0-4) H 11/26/16 18:40 Troponin T 0.146 ng/mL (0.00-0.029) H* 12/08/16 10:04 C-Reactive Protein 8.10 mg/dL (0.00-1.30) H 12/06/16 11:55 NT-Pro-B Natriuret Pep 20117 pg/mL (0-900) H 11/26/16 18:40 Total Protein 4.7 g/dL (6.3-8.2) L 12/07/16 05:00 Albumin 1.6 g/dL (3.9-5) L 12/07/16 05:00 Albumin/Globulin Ratio 0.5 % 12/07/16 05:00 Triglycerides 180 mg/dL (2-149) H 12/08/16 10:04 Cholesterol 122 mg/dL (50-199) 12/08/16 10:04 LDL Cholesterol Direct 65 mg/dL (50-130) 12/08/16 10:04 HDL Cholesterol 21 mg/dL (40-59) L 12/08/16 10:04 Cholesterol/HDL Ratio 5.80 % 12/08/16 10:04 Vitamin B12 768.6 pg/mL (211-911) 11/29/16 11:15 TSH 2.120 mlU/mL (0.270-4.200) 11/29/16 11:15 Urine Color Matilde (Yellow) 11/26/16 18:35 Urine Turbidity Turbid (Clear) 11/26/16 18:35 Urine pH 6.0 (5.0-7.0) 11/26/16 18:35 Ur Specific Justin 1.018 (1.003-1.030) 11/26/16 18:35 Urine Protein 100 mg/dl mg/dL (Negative) 11/26/16 18:35 Urine Glucose (UA) Neg mg/dL (Negative) 11/26/16 18:35 Urine Ketones Neg mg/dL (Negative) 11/26/16 18:35 Urine Blood Neg (Negative) 11/26/16 18:35 Urine Nitrite Neg (Negative) 11/26/16 18:35 Urine Bilirubin Neg (Negative) 11/26/16 18:35 Urine Urobilinogen < 2.0 mg/dL (<2.0) 11/26/16 18:35 Ur Leukocyte Esterase Mod (Negative) 11/26/16 18:35 Urine WBC (Auto) > 182.0 /HPF (0.0-6.0) H 11/26/16 18:35 Urine RBC (Auto) 6.0 /HPF (0.0-6.0) 11/26/16 18:35 Urine Bacteria (Auto) 4+ /HPF (Negative) 11/26/16 18:35 Urine WBC Clumps 3+ /HPF 11/26/16 18:35 Urine Mucus 3+ /HPF 11/26/16 18:35 Vancomycin Trough 41.9 ug/mL (5.0-20.0) H 11/29/16 07:05 Blood Type B POSITIVE 11/26/16 20:38 Antibody Screen TNR 11/26/16 20:38 NIRAV Antibody Screen Negative 11/26/16 20:38
[2016-12-08] MEDS: DILAUDID IV PRN (16:16)
[2016-12-08] MEDS: REMERON PO SCH (22:02)
[2016-12-08] MEDS: SENOKOT PO SCH (22:02)
[2016-12-09] MEDS: NACL 0.9% 500 ML 500 ML IV SCH (00:56)
[2016-12-09] MEDS: XOPENEX IH SCH ×4 (02:55→20:01)
[2016-12-09 04:13] LABS: Basophils % (Auto) 1.2 % (0.0-1.8); Eosinophils % (Auto) 1.7 % (0.0-4.3); Hemoglobin 7.5 gm/dl (10.1-14.3); Mean Corpuscular HGB Conc 33 % (30-34); Mean Corpuscular Hemoglobin 31 pg (28-32); Mean Corpuscular Volume 96 fl (79-97); Platelet Count 344 K/mm3 (140-440); Red Blood Count 2.39 M/mm3 (3.65-5.03); Red Cell Distribution Width 17.3 % (13.2-15.2); White Blood Count 9.2 K/mm3 (4.5-11.0)
[2016-12-09 04:29] LABS: Anion Gap 16 mmol/L; BUN/Creatinine Ratio 25.71; Blood Urea Nitrogen 18 mg/dL (7-17); Calcium 7.4 mg/dL (8.4-10.2); Carbon Dioxide 23 mmol/L (22-30); Chloride 100.7 mmol/L (98-107); Glucose 187 mg/dL (65-100); Potassium 4.6 mmol/L (3.6-5.0); Sodium 135 mmol/L (137-145)
[2016-12-09 04:55] LABS: ISTAT Base Excess 1; ISTAT HCO3 24.6; ISTAT PCO2 31.9 (35-45); ISTAT PH 7.495 (7.35-7.45); ISTAT PO2 186 (80-105); ISTAT SO2 100; ISTAT TCO2 26
[2016-12-09] MEDS: PULMICORT IH SCH ×2 (08:47→20:02)
--- NOTE | 2016-12-09 09:04 | Progress Note ---
Assessment and Plan Paroxysmal atrial fibrillation-->currently sinus rhythm continue PO amiodarone 400mg BID continue heparin gtt (Xarelto unable to be crushed) Echo: LVEF 45 to 50%, Mild MR, R Heart enlargement, Mild to moderate TR, Moderate pulmonary hypertension, RVSP 55 mmHg, Dilated IVC, Pleural effusion, Minimal pericardial effusion Will obtain d-dimer given R heart enlargement/pulm HTN on echo S/p cardiac arrest-->appears to have been a respiratory arrest due to possible aspiration mildly elevated troponin level likely due to resuscitation efforts Acute respiratory failure Acute encephalopathy Hypokalemia replace to keep K+ ~ 4.0 Hx. of hypertension BP currently low-normal will monitor Diabetes Anemia Recommend PRBC transfusion to keep Hgb around 10 and greater The patient has been seen in conjunction with Dr. Zavala who agrees with the assessment and plan of care. Subjective Date of service: 12/09/16 Principal diagnosis: acute respiratory failure Interval history: The patient remains intubated but awake and calm. No acute distress noted. Sinus rhythm on the monitor. Objective Last Vital Signs Temp 98.1 F 12/09/16 08:00 Pulse 69 12/09/16 08:59 Resp 24 12/09/16 08:59 BP 96/49 12/09/16 08:59 Pulse Ox 100 12/09/16 08:59 - Physical Examination General: No Apparent Distress (intubated) HEENT: Positive: Normocephaly, Mucus Membranes Moist Neck: Positive: neck supple, trachea midline Cardiac: Positive: Reg Rate and Rhythm, S1/S2 Lungs: Positive: Decreased Breath Sounds Neuro: Positive: Other (intubated, awake) Abdomen: Positive: Soft Skin: Positive: Clear. Negative: Rash Extremities: Present: Other (dressings intact on bilateral arms and legs). Absent: edema - Labs and Meds Coagulation 12/08/16 Range/Units 10:45 PT 17.3 H (12.2-14.9) Sec. INR 1.34 H (0.87-1.13) APTT 34.5 (24.2-36.6) Sec. Lipids 12/08/16 Range/Units 10:04 Triglycerides 180 H (2-149) mg/dL Cholesterol 122 (50-199) mg/dL HDL Cholesterol 21 L (40-59) mg/dL Cholesterol/HDL Ratio 5.80 % CBC 12/09/16 Range/Units 03:55 WBC 9.2 (4.5-11.0) K/mm3 RBC 2.39 L (3.65-5.03) M/mm3 Hgb 7.5 L (10.1-14.3) gm/dl Hct 23.0 L (30.3-42.9) % Plt Count 344 (140-440) K/mm3 Lymph # 2.1 (1.2-5.4) K/mm3 Lee # 1.0 H (0.0-0.8) K/mm3 Eos # 0.2 (0.0-0.4) K/mm3 Baso # 0.1 (0.0-0.1) K/mm3 Comprehensive Metabolic Panel 12/09/16 Range/Units 03:55 Sodium 135 L (137-145) mmol/L Potassium 4.6 D (3.6-5.0) mmol/L Chloride 100.7 (98-107) mmol/L Carbon Dioxide 23 (22-30) mmol/L BUN 18 H (7-17) mg/dL Creatinine 0.7 (0.7-1.2) mg/dL Glucose 187 H (65-100) mg/dL Calcium 7.4 L (8.4-10.2) mg/dL - Imaging and Cardiology EKG: image reviewed Echo: report reviewed (12/07/16: LVEF 45 to 50%, Mild MR, R Heart enlargement, Mild to moderate TR, Moderate pulmonary hypertension, RVSP 55 mmHg, Dilated IVC , Pleural effusion, Minimal pericardial effusion) - Telemetry EKG Rhythm: Sinus Rhythm
[2016-12-09] MEDS: CORDARONE PO SCH ×2 (09:43→21:14)
[2016-12-09] MEDS: LASIX IV SCH ×2 (09:44→21:15)
[2016-12-09] MEDS: PEPCID PO SCH ×2 (09:44→21:14)
[2016-12-09] MEDS: POTASSIUM CHLORIDE FEEDTUBE SCH (09:44)
[2016-12-09] MEDS: FERROUS SULFATE PO SCH ×3 (10:30→21:14)
--- NOTE | 2016-12-09 12:27 | Progress Note ---
Assessment and Plan 61 y/o female with acute respiratory failure requiring mechanical ventilation, now extubated with elevated BNP on admission, with history of afib on xarelto, now with acute respiratory failure requiring mechanical ventilation secondary to aspiration of a mucus plug, now cleared. 1. Echo done shows pulmonary hypertension and depressed EF. Cards ordered a D- Dimer, very very nonspecific lab and will likely be positive in this patient with chronic disease. PE in this patient based on clinical presentation is doubtful. She has normal renal function. If overly concerned would could perform CTA but in my clinical opinion this patient does not have a large PE causing respiratory failure. 2. Continue with IV diuresis as BP and renal function will allow, this should be done with recent echo results. 3. Given inability to protect airway, will likely need trach, given most recent code from yesterday. Code likely secondary to mucous plugging from patient not able to clear throat. 4. Daily net negative state 5. Discussed current deposition on IT rounds 6. Long discussion with brothers, one at bedside one on the phone. They will make decision soon about trach. Explained the need for it. Also explained to them the trach does not fix the underlying problem which is weakness in the oropharynx region and the inability to protect airway. Not sure if she will recover from that standpoint and I stressed that point with the brothers. AWaiting on them to make decision about trach CCT 31 minutes. Subjective Date of service: 12/09/16 Principal diagnosis: acute respiratory failure Interval history: Tolerating PSV with no issues Objective Vital Signs - 12hr 12/09/16 12/09/16 12/09/16 00:30 01:00 01:30 Temperature Pulse Rate 76 84 67 Pulse Rate [ Anterior Bilateral Throughout] Pulse Rate [ From Monitor] Respiratory 16 24 17 Rate Respiratory Rate [Anterior Bilateral Throughout] Blood Pressure 98/52 108/60 87/45 O2 Sat by Pulse 100 100 100 Oximetry 12/09/16 12/09/16 12/09/16 02:00 02:30 02:55 Temperature Pulse Rate 67 67 Pulse Rate [ 66 Anterior Bilateral Throughout] Pulse Rate [ From Monitor] Respiratory 19 20 Rate Respiratory 18 Rate [Anterior Bilateral Throughout] Blood Pressure 93/39 96/54 O2 Sat by Pulse 100 100 Oximetry 12/09/16 12/09/16 12/09/16 03:00 03:05 03:30 Temperature Pulse Rate 65 74 Pulse Rate [ 68 Anterior Bilateral Throughout] Pulse Rate [ From Monitor] Respiratory 17 16 Rate Respiratory 18 Rate [Anterior Bilateral Throughout] Blood Pressure 97/50 106/57 O2 Sat by Pulse 100 Oximetry 12/09/16 12/09/16 12/09/16 04:00 04:05 04:31 Temperature 98.6 F Pulse Rate 67 70 Pulse Rate [ Anterior Bilateral Throughout] Pulse Rate [ 67 From Monitor] Respiratory 17 Rate Respiratory Rate [Anterior Bilateral Throughout] Blood Pressure 100/48 106/57 100/48 O2 Sat by Pulse 100 100 100 Oximetry 12/09/16 12/09/16 12/09/16 05:01 05:30 06:00 Temperature Pulse Rate 90 69 Pulse Rate [ Anterior Bilateral Throughout] Pulse Rate [ From Monitor] Respiratory 25 H 10 L Rate Respiratory Rate [Anterior Bilateral Throughout] Blood Pressure 100/48 116/60 95/44 O2 Sat by Pulse 97 100 100 Oximetry 12/09/16 12/09/16 12/09/16 06:30 07:00 07:30 Temperature Pulse Rate 74 65 68 Pulse Rate [ Anterior Bilateral Throughout] Pulse Rate [ From Monitor] Respiratory 10 L 20 23 Rate Respiratory Rate [Anterior Bilateral Throughout] Blood Pressure 102/50 100/47 100/45 O2 Sat by Pulse 100 100 100 Oximetry 12/09/16 12/09/16 12/09/16 08:00 08:30 08:41 Temperature 98.1 F Pulse Rate 67 74 70 Pulse Rate [ Anterior Bilateral Throughout] Pulse Rate [ From Monitor] Respiratory 24 23 Rate Respiratory Rate [Anterior Bilateral Throughout] Blood Pressure 100/51 96/49 96/49 O2 Sat by Pulse 100 100 100 Oximetry 12/09/16 12/09/16 12/09/16 08:47 08:58 08:59 Temperature Pulse Rate 69 Pulse Rate [ 67 67 Anterior Bilateral Throughout] Pulse Rate [ From Monitor] Respiratory 24 Rate Respiratory 18 22 Rate [Anterior Bilateral Throughout] Blood Pressure 96/49 O2 Sat by Pulse 100 Oximetry 12/09/16 12/09/16 12/09/16 09:00 09:30 10:00 Temperature Pulse Rate 82 66 66 Pulse Rate [ Anterior Bilateral Throughout] Pulse Rate [ From Monitor] Respiratory 23 23 23 Rate Respiratory Rate [Anterior Bilateral Throughout] Blood Pressure 107/59 97/44 110/54 O2 Sat by Pulse 100 100 100 Oximetry 12/09/16 12/09/16 12/09/16 10:30 11:00 11:30 Temperature Pulse Rate 64 65 68 Pulse Rate [ Anterior Bilateral Throughout] Pulse Rate [ From Monitor] Respiratory 27 H 23 23 Rate Respiratory Rate [Anterior Bilateral Throughout] Blood Pressure 118/46 97/42 102/46 O2 Sat by Pulse 100 100 100 Oximetry 12/09/16 12/09/16 11:37 12:00 Temperature 98.5 F Pulse Rate 71 70 Pulse Rate [ Anterior Bilateral Throughout] Pulse Rate [ From Monitor] Respiratory 25 H 24 Rate Respiratory Rate [Anterior Bilateral Throughout] Blood Pressure 97/42 102/46 O2 Sat by Pulse 100 99 Oximetry Constitutional: no acute distress Eyes: non-icteric ENT: other (ETT in position) Effort: normal Ascultation: Right: rales, Bilateral: clear, diminished breath sounds, rhonchi ( rare) Percussion: Bilateral: not dull Cardiovascular: irregular rhythm Gastrointestinal: normoactive bowel sounds, non-distended Integumentary: normal Extremities: no cyanosis, no edema Neurologic: other ( stuporous, slightly up from her eyes production sanitizer and tactile stimuli) CBC and BMP: 12/09/16 03:55 12/09/16 03:55 ABG, PT/INR, D-dimer: ABG POC ABG pH 7.495 (7.35-7.45) H 12/09/16 04:05 POC ABG pCO2 31.9 (35-45) L 12/09/16 04:05 POC ABG pO2 186 (80-105) H 12/09/16 04:05 POC ABG HCO3 24.6 12/09/16 04:05 POC ABG Total CO2 26 12/09/16 04:05 POC ABG O2 Sat 100 12/09/16 04:05 PT/INR, D-dimer PT 17.3 Sec. (12.2-14.9) H 12/08/16 10:45 INR 1.34 (0.87-1.13) H 12/08/16 10:45 D-Dimer 1403 ng/mlDDU (0-234) H 12/09/16 11:15 Abnormal lab findings: Abnormal Labs 11/26/16 11/27/16 11/27/16 20:20 05:43 23:43 WBC RBC Hgb Hct MCV RDW Lymph % (Auto) [place] % (Auto) Lymph # [place] # Seg Neutrophils % Seg Neuts % (Manual) Lymphocytes % (Manual) Lymphocytes # (Manual) PT INR D-Dimer Heparin Anti-Xa Level POC ABG pH 7.574 H POC ABG pCO2 29.9 L POC ABG pO2 57 L 147 H Sodium Potassium Chloride Carbon Dioxide BUN Creatinine Glucose POC Glucose 63 L Lactic Acid Calcium ALT Alkaline Phosphatase Troponin T C-Reactive Protein Total Protein Albumin Triglycerides HDL Cholesterol Vancomycin Trough 11/28/16 11/28/16 11/29/16 04:52 04:52 05:15 WBC RBC 3.04 L 2.95 L Hgb 9.4 L 9.2 L Hct 28.6 L MCV 102 H D RDW 19.9 H 19.5 H Lymph % (Auto) 13.1 L [place] % (Auto) 7.9 H Lymph # 0.8 L [place] # Seg Neutrophils % 77.7 H Seg Neuts % (Manual) 83.0 H Lymphocytes % (Manual) 6.0 L Lymphocytes # (Manual) 0.4 L PT INR D-Dimer Heparin Anti-Xa Level POC ABG pH POC ABG pCO2 POC ABG pO2 Sodium Potassium Chloride 110.0 H Carbon Dioxide 20 L BUN Creatinine 0.3 L Glucose POC Glucose Lactic Acid Calcium 7.0 L ALT Alkaline Phosphatase Troponin T C-Reactive Protein Total Protein Albumin Triglycerides HDL Cholesterol Vancomycin Trough 11/29/16 11/29/16 11/29/16 05:15 05:23 06:18 WBC RBC Hgb Hct MCV RDW Lymph % (Auto) [place] % (Auto) Lymph # [place] # Seg Neutrophils % Seg Neuts % (Manual) Lymphocytes % (Manual) Lymphocytes # (Manual) PT INR D-Dimer Heparin Anti-Xa Level POC ABG pH 7.474 H POC ABG pCO2 30.2 L POC ABG pO2 Sodium Potassium 3.1 L D Chloride 112.3 H Carbon Dioxide BUN 6 L Creatinine 0.3 L Glucose POC Glucose 120 H Lactic Acid Calcium 7.1 L ALT Alkaline Phosphatase Troponin T C-Reactive Protein Total Protein Albumin Triglycerides HDL Cholesterol Vancomycin Trough 11/29/16 11/29/16 11/29/16 07:05 11:54 18:31 WBC RBC Hgb Hct MCV RDW Lymph % (Auto) [place] % (Auto) Lymph # [place] # Seg Neutrophils % Seg Neuts % (Manual) Lymphocytes % (Manual) Lymphocytes # (Manual) PT INR D-Dimer Heparin Anti-Xa Level POC ABG pH POC ABG pCO2 POC ABG pO2 Sodium Potassium Chloride Carbon Dioxide BUN Creatinine Glucose POC Glucose 122 H 179 H Lactic Acid Calcium ALT Alkaline Phosphatase Troponin T C-Reactive Protein Total Protein Albumin Triglycerides HDL Cholesterol Vancomycin Trough 41.9 H 11/29/16 11/30/16 11/30/16 23:16 04:01 07:40 WBC RBC 2.51 L Hgb 7.7 L Hct 24.8 L MCV 99 H RDW 19.4 H Lymph % (Auto) [place] % (Auto) Lymph # [place] # Seg Neutrophils % Seg Neuts % (Manual) Lymphocytes % (Manual) Lymphocytes # (Manual) PT INR D-Dimer Heparin Anti-Xa Level POC ABG pH 7.468 H POC ABG pCO2 30.6 L POC ABG pO2 Sodium Potassium Chloride Carbon Dioxide BUN Creatinine Glucose POC Glucose 149 H Lactic Acid Calcium ALT Alkaline Phosphatase Troponin T C-Reactive Protein Total Protein Albumin Triglycerides HDL Cholesterol Vancomycin Trough 11/30/16 11/30/16 11/30/16 07:40 12:42 17:30 WBC RBC Hgb Hct MCV RDW Lymph % (Auto) [place] % (Auto) Lymph # [place] # Seg Neutrophils % Seg Neuts % (Manual) Lymphocytes % (Manual) Lymphocytes # (Manual) PT INR D-Dimer Heparin Anti-Xa Level POC ABG pH POC ABG pCO2 POC ABG pO2 Sodium Potassium Chloride 113.7 H Carbon Dioxide BUN Creatinine 0.5 L D Glucose POC Glucose 134 H 114 H Lactic Acid Calcium 7.1 L ALT 6 L Alkaline Phosphatase 167 H Troponin T C-Reactive Protein Total Protein 4.0 L Albumin 1.0 L Triglycerides HDL Cholesterol Vancomycin Trough 11/30/16 12/01/16 12/01/16 23:39 05:52 06:36 WBC RBC 2.60 L Hgb 8.1 L Hct 25.4 L MCV 98 H RDW 19.7 H Lymph % (Auto) [place] % (Auto) 9.0 H Lymph # 1.1 L [place] # Seg Neutrophils % Seg Neuts % (Manual) Lymphocytes % (Manual) Lymphocytes # (Manual) PT INR D-Dimer Heparin Anti-Xa Level POC ABG pH POC ABG pCO2 POC ABG pO2 Sodium Potassium Chloride Carbon Dioxide BUN Creatinine Glucose POC Glucose 121 H 134 H Lactic Acid Calcium ALT Alkaline Phosphatase Troponin T C-Reactive Protein Total Protein Albumin Triglycerides HDL Cholesterol Vancomycin Trough 12/01/16 12/01/16 12/01/16 06:36 11:34 17:40 WBC RBC Hgb Hct MCV RDW Lymph % (Auto) [place] % (Auto) Lymph # [place] # Seg Neutrophils % Seg Neuts % (Manual) Lymphocytes % (Manual) Lymphocytes # (Manual) PT INR D-Dimer Heparin Anti-Xa Level POC ABG pH POC ABG pCO2 POC ABG pO2 Sodium Potassium Chloride 113.8 H Carbon Dioxide BUN Creatinine 0.5 L Glucose 120 H POC Glucose 167 H 117 H Lactic Acid Calcium 7.3 L ALT Alkaline Phosphatase Troponin T C-Reactive Protein Total Protein Albumin Triglycerides HDL Cholesterol Vancomycin Trough 12/02/16 12/02/16 12/02/16 00:35 05:03 05:44 WBC RBC Hgb Hct MCV RDW Lymph % (Auto) [place] % (Auto) Lymph # [place] # Seg Neutrophils % Seg Neuts % (Manual) Lymphocytes % (Manual) Lymphocytes # (Manual) PT INR D-Dimer Heparin Anti-Xa Level POC ABG pH POC ABG pCO2 30.9 L POC ABG pO2 77 L Sodium Potassium Chloride Carbon Dioxide BUN Creatinine Glucose POC Glucose 129 H 154 H Lactic Acid Calcium ALT Alkaline Phosphatase Troponin T C-Reactive Protein Total Protein Albumin Triglycerides HDL Cholesterol Vancomycin Trough 12/02/16 12/02/16 12/03/16 18:03 23:53 05:17 WBC RBC Hgb Hct MCV RDW Lymph % (Auto) [place] % (Auto) Lymph # [place] # Seg Neutrophils % Seg Neuts % (Manual) Lymphocytes % (Manual) Lymphocytes # (Manual) PT INR D-Dimer Heparin Anti-Xa Level POC ABG pH POC ABG pCO2 POC ABG pO2 Sodium Potassium Chloride Carbon Dioxide BUN Creatinine Glucose POC Glucose 135 H 158 H 177 H Lactic Acid Calcium ALT Alkaline Phosphatase Troponin T C-Reactive Protein Total Protein Albumin Triglycerides HDL Cholesterol Vancomycin Trough 12/03/16 12/03/16 12/03/16 05:30 09:35 11:46 WBC RBC 2.50 L Hgb 8.0 L Hct 24.8 L MCV 99 H RDW 18.8 H Lymph % (Auto) [place] % (Auto) 11.9 H Lymph # [place] # Seg Neutrophils % Seg Neuts % (Manual) Lymphocytes % (Manual) Lymphocytes # (Manual) PT INR D-Dimer Heparin Anti-Xa Level POC ABG pH POC ABG pCO2 POC ABG pO2 Sodium Potassium 3.5 L Chloride 109.9 H Carbon Dioxide BUN Creatinine 0.4 L Glucose 162 H POC Glucose 157 H Lactic Acid Calcium 7.5 L ALT Alkaline Phosphatase Troponin T C-Reactive Protein Total Protein Albumin Triglycerides HDL Cholesterol Vancomycin Trough 12/03/16 12/03/16 12/04/16 18:25 23:32 05:24 WBC RBC Hgb Hct MCV RDW Lymph % (Auto) [place] % (Auto) Lymph # [place] # Seg Neutrophils % Seg Neuts % (Manual) Lymphocytes % (Manual) Lymphocytes # (Manual) PT INR D-Dimer Heparin Anti-Xa Level POC ABG pH POC ABG pCO2 POC ABG pO2 Sodium Potassium Chloride Carbon Dioxide BUN Creatinine Glucose POC Glucose 134 H 152 H 176 H Lactic Acid Calcium ALT Alkaline Phosphatase Troponin T C-Reactive Protein Total Protein Albumin Triglycerides HDL Cholesterol Vancomycin Trough 12/04/16 12/04/16 12/04/16 05:29 08:15 08:15 WBC RBC 2.41 L Hgb 7.5 L Hct 23.7 L MCV 98 H RDW 18.4 H Lymph % (Auto) [place] % (Auto) 12.7 H Lymph # 0.9 L [place] # Seg Neutrophils % Seg Neuts % (Manual) Lymphocytes % (Manual) Lymphocytes # (Manual) PT INR D-Dimer Heparin Anti-Xa Level POC ABG pH POC ABG pCO2 POC ABG pO2 116 H Sodium Potassium 3.3 L Chloride 108.0 H Carbon Dioxide BUN Creatinine 0.4 L Glucose 160 H POC Glucose Lactic Acid Calcium 7.5 L ALT Alkaline Phosphatase Troponin T C-Reactive Protein Total Protein Albumin Triglycerides HDL Cholesterol Vancomycin Trough 12/04/16 12/04/16 12/04/16 11:42 15:12 16:49 WBC RBC Hgb Hct MCV RDW Lymph % (Auto) [place] % (Auto) Lymph # [place] # Seg Neutrophils % Seg Neuts % (Manual) Lymphocytes % (Manual) Lymphocytes # (Manual) PT INR D-Dimer Heparin Anti-Xa Level POC ABG pH 7.322 L POC ABG pCO2 48.9 H POC ABG pO2 59 L 77 L Sodium Potassium Chloride Carbon Dioxide BUN Creatinine Glucose POC Glucose 142 H Lactic Acid Calcium ALT Alkaline Phosphatase Troponin T C-Reactive Protein Total Protein Albumin Triglycerides HDL Cholesterol Vancomycin Trough 12/04/16 12/05/16 12/05/16 18:28 00:10 03:15 WBC RBC 3.17 L Hgb 9.8 L Hct MCV RDW 18.0 H Lymph % (Auto) 10.1 L [place] % (Auto) Lymph # 0.7 L [place] # Seg Neutrophils % 81.7 H Seg Neuts % (Manual) Lymphocytes % (Manual) Lymphocytes # (Manual) PT INR D-Dimer Heparin Anti-Xa Level POC ABG pH POC ABG pCO2 POC ABG pO2 Sodium Potassium Chloride Carbon Dioxide BUN Creatinine Glucose POC Glucose 136 H 138 H Lactic Acid Calcium ALT Alkaline Phosphatase Troponin T C-Reactive Protein Total Protein Albumin Triglycerides HDL Cholesterol Vancomycin Trough 12/05/16 12/05/16 12/05/16 03:15 05:38 12:23 WBC RBC Hgb Hct MCV RDW Lymph % (Auto) [place] % (Auto) Lymph # [place] # Seg Neutrophils % Seg Neuts % (Manual) Lymphocytes % (Manual) Lymphocytes # (Manual) PT INR D-Dimer Heparin Anti-Xa Level POC ABG pH POC ABG pCO2 POC ABG pO2 Sodium Potassium 3.3 L Chloride Carbon Dioxide BUN Creatinine 0.3 L Glucose 130 H POC Glucose 185 H 178 H Lactic Acid Calcium 7.5 L ALT Alkaline Phosphatase Troponin T C-Reactive Protein Total Protein Albumin Triglycerides HDL Cholesterol Vancomycin Trough 12/05/16 12/05/16 12/06/16 16:14 18:29 00:06 WBC RBC Hgb Hct MCV RDW Lymph % (Auto) [place] % (Auto) Lymph # [place] # Seg Neutrophils % Seg Neuts % (Manual) Lymphocytes % (Manual) Lymphocytes # (Manual) PT INR D-Dimer Heparin Anti-Xa Level POC ABG pH POC ABG pCO2 POC ABG pO2 Sodium Potassium Chloride Carbon Dioxide BUN Creatinine Glucose POC Glucose 145 H 147 H 163 H Lactic Acid Calcium ALT Alkaline Phosphatase Troponin T C-Reactive Protein Total Protein Albumin Triglycerides HDL Cholesterol Vancomycin Trough 12/06/16 12/06/16 12/06/16 04:00 05:15 06:37 WBC RBC 2.30 L Hgb 7.2 L Hct 22.7 L D MCV 99 H RDW 17.9 H Lymph % (Auto) [place] % (Auto) 9.5 H Lymph # 0.9 L [place] # Seg Neutrophils % Seg Neuts % (Manual) Lymphocytes % (Manual) Lymphocytes # (Manual) PT INR D-Dimer Heparin Anti-Xa Level POC ABG pH POC ABG pCO2 POC ABG pO2 Sodium Potassium 3.5 L Chloride Carbon Dioxide BUN Creatinine 0.4 L Glucose 138 H POC Glucose 190 H Lactic Acid Calcium 7.7 L ALT Alkaline Phosphatase Troponin T C-Reactive Protein Total Protein Albumin Triglycerides HDL Cholesterol Vancomycin Trough 12/06/16 12/06/16 12/06/16 11:55 11:55 11:55 WBC 15.0 H RBC 2.79 L Hgb 8.6 L Hct 28.3 L MCV 101 H RDW 18.4 H Lymph % (Auto) [place] % (Auto) Lymph # [place] # Seg Neutrophils % Seg Neuts % (Manual) Lymphocytes % (Manual) Lymphocytes # (Manual) PT INR D-Dimer Heparin Anti-Xa Level POC ABG pH POC ABG pCO2 POC ABG pO2 Sodium 136 L Potassium 5.5 H D Chloride Carbon Dioxide BUN Creatinine 0.3 L Glucose 143 H POC Glucose Lactic Acid 5.70 H* Calcium ALT Alkaline Phosphatase Troponin T C-Reactive Protein Total Protein Albumin Triglycerides HDL Cholesterol Vancomycin Trough 12/06/16 12/06/16 12/07/16 11:55 12:10 05:00 WBC RBC Hgb Hct MCV RDW Lymph % (Auto) [place] % (Auto) Lymph # [place] # Seg Neutrophils % Seg Neuts % (Manual) Lymphocytes % (Manual) Lymphocytes # (Manual) PT INR D-Dimer Heparin Anti-Xa Level POC ABG pH POC ABG pCO2 POC ABG pO2 Sodium Potassium Chloride Carbon Dioxide BUN Creatinine 0.4 L Glucose POC Glucose 154 H Lactic Acid Calcium 7.5 L ALT Alkaline Phosphatase 142 H Troponin T C-Reactive Protein 8.10 H Total Protein 4.7 L Albumin 1.6 L Triglycerides HDL Cholesterol Vancomycin Trough 12/07/16 12/07/16 12/07/16 05:00 06:14 16:52 WBC RBC 2.36 L Hgb 7.3 L Hct 23.1 L MCV 98 H D RDW 17.8 H Lymph % (Auto) [place] % (Auto) 8.5 H Lymph # 1.0 L [place] # Seg Neutrophils % 76.9 H Seg Neuts % (Manual) Lymphocytes % (Manual) Lymphocytes # (Manual) PT INR D-Dimer Heparin Anti-Xa Level POC ABG pH 7.508 H POC ABG pCO2 31.1 L POC ABG pO2 131 H Sodium Potassium Chloride Carbon Dioxide BUN Creatinine Glucose POC Glucose 130 H Lactic Acid Calcium ALT Alkaline Phosphatase Troponin T C-Reactive Protein Total Protein Albumin Triglycerides HDL Cholesterol Vancomycin Trough 07/10/1912/08/16 12/08/16 23:37 04:00 04:00 WBC RBC 2.26 L Hgb 7.1 L Hct 22.2 L MCV 98 H RDW 17.6 H Lymph % (Auto) [place] % (Auto) 9.5 H Lymph # 1.0 L [place] # Seg Neutrophils % 71.7 H Seg Neuts % (Manual) Lymphocytes % (Manual) Lymphocytes # (Manual) PT INR D-Dimer Heparin Anti-Xa Level POC ABG pH POC ABG pCO2 POC ABG pO2 Sodium Potassium 3.0 L Chloride Carbon Dioxide BUN Creatinine 0.5 L Glucose 124 H POC Glucose 107 H Lactic Acid Calcium 7.7 L ALT Alkaline Phosphatase Troponin T C-Reactive Protein Total Protein Albumin Triglycerides HDL Cholesterol Vancomycin Trough 12/08/16 12/08/16 12/08/16 05:16 05:34 10:04 WBC RBC Hgb Hct MCV RDW Lymph % (Auto) [place] % (Auto) Lymph # [place] # Seg Neutrophils % Seg Neuts % (Manual) Lymphocytes % (Manual) Lymphocytes # (Manual) PT INR D-Dimer Heparin Anti-Xa Level POC ABG pH 7.492 H POC ABG pCO2 31.5 L POC ABG pO2 112 H Sodium Potassium Chloride Carbon Dioxide BUN Creatinine Glucose POC Glucose 148 H Lactic Acid Calcium ALT Alkaline Phosphatase Troponin T 0.146 H* C-Reactive Protein Total Protein Albumin Triglycerides 180 H HDL Cholesterol 21 L Vancomycin Trough 12/08/16 12/08/16 12/08/16 10:45 12:09 16:00 WBC RBC Hgb Hct MCV RDW Lymph % (Auto) [place] % (Auto) Lymph # [place] # Seg Neutrophils % Seg Neuts % (Manual) Lymphocytes % (Manual) Lymphocytes # (Manual) PT 17.3 H INR 1.34 H D-Dimer Heparin Anti-Xa Level POC ABG pH POC ABG pCO2 POC ABG pO2 Sodium Potassium Chloride Carbon Dioxide BUN Creatinine Glucose POC Glucose 205 H Lactic Acid Calcium ALT Alkaline Phosphatase Troponin T 0.166 H* C-Reactive Protein Total Protein Albumin Triglycerides HDL Cholesterol Vancomycin Trough 12/08/16 12/08/16 12/08/16 17:45 17:49 23:29 WBC RBC Hgb Hct MCV RDW Lymph % (Auto) [place] % (Auto) Lymph # [place] # Seg Neutrophils % Seg Neuts % (Manual) Lymphocytes % (Manual) Lymphocytes # (Manual) PT INR D-Dimer Heparin Anti-Xa Level < 0.10 L POC ABG pH POC ABG pCO2 POC ABG pO2 Sodium Potassium Chloride Carbon Dioxide BUN Creatinine Glucose POC Glucose 174 H 180 H Lactic Acid Calcium ALT Alkaline Phosphatase Troponin T C-Reactive Protein Total Protein Albumin Triglycerides HDL Cholesterol Vancomycin Trough 12/09/16 12/09/16 12/09/16 01:00 03:55 03:55 WBC RBC 2.39 L Hgb 7.5 L Hct 23.0 L MCV RDW 17.3 H Lymph % (Auto) [place] % (Auto) 10.4 H Lymph # [place] # 1.0 H Seg Neutrophils % Seg Neuts % (Manual) Lymphocytes % (Manual) Lymphocytes # (Manual) PT INR D-Dimer Heparin Anti-Xa Level < 0.10 L POC ABG pH POC ABG pCO2 POC ABG pO2 Sodium 135 L Potassium Chloride Carbon Dioxide BUN 18 H Creatinine Glucose 187 H POC Glucose Lactic Acid Calcium 7.4 L ALT Alkaline Phosphatase Troponin T C-Reactive Protein Total Protein Albumin Triglycerides HDL Cholesterol Vancomycin Trough 12/09/16 12/09/16 12/09/16 04:05 05:37 11:15 WBC RBC Hgb Hct MCV RDW Lymph % (Auto) [place] % (Auto) Lymph # [place] # Seg Neutrophils % Seg Neuts % (Manual) Lymphocytes % (Manual) Lymphocytes # (Manual) PT INR D-Dimer Heparin Anti-Xa Level < 0.10 L POC ABG pH 7.495 H POC ABG pCO2 31.9 L POC ABG pO2 186 H Sodium Potassium Chloride Carbon Dioxide BUN Creatinine Glucose POC Glucose 213 H Lactic Acid Calcium ALT Alkaline Phosphatase Troponin T C-Reactive Protein Total Protein Albumin Triglycerides HDL Cholesterol Vancomycin Trough 12/09/16 12/09/16 11:15 12:16 WBC RBC Hgb Hct MCV RDW Lymph % (Auto) [place] % (Auto) Lymph # [place] # Seg Neutrophils % Seg Neuts % (Manual) Lymphocytes % (Manual) Lymphocytes # (Manual) PT INR D-Dimer 1403 H Heparin Anti-Xa Level POC ABG pH POC ABG pCO2 POC ABG pO2 Sodium Potassium Chloride Carbon Dioxide BUN Creatinine Glucose POC Glucose 194 H Lactic Acid Calcium ALT Alkaline Phosphatase Troponin T C-Reactive Protein Total Protein Albumin Triglycerides HDL Cholesterol Vancomycin Trough
--- NOTE | 2016-12-09 12:55 | Progress Note ---
Assessment and Plan Assessment and plan: Patient was coded and resuscitated according to ACLS protocol Acute respiratory failure secondary to to mucus plugging - Patient is intubated and on pressure support - Pulmonary is following - Patient needs trach and PEG and discussed with families Issa callahan with RVR - Cardiology consulted - On amiodarone - On HEPARIN gtt Sepsis with hypotension - Resolved Acute metabolic encephalopathy Debility Patient is Full code. Disposition - Continue ICU care - Patient need PEG and Trach and possible transfer to LTACH The high probability of a clinically significant, sudden or life threatening deterioration of the [neurology, cardiovascular, respiratory] system(s) required my full and direct attention, intervention and personal management. The aggregate critical care time was [x] minutes. This time is in addition to time spent performing reported procedures but includes the following: [x] Data Review and interpretation [x] Patient assessment and monitoring of vital signs [x] Documentation [x] Medication orders and managementDVT prophylaxis History Interval history: Patient was seen and evaluated this morning, patient is intubated and on pressure support. Hospitalist Physical - Physical exam Narrative exam: Patient is intubated and on pressure support, breathing over the vent, open her eyes. Vital signs as documented. Head exam is unremarkable. No scleral icterus . Neck is without jugular venous distension, thyromegaly, or carotid bruits. Lungs are clear to auscultation. Cardiac exam reveals irregular rate and Rhythm. Abdominal exam reveals normal bowel sounds, no masses, no organomegaly and no aortic enlargement. Extremities patient has minimal edema. INTELLIGENCE INTERN: Open her eyes. - Constitutional Vitals: Temp Pulse Resp BP Pulse Ox 98.5 F 70 24 102/46 99 12/09/16 12:00 12/09/16 12:00 12/09/16 12:00 12/09/16 12:00 12/09/16 12:00 General appearance: Present: no acute distress (intubated, unresponsive) Results - Labs CBC & Chem 7: 12/09/16 03:55 12/09/16 03:55 Labs: Laboratory Last Values WBC 9.2 K/mm3 (4.5-11.0) 12/09/16 03:55 RBC 2.39 M/mm3 (3.65-5.03) L 12/09/16 03:55 Hgb 7.5 gm/dl (10.1-14.3) L 12/09/16 03:55 Hct 23.0 % (30.3-42.9) L 12/09/16 03:55 MCV 96 fl (79-97) 12/09/16 03:55 MCH 31 pg (28-32) 12/09/16 03:55 MCHC 33 % (30-34) 12/09/16 03:55 RDW 17.3 % (13.2-15.2) H 12/09/16 03:55 Plt Count 344 K/mm3 (140-440) 12/09/16 03:55 Lymph % (Auto) 22.3 % (13.4-35.0) 12/09/16 03:55 [place] % (Auto) 10.4 % (0.0-7.3) H 12/09/16 03:55 Eos % (Auto) 1.7 % (0.0-4.3) 12/09/16 03:55 Baso % (Auto) 1.2 % (0.0-1.8) 12/09/16 03:55 Lymph # 2.1 K/mm3 (1.2-5.4) 12/09/16 03:55 [place] # 1.0 K/mm3 (0.0-0.8) H 12/09/16 03:55 Eos # 0.2 K/mm3 (0.0-0.4) 12/09/16 03:55 Baso # 0.1 K/mm3 (0.0-0.1) 12/09/16 03:55 Add Manual Diff Complete 11/28/16 04:52 Total Counted 100 11/28/16 04:52 Seg Neutrophils % 64.4 % (40.0-70.0) 12/09/16 03:55 Seg Neuts % (Manual) 83.0 % (40.0-70.0) H 11/28/16 04:52 Band Neutrophils % 7.0 % 11/28/16 04:52 Lymphocytes % (Manual) 6.0 % (13.4-35.0) L 11/28/16 04:52 Reactive Lymphs % (Man) 0 % 11/28/16 04:52 Monocytes % (Manual) 1.0 % (0.0-7.3) 11/28/16 04:52 Eosinophils % (Manual) 3.0 % (0.0-4.3) 11/28/16 04:52 Basophils % (Manual) 0 % (0.0-1.8) 11/28/16 04:52 Metamyelocytes % 0 % 11/28/16 04:52 Myelocytes % 0 % 11/28/16 04:52 Promyelocytes % 0 % 11/28/16 04:52 Blast Cells % 0 % 11/28/16 04:52 Nucleated RBC % Not Reportable 11/28/16 04:52 Seg Neutrophils # 5.9 K/mm3 (1.8-7.7) 12/09/16 03:55 Seg Neutrophils # Man 5.4 K/mm3 (1.8-7.7) 11/28/16 04:52 Band Neutrophils # 0.5 K/mm3 11/28/16 04:52 Lymphocytes # (Manual) 0.4 K/mm3 (1.2-5.4) L 11/28/16 04:52 Abs React Lymphs (Man) 0.0 K/mm3 11/28/16 04:52 Monocytes # (Manual) 0.1 K/mm3 (0.0-0.8) 11/28/16 04:52 Eosinophils # (Manual) 0.2 K/mm3 (0.0-0.4) 11/28/16 04:52 Basophils # (Manual) 0.0 K/mm3 (0.0-0.1) 11/28/16 04:52 Metamyelocytes # 0.0 K/mm3 11/28/16 04:52 Myelocytes # 0.0 K/mm3 11/28/16 04:52 Promyelocytes # 0.0 K/mm3 11/28/16 04:52 Blast Cells # 0.0 K/mm3 11/28/16 04:52 WBC Morphology Not Reportable 11/28/16 04:52 Hypersegmented Neuts Not Reportable 11/28/16 04:52 Hyposegmented Neuts Not Reportable 11/28/16 04:52 Hypogranular Neuts Not Reportable 11/28/16 04:52 Smudge Cells Not Reportable 11/28/16 04:52 Toxic Granulation Not Reportable 11/28/16 04:52 Toxic Vacuolation Not Reportable 11/28/16 04:52 Dohle Bodies Not Reportable 11/28/16 04:52 Pelger-Huet Anomaly Not Reportable 11/28/16 04:52 Caitlin Rods Not Reportable 11/28/16 04:52 Platelet Estimate Consistent w auto 11/28/16 04:52 Clumped Platelets Not Reportable 11/28/16 04:52 Plt Clumps, EDTA Not Reportable 11/28/16 04:52 Large Platelets Not Reportable 11/28/16 04:52 Giant Platelets Not Reportable 11/28/16 04:52 Platelet Satelliting Not Reportable 11/28/16 04:52 Plt Morphology Comment Not Reportable 11/28/16 04:52 RBC Morphology Not Reportable 11/28/16 04:52 Dimorphic RBCs Not Reportable 11/28/16 04:52 Polychromasia Not Reportable 11/28/16 04:52 Hypochromasia Not Reportable 11/28/16 04:52 Poikilocytosis Not Reportable 11/28/16 04:52 Anisocytosis Not Reportable 11/28/16 04:52 Microcytosis Not Reportable 11/28/16 04:52 Macrocytosis Few 11/28/16 04:52 Spherocytes Not Reportable 11/28/16 04:52 Pappenheimer Bodies Not Reportable 11/28/16 04:52 Sickle Cells Not Reportable 11/28/16 04:52 Target Cells Not Reportable 11/28/16 04:52 Tear Drop Cells Not Reportable 11/28/16 04:52 Ovalocytes Not Reportable 11/28/16 04:52 Helmet Cells Not Reportable 11/28/16 04:52 [place] Bodies Not Reportable 11/28/16 04:52 [place] Rings Not Reportable 11/28/16 04:52 [place] Cells Not Reportable 11/28/16 04:52 Bite Cells Not Reportable 11/28/16 04:52 Crenated Cell Not Reportable 11/28/16 04:52 Elliptocytes Not Reportable 11/28/16 04:52 Acanthocytes (Spur) Not Reportable 11/28/16 04:52 Rouleaux Not Reportable 11/28/16 04:52 Hemoglobin C Crystals Not Reportable 11/28/16 04:52 Schistocytes Not Reportable 11/28/16 04:52 Malaria parasites Not Reportable 11/28/16 04:52 Javon Bodies Not Reportable 11/28/16 04:52 Hem Pathologist Commnt No 11/28/16 04:52 PT 17.3 Sec. (12.2-14.9) H 12/08/16 10:45 INR 1.34 (0.87-1.13) H 12/08/16 10:45 APTT 34.5 Sec. (24.2-36.6) 12/08/16 10:45 D-Dimer 1403 ng/mlDDU (0-234) H 12/09/16 11:15 Heparin Anti-Xa Level < 0.10 U.I./ml (0.3-0.7) L 12/09/16 11:15 POC ABG pH 7.495 (7.35-7.45) H 12/09/16 04:05 POC ABG pCO2 31.9 (35-45) L 12/09/16 04:05 POC ABG pO2 186 (80-105) H 12/09/16 04:05 POC ABG HCO3 24.6 12/09/16 04:05 POC ABG Total CO2 26 12/09/16 04:05 POC ABG O2 Sat 100 12/09/16 04:05 POC ABG Base Excess 1 12/09/16 04:05 VBG pH 7.376 (7.320-7.420) 11/26/16 18:40 FiO2 35 % 12/09/16 04:05 Sodium 135 mmol/L (137-145) L 12/09/16 03:55 Potassium 4.6 mmol/L (3.6-5.0) D 12/09/16 03:55 Chloride 100.7 mmol/L (98-107) 12/09/16 03:55 Carbon Dioxide 23 mmol/L (22-30) 12/09/16 03:55 Anion Gap 16 mmol/L 12/09/16 03:55 BUN 18 mg/dL (7-17) H 12/09/16 03:55 Creatinine 0.7 mg/dL (0.7-1.2) 12/09/16 03:55 Estimated GFR > 60 ml/min 12/09/16 03:55 BUN/Creatinine Ratio 25.71 % 12/09/16 03:55 Glucose 187 mg/dL (65-100) H 12/09/16 03:55 POC Glucose 194 (70-105) H 12/09/16 12:16 Lactic Acid 1.40 mmol/L (0.7-2.0) 12/06/16 19:03 Calcium 7.4 mg/dL (8.4-10.2) L 12/09/16 03:55 Magnesium 2.00 mg/dL (1.7-2.3) 12/08/16 09:17 Total Bilirubin 0.40 mg/dL (0.1-1.2) 12/07/16 05:00 AST 30 units/L (5-40) 12/07/16 05:00 ALT 11 units/L (7-56) 12/07/16 05:00 Alkaline Phosphatase 142 units/L (35-129) H 12/07/16 05:00 Ammonia 37.0 umol/L (25-60) 11/29/16 11:15 Total Creatine Kinase 18 units/L (30-135) L 11/26/16 18:40 CK-MB (CK-2) 1.4 ng/mL (0.0-4.0) 11/26/16 18:40 CK-MB (CK-2) Rel Index 7.7 (0-4) H 11/26/16 18:40 Troponin T 0.166 ng/mL (0.00-0.029) H* 12/08/16 16:00 C-Reactive Protein 8.10 mg/dL (0.00-1.30) H 12/06/16 11:55 NT-Pro-B Natriuret Pep 56360 pg/mL (0-900) H 11/26/16 18:40 Total Protein 4.7 g/dL (6.3-8.2) L 12/07/16 05:00 Albumin 1.6 g/dL (3.9-5) L 12/07/16 05:00 Albumin/Globulin Ratio 0.5 % 12/07/16 05:00 Triglycerides 180 mg/dL (2-149) H 12/08/16 10:04 Cholesterol 122 mg/dL (50-199) 12/08/16 10:04 LDL Cholesterol Direct 65 mg/dL (50-130) 12/08/16 10:04 HDL Cholesterol 21 mg/dL (40-59) L 12/08/16 10:04 Cholesterol/HDL Ratio 5.80 % 12/08/16 10:04 Vitamin B12 768.6 pg/mL (211-911) 11/29/16 11:15 TSH 2.120 mlU/mL (0.270-4.200) 11/29/16 11:15 Urine Color Matilde (Yellow) 11/26/16 18:35 Urine Turbidity Turbid (Clear) 11/26/16 18:35 Urine pH 6.0 (5.0-7.0) 11/26/16 18:35 Ur Specific [place] 1.018 (1.003-1.030) 11/26/16 18:35 Urine Protein 100 mg/dl mg/dL (Negative) 11/26/16 18:35 Urine Glucose (UA) Neg mg/dL (Negative) 11/26/16 18:35 Urine Ketones Neg mg/dL (Negative) 11/26/16 18:35 Urine Blood Neg (Negative) 11/26/16 18:35 Urine Nitrite Neg (Negative) 11/26/16 18:35 Urine Bilirubin Neg (Negative) 11/26/16 18:35 Urine Urobilinogen < 2.0 mg/dL (<2.0) 11/26/16 18:35 Ur Leukocyte Esterase Mod (Negative) 11/26/16 18:35 Urine WBC (Auto) > 182.0 /HPF (0.0-6.0) H 11/26/16 18:35 Urine RBC (Auto) 6.0 /HPF (0.0-6.0) 11/26/16 18:35 Urine Bacteria (Auto) 4+ /HPF (Negative) 11/26/16 18:35 Urine WBC Clumps 3+ /HPF 11/26/16 18:35 Urine Mucus 3+ /HPF 11/26/16 18:35 Vancomycin Trough 41.9 ug/mL (5.0-20.0) H 11/29/16 07:05 Blood Type B POSITIVE 11/26/16 20:38 Antibody Screen TNR 11/26/16 20:38 NIRAV Antibody Screen Negative 11/26/16 20:38
[2016-12-09] MEDS: HEPARIN/ 0.45% NACL-25,000 UNIT/500 ML 25,000 UNIT/500 ML BAG IV SCH (13:44)
[2016-12-09] MEDS: DILAUDID IV PRN (14:04)
[2016-12-09] MEDS: REMERON PO SCH (21:14)
[2016-12-09] MEDS: SENOKOT PO SCH (21:28)
[2016-12-10] MEDS: HEPARIN/ 0.45% NACL-25,000 UNIT/500 ML 25,000 UNIT/500 ML BAG IV SCH ×2 (02:02→16:56)
[2016-12-10] MEDS: XOPENEX IH SCH ×4 (02:20→19:36)
[2016-12-10 05:33] LABS: Hematocrit 21.3 % (30.3-42.9); Hemoglobin 7.1 gm/dl (10.1-14.3)
[2016-12-10 05:51] LABS: Anion Gap 10 mmol/L; BUN/Creatinine Ratio 31.66; Blood Urea Nitrogen 19 mg/dL (7-17); Calcium 7.6 mg/dL (8.4-10.2); Carbon Dioxide 27 mmol/L (22-30); Glucose 136 mg/dL (65-100); Potassium 4.2 mmol/L (3.6-5.0); Sodium 133 mmol/L (137-145)
[2016-12-10] MEDS: PULMICORT IH SCH ×2 (08:47→19:36)
[2016-12-10] MEDS: LASIX IV SCH (09:46)
[2016-12-10] MEDS: CORDARONE PO SCH (09:46)
[2016-12-10] MEDS: PEPCID PO SCH (09:46)
[2016-12-10] MEDS: POTASSIUM CHLORIDE FEEDTUBE SCH (09:46)
[2016-12-10] MEDS: FERROUS SULFATE PO SCH ×2 (09:46→15:05)
[2016-12-10] MEDS: TYLENOL FEEDTUBE PRN (09:50)
--- NOTE | 2016-12-10 10:26 | Progress Note ---
Assessment and Plan Paroxysmal atrial fibrillation-->currently sinus rhythm continue PO amiodarone 400mg BID continue heparin gtt (Xarelto unable to be crushed) Echo: LVEF 45 to 50%, Mild MR, R Heart enlargement, Mild to moderate TR, Moderate pulmonary hypertension, RVSP 55 mmHg, Dilated IVC, Pleural effusion, Minimal pericardial effusion Will obtain d-dimer given R heart enlargement/pulm HTN on echo S/p cardiac arrest-->appears to have been a respiratory arrest due to possible aspiration mildly elevated troponin level likely due to resuscitation efforts Acute respiratory failure Acute encephalopathy Hypokalemia Improving Hx. of hypertension BP currently Stable now will continue monitoring Diabetes Anemia Recommend PRBC transfusion to keep Hgb around 10 and greater Subjective Date of service: 12/10/16 Principal diagnosis: acute respiratory failure Interval history: Patient is intubated. Appears comfortable. Objective Vital Signs Temp Pulse Pulse Pulse Resp Resp BP 12/10/16 09:50 16 12/10/16 08:57 75 16 12/10/16 08:47 73 16 12/10/16 08:00 73 75 13 99/47 12/10/16 07:30 76 28 H 96/47 12/10/16 07:00 82 25 H 109/53 12/10/16 06:30 75 18 103/50 12/10/16 06:00 85 19 99/47 12/10/16 05:30 84 17 107/53 12/10/16 05:00 74 16 94/63 12/10/16 04:57 71 101/49 12/10/16 04:30 81 17 101/49 12/10/16 04:00 73 89 20 98/45 12/10/16 03:30 86 19 104/46 12/10/16 03:29 98.9 F 12/10/16 03:00 84 16 109/47 12/10/16 02:30 90 20 109/47 12/10/16 02:25 87 17 12/10/16 02:15 90 19 12/10/16 02:00 100 H 19 119/57 12/10/16 01:30 97 H 26 H 125/52 12/10/16 01:01 119 H 22 134/77 12/10/16 00:30 77 23 105/55 12/10/16 00:00 106 H 87 17 111/59 12/09/16 23:52 99.3 F 12/09/16 23:30 83 18 97/47 12/09/16 23:00 83 20 100/53 12/09/16 22:30 85 21 99/50 12/09/16 22:00 83 18 104/48 12/09/16 21:30 76 22 104/49 12/09/16 21:00 75 21 102/48 12/09/16 20:30 77 15 96/45 12/09/16 20:10 85 18 12/09/16 20:01 89 16 12/09/16 20:00 97.8 F 68 81 16 97/49 12/09/16 19:30 69 20 95/46 12/09/16 19:01 75 17 98/43 12/09/16 18:30 95 H 28 H 139/82 12/09/16 18:00 103 H 25 H 132/55 12/09/16 17:33 110 H 136/46 12/09/16 17:30 98 H 24 133/59 12/09/16 17:00 109 H 28 H 136/46 12/09/16 16:30 88 27 H 118/49 12/09/16 16:00 98.7 F 84 25 H 113/60 12/09/16 15:30 93 H 24 123/65 12/09/16 15:21 85 23 12/09/16 15:03 80 24 12/09/16 15:01 88 25 H 120/64 12/09/16 14:30 68 23 95/42 12/09/16 14:00 66 22 98/44 12/09/16 13:30 71 19 95/47 12/09/16 13:00 85 25 H 105/56 12/09/16 12:30 95 H 27 H 113/59 12/09/16 12:00 98.5 F 70 24 102/46 12/09/16 11:37 71 25 H 97/42 12/09/16 11:30 68 23 102/46 12/09/16 11:00 65 23 97/42 12/09/16 10:30 64 27 H 118/46 Pulse Ox 12/10/16 09:50 12/10/16 08:57 12/10/16 08:47 12/10/16 08:00 99 12/10/16 07:30 97 12/10/16 07:00 96 12/10/16 06:30 99 12/10/16 06:00 100 12/10/16 05:30 99 12/10/16 05:00 100 12/10/16 04:57 99 12/10/16 04:30 99 12/10/16 04:00 99 12/10/16 03:30 85 12/10/16 03:29 12/10/16 03:00 98 12/10/16 02:30 97 12/10/16 02:25 12/10/16 02:15 12/10/16 02:00 98 12/10/16 01:30 96 12/10/16 01:01 98 12/10/16 00:30 98 12/10/16 00:00 99 12/09/16 23:52 12/09/16 23:30 98 12/09/16 23:00 98 12/09/16 22:30 97 12/09/16 22:00 99 12/09/16 21:30 99 12/09/16 21:00 99 12/09/16 20:30 99 12/09/16 20:10 12/09/16 20:01 12/09/16 20:00 100 12/09/16 19:30 100 12/09/16 19:01 100 12/09/16 18:30 91 12/09/16 18:00 96 12/09/16 17:33 99 12/09/16 17:30 97 12/09/16 17:00 98 12/09/16 16:30 98 12/09/16 16:00 96 12/09/16 15:30 97 12/09/16 15:21 12/09/16 15:03 12/09/16 15:01 99 12/09/16 14:30 99 12/09/16 14:00 99 12/09/16 13:30 99 12/09/16 13:00 100 12/09/16 12:30 100 12/09/16 12:00 99 12/09/16 11:37 100 12/09/16 11:30 100 12/09/16 11:00 100 12/09/16 10:30 100 - Physical Examination General: No Apparent Distress (intubated) HEENT: Positive: Normocephaly, Mucus Membranes Moist Neck: Positive: neck supple, trachea midline Cardiac: Positive: Reg Rate and Rhythm Neuro: Positive: Other (intubated, sedated) Abdomen: Positive: Soft Skin: Positive: Clear. Negative: Rash Extremities: Present: Other (dressings intact on bilateral arms and legs). Absent: edema - Labs and Meds CBC 12/10/16 Range/Units Unknown Hgb 7.1 L (10.1-14.3) gm/dl Hct 21.3 L (30.3-42.9) % Plt Count 309 (140-440) K/mm3 Comprehensive Metabolic Panel 12/10/16 Range/Units 05:04 Sodium 133 L (137-145) mmol/L Potassium 4.2 (3.6-5.0) mmol/L Chloride 100.0 (98-107) mmol/L Carbon Dioxide 27 (22-30) mmol/L BUN 19 H (7-17) mg/dL Creatinine 0.6 L (0.7-1.2) mg/dL Glucose 136 H (65-100) mg/dL Calcium 7.6 L (8.4-10.2) mg/dL - Imaging and Cardiology EKG: image reviewed Echo: report reviewed (12/07/16: LVEF 45 to 50%, Mild MR, R Heart enlargement, Mild to moderate TR, Moderate pulmonary hypertension, RVSP 55 mmHg, Dilated IVC , Pleural effusion, Minimal pericardial effusion)
--- NOTE | 2016-12-10 12:03 | Progress Note ---
Assessment and Plan Assessment and plan: Patient was coded and resuscitated according to ACLS protocol Acute respiratory failure secondary to to mucus plugging - Patient is intubated and on mechanical ventilation - Pulmonary is following - Patient needs trach and PEG and discussed with families Issa callahan with RVR - Cardiology consulted - On amiodarone - On HEPARIN gtt Sepsis with hypotension - Resolved Acute metabolic encephalopathy Anemia - Hemoglobin this morning is 7.1 - Will monitor closely - We'll transfuse if it is below Debility Patient is Full code. Disposition - Continue ICU care - Patient need PEG and Trach and possible transfer to LTACH The high probability of a clinically significant, sudden or life threatening deterioration of the [neurology, cardiovascular, respiratory] system(s) required my full and direct attention, intervention and personal management. The aggregate critical care time was [x] minutes. This time is in addition to time spent performing reported procedures but includes the following: [x] Data Review and interpretation [x] Patient assessment and monitoring of vital signs [x] Documentation [x] Medication orders and managementDVT prophylaxis History Interval history: Patient was seen and evaluated this morning, patient is intubated and on mechanical ventilation. Hospitalist Physical - Physical exam Narrative exam: Patient is intubated and on mechanical ventiltion. Vital signs as documented. Head exam is unremarkable. No scleral icterus . Neck is without jugular venous distension, thyromegaly, or carotid bruits. Lungs are clear to auscultation. Cardiac exam reveals irregular rate and Rhythm. Abdominal exam reveals normal bowel sounds, no masses, no organomegaly and no aortic enlargement. Extremities patient has minimal edema. MANAGER MEDICAL WRITING: Open her eyes. - Constitutional Vitals: Temp Pulse Resp BP Pulse Ox 98.8 F 81 16 104/46 99 12/10/16 08:00 12/10/16 10:30 12/10/16 10:30 12/10/16 10:30 12/10/16 10:30 General appearance: Present: no acute distress (intubated, unresponsive) Results - Labs CBC & Chem 7: 12/10/16 Unknown 12/10/16 05:04 Labs: Laboratory Last Values WBC 9.2 K/mm3 (4.5-11.0) 12/09/16 03:55 RBC 2.39 M/mm3 (3.65-5.03) L 12/09/16 03:55 Hgb 7.1 gm/dl (10.1-14.3) L 12/10/16 Unknown Hct 21.3 % (30.3-42.9) L 12/10/16 Unknown MCV 96 fl (79-97) 12/09/16 03:55 MCH 31 pg (28-32) 12/09/16 03:55 MCHC 33 % (30-34) 12/09/16 03:55 RDW 17.3 % (13.2-15.2) H 12/09/16 03:55 Plt Count 309 K/mm3 (140-440) 12/10/16 Unknown Lymph % (Auto) 22.3 % (13.4-35.0) 12/09/16 03:55 [place] % (Auto) 10.4 % (0.0-7.3) H 12/09/16 03:55 Eos % (Auto) 1.7 % (0.0-4.3) 12/09/16 03:55 Baso % (Auto) 1.2 % (0.0-1.8) 12/09/16 03:55 Lymph # 2.1 K/mm3 (1.2-5.4) 12/09/16 03:55 [place] # 1.0 K/mm3 (0.0-0.8) H 12/09/16 03:55 Eos # 0.2 K/mm3 (0.0-0.4) 12/09/16 03:55 Baso # 0.1 K/mm3 (0.0-0.1) 12/09/16 03:55 Add Manual Diff Complete 11/28/16 04:52 Total Counted 100 11/28/16 04:52 Seg Neutrophils % 64.4 % (40.0-70.0) 12/09/16 03:55 Seg Neuts % (Manual) 83.0 % (40.0-70.0) H 11/28/16 04:52 Band Neutrophils % 7.0 % 11/28/16 04:52 Lymphocytes % (Manual) 6.0 % (13.4-35.0) L 11/28/16 04:52 Reactive Lymphs % (Man) 0 % 11/28/16 04:52 Monocytes % (Manual) 1.0 % (0.0-7.3) 11/28/16 04:52 Eosinophils % (Manual) 3.0 % (0.0-4.3) 11/28/16 04:52 Basophils % (Manual) 0 % (0.0-1.8) 11/28/16 04:52 Metamyelocytes % 0 % 11/28/16 04:52 Myelocytes % 0 % 11/28/16 04:52 Promyelocytes % 0 % 11/28/16 04:52 Blast Cells % 0 % 11/28/16 04:52 Nucleated RBC % Not Reportable 11/28/16 04:52 Seg Neutrophils # 5.9 K/mm3 (1.8-7.7) 12/09/16 03:55 Seg Neutrophils # Man 5.4 K/mm3 (1.8-7.7) 11/28/16 04:52 Band Neutrophils # 0.5 K/mm3 11/28/16 04:52 Lymphocytes # (Manual) 0.4 K/mm3 (1.2-5.4) L 11/28/16 04:52 Abs React Lymphs (Man) 0.0 K/mm3 11/28/16 04:52 Monocytes # (Manual) 0.1 K/mm3 (0.0-0.8) 11/28/16 04:52 Eosinophils # (Manual) 0.2 K/mm3 (0.0-0.4) 11/28/16 04:52 Basophils # (Manual) 0.0 K/mm3 (0.0-0.1) 11/28/16 04:52 Metamyelocytes # 0.0 K/mm3 11/28/16 04:52 Myelocytes # 0.0 K/mm3 11/28/16 04:52 Promyelocytes # 0.0 K/mm3 11/28/16 04:52 Blast Cells # 0.0 K/mm3 11/28/16 04:52 WBC Morphology Not Reportable 11/28/16 04:52 Hypersegmented Neuts Not Reportable 11/28/16 04:52 Hyposegmented Neuts Not Reportable 11/28/16 04:52 Hypogranular Neuts Not Reportable 11/28/16 04:52 Smudge Cells Not Reportable 11/28/16 04:52 Toxic Granulation Not Reportable 11/28/16 04:52 Toxic Vacuolation Not Reportable 11/28/16 04:52 Dohle Bodies Not Reportable 11/28/16 04:52 Pelger-Huet Anomaly Not Reportable 11/28/16 04:52 Caitlin Rods Not Reportable 11/28/16 04:52 Platelet Estimate Consistent w auto 11/28/16 04:52 Clumped Platelets Not Reportable 11/28/16 04:52 Plt Clumps, EDTA Not Reportable 11/28/16 04:52 Large Platelets Not Reportable 11/28/16 04:52 Giant Platelets Not Reportable 11/28/16 04:52 Platelet Satelliting Not Reportable 11/28/16 04:52 Plt Morphology Comment Not Reportable 11/28/16 04:52 RBC Morphology Not Reportable 11/28/16 04:52 Dimorphic RBCs Not Reportable 11/28/16 04:52 Polychromasia Not Reportable 11/28/16 04:52 Hypochromasia Not Reportable 11/28/16 04:52 Poikilocytosis Not Reportable 11/28/16 04:52 Anisocytosis Not Reportable 11/28/16 04:52 Microcytosis Not Reportable 11/28/16 04:52 Macrocytosis Few 11/28/16 04:52 Spherocytes Not Reportable 11/28/16 04:52 Pappenheimer Bodies Not Reportable 11/28/16 04:52 Sickle Cells Not Reportable 11/28/16 04:52 Target Cells Not Reportable 11/28/16 04:52 Tear Drop Cells Not Reportable 11/28/16 04:52 Ovalocytes Not Reportable 11/28/16 04:52 Helmet Cells Not Reportable 11/28/16 04:52 [place] Bodies Not Reportable 11/28/16 04:52 [place] Rings Not Reportable 11/28/16 04:52 [place] Cells Not Reportable 11/28/16 04:52 Bite Cells Not Reportable 11/28/16 04:52 Crenated Cell Not Reportable 11/28/16 04:52 Elliptocytes Not Reportable 11/28/16 04:52 Acanthocytes (Spur) Not Reportable 11/28/16 04:52 Rouleaux Not Reportable 11/28/16 04:52 Hemoglobin C Crystals Not Reportable 11/28/16 04:52 Schistocytes Not Reportable 11/28/16 04:52 Malaria parasites Not Reportable 11/28/16 04:52 Javon Bodies Not Reportable 11/28/16 04:52 Hem Pathologist Commnt No 11/28/16 04:52 PT 17.3 Sec. (12.2-14.9) H 12/08/16 10:45 INR 1.34 (0.87-1.13) H 12/08/16 10:45 APTT 34.5 Sec. (24.2-36.6) 12/08/16 10:45 D-Dimer 1403 ng/mlDDU (0-234) H 12/09/16 11:15 Heparin Anti-Xa Level < 0.10 U.I./ml (0.3-0.7) L 12/10/16 09:06 POC ABG pH 7.495 (7.35-7.45) H 12/09/16 04:05 POC ABG pCO2 31.9 (35-45) L 12/09/16 04:05 POC ABG pO2 186 (80-105) H 12/09/16 04:05 POC ABG HCO3 24.6 12/09/16 04:05 POC ABG Total CO2 26 12/09/16 04:05 POC ABG O2 Sat 100 12/09/16 04:05 POC ABG Base Excess 1 12/09/16 04:05 VBG pH 7.376 (7.320-7.420) 11/26/16 18:40 FiO2 35 % 12/09/16 04:05 Sodium 133 mmol/L (137-145) L 12/10/16 05:04 Potassium 4.2 mmol/L (3.6-5.0) 12/10/16 05:04 Chloride 100.0 mmol/L (98-107) 12/10/16 05:04 Carbon Dioxide 27 mmol/L (22-30) 12/10/16 05:04 Anion Gap 10 mmol/L 12/10/16 05:04 BUN 19 mg/dL (7-17) H 12/10/16 05:04 Creatinine 0.6 mg/dL (0.7-1.2) L 12/10/16 05:04 Estimated GFR > 60 ml/min 12/10/16 05:04 BUN/Creatinine Ratio 31.66 % 12/10/16 05:04 Glucose 136 mg/dL (65-100) H 12/10/16 05:04 POC Glucose 127 (70-105) H 12/10/16 05:17 Lactic Acid 1.40 mmol/L (0.7-2.0) 12/06/16 19:03 Calcium 7.6 mg/dL (8.4-10.2) L 12/10/16 05:04 Magnesium 2.00 mg/dL (1.7-2.3) 12/08/16 09:17 Total Bilirubin 0.40 mg/dL (0.1-1.2) 12/07/16 05:00 AST 30 units/L (5-40) 12/07/16 05:00 ALT 11 units/L (7-56) 12/07/16 05:00 Alkaline Phosphatase 142 units/L (35-129) H 12/07/16 05:00 Ammonia 37.0 umol/L (25-60) 11/29/16 11:15 Total Creatine Kinase 18 units/L (30-135) L 11/26/16 18:40 CK-MB (CK-2) 1.4 ng/mL (0.0-4.0) 11/26/16 18:40 CK-MB (CK-2) Rel Index 7.7 (0-4) H 11/26/16 18:40 Troponin T 0.166 ng/mL (0.00-0.029) H* 12/08/16 16:00 C-Reactive Protein 8.10 mg/dL (0.00-1.30) H 12/06/16 11:55 NT-Pro-B Natriuret Pep 78525 pg/mL (0-900) H 11/26/16 18:40 Total Protein 4.7 g/dL (6.3-8.2) L 12/07/16 05:00 Albumin 1.6 g/dL (3.9-5) L 12/07/16 05:00 Albumin/Globulin Ratio 0.5 % 12/07/16 05:00 Triglycerides 180 mg/dL (2-149) H 12/08/16 10:04 Cholesterol 122 mg/dL (50-199) 12/08/16 10:04 LDL Cholesterol Direct 65 mg/dL (50-130) 12/08/16 10:04 HDL Cholesterol 21 mg/dL (40-59) L 12/08/16 10:04 Cholesterol/HDL Ratio 5.80 % 12/08/16 10:04 Vitamin B12 768.6 pg/mL (211-911) 11/29/16 11:15 TSH 2.120 mlU/mL (0.270-4.200) 11/29/16 11:15 Urine Color Matilde (Yellow) 11/26/16 18:35 Urine Turbidity Turbid (Clear) 11/26/16 18:35 Urine pH 6.0 (5.0-7.0) 11/26/16 18:35 Ur Specific [place] 1.018 (1.003-1.030) 11/26/16 18:35 Urine Protein 100 mg/dl mg/dL (Negative) 11/26/16 18:35 Urine Glucose (UA) Neg mg/dL (Negative) 11/26/16 18:35 Urine Ketones Neg mg/dL (Negative) 11/26/16 18:35 Urine Blood Neg (Negative) 11/26/16 18:35 Urine Nitrite Neg (Negative) 11/26/16 18:35 Urine Bilirubin Neg (Negative) 11/26/16 18:35 Urine Urobilinogen < 2.0 mg/dL (<2.0) 11/26/16 18:35 Ur Leukocyte Esterase Mod (Negative) 11/26/16 18:35 Urine WBC (Auto) > 182.0 /HPF (0.0-6.0) H 11/26/16 18:35 Urine RBC (Auto) 6.0 /HPF (0.0-6.0) 11/26/16 18:35 Urine Bacteria (Auto) 4+ /HPF (Negative) 11/26/16 18:35 Urine WBC Clumps 3+ /HPF 11/26/16 18:35 Urine Mucus 3+ /HPF 11/26/16 18:35 Vancomycin Trough 41.9 ug/mL (5.0-20.0) H 11/29/16 07:05 Blood Type B POSITIVE 11/26/16 20:38 Antibody Screen TNR 11/26/16 20:38 NIRAV Antibody Screen Negative 11/26/16 20:38 Hemoglobin 7.1
--- NOTE | 2016-12-10 12:47 | Progress Note ---
Assessment and Plan 61 y/o female with acute respiratory failure requiring mechanical ventilation, now extubated with elevated BNP on admission, with history of afib on xarelto, now with acute respiratory failure requiring mechanical ventilation secondary to aspiration of a mucus plug, now cleared. 1. Echo done shows pulmonary hypertension and depressed EF. Cards ordered a D- Dimer, very very nonspecific lab and will likely be positive in this patient with chronic disease (it is elevated at 1401). PE in this patient based on clinical presentation is doubtful. She has normal renal function. If overly concerned would could perform CTA but in my clinical opinion this patient does not have a large PE causing respiratory failure. 2. Continue with IV diuresis as BP and renal function will allow, this should be done with recent echo results. 3. Given inability to protect airway, will likely need trach, given most recent code from yesterday. Code likely secondary to mucous plugging from patient not able to clear throat. Spoke with brother and patient. They have agreed to trach. Will consult, surgery [place]. 4. Daily net negative state 5. Discussed current deposition on IT rounds 6. Long discussion with brothers, one at bedside one on the phone. They will make decision soon about trach. Explained the need for it. Also explained to them the trach does not fix the underlying problem which is weakness in the oropharynx region and the inability to protect airway. Not sure if she will recover from that standpoint and I stressed that point with the brothers. AWaiting on them to make decision about trach CCT 31 minutes. Subjective Date of service: 12/10/16 Principal diagnosis: acute respiratory failure Interval history: No acute events. Awake and alert. Family at bedside. They have elected to do the trach. Objective Vital Signs - 12hr 12/10/16 12/10/16 12/10/16 01:01 01:30 02:00 Temperature Pulse Rate 119 H 97 H 100 H Pulse Rate [ Anterior Bilateral Throughout] Pulse Rate [ From Monitor] Respiratory 22 26 H 19 Rate Respiratory Rate [Anterior Bilateral Throughout] Blood Pressure 134/77 125/52 119/57 O2 Sat by Pulse 98 96 98 Oximetry 12/10/16 12/10/16 12/10/16 02:15 02:25 02:30 Temperature Pulse Rate 90 Pulse Rate [ 90 87 Anterior Bilateral Throughout] Pulse Rate [ From Monitor] Respiratory 20 Rate Respiratory 19 17 Rate [Anterior Bilateral Throughout] Blood Pressure 109/47 O2 Sat by Pulse 97 Oximetry 12/10/16 12/10/16 12/10/16 03:00 03:29 03:30 Temperature 98.9 F Pulse Rate 84 86 Pulse Rate [ Anterior Bilateral Throughout] Pulse Rate [ From Monitor] Respiratory 16 19 Rate Respiratory Rate [Anterior Bilateral Throughout] Blood Pressure 109/47 104/46 O2 Sat by Pulse 98 85 Oximetry 12/10/16 12/10/16 12/10/16 04:00 04:30 04:57 Temperature Pulse Rate 73 81 71 Pulse Rate [ Anterior Bilateral Throughout] Pulse Rate [ 89 From Monitor] Respiratory 20 17 Rate Respiratory Rate [Anterior Bilateral Throughout] Blood Pressure 98/45 101/49 101/49 O2 Sat by Pulse 99 99 99 Oximetry 12/10/16 12/10/16 12/10/16 05:00 05:30 06:00 Temperature Pulse Rate 74 84 85 Pulse Rate [ Anterior Bilateral Throughout] Pulse Rate [ From Monitor] Respiratory 16 17 19 Rate Respiratory Rate [Anterior Bilateral Throughout] Blood Pressure 94/63 107/53 99/47 O2 Sat by Pulse 100 99 100 Oximetry 12/10/16 12/10/16 12/10/16 06:30 07:00 07:30 Temperature Pulse Rate 75 82 76 Pulse Rate [ Anterior Bilateral Throughout] Pulse Rate [ From Monitor] Respiratory 18 25 H 28 H Rate Respiratory Rate [Anterior Bilateral Throughout] Blood Pressure 103/50 109/53 96/47 O2 Sat by Pulse 99 96 97 Oximetry 12/10/16 12/10/16 12/10/16 08:00 08:30 08:47 Temperature 98.8 F Pulse Rate 73 69 Pulse Rate [ 73 Anterior Bilateral Throughout] Pulse Rate [ 75 From Monitor] Respiratory 13 19 Rate Respiratory 16 Rate [Anterior Bilateral Throughout] Blood Pressure 99/47 93/44 O2 Sat by Pulse 99 99 Oximetry 12/10/16 12/10/16 12/10/16 08:57 09:00 09:30 Temperature Pulse Rate 72 74 Pulse Rate [ 75 Anterior Bilateral Throughout] Pulse Rate [ From Monitor] Respiratory 23 20 Rate Respiratory 16 Rate [Anterior Bilateral Throughout] Blood Pressure 99/47 100/50 O2 Sat by Pulse 99 98 Oximetry 12/10/16 12/10/16 12/10/16 09:50 10:00 10:30 Temperature Pulse Rate 81 81 Pulse Rate [ Anterior Bilateral Throughout] Pulse Rate [ From Monitor] Respiratory 16 16 16 Rate Respiratory Rate [Anterior Bilateral Throughout] Blood Pressure 111/54 104/46 O2 Sat by Pulse 100 99 Oximetry 12/10/16 12/10/16 12:12 12:21 Temperature Pulse Rate 69 71 Pulse Rate [ Anterior Bilateral Throughout] Pulse Rate [ From Monitor] Respiratory 26 H Rate Respiratory Rate [Anterior Bilateral Throughout] Blood Pressure 98/45 98/45 O2 Sat by Pulse 99 99 Oximetry Constitutional: no acute distress Eyes: non-icteric ENT: other (ETT in position) Effort: normal Ascultation: Right: rales, Bilateral: clear, diminished breath sounds, rhonchi ( rare) Percussion: Bilateral: not dull Cardiovascular: irregular rhythm Gastrointestinal: normoactive bowel sounds, non-distended Integumentary: normal Extremities: no cyanosis, no edema Neurologic: other ( stuporous, 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 (12.2-14.9) H 12/08/16 10:45 INR 1.34 (0.87-1.13) H 12/08/16 10:45 D-Dimer 1403 ng/mlDDU (0-234) H 12/09/16 11:15 Abnormal lab findings: Abnormal Labs 11/26/16 11/27/16 11/27/16 20:20 05:43 23:43 WBC RBC Hgb Hct MCV RDW Lymph % (Auto) Stanley % (Auto) Lymph # Stanley # Seg Neutrophils % Seg Neuts % (Manual) Lymphocytes % (Manual) Lymphocytes # (Manual) PT INR D-Dimer Heparin Anti-Xa Level POC ABG pH 7.574 H POC ABG pCO2 29.9 L POC ABG pO2 57 L 147 H Sodium Potassium Chloride Carbon Dioxide BUN Creatinine Glucose POC Glucose 63 L Lactic Acid Calcium ALT Alkaline Phosphatase Troponin T C-Reactive Protein Total Protein Albumin Triglycerides HDL Cholesterol Vancomycin Trough 11/28/16 11/28/16 11/29/16 04:52 04:52 05:15 WBC RBC 3.04 L 2.95 L Hgb 9.4 L 9.2 L Hct 28.6 L MCV 102 H D RDW 19.9 H 19.5 H Lymph % (Auto) 13.1 L Stanley % (Auto) 7.9 H Lymph # 0.8 L Stanley # Seg Neutrophils % 77.7 H Seg Neuts % (Manual) 83.0 H Lymphocytes % (Manual) 6.0 L Lymphocytes # (Manual) 0.4 L PT INR D-Dimer Heparin Anti-Xa Level POC ABG pH POC ABG pCO2 POC ABG pO2 Sodium Potassium Chloride 110.0 H Carbon Dioxide 20 L BUN Creatinine 0.3 L Glucose POC Glucose Lactic Acid Calcium 7.0 L ALT Alkaline Phosphatase Troponin T C-Reactive Protein Total Protein Albumin Triglycerides HDL Cholesterol Vancomycin Trough 11/29/16 11/29/16 11/29/16 05:15 05:23 06:18 WBC RBC Hgb Hct MCV RDW Lymph % (Auto) Stanley % (Auto) Lymph # Stanley # Seg Neutrophils % Seg Neuts % (Manual) Lymphocytes % (Manual) Lymphocytes # (Manual) PT INR D-Dimer Heparin Anti-Xa Level POC ABG pH 7.474 H POC ABG pCO2 30.2 L POC ABG pO2 Sodium Potassium 3.1 L D Chloride 112.3 H Carbon Dioxide BUN 6 L Creatinine 0.3 L Glucose POC Glucose 120 H Lactic Acid Calcium 7.1 L ALT Alkaline Phosphatase Troponin T C-Reactive Protein Total Protein Albumin Triglycerides HDL Cholesterol Vancomycin Trough 11/29/16 11/29/16 11/29/16 07:05 11:54 18:31 WBC RBC Hgb Hct MCV RDW Lymph % (Auto) Stanley % (Auto) Lymph # Stanley # Seg Neutrophils % Seg Neuts % (Manual) Lymphocytes % (Manual) Lymphocytes # (Manual) PT INR D-Dimer Heparin Anti-Xa Level POC ABG pH POC ABG pCO2 POC ABG pO2 Sodium Potassium Chloride Carbon Dioxide BUN Creatinine Glucose POC Glucose 122 H 179 H Lactic Acid Calcium ALT Alkaline Phosphatase Troponin T C-Reactive Protein Total Protein Albumin Triglycerides HDL Cholesterol Vancomycin Trough 41.9 H 11/29/16 11/30/16 11/30/16 23:16 04:01 07:40 WBC RBC 2.51 L Hgb 7.7 L Hct 24.8 L MCV 99 H RDW 19.4 H Lymph % (Auto) Stanley % (Auto) Lymph # Stanley # Seg Neutrophils % Seg Neuts % (Manual) Lymphocytes % (Manual) Lymphocytes # (Manual) PT INR D-Dimer Heparin Anti-Xa Level POC ABG pH 7.468 H POC ABG pCO2 30.6 L POC ABG pO2 Sodium Potassium Chloride Carbon Dioxide BUN Creatinine Glucose POC Glucose 149 H Lactic Acid Calcium ALT Alkaline Phosphatase Troponin T C-Reactive Protein Total Protein Albumin Triglycerides HDL Cholesterol Vancomycin Trough 11/30/16 11/30/16 11/30/16 07:40 12:42 17:30 WBC RBC Hgb Hct MCV RDW Lymph % (Auto) Stanley % (Auto) Lymph # [place] # Seg Neutrophils % Seg Neuts % (Manual) Lymphocytes % (Manual) Lymphocytes # (Manual) PT INR D-Dimer Heparin Anti-Xa Level POC ABG pH POC ABG pCO2 POC ABG pO2 Sodium Potassium Chloride 113.7 H Carbon Dioxide BUN Creatinine 0.5 L D Glucose POC Glucose 134 H 114 H Lactic Acid Calcium 7.1 L ALT 6 L Alkaline Phosphatase 167 H Troponin T C-Reactive Protein Total Protein 4.0 L Albumin 1.0 L Triglycerides HDL Cholesterol Vancomycin Trough 11/30/16 12/01/16 12/01/16 23:39 05:52 06:36 WBC RBC 2.60 L Hgb 8.1 L Hct 25.4 L MCV 98 H RDW 19.7 H Lymph % (Auto) Stanley % (Auto) 9.0 H Lymph # 1.1 L Stanley # Seg Neutrophils % Seg Neuts % (Manual) Lymphocytes % (Manual) Lymphocytes # (Manual) PT INR D-Dimer Heparin Anti-Xa Level POC ABG pH POC ABG pCO2 POC ABG pO2 Sodium Potassium Chloride Carbon Dioxide BUN Creatinine Glucose POC Glucose 121 H 134 H Lactic Acid Calcium ALT Alkaline Phosphatase Troponin T C-Reactive Protein Total Protein Albumin Triglycerides HDL Cholesterol Vancomycin Trough 12/01/16 12/01/16 12/01/16 06:36 11:34 17:40 WBC RBC Hgb Hct MCV RDW Lymph % (Auto) Stanley % (Auto) Lymph # Stanley # Seg Neutrophils % Seg Neuts % (Manual) Lymphocytes % (Manual) Lymphocytes # (Manual) PT INR D-Dimer Heparin Anti-Xa Level POC ABG pH POC ABG pCO2 POC ABG pO2 Sodium Potassium Chloride 113.8 H Carbon Dioxide BUN Creatinine 0.5 L Glucose 120 H POC Glucose 167 H 117 H Lactic Acid Calcium 7.3 L ALT Alkaline Phosphatase Troponin T C-Reactive Protein Total Protein Albumin Triglycerides HDL Cholesterol Vancomycin Trough 12/02/16 12/02/16 12/02/16 00:35 05:03 05:44 WBC RBC Hgb Hct MCV RDW Lymph % (Auto) Stanley % (Auto) Lymph # Stanley # Seg Neutrophils % Seg Neuts % (Manual) Lymphocytes % (Manual) Lymphocytes # (Manual) PT INR D-Dimer Heparin Anti-Xa Level POC ABG pH POC ABG pCO2 30.9 L POC ABG pO2 77 L Sodium Potassium Chloride Carbon Dioxide BUN Creatinine Glucose POC Glucose 129 H 154 H Lactic Acid Calcium ALT Alkaline Phosphatase Troponin T C-Reactive Protein Total Protein Albumin Triglycerides HDL Cholesterol Vancomycin Trough 12/02/16 12/02/16 12/03/16 18:03 23:53 05:17 WBC RBC Hgb Hct MCV RDW Lymph % (Auto) Stanley % (Auto) Lymph # Stanley # Seg Neutrophils % Seg Neuts % (Manual) Lymphocytes % (Manual) Lymphocytes # (Manual) PT INR D-Dimer Heparin Anti-Xa Level POC ABG pH POC ABG pCO2 POC ABG pO2 Sodium Potassium Chloride Carbon Dioxide BUN Creatinine Glucose POC Glucose 135 H 158 H 177 H Lactic Acid Calcium ALT Alkaline Phosphatase Troponin T C-Reactive Protein Total Protein Albumin Triglycerides HDL Cholesterol Vancomycin Trough 12/03/16 12/03/16 12/03/16 05:30 09:35 11:46 WBC RBC 2.50 L Hgb 8.0 L Hct 24.8 L MCV 99 H RDW 18.8 H Lymph % (Auto) Stanley % (Auto) 11.9 H Lymph # Stanley # Seg Neutrophils % Seg Neuts % (Manual) Lymphocytes % (Manual) Lymphocytes # (Manual) PT INR D-Dimer Heparin Anti-Xa Level POC ABG pH POC ABG pCO2 POC ABG pO2 Sodium Potassium 3.5 L Chloride 109.9 H Carbon Dioxide BUN Creatinine 0.4 L Glucose 162 H POC Glucose 157 H Lactic Acid Calcium 7.5 L ALT Alkaline Phosphatase Troponin T C-Reactive Protein Total Protein Albumin Triglycerides HDL Cholesterol Vancomycin Trough 12/03/16 12/03/16 12/04/16 18:25 23:32 05:24 WBC RBC Hgb Hct MCV RDW Lymph % (Auto) Stanley % (Auto) Lymph # Stanley # Seg Neutrophils % Seg Neuts % (Manual) Lymphocytes % (Manual) Lymphocytes # (Manual) PT INR D-Dimer Heparin Anti-Xa Level POC ABG pH POC ABG pCO2 POC ABG pO2 Sodium Potassium Chloride Carbon Dioxide BUN Creatinine Glucose POC Glucose 134 H 152 H 176 H Lactic Acid Calcium ALT Alkaline Phosphatase Troponin T C-Reactive Protein Total Protein Albumin Triglycerides HDL Cholesterol Vancomycin Trough 12/04/16 12/04/16 12/04/16 05:29 08:15 08:15 WBC RBC 2.41 L Hgb 7.5 L Hct 23.7 L MCV 98 H RDW 18.4 H Lymph % (Auto) Stanley % (Auto) 12.7 H Lymph # 0.9 L Stanley # Seg Neutrophils % Seg Neuts % (Manual) Lymphocytes % (Manual) Lymphocytes # (Manual) PT INR D-Dimer Heparin Anti-Xa Level POC ABG pH POC ABG pCO2 POC ABG pO2 116 H Sodium Potassium 3.3 L Chloride 108.0 H Carbon Dioxide BUN Creatinine 0.4 L Glucose 160 H POC Glucose Lactic Acid Calcium 7.5 L ALT Alkaline Phosphatase Troponin T C-Reactive Protein Total Protein Albumin Triglycerides HDL Cholesterol Vancomycin Trough 12/04/16 12/04/16 12/04/16 11:42 15:12 16:49 WBC RBC Hgb Hct MCV RDW Lymph % (Auto) Stanley % (Auto) Lymph # Stanley # Seg Neutrophils % Seg Neuts % (Manual) Lymphocytes % (Manual) Lymphocytes # (Manual) PT INR D-Dimer Heparin Anti-Xa Level POC ABG pH 7.322 L POC ABG pCO2 48.9 H POC ABG pO2 59 L 77 L Sodium Potassium Chloride Carbon Dioxide BUN Creatinine Glucose POC Glucose 142 H Lactic Acid Calcium ALT Alkaline Phosphatase Troponin T C-Reactive Protein Total Protein Albumin Triglycerides HDL Cholesterol Vancomycin Trough 12/04/16 12/05/16 12/05/16 18:28 00:10 03:15 WBC RBC 3.17 L Hgb 9.8 L Hct MCV RDW 18.0 H Lymph % (Auto) 10.1 L Stanley % (Auto) Lymph # 0.7 L Stanley # Seg Neutrophils % 81.7 H Seg Neuts % (Manual) Lymphocytes % (Manual) Lymphocytes # (Manual) PT INR D-Dimer Heparin Anti-Xa Level POC ABG pH POC ABG pCO2 POC ABG pO2 Sodium Potassium Chloride Carbon Dioxide BUN Creatinine Glucose POC Glucose 136 H 138 H Lactic Acid Calcium ALT Alkaline Phosphatase Troponin T C-Reactive Protein Total Protein Albumin Triglycerides HDL Cholesterol Vancomycin Trough 12/05/16 12/05/16 12/05/16 03:15 05:38 12:23 WBC RBC Hgb Hct MCV RDW Lymph % (Auto) Stanley % (Auto) Lymph # Stanley # Seg Neutrophils % Seg Neuts % (Manual) Lymphocytes % (Manual) Lymphocytes # (Manual) PT INR D-Dimer Heparin Anti-Xa Level POC ABG pH POC ABG pCO2 POC ABG pO2 Sodium Potassium 3.3 L Chloride Carbon Dioxide BUN Creatinine 0.3 L Glucose 130 H POC Glucose 185 H 178 H Lactic Acid Calcium 7.5 L ALT Alkaline Phosphatase Troponin T C-Reactive Protein Total Protein Albumin Triglycerides HDL Cholesterol Vancomycin Trough 12/05/16 12/05/16 12/06/16 16:14 18:29 00:06 WBC RBC Hgb Hct MCV RDW Lymph % (Auto) Stanley % (Auto) Lymph # Stanley # Seg Neutrophils % Seg Neuts % (Manual) Lymphocytes % (Manual) Lymphocytes # (Manual) PT INR D-Dimer Heparin Anti-Xa Level POC ABG pH POC ABG pCO2 POC ABG pO2 Sodium Potassium Chloride Carbon Dioxide BUN Creatinine Glucose POC Glucose 145 H 147 H 163 H Lactic Acid Calcium ALT Alkaline Phosphatase Troponin T C-Reactive Protein Total Protein Albumin Triglycerides HDL Cholesterol Vancomycin Trough 12/06/16 12/06/16 12/06/16 04:00 05:15 06:37 WBC RBC 2.30 L Hgb 7.2 L Hct 22.7 L D MCV 99 H RDW 17.9 H Lymph % (Auto) Stanley % (Auto) 9.5 H Lymph # 0.9 L Stanley # Seg Neutrophils % Seg Neuts % (Manual) Lymphocytes % (Manual) Lymphocytes # (Manual) PT INR D-Dimer Heparin Anti-Xa Level POC ABG pH POC ABG pCO2 POC ABG pO2 Sodium Potassium 3.5 L Chloride Carbon Dioxide BUN Creatinine 0.4 L Glucose 138 H POC Glucose 190 H Lactic Acid Calcium 7.7 L ALT Alkaline Phosphatase Troponin T C-Reactive Protein Total Protein Albumin Triglycerides HDL Cholesterol Vancomycin Trough 12/06/16 12/06/16 12/06/16 11:55 11:55 11:55 WBC 15.0 H RBC 2.79 L Hgb 8.6 L Hct 28.3 L MCV 101 H RDW 18.4 H Lymph % (Auto) Stanley % (Auto) Lymph # Stanley # Seg Neutrophils % Seg Neuts % (Manual) Lymphocytes % (Manual) Lymphocytes # (Manual) PT INR D-Dimer Heparin Anti-Xa Level POC ABG pH POC ABG pCO2 POC ABG pO2 Sodium 136 L Potassium 5.5 H D Chloride Carbon Dioxide BUN Creatinine 0.3 L Glucose 143 H POC Glucose Lactic Acid 5.70 H* Calcium ALT Alkaline Phosphatase Troponin T C-Reactive Protein Total Protein Albumin Triglycerides HDL Cholesterol Vancomycin Trough 12/06/16 12/06/16 12/07/16 11:55 12:10 05:00 WBC RBC Hgb Hct MCV RDW Lymph % (Auto) Stanley % (Auto) Lymph # Stanley # Seg Neutrophils % Seg Neuts % (Manual) Lymphocytes % (Manual) Lymphocytes # (Manual) PT INR D-Dimer Heparin Anti-Xa Level POC ABG pH POC ABG pCO2 POC ABG pO2 Sodium Potassium Chloride Carbon Dioxide BUN Creatinine 0.4 L Glucose POC Glucose 154 H Lactic Acid Calcium 7.5 L ALT Alkaline Phosphatase 142 H Troponin T C-Reactive Protein 8.10 H Total Protein 4.7 L Albumin 1.6 L Triglycerides HDL Cholesterol Vancomycin Trough 12/07/16 12/07/16 12/07/16 05:00 06:14 16:52 WBC RBC 2.36 L Hgb 7.3 L Hct 23.1 L MCV 98 H D RDW 17.8 H Lymph % (Auto) Stanley % (Auto) 8.5 H Lymph # 1.0 L Stanley # Seg Neutrophils % 76.9 H Seg Neuts % (Manual) Lymphocytes % (Manual) Lymphocytes # (Manual) PT INR D-Dimer Heparin Anti-Xa Level POC ABG pH 7.508 H POC ABG pCO2 31.1 L POC ABG pO2 131 H Sodium Potassium Chloride Carbon Dioxide BUN Creatinine Glucose POC Glucose 130 H Lactic Acid Calcium ALT Alkaline Phosphatase Troponin T C-Reactive Protein Total Protein Albumin Triglycerides HDL Cholesterol Vancomycin Trough 12/07/16 12/08/16 12/08/16 23:37 04:00 04:00 WBC RBC 2.26 L Hgb 7.1 L Hct 22.2 L MCV 98 H RDW 17.6 H Lymph % (Auto) Stanley % (Auto) 9.5 H Lymph # 1.0 L Stanley # Seg Neutrophils % 71.7 H Seg Neuts % (Manual) Lymphocytes % (Manual) Lymphocytes # (Manual) PT INR D-Dimer Heparin Anti-Xa Level POC ABG pH POC ABG pCO2 POC ABG pO2 Sodium Potassium 3.0 L Chloride Carbon Dioxide BUN Creatinine 0.5 L Glucose 124 H POC Glucose 107 H Lactic Acid Calcium 7.7 L ALT Alkaline Phosphatase Troponin T C-Reactive Protein Total Protein Albumin Triglycerides HDL Cholesterol Vancomycin Trough 12/08/16 12/08/16 12/08/16 05:16 05:34 10:04 WBC RBC Hgb Hct MCV RDW Lymph % (Auto) Stanley % (Auto) Lymph # Stanley # Seg Neutrophils % Seg Neuts % (Manual) Lymphocytes % (Manual) Lymphocytes # (Manual) PT INR D-Dimer Heparin Anti-Xa Level POC ABG pH 7.492 H POC ABG pCO2 31.5 L POC ABG pO2 112 H Sodium Potassium Chloride Carbon Dioxide BUN Creatinine Glucose POC Glucose 148 H Lactic Acid Calcium ALT Alkaline Phosphatase Troponin T 0.146 H* C-Reactive Protein Total Protein Albumin Triglycerides 180 H HDL Cholesterol 21 L Vancomycin Trough 12/08/16 12/08/16 12/08/16 10:45 12:09 16:00 WBC RBC Hgb Hct MCV RDW Lymph % (Auto) Stanley % (Auto) Lymph # Stanley # Seg Neutrophils % Seg Neuts % (Manual) Lymphocytes % (Manual) Lymphocytes # (Manual) PT 17.3 H INR 1.34 H D-Dimer Heparin Anti-Xa Level POC ABG pH POC ABG pCO2 POC ABG pO2 Sodium Potassium Chloride Carbon Dioxide BUN Creatinine Glucose POC Glucose 205 H Lactic Acid Calcium ALT Alkaline Phosphatase Troponin T 0.166 H* C-Reactive Protein Total Protein Albumin Triglycerides HDL Cholesterol Vancomycin Trough 12/08/16 12/08/16 12/08/16 17:45 17:49 23:29 WBC RBC Hgb Hct MCV RDW Lymph % (Auto) [place] % (Auto) Lymph # [place] # Seg Neutrophils % Seg Neuts % (Manual) Lymphocytes % (Manual) Lymphocytes # (Manual) PT INR D-Dimer Heparin Anti-Xa Level < 0.10 L POC ABG pH POC ABG pCO2 POC ABG pO2 Sodium Potassium Chloride Carbon Dioxide BUN Creatinine Glucose POC Glucose 174 H 180 H Lactic Acid Calcium ALT Alkaline Phosphatase Troponin T C-Reactive Protein Total Protein Albumin Triglycerides HDL Cholesterol Vancomycin Trough 12/09/16 12/09/16 12/09/16 01:00 03:55 03:55 WBC RBC 2.39 L Hgb 7.5 L Hct 23.0 L MCV RDW 17.3 H Lymph % (Auto) Stanley % (Auto) 10.4 H Lymph # Stanley # 1.0 H Seg Neutrophils % Seg Neuts % (Manual) Lymphocytes % (Manual) Lymphocytes # (Manual) PT INR D-Dimer Heparin Anti-Xa Level < 0.10 L POC ABG pH POC ABG pCO2 POC ABG pO2 Sodium 135 L Potassium Chloride Carbon Dioxide BUN 18 H Creatinine Glucose 187 H POC Glucose Lactic Acid Calcium 7.4 L ALT Alkaline Phosphatase Troponin T C-Reactive Protein Total Protein Albumin Triglycerides HDL Cholesterol Vancomycin Trough 12/09/16 12/09/16 12/09/16 04:05 05:37 11:15 WBC RBC Hgb Hct MCV RDW Lymph % (Auto) [place] % (Auto) Lymph # Stanley # Seg Neutrophils % Seg Neuts % (Manual) Lymphocytes % (Manual) Lymphocytes # (Manual) PT INR D-Dimer Heparin Anti-Xa Level < 0.10 L POC ABG pH 7.495 H POC ABG pCO2 31.9 L POC ABG pO2 186 H Sodium Potassium Chloride Carbon Dioxide BUN Creatinine Glucose POC Glucose 213 H Lactic Acid Calcium ALT Alkaline Phosphatase Troponin T C-Reactive Protein Total Protein Albumin Triglycerides HDL Cholesterol Vancomycin Trough 12/09/16 12/09/16 12/09/16 11:15 12:16 17:43 WBC RBC Hgb Hct MCV RDW Lymph % (Auto) [place] % (Auto) Lymph # [place] # Seg Neutrophils % Seg Neuts % (Manual) Lymphocytes % (Manual) Lymphocytes # (Manual) PT INR D-Dimer 1403 H Heparin Anti-Xa Level POC ABG pH POC ABG pCO2 POC ABG pO2 Sodium Potassium Chloride Carbon Dioxide BUN Creatinine Glucose POC Glucose 194 H 165 H Lactic Acid Calcium ALT Alkaline Phosphatase Troponin T C-Reactive Protein Total Protein Albumin Triglycerides HDL Cholesterol Vancomycin Trough 12/09/16 12/10/16 12/10/16 19:30 00:04 02:48 WBC RBC Hgb Hct MCV RDW Lymph % (Auto) [place] % (Auto) Lymph # [place] # Seg Neutrophils % Seg Neuts % (Manual) Lymphocytes % (Manual) Lymphocytes # (Manual) PT INR D-Dimer Heparin Anti-Xa Level < 0.10 L < 0.10 L POC ABG pH POC ABG pCO2 POC ABG pO2 Sodium Potassium Chloride Carbon Dioxide BUN Creatinine Glucose POC Glucose 143 H Lactic Acid Calcium ALT Alkaline Phosphatase Troponin T C-Reactive Protein Total Protein Albumin Triglycerides HDL Cholesterol Vancomycin Trough 12/10/16 12/10/16 12/10/16 05:04 05:17 09:06 WBC RBC Hgb Hct MCV RDW Lymph % (Auto) [place] % (Auto) Lymph # [place] # Seg Neutrophils % Seg Neuts % (Manual) Lymphocytes % (Manual) Lymphocytes # (Manual) PT INR D-Dimer Heparin Anti-Xa Level < 0.10 L POC ABG pH POC ABG pCO2 POC ABG pO2 Sodium 133 L Potassium Chloride Carbon Dioxide BUN 19 H Creatinine 0.6 L Glucose 136 H POC Glucose 127 H Lactic Acid Calcium 7.6 L ALT Alkaline Phosphatase Troponin T C-Reactive Protein Total Protein Albumin Triglycerides HDL Cholesterol Vancomycin Trough 12/10/16 Unknown WBC RBC Hgb 7.1 L Hct 21.3 L MCV RDW Lymph % (Auto) [place] % (Auto) Lymph # [place] # Seg Neutrophils % Seg Neuts % (Manual) Lymphocytes % (Manual) Lymphocytes # (Manual) PT INR D-Dimer Heparin Anti-Xa Level POC ABG pH POC ABG pCO2 POC ABG pO2 Sodium Potassium Chloride Carbon Dioxide BUN Creatinine Glucose POC Glucose Lactic Acid Calcium ALT Alkaline Phosphatase Troponin T C-Reactive Protein Total Protein Albumin Triglycerides HDL Cholesterol Vancomycin Trough
[2016-12-11] MEDS: LASIX IV SCH ×4 (00:05→22:40)
[2016-12-11] MEDS: TYLENOL FEEDTUBE PRN (00:05)
[2016-12-11] MEDS: PEPCID PO SCH ×3 (00:06→22:40)
[2016-12-11] MEDS: REMERON PO SCH ×2 (00:06→22:41)
[2016-12-11] MEDS: FERROUS SULFATE PO SCH ×4 (00:06→22:38)
[2016-12-11] MEDS: CORDARONE PO SCH ×3 (00:06→22:39)
[2016-12-11] MEDS: SENOKOT PO SCH ×2 (00:07→22:41)
[2016-12-11] MEDS: XOPENEX IH SCH ×4 (02:13→19:56)
[2016-12-11] MEDS: HEPARIN/ 0.45% NACL-25,000 UNIT/500 ML 25,000 UNIT/500 ML BAG IV SCH ×2 (06:27→18:14)
[2016-12-11] MEDS: PULMICORT IH SCH ×2 (07:24→19:56)
--- NOTE | 2016-12-11 09:51 | Progress Note ---
Assessment and Plan 61 y/o female with acute respiratory failure requiring mechanical ventilation, now extubated with elevated BNP on admission, with history of afib on xarelto, now with acute respiratory failure requiring mechanical ventilation secondary to aspiration of a mucus plug, now cleared. 1. Continue diuresis as BP and renal function will allow. Will check BMP today. I/O if accurate show that patient is grossly positive. Has not compromise lung function yet. 2. Await surgery evaluation for trach and peg. 3. Family has agreed to trach and peg. 4. Daily net negative state if possible 5. Anticoagulation for afib. 6. Will hold on transfusion unless HgB is less than 7 CCT 31 minutes. Subjective Date of service: 12/11/16 Principal diagnosis: acute respiratory failure Interval history: No acute events. As stated on yesterday, decision has been made to undergo trach and peg. Consult placed to [facility] Objective Vital Signs - 12hr 12/10/16 12/10/16 12/10/16 22:00 22:30 23:00 Temperature Pulse Rate 77 77 78 Pulse Rate [ Anterior Bilateral Throughout] Pulse Rate [ From Monitor] Respiratory 24 26 H 28 H Rate Respiratory Rate [Anterior Bilateral Throughout] Blood Pressure 102/46 105/48 100/40 O2 Sat by Pulse 97 97 96 Oximetry 12/10/16 12/10/16 12/11/16 23:30 23:31 00:00 Temperature 99.2 F Pulse Rate 77 76 72 Pulse Rate [ Anterior Bilateral Throughout] Pulse Rate [ 72 From Monitor] Respiratory 25 H 24 Rate Respiratory Rate [Anterior Bilateral Throughout] Blood Pressure 106/47 100/40 96/46 O2 Sat by Pulse 98 99 97 Oximetry 12/11/16 12/11/16 12/11/16 00:30 01:00 01:30 Temperature Pulse Rate 82 74 84 Pulse Rate [ Anterior Bilateral Throughout] Pulse Rate [ From Monitor] Respiratory 25 H 22 21 Rate Respiratory Rate [Anterior Bilateral Throughout] Blood Pressure 105/51 105/51 114/56 O2 Sat by Pulse 97 99 97 Oximetry 12/11/16 12/11/16 12/11/16 02:00 02:13 02:30 Temperature Pulse Rate 72 69 Pulse Rate [ 72 Anterior Bilateral Throughout] Pulse Rate [ From Monitor] Respiratory 18 18 Rate Respiratory 18 Rate [Anterior Bilateral Throughout] Blood Pressure 100/46 105/46 O2 Sat by Pulse 97 98 Oximetry 0712/11/16 12/11/16 02:33 03:00 03:30 Temperature Pulse Rate 73 70 Pulse Rate [ 69 Anterior Bilateral Throughout] Pulse Rate [ From Monitor] Respiratory 22 17 Rate Respiratory 18 Rate [Anterior Bilateral Throughout] Blood Pressure 105/48 98/43 O2 Sat by Pulse 99 97 Oximetry 12/11/16 12/11/16 12/11/16 04:00 04:05 04:30 Temperature 98.7 F Pulse Rate 74 72 71 Pulse Rate [ Anterior Bilateral Throughout] Pulse Rate [ 68 From Monitor] Respiratory 20 21 Rate Respiratory Rate [Anterior Bilateral Throughout] Blood Pressure 109/51 98/73 102/45 O2 Sat by Pulse 100 99 99 Oximetry 12/11/16 12/11/16 12/11/16 05:00 05:30 06:01 Temperature Pulse Rate 71 68 77 Pulse Rate [ Anterior Bilateral Throughout] Pulse Rate [ From Monitor] Respiratory 20 21 22 Rate Respiratory Rate [Anterior Bilateral Throughout] Blood Pressure 103/47 98/44 98/44 O2 Sat by Pulse 99 99 98 Oximetry 12/11/16 12/11/16 12/11/16 06:30 07:00 07:24 Temperature Pulse Rate 69 68 Pulse Rate [ 70 Anterior Bilateral Throughout] Pulse Rate [ From Monitor] Respiratory 21 20 Rate Respiratory 16 Rate [Anterior Bilateral Throughout] Blood Pressure 105/41 100/38 O2 Sat by Pulse 98 99 Oximetry 12/11/16 12/11/16 12/11/16 07:25 07:30 07:35 Temperature Pulse Rate 71 71 Pulse Rate [ 74 Anterior Bilateral Throughout] Pulse Rate [ From Monitor] Respiratory 15 Rate Respiratory 17 Rate [Anterior Bilateral Throughout] Blood Pressure 100/38 107/48 O2 Sat by Pulse 99 99 Oximetry 12/11/16 12/11/16 12/11/16 08:00 08:30 09:00 Temperature Pulse Rate 64 69 76 Pulse Rate [ Anterior Bilateral Throughout] Pulse Rate [ From Monitor] Respiratory 16 22 25 H Rate Respiratory Rate [Anterior Bilateral Throughout] Blood Pressure 100/39 112/45 107/45 O2 Sat by Pulse 100 99 99 Oximetry 12/11/16 09:30 Temperature Pulse Rate 74 Pulse Rate [ Anterior Bilateral Throughout] Pulse Rate [ From Monitor] Respiratory 22 Rate Respiratory Rate [Anterior Bilateral Throughout] Blood Pressure 104/41 O2 Sat by Pulse 99 Oximetry Constitutional: no acute distress Eyes: non-icteric ENT: other (ETT in position) Effort: normal Ascultation: Right: rales, Bilateral: clear, diminished breath sounds Percussion: Bilateral: not dull Cardiovascular: irregular rhythm Gastrointestinal: normoactive bowel sounds, non-distended Integumentary: normal Extremities: no cyanosis, no edema Neurologic: other ( stuporous, slightly up from her eyes minister of religion and tactile stimuli) CBC and BMP: 12/10/16 Unknown 12/10/16 05:04 ABG, PT/INR, D-dimer: ABG POC ABG pH 7.495 (7.35-7.45) H 12/09/16 04:05 POC ABG pCO2 31.9 (35-45) L 12/09/16 04:05 POC ABG pO2 186 (80-105) H 12/09/16 04:05 POC ABG HCO3 24.6 12/09/16 04:05 POC ABG Total CO2 26 12/09/16 04:05 POC ABG O2 Sat 100 12/09/16 04:05 PT/INR, D-dimer PT 17.3 Sec. (12.2-14.9) H 12/08/16 10:45 INR 1.34 (0.87-1.13) H 12/08/16 10:45 D-Dimer 1403 ng/mlDDU (0-234) H 12/09/16 11:15 Abnormal lab findings: Abnormal Labs 11/26/16 11/27/16 11/27/16 20:20 05:43 23:43 WBC RBC Hgb Hct MCV RDW Lymph % (Auto) [place] % (Auto) Lymph # [place] # Seg Neutrophils % Seg Neuts % (Manual) Lymphocytes % (Manual) Lymphocytes # (Manual) PT INR D-Dimer Heparin Anti-Xa Level POC ABG pH 7.574 H POC ABG pCO2 29.9 L POC ABG pO2 57 L 147 H Sodium Potassium Chloride Carbon Dioxide BUN Creatinine Glucose POC Glucose 63 L Lactic Acid Calcium ALT Alkaline Phosphatase Troponin T C-Reactive Protein Total Protein Albumin Triglycerides HDL Cholesterol Vancomycin Trough 11/28/16 11/28/16 11/29/16 04:52 04:52 05:15 WBC RBC 3.04 L 2.95 L Hgb 9.4 L 9.2 L Hct 28.6 L MCV 102 H D RDW 19.9 H 19.5 H Lymph % (Auto) 13.1 L [place] % (Auto) 7.9 H Lymph # 0.8 L [place] # Seg Neutrophils % 77.7 H Seg Neuts % (Manual) 83.0 H Lymphocytes % (Manual) 6.0 L Lymphocytes # (Manual) 0.4 L PT INR D-Dimer Heparin Anti-Xa Level POC ABG pH POC ABG pCO2 POC ABG pO2 Sodium Potassium Chloride 110.0 H Carbon Dioxide 20 L BUN Creatinine 0.3 L Glucose POC Glucose Lactic Acid Calcium 7.0 L ALT Alkaline Phosphatase Troponin T C-Reactive Protein Total Protein Albumin Triglycerides HDL Cholesterol Vancomycin Trough 11/29/16 11/29/16 11/29/16 05:15 05:23 06:18 WBC RBC Hgb Hct MCV RDW Lymph % (Auto) [place] % (Auto) Lymph # [place] # Seg Neutrophils % Seg Neuts % (Manual) Lymphocytes % (Manual) Lymphocytes # (Manual) PT INR D-Dimer Heparin Anti-Xa Level POC ABG pH 7.474 H POC ABG pCO2 30.2 L POC ABG pO2 Sodium Potassium 3.1 L D Chloride 112.3 H Carbon Dioxide BUN 6 L Creatinine 0.3 L Glucose POC Glucose 120 H Lactic Acid Calcium 7.1 L ALT Alkaline Phosphatase Troponin T C-Reactive Protein Total Protein Albumin Triglycerides HDL Cholesterol Vancomycin Trough 11/29/16 11/29/16 11/29/16 07:05 11:54 18:31 WBC RBC Hgb Hct MCV RDW Lymph % (Auto) [place] % (Auto) Lymph # [place] # Seg Neutrophils % Seg Neuts % (Manual) Lymphocytes % (Manual) Lymphocytes # (Manual) PT INR D-Dimer Heparin Anti-Xa Level POC ABG pH POC ABG pCO2 POC ABG pO2 Sodium Potassium Chloride Carbon Dioxide BUN Creatinine Glucose POC Glucose 122 H 179 H Lactic Acid Calcium ALT Alkaline Phosphatase Troponin T C-Reactive Protein Total Protein Albumin Triglycerides HDL Cholesterol Vancomycin Trough 41.9 H 11/29/16 11/30/16 11/30/16 23:16 04:01 07:40 WBC RBC 2.51 L Hgb 7.7 L Hct 24.8 L MCV 99 H RDW 19.4 H Lymph % (Auto) [place] % (Auto) Lymph # [place] # Seg Neutrophils % Seg Neuts % (Manual) Lymphocytes % (Manual) Lymphocytes # (Manual) PT INR D-Dimer Heparin Anti-Xa Level POC ABG pH 7.468 H POC ABG pCO2 30.6 L POC ABG pO2 Sodium Potassium Chloride Carbon Dioxide BUN Creatinine Glucose POC Glucose 149 H Lactic Acid Calcium ALT Alkaline Phosphatase Troponin T C-Reactive Protein Total Protein Albumin Triglycerides HDL Cholesterol Vancomycin Trough 11/30/16 11/30/16 11/30/16 07:40 12:42 17:30 WBC RBC Hgb Hct MCV RDW Lymph % (Auto) [place] % (Auto) Lymph # [place] # Seg Neutrophils % Seg Neuts % (Manual) Lymphocytes % (Manual) Lymphocytes # (Manual) PT INR D-Dimer Heparin Anti-Xa Level POC ABG pH POC ABG pCO2 POC ABG pO2 Sodium Potassium Chloride 113.7 H Carbon Dioxide BUN Creatinine 0.5 L D Glucose POC Glucose 134 H 114 H Lactic Acid Calcium 7.1 L ALT 6 L Alkaline Phosphatase 167 H Troponin T C-Reactive Protein Total Protein 4.0 L Albumin 1.0 L Triglycerides HDL Cholesterol Vancomycin Trough 11/30/16 12/01/16 12/01/16 23:39 05:52 06:36 WBC RBC 2.60 L Hgb 8.1 L Hct 25.4 L MCV 98 H RDW 19.7 H Lymph % (Auto) [place] % (Auto) 9.0 H Lymph # 1.1 L [place] # Seg Neutrophils % Seg Neuts % (Manual) Lymphocytes % (Manual) Lymphocytes # (Manual) PT INR D-Dimer Heparin Anti-Xa Level POC ABG pH POC ABG pCO2 POC ABG pO2 Sodium Potassium Chloride Carbon Dioxide BUN Creatinine Glucose POC Glucose 121 H 134 H Lactic Acid Calcium ALT Alkaline Phosphatase Troponin T C-Reactive Protein Total Protein Albumin Triglycerides HDL Cholesterol Vancomycin Trough 12/01/16 12/01/16 12/01/16 06:36 11:34 17:40 WBC RBC Hgb Hct MCV RDW Lymph % (Auto) [place] % (Auto) Lymph # [place] # Seg Neutrophils % Seg Neuts % (Manual) Lymphocytes % (Manual) Lymphocytes # (Manual) PT INR D-Dimer Heparin Anti-Xa Level POC ABG pH POC ABG pCO2 POC ABG pO2 Sodium Potassium Chloride 113.8 H Carbon Dioxide BUN Creatinine 0.5 L Glucose 120 H POC Glucose 167 H 117 H Lactic Acid Calcium 7.3 L ALT Alkaline Phosphatase Troponin T C-Reactive Protein Total Protein Albumin Triglycerides HDL Cholesterol Vancomycin Trough 12/02/16 12/02/16 12/02/16 00:35 05:03 05:44 WBC RBC Hgb Hct MCV RDW Lymph % (Auto) [place] % (Auto) Lymph # [place] # Seg Neutrophils % Seg Neuts % (Manual) Lymphocytes % (Manual) Lymphocytes # (Manual) PT INR D-Dimer Heparin Anti-Xa Level POC ABG pH POC ABG pCO2 30.9 L POC ABG pO2 77 L Sodium Potassium Chloride Carbon Dioxide BUN Creatinine Glucose POC Glucose 129 H 154 H Lactic Acid Calcium ALT Alkaline Phosphatase Troponin T C-Reactive Protein Total Protein Albumin Triglycerides HDL Cholesterol Vancomycin Trough 12/02/16 12/02/16 12/03/16 18:03 23:53 05:17 WBC RBC Hgb Hct MCV RDW Lymph % (Auto) [place] % (Auto) Lymph # [place] # Seg Neutrophils % Seg Neuts % (Manual) Lymphocytes % (Manual) Lymphocytes # (Manual) PT INR D-Dimer Heparin Anti-Xa Level POC ABG pH POC ABG pCO2 POC ABG pO2 Sodium Potassium Chloride Carbon Dioxide BUN Creatinine Glucose POC Glucose 135 H 158 H 177 H Lactic Acid Calcium ALT Alkaline Phosphatase Troponin T C-Reactive Protein Total Protein Albumin Triglycerides HDL Cholesterol Vancomycin Trough 12/03/16 12/03/16 12/03/16 05:30 09:35 11:46 WBC RBC 2.50 L Hgb 8.0 L Hct 24.8 L MCV 99 H RDW 18.8 H Lymph % (Auto) [place] % (Auto) 11.9 H Lymph # [place] # Seg Neutrophils % Seg Neuts % (Manual) Lymphocytes % (Manual) Lymphocytes # (Manual) PT INR D-Dimer Heparin Anti-Xa Level POC ABG pH POC ABG pCO2 POC ABG pO2 Sodium Potassium 3.5 L Chloride 109.9 H Carbon Dioxide BUN Creatinine 0.4 L Glucose 162 H POC Glucose 157 H Lactic Acid Calcium 7.5 L ALT Alkaline Phosphatase Troponin T C-Reactive Protein Total Protein Albumin Triglycerides HDL Cholesterol Vancomycin Trough 12/03/16 12/03/16 12/04/16 18:25 23:32 05:24 WBC RBC Hgb Hct MCV RDW Lymph % (Auto) [place] % (Auto) Lymph # [place] # Seg Neutrophils % Seg Neuts % (Manual) Lymphocytes % (Manual) Lymphocytes # (Manual) PT INR D-Dimer Heparin Anti-Xa Level POC ABG pH POC ABG pCO2 POC ABG pO2 Sodium Potassium Chloride Carbon Dioxide BUN Creatinine Glucose POC Glucose 134 H 152 H 176 H Lactic Acid Calcium ALT Alkaline Phosphatase Troponin T C-Reactive Protein Total Protein Albumin Triglycerides HDL Cholesterol Vancomycin Trough 12/04/16 12/04/16 12/04/16 05:29 08:15 08:15 WBC RBC 2.41 L Hgb 7.5 L Hct 23.7 L MCV 98 H RDW 18.4 H Lymph % (Auto) [place] % (Auto) 12.7 H Lymph # 0.9 L [place] # Seg Neutrophils % Seg Neuts % (Manual) Lymphocytes % (Manual) Lymphocytes # (Manual) PT INR D-Dimer Heparin Anti-Xa Level POC ABG pH POC ABG pCO2 POC ABG pO2 116 H Sodium Potassium 3.3 L Chloride 108.0 H Carbon Dioxide BUN Creatinine 0.4 L Glucose 160 H POC Glucose Lactic Acid Calcium 7.5 L ALT Alkaline Phosphatase Troponin T C-Reactive Protein Total Protein Albumin Triglycerides HDL Cholesterol Vancomycin Trough 12/04/16 12/04/16 12/04/16 11:42 15:12 16:49 WBC RBC Hgb Hct MCV RDW Lymph % (Auto) [place] % (Auto) Lymph # [place] # Seg Neutrophils % Seg Neuts % (Manual) Lymphocytes % (Manual) Lymphocytes # (Manual) PT INR D-Dimer Heparin Anti-Xa Level POC ABG pH 7.322 L POC ABG pCO2 48.9 H POC ABG pO2 59 L 77 L Sodium Potassium Chloride Carbon Dioxide BUN Creatinine Glucose POC Glucose 142 H Lactic Acid Calcium ALT Alkaline Phosphatase Troponin T C-Reactive Protein Total Protein Albumin Triglycerides HDL Cholesterol Vancomycin Trough 12/04/16 12/05/16 12/05/16 18:28 00:10 03:15 WBC RBC 3.17 L Hgb 9.8 L Hct MCV RDW 18.0 H Lymph % (Auto) 10.1 L [place] % (Auto) Lymph # 0.7 L [place] # Seg Neutrophils % 81.7 H Seg Neuts % (Manual) Lymphocytes % (Manual) Lymphocytes # (Manual) PT INR D-Dimer Heparin Anti-Xa Level POC ABG pH POC ABG pCO2 POC ABG pO2 Sodium Potassium Chloride Carbon Dioxide BUN Creatinine Glucose POC Glucose 136 H 138 H Lactic Acid Calcium ALT Alkaline Phosphatase Troponin T C-Reactive Protein Total Protein Albumin Triglycerides HDL Cholesterol Vancomycin Trough 12/05/16 12/05/16 12/05/16 03:15 05:38 12:23 WBC RBC Hgb Hct MCV RDW Lymph % (Auto) [place] % (Auto) Lymph # [place] # Seg Neutrophils % Seg Neuts % (Manual) Lymphocytes % (Manual) Lymphocytes # (Manual) PT INR D-Dimer Heparin Anti-Xa Level POC ABG pH POC ABG pCO2 POC ABG pO2 Sodium Potassium 3.3 L Chloride Carbon Dioxide BUN Creatinine 0.3 L Glucose 130 H POC Glucose 185 H 178 H Lactic Acid Calcium 7.5 L ALT Alkaline Phosphatase Troponin T C-Reactive Protein Total Protein Albumin Triglycerides HDL Cholesterol Vancomycin Trough 12/05/16 12/05/16 12/06/16 16:14 18:29 00:06 WBC RBC Hgb Hct MCV RDW Lymph % (Auto) [place] % (Auto) Lymph # [place] # Seg Neutrophils % Seg Neuts % (Manual) Lymphocytes % (Manual) Lymphocytes # (Manual) PT INR D-Dimer Heparin Anti-Xa Level POC ABG pH POC ABG pCO2 POC ABG pO2 Sodium Potassium Chloride Carbon Dioxide BUN Creatinine Glucose POC Glucose 145 H 147 H 163 H Lactic Acid Calcium ALT Alkaline Phosphatase Troponin T C-Reactive Protein Total Protein Albumin Triglycerides HDL Cholesterol Vancomycin Trough 12/06/16 12/06/16 12/06/16 04:00 05:15 06:37 WBC RBC 2.30 L Hgb 7.2 L Hct 22.7 L D MCV 99 H RDW 17.9 H Lymph % (Auto) [place] % (Auto) 9.5 H Lymph # 0.9 L [place] # Seg Neutrophils % Seg Neuts % (Manual) Lymphocytes % (Manual) Lymphocytes # (Manual) PT INR D-Dimer Heparin Anti-Xa Level POC ABG pH POC ABG pCO2 POC ABG pO2 Sodium Potassium 3.5 L Chloride Carbon Dioxide BUN Creatinine 0.4 L Glucose 138 H POC Glucose 190 H Lactic Acid Calcium 7.7 L ALT Alkaline Phosphatase Troponin T C-Reactive Protein Total Protein Albumin Triglycerides HDL Cholesterol Vancomycin Trough 12/06/16 12/06/16 12/06/16 11:55 11:55 11:55 WBC 15.0 H RBC 2.79 L Hgb 8.6 L Hct 28.3 L MCV 101 H RDW 18.4 H Lymph % (Auto) [place] % (Auto) Lymph # [place] # Seg Neutrophils % Seg Neuts % (Manual) Lymphocytes % (Manual) Lymphocytes # (Manual) PT INR D-Dimer Heparin Anti-Xa Level POC ABG pH POC ABG pCO2 POC ABG pO2 Sodium 136 L Potassium 5.5 H D Chloride Carbon Dioxide BUN Creatinine 0.3 L Glucose 143 H POC Glucose Lactic Acid 5.70 H* Calcium ALT Alkaline Phosphatase Troponin T C-Reactive Protein Total Protein Albumin Triglycerides HDL Cholesterol Vancomycin Trough 12/06/16 12/06/16 12/07/16 11:55 12:10 05:00 WBC RBC Hgb Hct MCV RDW Lymph % (Auto) [place] % (Auto) Lymph # [place] # Seg Neutrophils % Seg Neuts % (Manual) Lymphocytes % (Manual) Lymphocytes # (Manual) PT INR D-Dimer Heparin Anti-Xa Level POC ABG pH POC ABG pCO2 POC ABG pO2 Sodium Potassium Chloride Carbon Dioxide BUN Creatinine 0.4 L Glucose POC Glucose 154 H Lactic Acid Calcium 7.5 L ALT Alkaline Phosphatase 142 H Troponin T C-Reactive Protein 8.10 H Total Protein 4.7 L Albumin 1.6 L Triglycerides HDL Cholesterol Vancomycin Trough 12/07/16 12/07/16 12/07/16 05:00 06:14 16:52 WBC RBC 2.36 L Hgb 7.3 L Hct 23.1 L MCV 98 H D RDW 17.8 H Lymph % (Auto) [place] % (Auto) 8.5 H Lymph # 1.0 L [place] # Seg Neutrophils % 76.9 H Seg Neuts % (Manual) Lymphocytes % (Manual) Lymphocytes # (Manual) PT INR D-Dimer Heparin Anti-Xa Level POC ABG pH 7.508 H POC ABG pCO2 31.1 L POC ABG pO2 131 H Sodium Potassium Chloride Carbon Dioxide BUN Creatinine Glucose POC Glucose 130 H Lactic Acid Calcium ALT Alkaline Phosphatase Troponin T C-Reactive Protein Total Protein Albumin Triglycerides HDL Cholesterol Vancomycin Trough 12/07/16 12/08/16 12/08/16 23:37 04:00 04:00 WBC RBC 2.26 L Hgb 7.1 L Hct 22.2 L MCV 98 H RDW 17.6 H Lymph % (Auto) [place] % (Auto) 9.5 H Lymph # 1.0 L [place] # Seg Neutrophils % 71.7 H Seg Neuts % (Manual) Lymphocytes % (Manual) Lymphocytes # (Manual) PT INR D-Dimer Heparin Anti-Xa Level POC ABG pH POC ABG pCO2 POC ABG pO2 Sodium Potassium 3.0 L Chloride Carbon Dioxide BUN Creatinine 0.5 L Glucose 124 H POC Glucose 107 H Lactic Acid Calcium 7.7 L ALT Alkaline Phosphatase Troponin T C-Reactive Protein Total Protein Albumin Triglycerides HDL Cholesterol Vancomycin Trough 12/08/16 12/08/16 12/08/16 05:16 05:34 10:04 WBC RBC Hgb Hct MCV RDW Lymph % (Auto) [place] % (Auto) Lymph # [place] # Seg Neutrophils % Seg Neuts % (Manual) Lymphocytes % (Manual) Lymphocytes # (Manual) PT INR D-Dimer Heparin Anti-Xa Level POC ABG pH 7.492 H POC ABG pCO2 31.5 L POC ABG pO2 112 H Sodium Potassium Chloride Carbon Dioxide BUN Creatinine Glucose POC Glucose 148 H Lactic Acid Calcium ALT Alkaline Phosphatase Troponin T 0.146 H* C-Reactive Protein Total Protein Albumin Triglycerides 180 H HDL Cholesterol 21 L Vancomycin Trough 12/08/16 12/08/16 12/08/16 10:45 12:09 16:00 WBC RBC Hgb Hct MCV RDW Lymph % (Auto) [place] % (Auto) Lymph # [place] # Seg Neutrophils % Seg Neuts % (Manual) Lymphocytes % (Manual) Lymphocytes # (Manual) PT 17.3 H INR 1.34 H D-Dimer Heparin Anti-Xa Level POC ABG pH POC ABG pCO2 POC ABG pO2 Sodium Potassium Chloride Carbon Dioxide BUN Creatinine Glucose POC Glucose 205 H Lactic Acid Calcium ALT Alkaline Phosphatase Troponin T 0.166 H* C-Reactive Protein Total Protein Albumin Triglycerides HDL Cholesterol Vancomycin Trough 12/08/16 12/08/16 12/08/16 17:45 17:49 23:29 WBC RBC Hgb Hct MCV RDW Lymph % (Auto) [place] % (Auto) Lymph # [place] # Seg Neutrophils % Seg Neuts % (Manual) Lymphocytes % (Manual) Lymphocytes # (Manual) PT INR D-Dimer Heparin Anti-Xa Level < 0.10 L POC ABG pH POC ABG pCO2 POC ABG pO2 Sodium Potassium Chloride Carbon Dioxide BUN Creatinine Glucose POC Glucose 174 H 180 H Lactic Acid Calcium ALT Alkaline Phosphatase Troponin T C-Reactive Protein Total Protein Albumin Triglycerides HDL Cholesterol Vancomycin Trough 12/09/16 12/09/16 12/09/16 01:00 03:55 03:55 WBC RBC 2.39 L Hgb 7.5 L Hct 23.0 L MCV RDW 17.3 H Lymph % (Auto) [place] % (Auto) 10.4 H Lymph # [place] # 1.0 H Seg Neutrophils % Seg Neuts % (Manual) Lymphocytes % (Manual) Lymphocytes # (Manual) PT INR D-Dimer Heparin Anti-Xa Level < 0.10 L POC ABG pH POC ABG pCO2 POC ABG pO2 Sodium 135 L Potassium Chloride Carbon Dioxide BUN 18 H Creatinine Glucose 187 H POC Glucose Lactic Acid Calcium 7.4 L ALT Alkaline Phosphatase Troponin T C-Reactive Protein Total Protein Albumin Triglycerides HDL Cholesterol Vancomycin Trough 12/09/16 12/09/16 12/09/16 04:05 05:37 11:15 WBC RBC Hgb Hct MCV RDW Lymph % (Auto) [place] % (Auto) Lymph # [place] # Seg Neutrophils % Seg Neuts % (Manual) Lymphocytes % (Manual) Lymphocytes # (Manual) PT INR D-Dimer Heparin Anti-Xa Level < 0.10 L POC ABG pH 7.495 H POC ABG pCO2 31.9 L POC ABG pO2 186 H Sodium Potassium Chloride Carbon Dioxide BUN Creatinine Glucose POC Glucose 213 H Lactic Acid Calcium ALT Alkaline Phosphatase Troponin T C-Reactive Protein Total Protein Albumin Triglycerides HDL Cholesterol Vancomycin Trough 12/09/16 12/09/16 12/09/16 11:15 12:16 17:43 WBC RBC Hgb Hct MCV RDW Lymph % (Auto) [place] % (Auto) Lymph # [place] # Seg Neutrophils % Seg Neuts % (Manual) Lymphocytes % (Manual) Lymphocytes # (Manual) PT INR D-Dimer 1403 H Heparin Anti-Xa Level POC ABG pH POC ABG pCO2 POC ABG pO2 Sodium Potassium Chloride Carbon Dioxide BUN Creatinine Glucose POC Glucose 194 H 165 H Lactic Acid Calcium ALT Alkaline Phosphatase Troponin T C-Reactive Protein Total Protein Albumin Triglycerides HDL Cholesterol Vancomycin Trough 12/09/16 12/10/16 12/10/16 19:30 00:04 02:48 WBC RBC Hgb Hct MCV RDW Lymph % (Auto) [place] % (Auto) Lymph # [place] # Seg Neutrophils % Seg Neuts % (Manual) Lymphocytes % (Manual) Lymphocytes # (Manual) PT INR D-Dimer Heparin Anti-Xa Level < 0.10 L < 0.10 L POC ABG pH POC ABG pCO2 POC ABG pO2 Sodium Potassium Chloride Carbon Dioxide BUN Creatinine Glucose POC Glucose 143 H Lactic Acid Calcium ALT Alkaline Phosphatase Troponin T C-Reactive Protein Total Protein Albumin Triglycerides HDL Cholesterol Vancomycin Trough 12/10/16 12/10/16 12/10/16 05:04 05:17 09:06 WBC RBC Hgb Hct MCV RDW Lymph % (Auto) [place] % (Auto) Lymph # [place] # Seg Neutrophils % Seg Neuts % (Manual) Lymphocytes % (Manual) Lymphocytes # (Manual) PT INR D-Dimer Heparin Anti-Xa Level < 0.10 L POC ABG pH POC ABG pCO2 POC ABG pO2 Sodium 133 L Potassium Chloride Carbon Dioxide BUN 19 H Creatinine 0.6 L Glucose 136 H POC Glucose 127 H Lactic Acid Calcium 7.6 L ALT Alkaline Phosphatase Troponin T C-Reactive Protein Total Protein Albumin Triglycerides HDL Cholesterol Vancomycin Trough 12/10/16 12/10/16 12/10/16 12:25 17:54 18:30 WBC RBC Hgb Hct MCV RDW Lymph % (Auto) [place] % (Auto) Lymph # [place] # Seg Neutrophils % Seg Neuts % (Manual) Lymphocytes % (Manual) Lymphocytes # (Manual) PT INR D-Dimer Heparin Anti-Xa Level < 0.10 L POC ABG pH POC ABG pCO2 POC ABG pO2 Sodium Potassium Chloride Carbon Dioxide BUN Creatinine Glucose POC Glucose 169 H 170 H Lactic Acid Calcium ALT Alkaline Phosphatase Troponin T C-Reactive Protein Total Protein Albumin Triglycerides HDL Cholesterol Vancomycin Trough 12/10/16 12/10/16 12/11/16 23:51 Unknown 04:08 WBC RBC Hgb 7.1 L Hct 21.3 L MCV RDW Lymph % (Auto) [place] % (Auto) Lymph # [place] # Seg Neutrophils % Seg Neuts % (Manual) Lymphocytes % (Manual) Lymphocytes # (Manual) PT INR D-Dimer Heparin Anti-Xa Level POC ABG pH POC ABG pCO2 POC ABG pO2 Sodium Potassium Chloride Carbon Dioxide BUN Creatinine Glucose POC Glucose 163 H 150 H Lactic Acid Calcium ALT Alkaline Phosphatase Troponin T C-Reactive Protein Total Protein Albumin Triglycerides HDL Cholesterol Vancomycin Trough 12/11/16 Unknown WBC RBC Hgb Hct MCV RDW Lymph % (Auto) [place] % (Auto) Lymph # [place] # Seg Neutrophils % Seg Neuts % (Manual) Lymphocytes % (Manual) Lymphocytes # (Manual) PT INR D-Dimer Heparin Anti-Xa Level 0.21 L POC ABG pH POC ABG pCO2 POC ABG pO2 Sodium Potassium Chloride Carbon Dioxide BUN Creatinine Glucose POC Glucose Lactic Acid Calcium ALT Alkaline Phosphatase Troponin T C-Reactive Protein Total Protein Albumin Triglycerides HDL Cholesterol Vancomycin Trough
[2016-12-11] MEDS: POTASSIUM CHLORIDE FEEDTUBE SCH (10:39)
--- NOTE | 2016-12-11 11:16 | Consultation ---
History of Present Illness Consult date: 12/11/16 Reason for consult: other (Respiratory failure) - History of present illness History of present illness: 61 year old female with respirtory failure. We have been asked to place a tracheostomy for fairing man ventilator management and a PEG for fairing man enteral access. Past History Past Medical History: atrial fib, diabetes, GERD, hypertension Past Surgical History: No surgical history Social history: single. denies: smoking, alcohol abuse, prescription drug abuse Family history: no significant family history Medications and Allergies Allergies Allergy/AdvReac Type Severity Reaction Status Date / Time codeine Allergy Unknown Verified 11/26/16 18:38 Home Medications Medication Instructions Recorded Confirmed Last Taken Type Acetaminophen [Shake That Ache] 500 mg PO Q6H PRN 11/28/16 11/28/16 Unknown History Ascorbic Acid [Vitamin C with [place] 500 mg PO BID 11/28/16 11/28/16 Unknown History Hips] Cholecalciferol Vit D3 [Vitamin D3] 50,000 unit PO QWEEK 11/28/16 11/28/16 Unknown History Docusate Sodium [Dok] 100 mg PO BID 11/28/16 11/28/16 Unknown History Esomeprazole Magnesium [NexIUM] 40 mg PO QAM 11/28/16 11/28/16 Unknown History Ferrous Sulfate [Feosol] 325 mg PO TID 11/28/16 11/28/16 Unknown History Metoprolol [Lopressor] 75 mg PO BID 11/28/16 11/28/16 Unknown History Mirtazapine [Remeron] 15 mg PO HS 11/28/16 11/28/16 Unknown History Multivitamin Tab [Multiple Vitamin 1 each PO QDAY 11/28/16 11/28/16 Unknown History TAB (Theragran)] Rivaroxaban [Xarelto] 20 mg PO QAM 11/28/16 11/28/16 Unknown History Sennosides [Senna Lax] 8.6 mg PO HS 11/28/16 11/28/16 Unknown History Vitamin A Palmitate [Vitamin A] 10,000 unit PO QDAY 11/28/16 11/28/16 Unknown History Zinc Sulfate 220 mg PO QDAY 11/28/16 11/28/16 Unknown History Active Meds: Active Medications Acetaminophen (Tylenol) 650 mg ID Q4H PRN PRN Reason: Pain, Mild (1-3) Last Admin: 11/26/16 19:05 Dose: 650 mg Acetaminophen (Tylenol) 650 mg FEEDTUBE Q4HR PRN PRN Reason: Pain, Mild (1-3) Last Admin: 12/11/16 00:05 Dose: 650 mg Al Hydrox/Mg Hydrox/Simethicone (Alum-Mag Hydrox-Simeth 100-892-27kb/5ml) 30 ml PO Q4H PRN PRN Reason: Indigestion Amiodarone HCl (Cordarone) 400 mg PO BID [facility] Last Admin: 12/11/16 10:39 Dose: 400 mg Lipase/Protease/Amylase (Pancreaze Dr 10,500 Unit) 1 each FEEDTUBE PRN PRN PRN Reason: For Clogged Feeding Tube Bisacodyl (Dulcolax) 10 mg ID QDAY PRN PRN Reason: constipation unrelieved by MOM Budesonide (Pulmicort) 0.5 mg IH Q12HRT [facility] Last Admin: 12/11/16 07:24 Dose: 0.5 mg Famotidine (Pepcid) 20 mg PO BID [facility] Last Admin: 12/11/16 10:39 Dose: 20 mg Ferrous Sulfate (Ferrous Sulfate) 300 mg PO TID [facility] Last Admin: 12/11/16 08:43 Dose: 300 mg Furosemide (Lasix) 20 mg IV BID [facility] Last Admin: 12/11/16 10:39 Dose: 20 mg Hydromorphone HCl (Dilaudid) 1 mg IV Q3H PRN PRN Reason: Pain , Severe (7-10) Last Admin: 12/09/16 14:04 Dose: 1 mg Hydrophilic Ointment (Vaseline Lip Therapy) 1 applic TP Q2HR PRN PRN Reason: Dry Lips Last Admin: 12/11/16 00:11 Dose: 1 applic Heparin Sodium/Sodium Chloride (Heparin/ 0.45% Nacl-25,000 Unit/500 Ml) 25,000 unit in 500 mls @ 23 mls/hr IV TITR OCTAVIO; 1,150 UNITS/HR PRN Reason: Protocol Last Admin: 12/11/16 06:27 Dose: 2,050 units/hr, 41 mls/hr Insulin Human Regular (Novolin R) 0 units SUB-Q Q6HR OCTAVIO PRN Reason: Protocol Last Admin: 12/11/16 06:26 Dose: 1 units Levalbuterol HCl (Xopenex) 1.25 mg IH Q6HRT [facility] Last Admin: 12/11/16 07:24 Dose: 1.25 mg Magnesium Hydroxide (Milk Of Magnesia) 30 ml PO Q4H PRN PRN Reason: Constipation Mirtazapine (Remeron) 15 mg PO HS [facility] Last Admin: 12/11/16 00:06 Dose: 15 mg Multi-Ingred Cream/Lotion/Oil/Oint (Artificial Tears Ophth Oint) 1 applic OU Q4HR PRN PRN Reason: Dry Eye(s) Last Admin: 12/11/16 00:12 Dose: 1 applic Potassium Chloride (Potassium Chloride) 40 meq FEEDTUBE QDAY [facility] Last Admin: 12/11/16 10:39 Dose: 40 meq Senna (Senokot) 8.6 mg PO HS [facility] Last Admin: 12/11/16 00:07 Dose: Not Given Simple Syrup (Simple Syrup) 15 ml FEEDTUBE PRN PRN PRN Reason: Hypoglycemia Last Admin: 11/28/16 00:22 Dose: 15 ml Simple Syrup (Simple Syrup) 30 ml FEEDTUBE PRN PRN PRN Reason: Hypoglycemia Sodium Bicarbonate (Sodium Bicarbonate) 325 mg FEEDTUBE PRN PRN PRN Reason: For Clogged Feeding Tube Exam Vital Signs Pulse Pulse Ox 111 H 96 11/26/16 18:18 11/26/16 18:18 - Neck Positive: trachea midline, no venous distension - Respiratory Positive: normal expansion - Cardiovascular Rhythm: irregularly irregular - Extremities Extremities: no ischemia - Abdomen Abdomen: Present: soft. Absent: surgical scars - Neurologic Neurologic: alert and oriented to time, place and person, other (follows commands) Results - Labs 12/10/16 Unknown 12/10/16 05:04 Abnormal lab results 12/10/16 12/10/16 12/10/16 Range/Units 12:25 17:54 18:30 Heparin Anti-Xa Level < 0.10 L (0.3-0.7) U.I./ml POC Glucose 169 H 170 H (70-105) 12/10/16 12/11/16 12/11/16 Range/Units 23:51 04:08 Unknown Heparin Anti-Xa Level 0.21 L (0.3-0.7) U.I./ml POC Glucose 163 H 150 H (70-105) Assessment and Plan I discussed tracheostomy and PEG with her . Risks, benefits and alternatives were discussed and include but are not limited to bleeding, infection, injury to adjacent organs, loss of airway which can result in , premature dislodgement of tube which could results in the need for more surgery. His questions were answered until he verbalized that he understood and did not have any more questions. He wishes us to proceed with doing those two procedures. I will let the trucking contractor know to set a bedside Trach/PEG up as soon as there is an opening. Then we will hold the heparin preop.
--- NOTE | 2016-12-11 13:56 | Progress Note ---
Assessment and Plan Assessment and plan: Patient has extremely high probability of clinically significant sudden or life- threatening deterioration of the cardiovascular neurologic and pulmonologically symptoms. Will require more full and direct attention and intervention and personal management. Patient aggregate critical time was 35 minutes at this time. This time is in addition to the time spent performing reported procedures but includes data review and interpretation patient assessment and monitoring. Disposition Plan: 35 min - Patient Problems (1) Acute respiratory failure Current Visit: Yes Status: Acute Qualifiers: Respiratory failure complication: R Plan to address problem: He should acute and now chronic respiratory failure. Patient will require PEG and trach. Plan for a.m. He consult surgery [facility]. Patient with mucous plug aspirated mucous plug family consult services aware. (2) Aspiration pneumonia Current Visit: Yes Status: Acute Qualifiers: Aspiration pneumonia type: A Laterality: L Lung location: L Plan to address problem: Sepsis has resolved. Patient off anabiotic set this particular time. No fever no leukocytosis no changes in overall condition in the past before hours. His main concern is been mucus plugging cardiorespiratory arrest. Growth via bacteria. The cultures no growth. (3) Encephalopathy acute Current Visit: Yes Status: Acute Plan to address problem: Resolved. Patient able to answer questions appropriately by shaking his head. Unable to speak but alert. (4) Sepsis Current Visit: Yes Status: Resolved Qualifiers: Sepsis type: S (5) UTI (urinary tract infection) Current Visit: Yes Status: Resolved Qualifiers: Urinary tract infection type: U Hematuria presence: H Indwelling urinary catheter type: I Encounter type: E (6) Cardiac arrest due to respiratory disorder Current Visit: Yes Status: Acute Plan to address problem: Should not increase morbidity and mentality that much. Remains high risk but this was more a mucous plug as opposed to cardiac in nature. History Interval history: Patient alert able to follow you and track with eyes. Able to shake yes and no at bedside. at the bedside all questions answered to their satisfaction. Aware of trach plans tomorrow. H&H status post cardiorespiratory arrest resuscitated via ACLS protocol. No further episode was this morning. Hospitalist Physical - Constitutional Vitals: Temp Pulse Resp BP Pulse Ox 98.9 F 88 20 93/43 99 12/11/16 08:00 12/11/16 13:37 12/11/16 13:37 12/11/16 11:41 12/11/16 11:41 General appearance: Present: no acute distress (intubated, unresponsive) - EENT Eyes: Present: PERRL, EOM intact ENT: hearing intact, clear oral mucosa - Neck Neck: Present: supple, normal ROM - Respiratory Respiratory effort: normal - Cardiovascular Rhythm: regular - Extremities Extremities: pulses symmetrical, No edema Extremity abnormal: edema, cyanosis, pulses diminished, tenderness Peripheral Pulses: within normal limits - Abdominal General gastrointestinal: soft, non-tender, distended, hypoactive bowel sounds - Psychiatric Psychiatric: cooperative, agitated, other (intubated) - Neurologic Neurologic: CNII-XII intact Results - Labs CBC & Chem 7: 12/10/16 Unknown 12/10/16 05:04 Labs: Laboratory Last Values WBC 9.2 K/mm3 (4.5-11.0) 12/09/16 03:55 RBC 2.39 M/mm3 (3.65-5.03) L 12/09/16 03:55 Hgb 7.1 gm/dl (10.1-14.3) L 12/10/16 Unknown Hct 21.3 % (30.3-42.9) L 12/10/16 Unknown MCV 96 fl (79-97) 12/09/16 03:55 MCH 31 pg (28-32) 12/09/16 03:55 MCHC 33 % (30-34) 12/09/16 03:55 RDW 17.3 % (13.2-15.2) H 12/09/16 03:55 Plt Count 309 K/mm3 (140-440) 12/10/16 Unknown Lymph % (Auto) 22.3 % (13.4-35.0) 12/09/16 03:55 [place] % (Auto) 10.4 % (0.0-7.3) H 12/09/16 03:55 Eos % (Auto) 1.7 % (0.0-4.3) 12/09/16 03:55 Baso % (Auto) 1.2 % (0.0-1.8) 12/09/16 03:55 Lymph # 2.1 K/mm3 (1.2-5.4) 12/09/16 03:55 [place] # 1.0 K/mm3 (0.0-0.8) H 12/09/16 03:55 Eos # 0.2 K/mm3 (0.0-0.4) 12/09/16 03:55 Baso # 0.1 K/mm3 (0.0-0.1) 12/09/16 03:55 Add Manual Diff Complete 11/28/16 04:52 Total Counted 100 11/28/16 04:52 Seg Neutrophils % 64.4 % (40.0-70.0) 12/09/16 03:55 Seg Neuts % (Manual) 83.0 % (40.0-70.0) H 11/28/16 04:52 Band Neutrophils % 7.0 % 11/28/16 04:52 Lymphocytes % (Manual) 6.0 % (13.4-35.0) L 11/28/16 04:52 Reactive Lymphs % (Man) 0 % 11/28/16 04:52 Monocytes % (Manual) 1.0 % (0.0-7.3) 11/28/16 04:52 Eosinophils % (Manual) 3.0 % (0.0-4.3) 11/28/16 04:52 Basophils % (Manual) 0 % (0.0-1.8) 11/28/16 04:52 Metamyelocytes % 0 % 11/28/16 04:52 Myelocytes % 0 % 11/28/16 04:52 Promyelocytes % 0 % 11/28/16 04:52 Blast Cells % 0 % 11/28/16 04:52 Nucleated RBC % Not Reportable 11/28/16 04:52 Seg Neutrophils # 5.9 K/mm3 (1.8-7.7) 12/09/16 03:55 Seg Neutrophils # Man 5.4 K/mm3 (1.8-7.7) 11/28/16 04:52 Band Neutrophils # 0.5 K/mm3 11/28/16 04:52 Lymphocytes # (Manual) 0.4 K/mm3 (1.2-5.4) L 11/28/16 04:52 Abs React Lymphs (Man) 0.0 K/mm3 11/28/16 04:52 Monocytes # (Manual) 0.1 K/mm3 (0.0-0.8) 11/28/16 04:52 Eosinophils # (Manual) 0.2 K/mm3 (0.0-0.4) 11/28/16 04:52 Basophils # (Manual) 0.0 K/mm3 (0.0-0.1) 11/28/16 04:52 Metamyelocytes # 0.0 K/mm3 11/28/16 04:52 Myelocytes # 0.0 K/mm3 11/28/16 04:52 Promyelocytes # 0.0 K/mm3 11/28/16 04:52 Blast Cells # 0.0 K/mm3 11/28/16 04:52 WBC Morphology Not Reportable 11/28/16 04:52 Hypersegmented Neuts Not Reportable 11/28/16 04:52 Hyposegmented Neuts Not Reportable 11/28/16 04:52 Hypogranular Neuts Not Reportable 11/28/16 04:52 Smudge Cells Not Reportable 11/28/16 04:52 Toxic Granulation Not Reportable 11/28/16 04:52 Toxic Vacuolation Not Reportable 11/28/16 04:52 Dohle Bodies Not Reportable 11/28/16 04:52 Pelger-Huet Anomaly Not Reportable 11/28/16 04:52 Caitlin Rods Not Reportable 11/28/16 04:52 Platelet Estimate Consistent w auto 11/28/16 04:52 Clumped Platelets Not Reportable 11/28/16 04:52 Plt Clumps, EDTA Not Reportable 11/28/16 04:52 Large Platelets Not Reportable 11/28/16 04:52 Giant Platelets Not Reportable 11/28/16 04:52 Platelet Satelliting Not Reportable 11/28/16 04:52 Plt Morphology Comment Not Reportable 11/28/16 04:52 RBC Morphology Not Reportable 11/28/16 04:52 Dimorphic RBCs Not Reportable 11/28/16 04:52 Polychromasia Not Reportable 11/28/16 04:52 Hypochromasia Not Reportable 11/28/16 04:52 Poikilocytosis Not Reportable 11/28/16 04:52 Anisocytosis Not Reportable 11/28/16 04:52 Microcytosis Not Reportable 11/28/16 04:52 Macrocytosis Few 11/28/16 04:52 Spherocytes Not Reportable 11/28/16 04:52 Pappenheimer Bodies Not Reportable 11/28/16 04:52 Sickle Cells Not Reportable 11/28/16 04:52 Target Cells Not Reportable 11/28/16 04:52 Tear Drop Cells Not Reportable 11/28/16 04:52 Ovalocytes Not Reportable 11/28/16 04:52 Helmet Cells Not Reportable 11/28/16 04:52 [place] Bodies Not Reportable 11/28/16 04:52 [place] Rings Not Reportable 11/28/16 04:52 Dave Cells Not Reportable 11/28/16 04:52 Bite Cells Not Reportable 11/28/16 04:52 Crenated Cell Not Reportable 11/28/16 04:52 Elliptocytes Not Reportable 11/28/16 04:52 Acanthocytes (Spur) Not Reportable 11/28/16 04:52 Rouleaux Not Reportable 11/28/16 04:52 Hemoglobin C Crystals Not Reportable 11/28/16 04:52 Schistocytes Not Reportable 11/28/16 04:52 Malaria parasites Not Reportable 11/28/16 04:52 Javon Bodies Not Reportable 11/28/16 04:52 Hem Pathologist Commnt No 11/28/16 04:52 PT 17.3 Sec. (12.2-14.9) H 12/08/16 10:45 INR 1.34 (0.87-1.13) H 12/08/16 10:45 APTT 34.5 Sec. (24.2-36.6) 12/08/16 10:45 D-Dimer 1403 ng/mlDDU (0-234) H 12/09/16 11:15 Heparin Anti-Xa Level 0.21 U.I./ml (0.3-0.7) L 12/11/16 Unknown POC ABG pH 7.495 (7.35-7.45) H 12/09/16 04:05 POC ABG pCO2 31.9 (35-45) L 12/09/16 04:05 POC ABG pO2 186 (80-105) H 12/09/16 04:05 POC ABG HCO3 24.6 12/09/16 04:05 POC ABG Total CO2 26 12/09/16 04:05 POC ABG O2 Sat 100 12/09/16 04:05 POC ABG Base Excess 1 12/09/16 04:05 VBG pH 7.376 (7.320-7.420) 11/26/16 18:40 FiO2 35 % 12/09/16 04:05 Sodium 133 mmol/L (137-145) L 12/10/16 05:04 Potassium 4.2 mmol/L (3.6-5.0) 12/10/16 05:04 Chloride 100.0 mmol/L (98-107) 12/10/16 05:04 Carbon Dioxide 27 mmol/L (22-30) 12/10/16 05:04 Anion Gap 10 mmol/L 12/10/16 05:04 BUN 19 mg/dL (7-17) H 12/10/16 05:04 Creatinine 0.6 mg/dL (0.7-1.2) L 12/10/16 05:04 Estimated GFR > 60 ml/min 12/10/16 05:04 BUN/Creatinine Ratio 31.66 % 12/10/16 05:04 Glucose 136 mg/dL (65-100) H 12/10/16 05:04 POC Glucose 156 (70-105) H 12/11/16 12:11 Lactic Acid 1.40 mmol/L (0.7-2.0) 12/06/16 19:03 Calcium 7.6 mg/dL (8.4-10.2) L 12/10/16 05:04 Magnesium 2.00 mg/dL (1.7-2.3) 12/08/16 09:17 Total Bilirubin 0.40 mg/dL (0.1-1.2) 12/07/16 05:00 AST 30 units/L (5-40) 12/07/16 05:00 ALT 11 units/L (7-56) 12/07/16 05:00 Alkaline Phosphatase 142 units/L (35-129) H 12/07/16 05:00 Ammonia 37.0 umol/L (25-60) 11/29/16 11:15 Total Creatine Kinase 18 units/L (30-135) L 11/26/16 18:40 CK-MB (CK-2) 1.4 ng/mL (0.0-4.0) 11/26/16 18:40 CK-MB (CK-2) Rel Index 7.7 (0-4) H 11/26/16 18:40 Troponin T 0.166 ng/mL (0.00-0.029) H* 12/08/16 16:00 C-Reactive Protein 8.10 mg/dL (0.00-1.30) H 12/06/16 11:55 NT-Pro-B Natriuret Pep 08880 pg/mL (0-900) H 11/26/16 18:40 Total Protein 4.7 g/dL (6.3-8.2) L 12/07/16 05:00 Albumin 1.6 g/dL (3.9-5) L 12/07/16 05:00 Albumin/Globulin Ratio 0.5 % 12/07/16 05:00 Triglycerides 180 mg/dL (2-149) H 12/08/16 10:04 Cholesterol 122 mg/dL (50-199) 12/08/16 10:04 LDL Cholesterol Direct 65 mg/dL (50-130) 12/08/16 10:04 HDL Cholesterol 21 mg/dL (40-59) L 12/08/16 10:04 Cholesterol/HDL Ratio 5.80 % 12/08/16 10:04 Vitamin B12 768.6 pg/mL (211-911) 11/29/16 11:15 TSH 2.120 mlU/mL (0.270-4.200) 11/29/16 11:15 Urine Color Matilde (Yellow) 11/26/16 18:35 Urine Turbidity Turbid (Clear) 11/26/16 18:35 Urine pH 6.0 (5.0-7.0) 11/26/16 18:35 Ur Specific [place] 1.018 (1.003-1.030) 11/26/16 18:35 Urine Protein 100 mg/dl mg/dL (Negative) 11/26/16 18:35 Urine Glucose (UA) Neg mg/dL (Negative) 11/26/16 18:35 Urine Ketones Neg mg/dL (Negative) 11/26/16 18:35 Urine Blood Neg (Negative) 11/26/16 18:35 Urine Nitrite Neg (Negative) 11/26/16 18:35 Urine Bilirubin Neg (Negative) 11/26/16 18:35 Urine Urobilinogen < 2.0 mg/dL (<2.0) 11/26/16 18:35 Ur Leukocyte Esterase Mod (Negative) 11/26/16 18:35 Urine WBC (Auto) > 182.0 /HPF (0.0-6.0) H 11/26/16 18:35 Urine RBC (Auto) 6.0 /HPF (0.0-6.0) 11/26/16 18:35 Urine Bacteria (Auto) 4+ /HPF (Negative) 11/26/16 18:35 Urine WBC Clumps 3+ /HPF 11/26/16 18:35 Urine Mucus 3+ /HPF 11/26/16 18:35 Vancomycin Trough 41.9 ug/mL (5.0-20.0) H 11/29/16 07:05 Blood Type B POSITIVE 11/26/16 20:38 Antibody Screen TNR 11/26/16 20:38 NIRAV Antibody Screen Negative 11/26/16 20:38 - Imaging and Cardiology EKG: image reviewed Chest x-ray: image reviewed CT Scan - head: report reviewed
[2016-12-12] MEDS: DILAUDID IV PRN ×3 (01:43→23:15)
[2016-12-12] MEDS: XOPENEX IH SCH ×4 (01:50→20:50)
[2016-12-12 03:01] LABS: Anion Gap 17 mmol/L; Blood Urea Nitrogen 19 mg/dL (7-17); Calcium 7.4 mg/dL (8.4-10.2); Carbon Dioxide 21 mmol/L (22-30); Glucose 99 mg/dL (65-100); Potassium 4.1 mmol/L (3.6-5.0); Sodium 136 mmol/L (137-145)
[2016-12-12 08:06] LABS: Hematocrit 25.5 % (30.3-42.9); Hemoglobin 6.6 gm/dl (10.1-14.3)
[2016-12-12] MEDS: PULMICORT IH SCH ×2 (08:45→20:50)
[2016-12-12] MEDS ORDERED: NACL 0.9% 500 ML 500 ML IV ONE ×2 (09:30→11:00)
[2016-12-12] MEDS: FERROUS SULFATE PO SCH ×3 (10:10→20:06)
--- NOTE | 2016-12-12 10:31 | Progress Note ---
Assessment and Plan Assessment and plan: 61 YO Female NHR with GERD, HTN, DM, Atrial Fib, BLE pressure sores presents to ED for evaluation. SNF staff notified ED because patient noticed to be confused , and minimally responsive. Pt transported to [facility] for evaluation. PT unable to provide history. Pt seen and evaluated in ED and found to be in severe distress and unable to protect her airway. Pt intubated and placed on vent support. Pt found to have sepsis, and evidence of aspiration pneumonia, and UTI. Pt treated IAW sepsis protocol. Acute respiratory failure, requiring MV greater than 96 hours has not been able to wean off the vent. Patient will require PEG and trach. Plan for a.m. consult surgery [place] in place. 2/2 mucus plug Aspiration pneumonia Sepsis has resolved. Patient has completed antibiotics set this particular time. No fever no leukocytosis no changes in overall condition in the past before hours. His main concern is been mucus plugging cardiorespiratory arrest. Growth via bacteria. The cultures no growth. Metabolic Encephalopathy acute improved, due to sepsis and resiratory failure Resolved. Patient able to answer questions appropriately by shaking his head. Unable to speak but alert. Sepsis Continue sepsis protocol UTI (urinary tract infection) She was treated with empiric antibiotics, unfortunately urine culture was contaminated, she has completed antibiotic course Cardiac arrest due to respiratory failure Remains high risk but this was due to a mucous plug as opposed to intrinsic cardiac in nature. Acute on chronic systolic CHF continue diuresis, optimize meds, cardiology on board Paroxysmal atrial fibrillation-->currently sinus rhythm continue PO amiodarone 400mg BID continue heparin gtt (Xarelto unable to be crushed) Echo: LVEF 45 to 50%, Mild MR, R Heart enlargement, Mild to moderate TR, Moderate pulmonary hypertension, RVSP 55 mmHg, Dilated IVC, Pleural effusion, Minimal pericardial effusion Will obtain d-dimer given R heart enlargement/pulm HTN on echo Hypokalemia Improving hypertension BP currently Stable now will continue monitoring Diabetes continue Insulins Anemia PRBC transfusion to keep Hgb around 10 and greater, order 2 units today The high probability of a clinically significant, sudden or life threatening deterioration of the [cardiovascular and pulmonary] system(s) required my full and direct attention, intervention and personal management. The aggregate critical care time was [32] minutes. This time is in addition to time spent performing reported procedures but includes the following: [] Data Review and interpretation [] Patient assessment and monitoring of vital signs [] Documentation [] Medication orders and management History Interval history: patient remains intubated, when sedation is held she is able to obey simple commands Hospitalist Physical - Physical exam Narrative exam: General: Intubated HEENT: MMM, EOMI cardiac: S1-S2 heard lungs: clear to auscultation, abdomen: soft, nontender, nondistended bowel sounds positive extremities: no edema clubbing or cyanosis Skin: Right lower leg venous stasis/diabetic ulcer measuring [id number]. Left lower extremity venous stasis/diabetic ulcer measuring 7x5x0.1cm draining sero-sanguineous/sanguineous drainage with a mild odor. Left ankle diabetic ulcer draining sero-sanguineous drainage with no odor. Left and right buttock stage 2 pressure ulcer draining sero-sanguineous drainage with no odor. Right posterior thigh partial thickness skin loss/abrasion Neuro: Intubated, therefore nonverbal, arousable, basic simple commands, squeezes my hands closes her eyes on request. - Constitutional Vitals: Temp Pulse Resp BP Pulse Ox 97.7 F 76 30 H 91/41 97 12/12/16 08:00 12/12/16 09:30 12/12/16 09:30 12/12/16 09:30 12/12/16 09:30 General appearance: Present: no acute distress (intubated, unresponsive) Results - Labs CBC & Chem 7: 12/15/16 11:10 12/13/16 08:00 Labs: Laboratory Last Values WBC 9.2 K/mm3 (4.5-11.0) 12/09/16 03:55 RBC 2.39 M/mm3 (3.65-5.03) L 12/09/16 03:55 Hgb 6.6 gm/dl (10.1-14.3) L 12/12/16 07:20 Hct 25.5 % (30.3-42.9) L 12/12/16 07:20 MCV 96 fl (79-97) 12/09/16 03:55 MCH 31 pg (28-32) 12/09/16 03:55 MCHC 33 % (30-34) 12/09/16 03:55 RDW 17.3 % (13.2-15.2) H 12/09/16 03:55 Plt Count 209 K/mm3 (140-440) 12/12/16 07:20 Lymph % (Auto) 22.3 % (13.4-35.0) 12/09/16 03:55 [place] % (Auto) 10.4 % (0.0-7.3) H 12/09/16 03:55 Eos % (Auto) 1.7 % (0.0-4.3) 12/09/16 03:55 Baso % (Auto) 1.2 % (0.0-1.8) 12/09/16 03:55 Lymph # 2.1 K/mm3 (1.2-5.4) 12/09/16 03:55 [place] # 1.0 K/mm3 (0.0-0.8) H 12/09/16 03:55 Eos # 0.2 K/mm3 (0.0-0.4) 12/09/16 03:55 Baso # 0.1 K/mm3 (0.0-0.1) 12/09/16 03:55 Add Manual Diff Complete 11/28/16 04:52 Total Counted 100 11/28/16 04:52 Seg Neutrophils % 64.4 % (40.0-70.0) 12/09/16 03:55 Seg Neuts % (Manual) 83.0 % (40.0-70.0) H 11/28/16 04:52 Band Neutrophils % 7.0 % 11/28/16 04:52 Lymphocytes % (Manual) 6.0 % (13.4-35.0) L 11/28/16 04:52 Reactive Lymphs % (Man) 0 % 11/28/16 04:52 Monocytes % (Manual) 1.0 % (0.0-7.3) 11/28/16 04:52 Eosinophils % (Manual) 3.0 % (0.0-4.3) 11/28/16 04:52 Basophils % (Manual) 0 % (0.0-1.8) 11/28/16 04:52 Metamyelocytes % 0 % 11/28/16 04:52 Myelocytes % 0 % 11/28/16 04:52 Promyelocytes % 0 % 11/28/16 04:52 Blast Cells % 0 % 11/28/16 04:52 Nucleated RBC % Not Reportable 11/28/16 04:52 Seg Neutrophils # 5.9 K/mm3 (1.8-7.7) 12/09/16 03:55 Seg Neutrophils # Man 5.4 K/mm3 (1.8-7.7) 11/28/16 04:52 Band Neutrophils # 0.5 K/mm3 11/28/16 04:52 Lymphocytes # (Manual) 0.4 K/mm3 (1.2-5.4) L 11/28/16 04:52 Abs React Lymphs (Man) 0.0 K/mm3 11/28/16 04:52 Monocytes # (Manual) 0.1 K/mm3 (0.0-0.8) 11/28/16 04:52 Eosinophils # (Manual) 0.2 K/mm3 (0.0-0.4) 11/28/16 04:52 Basophils # (Manual) 0.0 K/mm3 (0.0-0.1) 11/28/16 04:52 Metamyelocytes # 0.0 K/mm3 11/28/16 04:52 Myelocytes # 0.0 K/mm3 11/28/16 04:52 Promyelocytes # 0.0 K/mm3 11/28/16 04:52 Blast Cells # 0.0 K/mm3 11/28/16 04:52 WBC Morphology Not Reportable 11/28/16 04:52 Hypersegmented Neuts Not Reportable 11/28/16 04:52 Hyposegmented Neuts Not Reportable 11/28/16 04:52 Hypogranular Neuts Not Reportable 11/28/16 04:52 Smudge Cells Not Reportable 11/28/16 04:52 Toxic Granulation Not Reportable 11/28/16 04:52 Toxic Vacuolation Not Reportable 11/28/16 04:52 Dohle Bodies Not Reportable 11/28/16 04:52 Pelger-Huet Anomaly Not Reportable 11/28/16 04:52 Caitlin Rods Not Reportable 11/28/16 04:52 Platelet Estimate Consistent w auto 11/28/16 04:52 Clumped Platelets Not Reportable 11/28/16 04:52 Plt Clumps, EDTA Not Reportable 11/28/16 04:52 Large Platelets Not Reportable 11/28/16 04:52 Giant Platelets Not Reportable 11/28/16 04:52 Platelet Satelliting Not Reportable 11/28/16 04:52 Plt Morphology Comment Not Reportable 11/28/16 04:52 RBC Morphology Not Reportable 11/28/16 04:52 Dimorphic RBCs Not Reportable 11/28/16 04:52 Polychromasia Not Reportable 11/28/16 04:52 Hypochromasia Not Reportable 11/28/16 04:52 Poikilocytosis Not Reportable 11/28/16 04:52 Anisocytosis Not Reportable 11/28/16 04:52 Microcytosis Not Reportable 11/28/16 04:52 Macrocytosis Few 11/28/16 04:52 Spherocytes Not Reportable 11/28/16 04:52 Pappenheimer Bodies Not Reportable 11/28/16 04:52 Sickle Cells Not Reportable 11/28/16 04:52 Target Cells Not Reportable 11/28/16 04:52 Tear Drop Cells Not Reportable 11/28/16 04:52 Ovalocytes Not Reportable 11/28/16 04:52 Helmet Cells Not Reportable 11/28/16 04:52 [place] Bodies Not Reportable 11/28/16 04:52 [place] Rings Not Reportable 11/28/16 04:52 Lavinia Cells Not Reportable 11/28/16 04:52 Bite Cells Not Reportable 11/28/16 04:52 Crenated Cell Not Reportable 11/28/16 04:52 Elliptocytes Not Reportable 11/28/16 04:52 Acanthocytes (Spur) Not Reportable 11/28/16 04:52 Rouleaux Not Reportable 11/28/16 04:52 Hemoglobin C Crystals Not Reportable 11/28/16 04:52 Schistocytes Not Reportable 11/28/16 04:52 Malaria parasites Not Reportable 11/28/16 04:52 Javon Bodies Not Reportable 11/28/16 04:52 Hem Pathologist Commnt No 11/28/16 04:52 PT 17.3 Sec. (12.2-14.9) H 12/08/16 10:45 INR 1.34 (0.87-1.13) H 12/08/16 10:45 APTT 34.5 Sec. (24.2-36.6) 12/08/16 10:45 D-Dimer 1403 ng/mlDDU (0-234) H 12/09/16 11:15 Heparin Anti-Xa Level < 0.10 U.I./ml (0.3-0.7) L 12/12/16 02:18 POC ABG pH 7.495 (7.35-7.45) H 12/09/16 04:05 POC ABG pCO2 31.9 (35-45) L 12/09/16 04:05 POC ABG pO2 186 (80-105) H 12/09/16 04:05 POC ABG HCO3 24.6 12/09/16 04:05 POC ABG Total CO2 26 12/09/16 04:05 POC ABG O2 Sat 100 12/09/16 04:05 POC ABG Base Excess 1 12/09/16 04:05 VBG pH 7.376 (7.320-7.420) 11/26/16 18:40 FiO2 35 % 12/09/16 04:05 Sodium 136 mmol/L (137-145) L 12/12/16 02:18 Potassium 4.1 mmol/L (3.6-5.0) 12/12/16 02:18 Chloride 102.0 mmol/L (98-107) 12/12/16 02:18 Carbon Dioxide 21 mmol/L (22-30) L 12/12/16 02:18 Anion Gap 17 mmol/L 12/12/16 02:18 BUN 19 mg/dL (7-17) H 12/12/16 02:18 Creatinine 0.5 mg/dL (0.7-1.2) L 12/12/16 02:18 Estimated GFR > 60 ml/min 12/12/16 02:18 BUN/Creatinine Ratio 38.00 % 12/12/16 02:18 Glucose 99 mg/dL (65-100) 12/12/16 02:18 POC Glucose 113 (70-105) H 12/12/16 05:17 Lactic Acid 1.40 mmol/L (0.7-2.0) 12/06/16 19:03 Calcium 7.4 mg/dL (8.4-10.2) L 12/12/16 02:18 Magnesium 2.00 mg/dL (1.7-2.3) 12/08/16 09:17 Total Bilirubin 0.40 mg/dL (0.1-1.2) 12/07/16 05:00 AST 30 units/L (5-40) 12/07/16 05:00 ALT 11 units/L (7-56) 12/07/16 05:00 Alkaline Phosphatase 142 units/L (35-129) H 12/07/16 05:00 Ammonia 37.0 umol/L (25-60) 11/29/16 11:15 Total Creatine Kinase 18 units/L (30-135) L 11/26/16 18:40 CK-MB (CK-2) 1.4 ng/mL (0.0-4.0) 11/26/16 18:40 CK-MB (CK-2) Rel Index 7.7 (0-4) H 11/26/16 18:40 Troponin T 0.166 ng/mL (0.00-0.029) H* 12/08/16 16:00 C-Reactive Protein 8.10 mg/dL (0.00-1.30) H 12/06/16 11:55 NT-Pro-B Natriuret Pep 25101 pg/mL (0-900) H 11/26/16 18:40 Total Protein 4.7 g/dL (6.3-8.2) L 12/07/16 05:00 Albumin 1.6 g/dL (3.9-5) L 12/07/16 05:00 Albumin/Globulin Ratio 0.5 % 12/07/16 05:00 Triglycerides 180 mg/dL (2-149) H 12/08/16 10:04 Cholesterol 122 mg/dL (50-199) 12/08/16 10:04 LDL Cholesterol Direct 65 mg/dL (50-130) 12/08/16 10:04 HDL Cholesterol 21 mg/dL (40-59) L 12/08/16 10:04 Cholesterol/HDL Ratio 5.80 % 12/08/16 10:04 Vitamin B12 768.6 pg/mL (211-911) 11/29/16 11:15 TSH 2.120 mlU/mL (0.270-4.200) 11/29/16 11:15 Urine Color Matilde (Yellow) 11/26/16 18:35 Urine Turbidity Turbid (Clear) 11/26/16 18:35 Urine pH 6.0 (5.0-7.0) 11/26/16 18:35 Ur Specific [place] 1.018 (1.003-1.030) 11/26/16 18:35 Urine Protein 100 mg/dl mg/dL (Negative) 11/26/16 18:35 Urine Glucose (UA) Neg mg/dL (Negative) 11/26/16 18:35 Urine Ketones Neg mg/dL (Negative) 11/26/16 18:35 Urine Blood Neg (Negative) 11/26/16 18:35 Urine Nitrite Neg (Negative) 11/26/16 18:35 Urine Bilirubin Neg (Negative) 11/26/16 18:35 Urine Urobilinogen < 2.0 mg/dL (<2.0) 11/26/16 18:35 Ur Leukocyte Esterase Mod (Negative) 11/26/16 18:35 Urine WBC (Auto) > 182.0 /HPF (0.0-6.0) H 11/26/16 18:35 Urine RBC (Auto) 6.0 /HPF (0.0-6.0) 11/26/16 18:35 Urine Bacteria (Auto) 4+ /HPF (Negative) 11/26/16 18:35 Urine WBC Clumps 3+ /HPF 11/26/16 18:35 Urine Mucus 3+ /HPF 11/26/16 18:35 Vancomycin Trough 41.9 ug/mL (5.0-20.0) H 11/29/16 07:05 Blood Type B POSITIVE 11/26/16 20:38 Antibody Screen TNR 11/26/16 20:38 NIRAV Antibody Screen Negative 11/26/16 20:38
[2016-12-12] MEDS: LASIX IV SCH ×2 (10:49→22:01)
[2016-12-12] MEDS: POTASSIUM CHLORIDE FEEDTUBE SCH (10:49)
[2016-12-12] MEDS: CORDARONE PO SCH ×2 (10:49→22:00)
[2016-12-12] MEDS: PEPCID PO SCH ×2 (10:49→22:01)
[2016-12-12] MEDS: HEPARIN/ 0.45% NACL-25,000 UNIT/500 ML 25,000 UNIT/500 ML BAG IV SCH ×2 (10:49→18:15)
--- NOTE | 2016-12-12 11:57 | Progress Note ---
Assessment and Plan 61 y/o female with acute respiratory failure requiring mechanical ventilation, now extubated with elevated BNP on admission, with history of afib on xarelto, now with acute respiratory failure requiring mechanical ventilation secondary to aspiration of a mucus plug, now cleared. 1. Continue diuresis as BP and renal function will allow. Will check BMP today. I/O if accurate show that patient is grossly positive. Has not compromise lung function yet. 2. Await surgery evaluation for trach and peg. Scheduled for tomorrow. 3. Family has agreed to trach and peg. 4. Daily net negative state if possible 5. Anticoagulation for afib. 6. Transfusion today, may need to hold heparin. CCT 31 minutes. Subjective Date of service: 12/12/16 Principal diagnosis: acute respiratory failure Interval history: No acute events. H/H is lower this am. No acute signs of bleeding. Being transfused today. Objective Vital Signs - 12hr 12/12/16 12/12/16 12/12/16 00:00 00:30 01:00 Temperature Pulse Rate 75 76 75 Pulse Rate [ Anterior Bilateral Throughout] Respiratory 22 22 22 Rate Respiratory Rate [Anterior Bilateral Throughout] Blood Pressure 88/41 84/39 89/41 O2 Sat by Pulse 98 98 95 Oximetry 12/12/16 12/12/16 12/12/16 01:30 01:43 01:50 Temperature Pulse Rate 75 Pulse Rate [ 76 Anterior Bilateral Throughout] Respiratory 23 16 Rate Respiratory 23 Rate [Anterior Bilateral Throughout] Blood Pressure 84/39 O2 Sat by Pulse 98 Oximetry 12/12/16 12/12/16 12/12/16 02:00 02:02 02:13 Temperature Pulse Rate 74 Pulse Rate [ 75 Anterior Bilateral Throughout] Respiratory 25 H 19 Rate Respiratory 22 Rate [Anterior Bilateral Throughout] Blood Pressure 83/38 O2 Sat by Pulse 100 Oximetry 12/12/16 12/12/16 12/12/16 02:30 03:00 03:30 Temperature Pulse Rate 92 H 109 H 88 Pulse Rate [ Anterior Bilateral Throughout] Respiratory 22 14 20 Rate Respiratory Rate [Anterior Bilateral Throughout] Blood Pressure 107/43 120/54 120/54 O2 Sat by Pulse 98 98 98 Oximetry 12/12/16 12/12/16 12/12/16 03:39 03:48 04:00 Temperature 100.9 F H Pulse Rate 87 90 Pulse Rate [ Anterior Bilateral Throughout] Respiratory 20 Rate Respiratory Rate [Anterior Bilateral Throughout] Blood Pressure 120/54 99/41 O2 Sat by Pulse 98 97 Oximetry 12/12/16 12/12/16 12/12/16 04:30 05:00 05:30 Temperature Pulse Rate 80 83 77 Pulse Rate [ Anterior Bilateral Throughout] Respiratory 18 19 22 Rate Respiratory Rate [Anterior Bilateral Throughout] Blood Pressure 99/41 90/39 90/39 O2 Sat by Pulse 84 98 97 Oximetry 12/12/16 12/12/16 12/12/16 06:00 06:30 07:00 Temperature Pulse Rate 76 75 71 Pulse Rate [ Anterior Bilateral Throughout] Respiratory 23 20 19 Rate Respiratory Rate [Anterior Bilateral Throughout] Blood Pressure 86/39 86/39 86/38 O2 Sat by Pulse 97 97 83 L Oximetry 12/12/16 12/12/16 12/12/16 07:30 08:00 08:25 Temperature 97.7 F Pulse Rate 74 75 Pulse Rate [ Anterior Bilateral Throughout] Respiratory 19 20 Rate Respiratory Rate [Anterior Bilateral Throughout] Blood Pressure 86/38 85/39 O2 Sat by Pulse 96 97 98 Oximetry 12/12/16 12/12/16 12/12/16 08:30 08:39 08:53 Temperature Pulse Rate 74 73 76 Pulse Rate [ 73 75 Anterior Bilateral Throughout] Respiratory 22 34 H Rate Respiratory 20 22 Rate [Anterior Bilateral Throughout] Blood Pressure 85/39 85/39 90/42 O2 Sat by Pulse 98 98 97 Oximetry 12/12/16 12/12/16 12/12/16 09:00 09:03 09:30 Temperature Pulse Rate 77 79 76 Pulse Rate [ Anterior Bilateral Throughout] Respiratory 32 H 32 H 30 H Rate Respiratory Rate [Anterior Bilateral Throughout] Blood Pressure 91/41 90/42 91/41 O2 Sat by Pulse 98 97 97 Oximetry 12/12/16 12/12/16 12/12/16 10:00 10:30 10:51 Temperature Pulse Rate 76 77 74 Pulse Rate [ Anterior Bilateral Throughout] Respiratory 24 29 H 31 H Rate Respiratory Rate [Anterior Bilateral Throughout] Blood Pressure 94/40 91/41 94/40 O2 Sat by Pulse 97 97 97 Oximetry 12/12/16 12/12/16 10:56 11:10 Temperature Pulse Rate 75 76 Pulse Rate [ Anterior Bilateral Throughout] Respiratory 32 H 30 H Rate Respiratory Rate [Anterior Bilateral Throughout] Blood Pressure 94/40 98/46 O2 Sat by Pulse 98 98 Oximetry Constitutional: no acute distress Eyes: non-icteric ENT: other (ETT in position) Effort: normal Ascultation: Right: rales, Bilateral: clear, diminished breath sounds, rhonchi ( rare) Percussion: Bilateral: not dull Cardiovascular: irregular rhythm Gastrointestinal: normoactive bowel sounds, non-distended Integumentary: normal Extremities: no cyanosis, no edema Neurologic: other ( 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 (12.2-14.9) H 12/08/16 10:45 INR 1.34 (0.87-1.13) H 12/08/16 10:45 D-Dimer 1403 ng/mlDDU (0-234) H 12/09/16 11:15 Abnormal lab findings: Abnormal Labs 11/26/16 11/27/16 11/27/16 20:20 05:43 23:43 WBC RBC Hgb Hct MCV RDW Lymph % (Auto) [place] % (Auto) Lymph # [place] # Seg Neutrophils % Seg Neuts % (Manual) Lymphocytes % (Manual) Lymphocytes # (Manual) PT INR D-Dimer Heparin Anti-Xa Level POC ABG pH 7.574 H POC ABG pCO2 29.9 L POC ABG pO2 57 L 147 H Sodium Potassium Chloride Carbon Dioxide BUN Creatinine Glucose POC Glucose 63 L Lactic Acid Calcium ALT Alkaline Phosphatase Troponin T C-Reactive Protein Total Protein Albumin Triglycerides HDL Cholesterol Vancomycin Trough Crossmatch 11/28/16 11/28/16 11/29/16 04:52 04:52 05:15 WBC RBC 3.04 L 2.95 L Hgb 9.4 L 9.2 L Hct 28.6 L MCV 102 H D RDW 19.9 H 19.5 H Lymph % (Auto) 13.1 L [place] % (Auto) 7.9 H Lymph # 0.8 L [place] # Seg Neutrophils % 77.7 H Seg Neuts % (Manual) 83.0 H Lymphocytes % (Manual) 6.0 L Lymphocytes # (Manual) 0.4 L PT INR D-Dimer Heparin Anti-Xa Level POC ABG pH POC ABG pCO2 POC ABG pO2 Sodium Potassium Chloride 110.0 H Carbon Dioxide 20 L BUN Creatinine 0.3 L Glucose POC Glucose Lactic Acid Calcium 7.0 L ALT Alkaline Phosphatase Troponin T C-Reactive Protein Total Protein Albumin Triglycerides HDL Cholesterol Vancomycin Trough Crossmatch 11/29/16 11/29/16 11/29/16 05:15 05:23 06:18 WBC RBC Hgb Hct MCV RDW Lymph % (Auto) [place] % (Auto) Lymph # [place] # Seg Neutrophils % Seg Neuts % (Manual) Lymphocytes % (Manual) Lymphocytes # (Manual) PT INR D-Dimer Heparin Anti-Xa Level POC ABG pH 7.474 H POC ABG pCO2 30.2 L POC ABG pO2 Sodium Potassium 3.1 L D Chloride 112.3 H Carbon Dioxide BUN 6 L Creatinine 0.3 L Glucose POC Glucose 120 H Lactic Acid Calcium 7.1 L ALT Alkaline Phosphatase Troponin T C-Reactive Protein Total Protein Albumin Triglycerides HDL Cholesterol Vancomycin Trough Crossmatch 11/29/16 11/29/16 11/29/16 07:05 11:54 18:31 WBC RBC Hgb Hct MCV RDW Lymph % (Auto) [place] % (Auto) Lymph # [place] # Seg Neutrophils % Seg Neuts % (Manual) Lymphocytes % (Manual) Lymphocytes # (Manual) PT INR D-Dimer Heparin Anti-Xa Level POC ABG pH POC ABG pCO2 POC ABG pO2 Sodium Potassium Chloride Carbon Dioxide BUN Creatinine Glucose POC Glucose 122 H 179 H Lactic Acid Calcium ALT Alkaline Phosphatase Troponin T C-Reactive Protein Total Protein Albumin Triglycerides HDL Cholesterol Vancomycin Trough 41.9 H Crossmatch 11/29/16 11/30/16 11/30/16 23:16 04:01 07:40 WBC RBC 2.51 L Hgb 7.7 L Hct 24.8 L MCV 99 H RDW 19.4 H Lymph % (Auto) [place] % (Auto) Lymph # [place] # Seg Neutrophils % Seg Neuts % (Manual) Lymphocytes % (Manual) Lymphocytes # (Manual) PT INR D-Dimer Heparin Anti-Xa Level POC ABG pH 7.468 H POC ABG pCO2 30.6 L POC ABG pO2 Sodium Potassium Chloride Carbon Dioxide BUN Creatinine Glucose POC Glucose 149 H Lactic Acid Calcium ALT Alkaline Phosphatase Troponin T C-Reactive Protein Total Protein Albumin Triglycerides HDL Cholesterol Vancomycin Trough Crossmatch 11/30/16 11/30/16 11/30/16 07:40 12:42 17:30 WBC RBC Hgb Hct MCV RDW Lymph % (Auto) [place] % (Auto) Lymph # [place] # Seg Neutrophils % Seg Neuts % (Manual) Lymphocytes % (Manual) Lymphocytes # (Manual) PT INR D-Dimer Heparin Anti-Xa Level POC ABG pH POC ABG pCO2 POC ABG pO2 Sodium Potassium Chloride 113.7 H Carbon Dioxide BUN Creatinine 0.5 L D Glucose POC Glucose 134 H 114 H Lactic Acid Calcium 7.1 L ALT 6 L Alkaline Phosphatase 167 H Troponin T C-Reactive Protein Total Protein 4.0 L Albumin 1.0 L Triglycerides HDL Cholesterol Vancomycin Trough Crossmatch 11/30/16 12/01/16 12/01/16 23:39 05:52 06:36 WBC RBC 2.60 L Hgb 8.1 L Hct 25.4 L MCV 98 H RDW 19.7 H Lymph % (Auto) [place] % (Auto) 9.0 H Lymph # 1.1 L [place] # Seg Neutrophils % Seg Neuts % (Manual) Lymphocytes % (Manual) Lymphocytes # (Manual) PT INR D-Dimer Heparin Anti-Xa Level POC ABG pH POC ABG pCO2 POC ABG pO2 Sodium Potassium Chloride Carbon Dioxide BUN Creatinine Glucose POC Glucose 121 H 134 H Lactic Acid Calcium ALT Alkaline Phosphatase Troponin T C-Reactive Protein Total Protein Albumin Triglycerides HDL Cholesterol Vancomycin Trough Crossmatch 12/01/16 12/01/16 12/01/16 06:36 11:34 17:40 WBC RBC Hgb Hct MCV RDW Lymph % (Auto) [place] % (Auto) Lymph # [place] # Seg Neutrophils % Seg Neuts % (Manual) Lymphocytes % (Manual) Lymphocytes # (Manual) PT INR D-Dimer Heparin Anti-Xa Level POC ABG pH POC ABG pCO2 POC ABG pO2 Sodium Potassium Chloride 113.8 H Carbon Dioxide BUN Creatinine 0.5 L Glucose 120 H POC Glucose 167 H 117 H Lactic Acid Calcium 7.3 L ALT Alkaline Phosphatase Troponin T C-Reactive Protein Total Protein Albumin Triglycerides HDL Cholesterol Vancomycin Trough Crossmatch 12/02/16 12/02/16 12/02/16 00:35 05:03 05:44 WBC RBC Hgb Hct MCV RDW Lymph % (Auto) [place] % (Auto) Lymph # [place] # Seg Neutrophils % Seg Neuts % (Manual) Lymphocytes % (Manual) Lymphocytes # (Manual) PT INR D-Dimer Heparin Anti-Xa Level POC ABG pH POC ABG pCO2 30.9 L POC ABG pO2 77 L Sodium Potassium Chloride Carbon Dioxide BUN Creatinine Glucose POC Glucose 129 H 154 H Lactic Acid Calcium ALT Alkaline Phosphatase Troponin T C-Reactive Protein Total Protein Albumin Triglycerides HDL Cholesterol Vancomycin Trough Crossmatch 12/02/16 12/02/16 12/03/16 18:03 23:53 05:17 WBC RBC Hgb Hct MCV RDW Lymph % (Auto) [place] % (Auto) Lymph # [place] # Seg Neutrophils % Seg Neuts % (Manual) Lymphocytes % (Manual) Lymphocytes # (Manual) PT INR D-Dimer Heparin Anti-Xa Level POC ABG pH POC ABG pCO2 POC ABG pO2 Sodium Potassium Chloride Carbon Dioxide BUN Creatinine Glucose POC Glucose 135 H 158 H 177 H Lactic Acid Calcium ALT Alkaline Phosphatase Troponin T C-Reactive Protein Total Protein Albumin Triglycerides HDL Cholesterol Vancomycin Trough Crossmatch 12/03/16 12/03/16 12/03/16 05:30 09:35 11:46 WBC RBC 2.50 L Hgb 8.0 L Hct 24.8 L MCV 99 H RDW 18.8 H Lymph % (Auto) [place] % (Auto) 11.9 H Lymph # [place] # Seg Neutrophils % Seg Neuts % (Manual) Lymphocytes % (Manual) Lymphocytes # (Manual) PT INR D-Dimer Heparin Anti-Xa Level POC ABG pH POC ABG pCO2 POC ABG pO2 Sodium Potassium 3.5 L Chloride 109.9 H Carbon Dioxide BUN Creatinine 0.4 L Glucose 162 H POC Glucose 157 H Lactic Acid Calcium 7.5 L ALT Alkaline Phosphatase Troponin T C-Reactive Protein Total Protein Albumin Triglycerides HDL Cholesterol Vancomycin Trough Crossmatch 12/03/16 12/03/16 12/04/16 18:25 23:32 05:24 WBC RBC Hgb Hct MCV RDW Lymph % (Auto) [place] % (Auto) Lymph # [place] # Seg Neutrophils % Seg Neuts % (Manual) Lymphocytes % (Manual) Lymphocytes # (Manual) PT INR D-Dimer Heparin Anti-Xa Level POC ABG pH POC ABG pCO2 POC ABG pO2 Sodium Potassium Chloride Carbon Dioxide BUN Creatinine Glucose POC Glucose 134 H 152 H 176 H Lactic Acid Calcium ALT Alkaline Phosphatase Troponin T C-Reactive Protein Total Protein Albumin Triglycerides HDL Cholesterol Vancomycin Trough Crossmatch 12/04/16 12/04/16 12/04/16 05:29 08:15 08:15 WBC RBC 2.41 L Hgb 7.5 L Hct 23.7 L MCV 98 H RDW 18.4 H Lymph % (Auto) [place] % (Auto) 12.7 H Lymph # 0.9 L [place] # Seg Neutrophils % Seg Neuts % (Manual) Lymphocytes % (Manual) Lymphocytes # (Manual) PT INR D-Dimer Heparin Anti-Xa Level POC ABG pH POC ABG pCO2 POC ABG pO2 116 H Sodium Potassium 3.3 L Chloride 108.0 H Carbon Dioxide BUN Creatinine 0.4 L Glucose 160 H POC Glucose Lactic Acid Calcium 7.5 L ALT Alkaline Phosphatase Troponin T C-Reactive Protein Total Protein Albumin Triglycerides HDL Cholesterol Vancomycin Trough Crossmatch 12/04/16 12/04/16 12/04/16 11:42 15:12 16:49 WBC RBC Hgb Hct MCV RDW Lymph % (Auto) [place] % (Auto) Lymph # [place] # Seg Neutrophils % Seg Neuts % (Manual) Lymphocytes % (Manual) Lymphocytes # (Manual) PT INR D-Dimer Heparin Anti-Xa Level POC ABG pH 7.322 L POC ABG pCO2 48.9 H POC ABG pO2 59 L 77 L Sodium Potassium Chloride Carbon Dioxide BUN Creatinine Glucose POC Glucose 142 H Lactic Acid Calcium ALT Alkaline Phosphatase Troponin T C-Reactive Protein Total Protein Albumin Triglycerides HDL Cholesterol Vancomycin Trough Crossmatch 12/04/16 12/05/16 12/05/16 18:28 00:10 03:15 WBC RBC 3.17 L Hgb 9.8 L Hct MCV RDW 18.0 H Lymph % (Auto) 10.1 L [place] % (Auto) Lymph # 0.7 L [place] # Seg Neutrophils % 81.7 H Seg Neuts % (Manual) Lymphocytes % (Manual) Lymphocytes # (Manual) PT INR D-Dimer Heparin Anti-Xa Level POC ABG pH POC ABG pCO2 POC ABG pO2 Sodium Potassium Chloride Carbon Dioxide BUN Creatinine Glucose POC Glucose 136 H 138 H Lactic Acid Calcium ALT Alkaline Phosphatase Troponin T C-Reactive Protein Total Protein Albumin Triglycerides HDL Cholesterol Vancomycin Trough Crossmatch 12/05/16 12/05/16 12/05/16 03:15 05:38 12:23 WBC RBC Hgb Hct MCV RDW Lymph % (Auto) [place] % (Auto) Lymph # [place] # Seg Neutrophils % Seg Neuts % (Manual) Lymphocytes % (Manual) Lymphocytes # (Manual) PT INR D-Dimer Heparin Anti-Xa Level POC ABG pH POC ABG pCO2 POC ABG pO2 Sodium Potassium 3.3 L Chloride Carbon Dioxide BUN Creatinine 0.3 L Glucose 130 H POC Glucose 185 H 178 H Lactic Acid Calcium 7.5 L ALT Alkaline Phosphatase Troponin T C-Reactive Protein Total Protein Albumin Triglycerides HDL Cholesterol Vancomycin Trough Crossmatch 12/05/16 12/05/16 12/06/16 16:14 18:29 00:06 WBC RBC Hgb Hct MCV RDW Lymph % (Auto) [place] % (Auto) Lymph # [place] # Seg Neutrophils % Seg Neuts % (Manual) Lymphocytes % (Manual) Lymphocytes # (Manual) PT INR D-Dimer Heparin Anti-Xa Level POC ABG pH POC ABG pCO2 POC ABG pO2 Sodium Potassium Chloride Carbon Dioxide BUN Creatinine Glucose POC Glucose 145 H 147 H 163 H Lactic Acid Calcium ALT Alkaline Phosphatase Troponin T C-Reactive Protein Total Protein Albumin Triglycerides HDL Cholesterol Vancomycin Trough Crossmatch 12/06/16 12/06/16 12/06/16 04:00 05:15 06:37 WBC RBC 2.30 L Hgb 7.2 L Hct 22.7 L D MCV 99 H RDW 17.9 H Lymph % (Auto) [place] % (Auto) 9.5 H Lymph # 0.9 L [place] # Seg Neutrophils % Seg Neuts % (Manual) Lymphocytes % (Manual) Lymphocytes # (Manual) PT INR D-Dimer Heparin Anti-Xa Level POC ABG pH POC ABG pCO2 POC ABG pO2 Sodium Potassium 3.5 L Chloride Carbon Dioxide BUN Creatinine 0.4 L Glucose 138 H POC Glucose 190 H Lactic Acid Calcium 7.7 L ALT Alkaline Phosphatase Troponin T C-Reactive Protein Total Protein Albumin Triglycerides HDL Cholesterol Vancomycin Trough Crossmatch 12/06/16 12/06/16 12/06/16 11:55 11:55 11:55 WBC 15.0 H RBC 2.79 L Hgb 8.6 L Hct 28.3 L MCV 101 H RDW 18.4 H Lymph % (Auto) [place] % (Auto) Lymph # [place] # Seg Neutrophils % Seg Neuts % (Manual) Lymphocytes % (Manual) Lymphocytes # (Manual) PT INR D-Dimer Heparin Anti-Xa Level POC ABG pH POC ABG pCO2 POC ABG pO2 Sodium 136 L Potassium 5.5 H D Chloride Carbon Dioxide BUN Creatinine 0.3 L Glucose 143 H POC Glucose Lactic Acid 5.70 H* Calcium ALT Alkaline Phosphatase Troponin T C-Reactive Protein Total Protein Albumin Triglycerides HDL Cholesterol Vancomycin Trough Crossmatch 12/06/16 12/06/16 12/07/16 11:55 12:10 05:00 WBC RBC Hgb Hct MCV RDW Lymph % (Auto) [place] % (Auto) Lymph # [place] # Seg Neutrophils % Seg Neuts % (Manual) Lymphocytes % (Manual) Lymphocytes # (Manual) PT INR D-Dimer Heparin Anti-Xa Level POC ABG pH POC ABG pCO2 POC ABG pO2 Sodium Potassium Chloride Carbon Dioxide BUN Creatinine 0.4 L Glucose POC Glucose 154 H Lactic Acid Calcium 7.5 L ALT Alkaline Phosphatase 142 H Troponin T C-Reactive Protein 8.10 H Total Protein 4.7 L Albumin 1.6 L Triglycerides HDL Cholesterol Vancomycin Trough Crossmatch 12/07/16 12/07/16 12/07/16 05:00 06:14 16:52 WBC RBC 2.36 L Hgb 7.3 L Hct 23.1 L MCV 98 H D RDW 17.8 H Lymph % (Auto) [place] % (Auto) 8.5 H Lymph # 1.0 L [place] # Seg Neutrophils % 76.9 H Seg Neuts % (Manual) Lymphocytes % (Manual) Lymphocytes # (Manual) PT INR D-Dimer Heparin Anti-Xa Level POC ABG pH 7.508 H POC ABG pCO2 31.1 L POC ABG pO2 131 H Sodium Potassium Chloride Carbon Dioxide BUN Creatinine Glucose POC Glucose 130 H Lactic Acid Calcium ALT Alkaline Phosphatase Troponin T C-Reactive Protein Total Protein Albumin Triglycerides HDL Cholesterol Vancomycin Trough Crossmatch 12/07/16 12/08/16 12/08/16 23:37 04:00 04:00 WBC RBC 2.26 L Hgb 7.1 L Hct 22.2 L MCV 98 H RDW 17.6 H Lymph % (Auto) [place] % (Auto) 9.5 H Lymph # 1.0 L [place] # Seg Neutrophils % 71.7 H Seg Neuts % (Manual) Lymphocytes % (Manual) Lymphocytes # (Manual) PT INR D-Dimer Heparin Anti-Xa Level POC ABG pH POC ABG pCO2 POC ABG pO2 Sodium Potassium 3.0 L Chloride Carbon Dioxide BUN Creatinine 0.5 L Glucose 124 H POC Glucose 107 H Lactic Acid Calcium 7.7 L ALT Alkaline Phosphatase Troponin T C-Reactive Protein Total Protein Albumin Triglycerides HDL Cholesterol Vancomycin Trough Crossmatch 12/08/16 12/08/16 12/08/16 05:16 05:34 10:04 WBC RBC Hgb Hct MCV RDW Lymph % (Auto) [place] % (Auto) Lymph # [place] # Seg Neutrophils % Seg Neuts % (Manual) Lymphocytes % (Manual) Lymphocytes # (Manual) PT INR D-Dimer Heparin Anti-Xa Level POC ABG pH 7.492 H POC ABG pCO2 31.5 L POC ABG pO2 112 H Sodium Potassium Chloride Carbon Dioxide BUN Creatinine Glucose POC Glucose 148 H Lactic Acid Calcium ALT Alkaline Phosphatase Troponin T 0.146 H* C-Reactive Protein Total Protein Albumin Triglycerides 180 H HDL Cholesterol 21 L Vancomycin Trough Crossmatch 12/08/16 12/08/16 12/08/16 10:45 12:09 16:00 WBC RBC Hgb Hct MCV RDW Lymph % (Auto) [place] % (Auto) Lymph # [place] # Seg Neutrophils % Seg Neuts % (Manual) Lymphocytes % (Manual) Lymphocytes # (Manual) PT 17.3 H INR 1.34 H D-Dimer Heparin Anti-Xa Level POC ABG pH POC ABG pCO2 POC ABG pO2 Sodium Potassium Chloride Carbon Dioxide BUN Creatinine Glucose POC Glucose 205 H Lactic Acid Calcium ALT Alkaline Phosphatase Troponin T 0.166 H* C-Reactive Protein Total Protein Albumin Triglycerides HDL Cholesterol Vancomycin Trough Crossmatch 12/08/16 12/08/16 12/08/16 17:45 17:49 23:29 WBC RBC Hgb Hct MCV RDW Lymph % (Auto) [place] % (Auto) Lymph # [place] # Seg Neutrophils % Seg Neuts % (Manual) Lymphocytes % (Manual) Lymphocytes # (Manual) PT INR D-Dimer Heparin Anti-Xa Level < 0.10 L POC ABG pH POC ABG pCO2 POC ABG pO2 Sodium Potassium Chloride Carbon Dioxide BUN Creatinine Glucose POC Glucose 174 H 180 H Lactic Acid Calcium ALT Alkaline Phosphatase Troponin T C-Reactive Protein Total Protein Albumin Triglycerides HDL Cholesterol Vancomycin Trough Crossmatch 12/09/16 12/09/16 12/09/16 01:00 03:55 03:55 WBC RBC 2.39 L Hgb 7.5 L Hct 23.0 L MCV RDW 17.3 H Lymph % (Auto) [place] % (Auto) 10.4 H Lymph # [place] # 1.0 H Seg Neutrophils % Seg Neuts % (Manual) Lymphocytes % (Manual) Lymphocytes # (Manual) PT INR D-Dimer Heparin Anti-Xa Level < 0.10 L POC ABG pH POC ABG pCO2 POC ABG pO2 Sodium 135 L Potassium Chloride Carbon Dioxide BUN 18 H Creatinine Glucose 187 H POC Glucose Lactic Acid Calcium 7.4 L ALT Alkaline Phosphatase Troponin T C-Reactive Protein Total Protein Albumin Triglycerides HDL Cholesterol Vancomycin Trough Crossmatch 12/09/16 12/09/16 12/09/16 04:05 05:37 11:15 WBC RBC Hgb Hct MCV RDW Lymph % (Auto) [place] % (Auto) Lymph # [place] # Seg Neutrophils % Seg Neuts % (Manual) Lymphocytes % (Manual) Lymphocytes # (Manual) PT INR D-Dimer Heparin Anti-Xa Level < 0.10 L POC ABG pH 7.495 H POC ABG pCO2 31.9 L POC ABG pO2 186 H Sodium Potassium Chloride Carbon Dioxide BUN Creatinine Glucose POC Glucose 213 H Lactic Acid Calcium ALT Alkaline Phosphatase Troponin T C-Reactive Protein Total Protein Albumin Triglycerides HDL Cholesterol Vancomycin Trough Crossmatch 12/09/16 12/09/16 12/09/16 11:15 12:16 17:43 WBC RBC Hgb Hct MCV RDW Lymph % (Auto) [place] % (Auto) Lymph # [place] # Seg Neutrophils % Seg Neuts % (Manual) Lymphocytes % (Manual) Lymphocytes # (Manual) PT INR D-Dimer 1403 H Heparin Anti-Xa Level POC ABG pH POC ABG pCO2 POC ABG pO2 Sodium Potassium Chloride Carbon Dioxide BUN Creatinine Glucose POC Glucose 194 H 165 H Lactic Acid Calcium ALT Alkaline Phosphatase Troponin T C-Reactive Protein Total Protein Albumin Triglycerides HDL Cholesterol Vancomycin Trough Crossmatch 12/09/16 12/10/16 12/10/16 19:30 00:04 02:48 WBC RBC Hgb Hct MCV RDW Lymph % (Auto) [place] % (Auto) Lymph # [place] # Seg Neutrophils % Seg Neuts % (Manual) Lymphocytes % (Manual) Lymphocytes # (Manual) PT INR D-Dimer Heparin Anti-Xa Level < 0.10 L < 0.10 L POC ABG pH POC ABG pCO2 POC ABG pO2 Sodium Potassium Chloride Carbon Dioxide BUN Creatinine Glucose POC Glucose 143 H Lactic Acid Calcium ALT Alkaline Phosphatase Troponin T C-Reactive Protein Total Protein Albumin Triglycerides HDL Cholesterol Vancomycin Trough Crossmatch 12/10/16 12/10/16 12/10/16 05:04 05:17 09:06 WBC RBC Hgb Hct MCV RDW Lymph % (Auto) [place] % (Auto) Lymph # [place] # Seg Neutrophils % Seg Neuts % (Manual) Lymphocytes % (Manual) Lymphocytes # (Manual) PT INR D-Dimer Heparin Anti-Xa Level < 0.10 L POC ABG pH POC ABG pCO2 POC ABG pO2 Sodium 133 L Potassium Chloride Carbon Dioxide BUN 19 H Creatinine 0.6 L Glucose 136 H POC Glucose 127 H Lactic Acid Calcium 7.6 L ALT Alkaline Phosphatase Troponin T C-Reactive Protein Total Protein Albumin Triglycerides HDL Cholesterol Vancomycin Trough Crossmatch 12/10/16 12/10/16 12/10/16 12:25 17:54 18:30 WBC RBC Hgb Hct MCV RDW Lymph % (Auto) [place] % (Auto) Lymph # [place] # Seg Neutrophils % Seg Neuts % (Manual) Lymphocytes % (Manual) Lymphocytes # (Manual) PT INR D-Dimer Heparin Anti-Xa Level < 0.10 L POC ABG pH POC ABG pCO2 POC ABG pO2 Sodium Potassium Chloride Carbon Dioxide BUN Creatinine Glucose POC Glucose 169 H 170 H Lactic Acid Calcium ALT Alkaline Phosphatase Troponin T C-Reactive Protein Total Protein Albumin Triglycerides HDL Cholesterol Vancomycin Trough Crossmatch 12/10/16 12/10/16 12/11/16 23:51 Unknown 04:08 WBC RBC Hgb 7.1 L Hct 21.3 L MCV RDW Lymph % (Auto) [place] % (Auto) Lymph # [place] # Seg Neutrophils % Seg Neuts % (Manual) Lymphocytes % (Manual) Lymphocytes # (Manual) PT INR D-Dimer Heparin Anti-Xa Level POC ABG pH POC ABG pCO2 POC ABG pO2 Sodium Potassium Chloride Carbon Dioxide BUN Creatinine Glucose POC Glucose 163 H 150 H Lactic Acid Calcium ALT Alkaline Phosphatase Troponin T C-Reactive Protein Total Protein Albumin Triglycerides HDL Cholesterol Vancomycin Trough Crossmatch 12/11/16 12/11/16 12/11/16 12:11 17:09 23:42 WBC RBC Hgb Hct MCV RDW Lymph % (Auto) [place] % (Auto) Lymph # [place] # Seg Neutrophils % Seg Neuts % (Manual) Lymphocytes % (Manual) Lymphocytes # (Manual) PT INR D-Dimer Heparin Anti-Xa Level POC ABG pH POC ABG pCO2 POC ABG pO2 Sodium Potassium Chloride Carbon Dioxide BUN Creatinine Glucose POC Glucose 156 H 144 H 140 H Lactic Acid Calcium ALT Alkaline Phosphatase Troponin T C-Reactive Protein Total Protein Albumin Triglycerides HDL Cholesterol Vancomycin Trough Crossmatch 12/11/16 12/12/16 12/12/16 Unknown 02:18 02:18 WBC RBC Hgb Hct MCV RDW Lymph % (Auto) [place] % (Auto) Lymph # [place] # Seg Neutrophils % Seg Neuts % (Manual) Lymphocytes % (Manual) Lymphocytes # (Manual) PT INR D-Dimer Heparin Anti-Xa Level 0.21 L < 0.10 L POC ABG pH POC ABG pCO2 POC ABG pO2 Sodium 136 L Potassium Chloride Carbon Dioxide 21 L BUN 19 H Creatinine 0.5 L Glucose POC Glucose Lactic Acid Calcium 7.4 L ALT Alkaline Phosphatase Troponin T C-Reactive Protein Total Protein Albumin Triglycerides HDL Cholesterol Vancomycin Trough Crossmatch 12/12/16 12/12/16 12/12/16 05:17 07:20 10:30 WBC RBC Hgb 6.6 L Hct 25.5 L MCV RDW Lymph % (Auto) [place] % (Auto) Lymph # [place] # Seg Neutrophils % Seg Neuts % (Manual) Lymphocytes % (Manual) Lymphocytes # (Manual) PT INR D-Dimer Heparin Anti-Xa Level POC ABG pH POC ABG pCO2 POC ABG pO2 Sodium Potassium Chloride Carbon Dioxide BUN Creatinine Glucose POC Glucose 113 H Lactic Acid Calcium ALT Alkaline Phosphatase Troponin T C-Reactive Protein Total Protein Albumin Triglycerides HDL Cholesterol Vancomycin Trough Crossmatch See Detail
[2016-12-12] MEDS ORDERED: NACL 0.9% NEBU ONE (15:19)
--- NOTE | 2016-12-12 16:52 | Progress Note ---
Assessment and Plan Respiratory failure with prolonged vent dependence. Patient is to be made nothing by mouth after midnight and we'll hold her heparin drip at that time for surgery in the a.m. Continue supportive care. Discussed with the family. Subjective Date of service: 12/12/16 Patient Reports: Positive: afebrile, other (patient is currently receiving 4 units of packed red cells a low hemoglobin. No other acute events overnight.) Objective Vital Signs - 12hr 12/12/16 12/12/16 12/12/16 05:00 05:30 06:00 Temperature Pulse Rate 83 77 76 Pulse Rate [ Anterior Bilateral Throughout] Respiratory 19 22 23 Rate Respiratory Rate [Anterior Bilateral Throughout] Blood Pressure 90/39 90/39 86/39 O2 Sat by Pulse 98 97 97 Oximetry 12/12/16 12/12/16 12/12/16 06:30 07:00 07:30 Temperature Pulse Rate 75 71 74 Pulse Rate [ Anterior Bilateral Throughout] Respiratory 20 19 19 Rate Respiratory Rate [Anterior Bilateral Throughout] Blood Pressure 86/39 86/38 86/38 O2 Sat by Pulse 97 83 L 96 Oximetry 12/12/16 12/12/16 12/12/16 08:00 08:25 08:30 Temperature 97.7 F Pulse Rate 75 74 Pulse Rate [ Anterior Bilateral Throughout] Respiratory 20 22 Rate Respiratory Rate [Anterior Bilateral Throughout] Blood Pressure 85/39 85/39 O2 Sat by Pulse 97 98 98 Oximetry 12/12/16 12/12/16 12/12/16 08:39 08:53 09:00 Temperature Pulse Rate 73 76 77 Pulse Rate [ 73 75 Anterior Bilateral Throughout] Respiratory 34 H 32 H Rate Respiratory 20 22 Rate [Anterior Bilateral Throughout] Blood Pressure 85/39 90/42 91/41 O2 Sat by Pulse 98 97 98 Oximetry 12/12/16 12/12/16 12/12/16 09:03 09:30 10:00 Temperature Pulse Rate 79 76 76 Pulse Rate [ Anterior Bilateral Throughout] Respiratory 32 H 30 H 24 Rate Respiratory Rate [Anterior Bilateral Throughout] Blood Pressure 90/42 91/41 94/40 O2 Sat by Pulse 97 97 97 Oximetry 12/12/16 12/12/16 12/12/16 10:30 10:51 10:56 Temperature Pulse Rate 77 74 75 Pulse Rate [ Anterior Bilateral Throughout] Respiratory 29 H 31 H 32 H Rate Respiratory Rate [Anterior Bilateral Throughout] Blood Pressure 91/41 94/40 94/40 O2 Sat by Pulse 97 97 98 Oximetry 12/12/16 12/12/16 12/12/16 11:00 11:10 11:30 Temperature Pulse Rate 76 76 76 Pulse Rate [ Anterior Bilateral Throughout] Respiratory 25 H 30 H 27 H Rate Respiratory Rate [Anterior Bilateral Throughout] Blood Pressure 98/46 98/46 98/46 O2 Sat by Pulse 98 98 97 Oximetry 12/12/16 12/12/16 12/12/16 12:00 12:30 13:00 Temperature 99.3 F Pulse Rate 83 87 87 Pulse Rate [ Anterior Bilateral Throughout] Respiratory 28 H 33 H 24 Rate Respiratory Rate [Anterior Bilateral Throughout] Blood Pressure 112/52 112/52 106/52 O2 Sat by Pulse 90 96 97 Oximetry 12/12/16 12/12/16 12/12/16 13:30 13:45 14:00 Temperature 99.6 F 99 F Pulse Rate 92 H 866 H 85 Pulse Rate [ Anterior Bilateral Throughout] Respiratory 32 H 29 H 28 H Rate Respiratory Rate [Anterior Bilateral Throughout] Blood Pressure 117/53 117/53 107/49 O2 Sat by Pulse 96 95 85 Oximetry 12/12/16 12/12/16 12/12/16 14:30 15:00 15:30 Temperature 99.8 F H 99.3 F 99 F Pulse Rate 83 93 H 77 Pulse Rate [ Anterior Bilateral Throughout] Respiratory 27 H 35 H 25 H Rate Respiratory Rate [Anterior Bilateral Throughout] Blood Pressure 108/54 135/53 135/53 O2 Sat by Pulse 96 96 96 Oximetry 12/12/16 12/12/16 12/12/16 15:40 15:49 16:00 Temperature 99.5 F Pulse Rate 83 72 77 Pulse Rate [ 72 Anterior Bilateral Throughout] Respiratory 27 H 29 H 26 H Rate Respiratory 29 H Rate [Anterior Bilateral Throughout] Blood Pressure 119/44 110/49 119/44 O2 Sat by Pulse 96 97 100 Oximetry 12/12/16 16:14 Temperature Pulse Rate Pulse Rate [ 82 Anterior Bilateral Throughout] Respiratory Rate Respiratory 27 H Rate [Anterior Bilateral Throughout] Blood Pressure O2 Sat by Pulse Oximetry - Respiratory normal expansion, normal respiratory effort (3% FiO2) - Abdomen soft, not tender - Neurologic other (awake and responsive) - Labs 12/12/16 07:20 12/12/16 02:18 Diabetes panel 12/12/16 Range/Units 02:18 Sodium 136 L (137-145) mmol/L Potassium 4.1 (3.6-5.0) mmol/L Chloride 102.0 (98-107) mmol/L Carbon Dioxide 21 L (22-30) mmol/L BUN 19 H (7-17) mg/dL Creatinine 0.5 L (0.7-1.2) mg/dL Glucose 99 (65-100) mg/dL Calcium 7.4 L (8.4-10.2) mg/dL Calcium panel 12/12/16 Range/Units 02:18 Calcium 7.4 L (8.4-10.2) mg/dL Pituitary panel 12/12/16 Range/Units 02:18 Sodium 136 L (137-145) mmol/L Potassium 4.1 (3.6-5.0) mmol/L Chloride 102.0 (98-107) mmol/L Carbon Dioxide 21 L (22-30) mmol/L BUN 19 H (7-17) mg/dL Creatinine 0.5 L (0.7-1.2) mg/dL Glucose 99 (65-100) mg/dL Calcium 7.4 L (8.4-10.2) mg/dL Adrenal panel 12/12/16 Range/Units 02:18 Sodium 136 L (137-145) mmol/L Potassium 4.1 (3.6-5.0) mmol/L Chloride 102.0 (98-107) mmol/L Carbon Dioxide 21 L (22-30) mmol/L BUN 19 H (7-17) mg/dL Creatinine 0.5 L (0.7-1.2) mg/dL Glucose 99 (65-100) mg/dL Calcium 7.4 L (8.4-10.2) mg/dL
[2016-12-12] MEDS: TYLENOL FEEDTUBE PRN (19:20)
[2016-12-12] MEDS: REMERON PO SCH (22:01)
[2016-12-12] MEDS: SENOKOT PO SCH (22:11)
[2016-12-13] MEDS: XOPENEX IH SCH ×2 (02:56→09:47)
[2016-12-13 07:12] LABS: Hemoglobin 10.4 gm/dl (10.1-14.3); Mean Corpuscular HGB Conc 33 % (30-34); Mean Corpuscular Hemoglobin 30 pg (28-32); Mean Corpuscular Volume 93 fl (79-97); Platelet Count 304 K/mm3 (140-440); Red Blood Count 3.43 M/mm3 (3.65-5.03)
[2016-12-13] MEDS: FERROUS SULFATE PO SCH ×3 (08:00→22:08)
[2016-12-13 08:30] LABS: Anion Gap 16 mmol/L; Blood Urea Nitrogen 18 mg/dL (7-17); Calcium 7.8 mg/dL (8.4-10.2); Carbon Dioxide 22 mmol/L (22-30); Chloride 104.3 mmol/L (98-107); Glucose 117 mg/dL (65-100); Sodium 138 mmol/L (137-145)
--- NOTE | 2016-12-13 09:19 | Progress Note ---
Assessment and Plan 61 y/o female with acute respiratory failure requiring mechanical ventilation, now extubated with elevated BNP on admission, with history of afib on xarelto, now with acute respiratory failure requiring mechanical ventilation secondary to aspiration of a mucus plug, now cleared. 1. Continue diuresis as BP and renal function will allow. Will check BMP today. I/O if accurate show that patient is grossly positive. Has not compromise lung function yet. 2. Trach and Peg today. 3. Heparin on hold for surgery 4. Daily net negative state if possible 5. Will discuss further placement with CM on IT rounds CCT 31 minutes. Subjective Date of service: 12/13/16 Principal diagnosis: acute respiratory failure Interval history: No acute events overnight. Plan is trach and peg this am. Anesthesia here evaluating. Objective Vital Signs - 12hr 12/12/16 12/12/16 12/12/16 21:18 21:30 21:45 Temperature 99.6 F Pulse Rate 73 79 72 Pulse Rate [ Anterior Bilateral Throughout] Respiratory 18 26 H 22 Rate Respiratory Rate [Anterior Bilateral Throughout] Blood Pressure 98/49 104/49 103/49 O2 Sat by Pulse 98 98 99 Oximetry 12/12/16 12/12/16 12/12/16 22:00 22:30 22:36 Temperature 99.9 F H Pulse Rate 72 70 71 Pulse Rate [ Anterior Bilateral Throughout] Respiratory 25 H 24 20 Rate Respiratory Rate [Anterior Bilateral Throughout] Blood Pressure 103/49 108/49 114/53 O2 Sat by Pulse 99 98 98 Oximetry 12/12/16 12/12/16 12/13/16 23:00 23:30 00:00 Temperature 99.6 F Pulse Rate 91 H 76 66 Pulse Rate [ Anterior Bilateral Throughout] Respiratory 16 22 18 Rate Respiratory Rate [Anterior Bilateral Throughout] Blood Pressure 108/49 146/82 104/56 O2 Sat by Pulse 96 98 98 Oximetry 12/13/16 12/13/16 12/13/16 00:06 00:10 00:20 Temperature 99.5 F Pulse Rate 71 67 62 Pulse Rate [ Anterior Bilateral Throughout] Respiratory 19 19 17 Rate Respiratory Rate [Anterior Bilateral Throughout] Blood Pressure 104/56 104/56 104/56 O2 Sat by Pulse 98 98 98 Oximetry 12/13/16 12/13/16 12/13/16 00:30 00:40 00:50 Temperature Pulse Rate 63 63 64 Pulse Rate [ Anterior Bilateral Throughout] Respiratory 18 18 20 Rate Respiratory Rate [Anterior Bilateral Throughout] Blood Pressure 97/50 97/50 97/50 O2 Sat by Pulse 98 98 98 Oximetry 12/13/16 12/13/16 12/13/16 01:00 01:10 01:20 Temperature Pulse Rate 67 62 63 Pulse Rate [ Anterior Bilateral Throughout] Respiratory 20 22 21 Rate Respiratory Rate [Anterior Bilateral Throughout] Blood Pressure 99/51 99/51 99/51 O2 Sat by Pulse 98 98 98 Oximetry 12/13/16 12/13/16 12/13/16 01:28 01:30 01:33 Temperature 99.6 F Pulse Rate 66 59 L 63 Pulse Rate [ Anterior Bilateral Throughout] Respiratory 22 17 Rate Respiratory Rate [Anterior Bilateral Throughout] Blood Pressure 99/51 92/49 99/51 O2 Sat by Pulse 98 98 98 Oximetry 12/13/16 12/13/16 12/13/16 01:40 01:50 02:00 Temperature Pulse Rate 60 59 L 60 Pulse Rate [ Anterior Bilateral Throughout] Respiratory 19 18 17 Rate Respiratory Rate [Anterior Bilateral Throughout] Blood Pressure 92/49 92/49 101/53 O2 Sat by Pulse 98 97 98 Oximetry 12/13/16 12/13/16 12/13/16 02:10 02:19 02:30 Temperature 99.2 F Pulse Rate 58 L 58 L 57 L Pulse Rate [ Anterior Bilateral Throughout] Respiratory 18 18 16 Rate Respiratory Rate [Anterior Bilateral Throughout] Blood Pressure 101/53 101/53 98/50 O2 Sat by Pulse 98 98 98 Oximetry 12/13/16 12/13/16 12/13/16 02:40 02:52 03:00 Temperature Pulse Rate 56 L Pulse Rate [ 66 67 Anterior Bilateral Throughout] Respiratory 16 Rate Respiratory 16 16 Rate [Anterior Bilateral Throughout] Blood Pressure 100/52 O2 Sat by Pulse 100 Oximetry 12/13/16 12/13/16 12/13/16 03:30 03:58 04:00 Temperature 99.2 F Pulse Rate 58 L 58 L 58 L Pulse Rate [ Anterior Bilateral Throughout] Respiratory 17 17 Rate Respiratory Rate [Anterior Bilateral Throughout] Blood Pressure 102/53 100/52 102/55 O2 Sat by Pulse 98 98 98 Oximetry 12/13/16 12/13/16 12/13/16 04:30 05:00 05:30 Temperature Pulse Rate 60 60 57 L Pulse Rate [ Anterior Bilateral Throughout] Respiratory 17 18 17 Rate Respiratory Rate [Anterior Bilateral Throughout] Blood Pressure 110/56 110/55 103/53 O2 Sat by Pulse 98 99 98 Oximetry 12/13/16 12/13/16 12/13/16 06:00 06:30 07:00 Temperature Pulse Rate 67 77 59 L Pulse Rate [ Anterior Bilateral Throughout] Respiratory 16 28 H 17 Rate Respiratory Rate [Anterior Bilateral Throughout] Blood Pressure 103/53 120/57 108/54 O2 Sat by Pulse 99 95 98 Oximetry 12/13/16 12/13/16 12/13/16 07:30 08:00 08:30 Temperature 98.1 F Pulse Rate 62 60 59 L Pulse Rate [ Anterior Bilateral Throughout] Respiratory 22 23 21 Rate Respiratory Rate [Anterior Bilateral Throughout] Blood Pressure 115/56 113/56 104/54 O2 Sat by Pulse 97 97 97 Oximetry Constitutional: no acute distress Eyes: non-icteric ENT: other (ETT in position) Effort: normal Ascultation: Bilateral: clear, diminished breath sounds Percussion: Bilateral: not dull Cardiovascular: irregular rhythm Gastrointestinal: normoactive bowel sounds, non-distended Integumentary: normal Extremities: no cyanosis, no edema Neurologic: other ( stuporous, slightly up 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 (12.2-14.9) H 12/08/16 10:45 INR 1.34 (0.87-1.13) H 12/08/16 10:45 D-Dimer 1403 ng/mlDDU (0-234) H 12/09/16 11:15 Abnormal lab findings: Abnormal Labs 11/26/16 11/27/16 11/27/16 20:20 05:43 23:43 WBC RBC Hgb Hct MCV RDW Lymph % (Auto) [place] % (Auto) Lymph # [place] # Seg Neutrophils % Seg Neuts % (Manual) Lymphocytes % (Manual) Lymphocytes # (Manual) PT INR D-Dimer Heparin Anti-Xa Level POC ABG pH 7.574 H POC ABG pCO2 29.9 L POC ABG pO2 57 L 147 H Sodium Potassium Chloride Carbon Dioxide BUN Creatinine Glucose POC Glucose 63 L Lactic Acid Calcium ALT Alkaline Phosphatase Troponin T C-Reactive Protein Total Protein Albumin Triglycerides HDL Cholesterol Vancomycin Trough Crossmatch 11/28/16 11/28/16 11/29/16 04:52 04:52 05:15 WBC RBC 3.04 L 2.95 L Hgb 9.4 L 9.2 L Hct 28.6 L MCV 102 H D RDW 19.9 H 19.5 H Lymph % (Auto) 13.1 L [place] % (Auto) 7.9 H Lymph # 0.8 L [place] # Seg Neutrophils % 77.7 H Seg Neuts % (Manual) 83.0 H Lymphocytes % (Manual) 6.0 L Lymphocytes # (Manual) 0.4 L PT INR D-Dimer Heparin Anti-Xa Level POC ABG pH POC ABG pCO2 POC ABG pO2 Sodium Potassium Chloride 110.0 H Carbon Dioxide 20 L BUN Creatinine 0.3 L Glucose POC Glucose Lactic Acid Calcium 7.0 L ALT Alkaline Phosphatase Troponin T C-Reactive Protein Total Protein Albumin Triglycerides HDL Cholesterol Vancomycin Trough Crossmatch 11/29/16 11/29/16 11/29/16 05:15 05:23 06:18 WBC RBC Hgb Hct MCV RDW Lymph % (Auto) [place] % (Auto) Lymph # [place] # Seg Neutrophils % Seg Neuts % (Manual) Lymphocytes % (Manual) Lymphocytes # (Manual) PT INR D-Dimer Heparin Anti-Xa Level POC ABG pH 7.474 H POC ABG pCO2 30.2 L POC ABG pO2 Sodium Potassium 3.1 L D Chloride 112.3 H Carbon Dioxide BUN 6 L Creatinine 0.3 L Glucose POC Glucose 120 H Lactic Acid Calcium 7.1 L ALT Alkaline Phosphatase Troponin T C-Reactive Protein Total Protein Albumin Triglycerides HDL Cholesterol Vancomycin Trough Crossmatch 11/29/16 11/29/16 11/29/16 07:05 11:54 18:31 WBC RBC Hgb Hct MCV RDW Lymph % (Auto) [place] % (Auto) Lymph # [place] # Seg Neutrophils % Seg Neuts % (Manual) Lymphocytes % (Manual) Lymphocytes # (Manual) PT INR D-Dimer Heparin Anti-Xa Level POC ABG pH POC ABG pCO2 POC ABG pO2 Sodium Potassium Chloride Carbon Dioxide BUN Creatinine Glucose POC Glucose 122 H 179 H Lactic Acid Calcium ALT Alkaline Phosphatase Troponin T C-Reactive Protein Total Protein Albumin Triglycerides HDL Cholesterol Vancomycin Trough 41.9 H Crossmatch 11/29/16 11/30/16 11/30/16 23:16 04:01 07:40 WBC RBC 2.51 L Hgb 7.7 L Hct 24.8 L MCV 99 H RDW 19.4 H Lymph % (Auto) [place] % (Auto) Lymph # [place] # Seg Neutrophils % Seg Neuts % (Manual) Lymphocytes % (Manual) Lymphocytes # (Manual) PT INR D-Dimer Heparin Anti-Xa Level POC ABG pH 7.468 H POC ABG pCO2 30.6 L POC ABG pO2 Sodium Potassium Chloride Carbon Dioxide BUN Creatinine Glucose POC Glucose 149 H Lactic Acid Calcium ALT Alkaline Phosphatase Troponin T C-Reactive Protein Total Protein Albumin Triglycerides HDL Cholesterol Vancomycin Trough Crossmatch 11/30/16 11/30/16 11/30/16 07:40 12:42 17:30 WBC RBC Hgb Hct MCV RDW Lymph % (Auto) [place] % (Auto) Lymph # [place] # Seg Neutrophils % Seg Neuts % (Manual) Lymphocytes % (Manual) Lymphocytes # (Manual) PT INR D-Dimer Heparin Anti-Xa Level POC ABG pH POC ABG pCO2 POC ABG pO2 Sodium Potassium Chloride 113.7 H Carbon Dioxide BUN Creatinine 0.5 L D Glucose POC Glucose 134 H 114 H Lactic Acid Calcium 7.1 L ALT 6 L Alkaline Phosphatase 167 H Troponin T C-Reactive Protein Total Protein 4.0 L Albumin 1.0 L Triglycerides HDL Cholesterol Vancomycin Trough Crossmatch 11/30/16 12/01/16 12/01/16 23:39 05:52 06:36 WBC RBC 2.60 L Hgb 8.1 L Hct 25.4 L MCV 98 H RDW 19.7 H Lymph % (Auto) [place] % (Auto) 9.0 H Lymph # 1.1 L [place] # Seg Neutrophils % Seg Neuts % (Manual) Lymphocytes % (Manual) Lymphocytes # (Manual) PT INR D-Dimer Heparin Anti-Xa Level POC ABG pH POC ABG pCO2 POC ABG pO2 Sodium Potassium Chloride Carbon Dioxide BUN Creatinine Glucose POC Glucose 121 H 134 H Lactic Acid Calcium ALT Alkaline Phosphatase Troponin T C-Reactive Protein Total Protein Albumin Triglycerides HDL Cholesterol Vancomycin Trough Crossmatch 12/01/16 12/01/16 12/01/16 06:36 11:34 17:40 WBC RBC Hgb Hct MCV RDW Lymph % (Auto) [place] % (Auto) Lymph # [place] # Seg Neutrophils % Seg Neuts % (Manual) Lymphocytes % (Manual) Lymphocytes # (Manual) PT INR D-Dimer Heparin Anti-Xa Level POC ABG pH POC ABG pCO2 POC ABG pO2 Sodium Potassium Chloride 113.8 H Carbon Dioxide BUN Creatinine 0.5 L Glucose 120 H POC Glucose 167 H 117 H Lactic Acid Calcium 7.3 L ALT Alkaline Phosphatase Troponin T C-Reactive Protein Total Protein Albumin Triglycerides HDL Cholesterol Vancomycin Trough Crossmatch 12/02/16 12/02/16 12/02/16 00:35 05:03 05:44 WBC RBC Hgb Hct MCV RDW Lymph % (Auto) [place] % (Auto) Lymph # [place] # Seg Neutrophils % Seg Neuts % (Manual) Lymphocytes % (Manual) Lymphocytes # (Manual) PT INR D-Dimer Heparin Anti-Xa Level POC ABG pH POC ABG pCO2 30.9 L POC ABG pO2 77 L Sodium Potassium Chloride Carbon Dioxide BUN Creatinine Glucose POC Glucose 129 H 154 H Lactic Acid Calcium ALT Alkaline Phosphatase Troponin T C-Reactive Protein Total Protein Albumin Triglycerides HDL Cholesterol Vancomycin Trough Crossmatch 12/02/16 12/02/16 12/03/16 18:03 23:53 05:17 WBC RBC Hgb Hct MCV RDW Lymph % (Auto) [place] % (Auto) Lymph # [place] # Seg Neutrophils % Seg Neuts % (Manual) Lymphocytes % (Manual) Lymphocytes # (Manual) PT INR D-Dimer Heparin Anti-Xa Level POC ABG pH POC ABG pCO2 POC ABG pO2 Sodium Potassium Chloride Carbon Dioxide BUN Creatinine Glucose POC Glucose 135 H 158 H 177 H Lactic Acid Calcium ALT Alkaline Phosphatase Troponin T C-Reactive Protein Total Protein Albumin Triglycerides HDL Cholesterol Vancomycin Trough Crossmatch 12/03/16 12/03/16 12/03/16 05:30 09:35 11:46 WBC RBC 2.50 L Hgb 8.0 L Hct 24.8 L MCV 99 H RDW 18.8 H Lymph % (Auto) [place] % (Auto) 11.9 H Lymph # [place] # Seg Neutrophils % Seg Neuts % (Manual) Lymphocytes % (Manual) Lymphocytes # (Manual) PT INR D-Dimer Heparin Anti-Xa Level POC ABG pH POC ABG pCO2 POC ABG pO2 Sodium Potassium 3.5 L Chloride 109.9 H Carbon Dioxide BUN Creatinine 0.4 L Glucose 162 H POC Glucose 157 H Lactic Acid Calcium 7.5 L ALT Alkaline Phosphatase Troponin T C-Reactive Protein Total Protein Albumin Triglycerides HDL Cholesterol Vancomycin Trough Crossmatch 12/03/16 12/03/16 12/04/16 18:25 23:32 05:24 WBC RBC Hgb Hct MCV RDW Lymph % (Auto) [place] % (Auto) Lymph # [place] # Seg Neutrophils % Seg Neuts % (Manual) Lymphocytes % (Manual) Lymphocytes # (Manual) PT INR D-Dimer Heparin Anti-Xa Level POC ABG pH POC ABG pCO2 POC ABG pO2 Sodium Potassium Chloride Carbon Dioxide BUN Creatinine Glucose POC Glucose 134 H 152 H 176 H Lactic Acid Calcium ALT Alkaline Phosphatase Troponin T C-Reactive Protein Total Protein Albumin Triglycerides HDL Cholesterol Vancomycin Trough Crossmatch 12/04/16 12/04/16 12/04/16 05:29 08:15 08:15 WBC RBC 2.41 L Hgb 7.5 L Hct 23.7 L MCV 98 H RDW 18.4 H Lymph % (Auto) [place] % (Auto) 12.7 H Lymph # 0.9 L [place] # Seg Neutrophils % Seg Neuts % (Manual) Lymphocytes % (Manual) Lymphocytes # (Manual) PT INR D-Dimer Heparin Anti-Xa Level POC ABG pH POC ABG pCO2 POC ABG pO2 116 H Sodium Potassium 3.3 L Chloride 108.0 H Carbon Dioxide BUN Creatinine 0.4 L Glucose 160 H POC Glucose Lactic Acid Calcium 7.5 L ALT Alkaline Phosphatase Troponin T C-Reactive Protein Total Protein Albumin Triglycerides HDL Cholesterol Vancomycin Trough Crossmatch 12/04/16 12/04/16 12/04/16 11:42 15:12 16:49 WBC RBC Hgb Hct MCV RDW Lymph % (Auto) [place] % (Auto) Lymph # [place] # Seg Neutrophils % Seg Neuts % (Manual) Lymphocytes % (Manual) Lymphocytes # (Manual) PT INR D-Dimer Heparin Anti-Xa Level POC ABG pH 7.322 L POC ABG pCO2 48.9 H POC ABG pO2 59 L 77 L Sodium Potassium Chloride Carbon Dioxide BUN Creatinine Glucose POC Glucose 142 H Lactic Acid Calcium ALT Alkaline Phosphatase Troponin T C-Reactive Protein Total Protein Albumin Triglycerides HDL Cholesterol Vancomycin Trough Crossmatch 12/04/16 12/05/16 12/05/16 18:28 00:10 03:15 WBC RBC 3.17 L Hgb 9.8 L Hct MCV RDW 18.0 H Lymph % (Auto) 10.1 L [place] % (Auto) Lymph # 0.7 L [place] # Seg Neutrophils % 81.7 H Seg Neuts % (Manual) Lymphocytes % (Manual) Lymphocytes # (Manual) PT INR D-Dimer Heparin Anti-Xa Level POC ABG pH POC ABG pCO2 POC ABG pO2 Sodium Potassium Chloride Carbon Dioxide BUN Creatinine Glucose POC Glucose 136 H 138 H Lactic Acid Calcium ALT Alkaline Phosphatase Troponin T C-Reactive Protein Total Protein Albumin Triglycerides HDL Cholesterol Vancomycin Trough Crossmatch 12/05/16 12/05/16 12/05/16 03:15 05:38 12:23 WBC RBC Hgb Hct MCV RDW Lymph % (Auto) [place] % (Auto) Lymph # [place] # Seg Neutrophils % Seg Neuts % (Manual) Lymphocytes % (Manual) Lymphocytes # (Manual) PT INR D-Dimer Heparin Anti-Xa Level POC ABG pH POC ABG pCO2 POC ABG pO2 Sodium Potassium 3.3 L Chloride Carbon Dioxide BUN Creatinine 0.3 L Glucose 130 H POC Glucose 185 H 178 H Lactic Acid Calcium 7.5 L ALT Alkaline Phosphatase Troponin T C-Reactive Protein Total Protein Albumin Triglycerides HDL Cholesterol Vancomycin Trough Crossmatch 12/05/16 12/05/16 12/06/16 16:14 18:29 00:06 WBC RBC Hgb Hct MCV RDW Lymph % (Auto) [place] % (Auto) Lymph # [place] # Seg Neutrophils % Seg Neuts % (Manual) Lymphocytes % (Manual) Lymphocytes # (Manual) PT INR D-Dimer Heparin Anti-Xa Level POC ABG pH POC ABG pCO2 POC ABG pO2 Sodium Potassium Chloride Carbon Dioxide BUN Creatinine Glucose POC Glucose 145 H 147 H 163 H Lactic Acid Calcium ALT Alkaline Phosphatase Troponin T C-Reactive Protein Total Protein Albumin Triglycerides HDL Cholesterol Vancomycin Trough Crossmatch 12/06/16 12/06/16 12/06/16 04:00 05:15 06:37 WBC RBC 2.30 L Hgb 7.2 L Hct 22.7 L D MCV 99 H RDW 17.9 H Lymph % (Auto) [place] % (Auto) 9.5 H Lymph # 0.9 L [place] # Seg Neutrophils % Seg Neuts % (Manual) Lymphocytes % (Manual) Lymphocytes # (Manual) PT INR D-Dimer Heparin Anti-Xa Level POC ABG pH POC ABG pCO2 POC ABG pO2 Sodium Potassium 3.5 L Chloride Carbon Dioxide BUN Creatinine 0.4 L Glucose 138 H POC Glucose 190 H Lactic Acid Calcium 7.7 L ALT Alkaline Phosphatase Troponin T C-Reactive Protein Total Protein Albumin Triglycerides HDL Cholesterol Vancomycin Trough Crossmatch 12/06/16 12/06/16 12/06/16 11:55 11:55 11:55 WBC 15.0 H RBC 2.79 L Hgb 8.6 L Hct 28.3 L MCV 101 H RDW 18.4 H Lymph % (Auto) [place] % (Auto) Lymph # [place] # Seg Neutrophils % Seg Neuts % (Manual) Lymphocytes % (Manual) Lymphocytes # (Manual) PT INR D-Dimer Heparin Anti-Xa Level POC ABG pH POC ABG pCO2 POC ABG pO2 Sodium 136 L Potassium 5.5 H D Chloride Carbon Dioxide BUN Creatinine 0.3 L Glucose 143 H POC Glucose Lactic Acid 5.70 H* Calcium ALT Alkaline Phosphatase Troponin T C-Reactive Protein Total Protein Albumin Triglycerides HDL Cholesterol Vancomycin Trough Crossmatch 12/06/16 12/06/16 12/07/16 11:55 12:10 05:00 WBC RBC Hgb Hct MCV RDW Lymph % (Auto) [place] % (Auto) Lymph # [place] # Seg Neutrophils % Seg Neuts % (Manual) Lymphocytes % (Manual) Lymphocytes # (Manual) PT INR D-Dimer Heparin Anti-Xa Level POC ABG pH POC ABG pCO2 POC ABG pO2 Sodium Potassium Chloride Carbon Dioxide BUN Creatinine 0.4 L Glucose POC Glucose 154 H Lactic Acid Calcium 7.5 L ALT Alkaline Phosphatase 142 H Troponin T C-Reactive Protein 8.10 H Total Protein 4.7 L Albumin 1.6 L Triglycerides HDL Cholesterol Vancomycin Trough Crossmatch 12/07/16 12/07/16 12/07/16 05:00 06:14 16:52 WBC RBC 2.36 L Hgb 7.3 L Hct 23.1 L MCV 98 H D RDW 17.8 H Lymph % (Auto) [place] % (Auto) 8.5 H Lymph # 1.0 L [place] # Seg Neutrophils % 76.9 H Seg Neuts % (Manual) Lymphocytes % (Manual) Lymphocytes # (Manual) PT INR D-Dimer Heparin Anti-Xa Level POC ABG pH 7.508 H POC ABG pCO2 31.1 L POC ABG pO2 131 H Sodium Potassium Chloride Carbon Dioxide BUN Creatinine Glucose POC Glucose 130 H Lactic Acid Calcium ALT Alkaline Phosphatase Troponin T C-Reactive Protein Total Protein Albumin Triglycerides HDL Cholesterol Vancomycin Trough Crossmatch 12/07/16 12/08/16 12/08/16 23:37 04:00 04:00 WBC RBC 2.26 L Hgb 7.1 L Hct 22.2 L MCV 98 H RDW 17.6 H Lymph % (Auto) [place] % (Auto) 9.5 H Lymph # 1.0 L [place] # Seg Neutrophils % 71.7 H Seg Neuts % (Manual) Lymphocytes % (Manual) Lymphocytes # (Manual) PT INR D-Dimer Heparin Anti-Xa Level POC ABG pH POC ABG pCO2 POC ABG pO2 Sodium Potassium 3.0 L Chloride Carbon Dioxide BUN Creatinine 0.5 L Glucose 124 H POC Glucose 107 H Lactic Acid Calcium 7.7 L ALT Alkaline Phosphatase Troponin T C-Reactive Protein Total Protein Albumin Triglycerides HDL Cholesterol Vancomycin Trough Crossmatch 12/08/16 12/08/16 12/08/16 05:16 05:34 10:04 WBC RBC Hgb Hct MCV RDW Lymph % (Auto) [place] % (Auto) Lymph # [place] # Seg Neutrophils % Seg Neuts % (Manual) Lymphocytes % (Manual) Lymphocytes # (Manual) PT INR D-Dimer Heparin Anti-Xa Level POC ABG pH 7.492 H POC ABG pCO2 31.5 L POC ABG pO2 112 H Sodium Potassium Chloride Carbon Dioxide BUN Creatinine Glucose POC Glucose 148 H Lactic Acid Calcium ALT Alkaline Phosphatase Troponin T 0.146 H* C-Reactive Protein Total Protein Albumin Triglycerides 180 H HDL Cholesterol 21 L Vancomycin Trough Crossmatch 12/08/16 12/08/16 12/08/16 10:45 12:09 16:00 WBC RBC Hgb Hct MCV RDW Lymph % (Auto) [place] % (Auto) Lymph # [place] # Seg Neutrophils % Seg Neuts % (Manual) Lymphocytes % (Manual) Lymphocytes # (Manual) PT 17.3 H INR 1.34 H D-Dimer Heparin Anti-Xa Level POC ABG pH POC ABG pCO2 POC ABG pO2 Sodium Potassium Chloride Carbon Dioxide BUN Creatinine Glucose POC Glucose 205 H Lactic Acid Calcium ALT Alkaline Phosphatase Troponin T 0.166 H* C-Reactive Protein Total Protein Albumin Triglycerides HDL Cholesterol Vancomycin Trough Crossmatch 12/08/16 12/08/16 12/08/16 17:45 17:49 23:29 WBC RBC Hgb Hct MCV RDW Lymph % (Auto) [place] % (Auto) Lymph # [place] # Seg Neutrophils % Seg Neuts % (Manual) Lymphocytes % (Manual) Lymphocytes # (Manual) PT INR D-Dimer Heparin Anti-Xa Level < 0.10 L POC ABG pH POC ABG pCO2 POC ABG pO2 Sodium Potassium Chloride Carbon Dioxide BUN Creatinine Glucose POC Glucose 174 H 180 H Lactic Acid Calcium ALT Alkaline Phosphatase Troponin T C-Reactive Protein Total Protein Albumin Triglycerides HDL Cholesterol Vancomycin Trough Crossmatch 12/09/16 12/09/16 12/09/16 01:00 03:55 03:55 WBC RBC 2.39 L Hgb 7.5 L Hct 23.0 L MCV RDW 17.3 H Lymph % (Auto) [place] % (Auto) 10.4 H Lymph # [place] # 1.0 H Seg Neutrophils % Seg Neuts % (Manual) Lymphocytes % (Manual) Lymphocytes # (Manual) PT INR D-Dimer Heparin Anti-Xa Level < 0.10 L POC ABG pH POC ABG pCO2 POC ABG pO2 Sodium 135 L Potassium Chloride Carbon Dioxide BUN 18 H Creatinine Glucose 187 H POC Glucose Lactic Acid Calcium 7.4 L ALT Alkaline Phosphatase Troponin T C-Reactive Protein Total Protein Albumin Triglycerides HDL Cholesterol Vancomycin Trough Crossmatch 12/09/16 12/09/16 12/09/16 04:05 05:37 11:15 WBC RBC Hgb Hct MCV RDW Lymph % (Auto) [place] % (Auto) Lymph # [place] # Seg Neutrophils % Seg Neuts % (Manual) Lymphocytes % (Manual) Lymphocytes # (Manual) PT INR D-Dimer Heparin Anti-Xa Level < 0.10 L POC ABG pH 7.495 H POC ABG pCO2 31.9 L POC ABG pO2 186 H Sodium Potassium Chloride Carbon Dioxide BUN Creatinine Glucose POC Glucose 213 H Lactic Acid Calcium ALT Alkaline Phosphatase Troponin T C-Reactive Protein Total Protein Albumin Triglycerides HDL Cholesterol Vancomycin Trough Crossmatch 12/09/16 12/09/16 12/09/16 11:15 12:16 17:43 WBC RBC Hgb Hct MCV RDW Lymph % (Auto) [place] % (Auto) Lymph # [place] # Seg Neutrophils % Seg Neuts % (Manual) Lymphocytes % (Manual) Lymphocytes # (Manual) PT INR D-Dimer 1403 H Heparin Anti-Xa Level POC ABG pH POC ABG pCO2 POC ABG pO2 Sodium Potassium Chloride Carbon Dioxide BUN Creatinine Glucose POC Glucose 194 H 165 H Lactic Acid Calcium ALT Alkaline Phosphatase Troponin T C-Reactive Protein Total Protein Albumin Triglycerides HDL Cholesterol Vancomycin Trough Crossmatch 12/09/16 12/10/16 12/10/16 19:30 00:04 02:48 WBC RBC Hgb Hct MCV RDW Lymph % (Auto) [place] % (Auto) Lymph # [place] # Seg Neutrophils % Seg Neuts % (Manual) Lymphocytes % (Manual) Lymphocytes # (Manual) PT INR D-Dimer Heparin Anti-Xa Level < 0.10 L < 0.10 L POC ABG pH POC ABG pCO2 POC ABG pO2 Sodium Potassium Chloride Carbon Dioxide BUN Creatinine Glucose POC Glucose 143 H Lactic Acid Calcium ALT Alkaline Phosphatase Troponin T C-Reactive Protein Total Protein Albumin Triglycerides HDL Cholesterol Vancomycin Trough Crossmatch 12/10/16 12/10/16 12/10/16 05:04 05:17 09:06 WBC RBC Hgb Hct MCV RDW Lymph % (Auto) [place] % (Auto) Lymph # [place] # Seg Neutrophils % Seg Neuts % (Manual) Lymphocytes % (Manual) Lymphocytes # (Manual) PT INR D-Dimer Heparin Anti-Xa Level < 0.10 L POC ABG pH POC ABG pCO2 POC ABG pO2 Sodium 133 L Potassium Chloride Carbon Dioxide BUN 19 H Creatinine 0.6 L Glucose 136 H POC Glucose 127 H Lactic Acid Calcium 7.6 L ALT Alkaline Phosphatase Troponin T C-Reactive Protein Total Protein Albumin Triglycerides HDL Cholesterol Vancomycin Trough Crossmatch 12/10/16 12/10/16 12/10/16 12:25 17:54 18:30 WBC RBC Hgb Hct MCV RDW Lymph % (Auto) [place] % (Auto) Lymph # [place] # Seg Neutrophils % Seg Neuts % (Manual) Lymphocytes % (Manual) Lymphocytes # (Manual) PT INR D-Dimer Heparin Anti-Xa Level < 0.10 L POC ABG pH POC ABG pCO2 POC ABG pO2 Sodium Potassium Chloride Carbon Dioxide BUN Creatinine Glucose POC Glucose 169 H 170 H Lactic Acid Calcium ALT Alkaline Phosphatase Troponin T C-Reactive Protein Total Protein Albumin Triglycerides HDL Cholesterol Vancomycin Trough Crossmatch 12/10/16 12/10/1617 23:51 Unknown 04:08 WBC RBC Hgb 7.1 L Hct 21.3 L MCV RDW Lymph % (Auto) [place] % (Auto) Lymph # [place] # Seg Neutrophils % Seg Neuts % (Manual) Lymphocytes % (Manual) Lymphocytes # (Manual) PT INR D-Dimer Heparin Anti-Xa Level POC ABG pH POC ABG pCO2 POC ABG pO2 Sodium Potassium Chloride Carbon Dioxide BUN Creatinine Glucose POC Glucose 163 H 150 H Lactic Acid Calcium ALT Alkaline Phosphatase Troponin T C-Reactive Protein Total Protein Albumin Triglycerides HDL Cholesterol Vancomycin Trough Crossmatch 12/11/16 12/11/16 12/11/16 12:11 17:09 23:42 WBC RBC Hgb Hct MCV RDW Lymph % (Auto) [place] % (Auto) Lymph # [place] # Seg Neutrophils % Seg Neuts % (Manual) Lymphocytes % (Manual) Lymphocytes # (Manual) PT INR D-Dimer Heparin Anti-Xa Level POC ABG pH POC ABG pCO2 POC ABG pO2 Sodium Potassium Chloride Carbon Dioxide BUN Creatinine Glucose POC Glucose 156 H 144 H 140 H Lactic Acid Calcium ALT Alkaline Phosphatase Troponin T C-Reactive Protein Total Protein Albumin Triglycerides HDL Cholesterol Vancomycin Trough Crossmatch 12/11/16 12/12/16 12/12/16 Unknown 02:18 02:18 WBC RBC Hgb Hct MCV RDW Lymph % (Auto) [place] % (Auto) Lymph # [place] # Seg Neutrophils % Seg Neuts % (Manual) Lymphocytes % (Manual) Lymphocytes # (Manual) PT INR D-Dimer Heparin Anti-Xa Level 0.21 L < 0.10 L POC ABG pH POC ABG pCO2 POC ABG pO2 Sodium 136 L Potassium Chloride Carbon Dioxide 21 L BUN 19 H Creatinine 0.5 L Glucose POC Glucose Lactic Acid Calcium 7.4 L ALT Alkaline Phosphatase Troponin T C-Reactive Protein Total Protein Albumin Triglycerides HDL Cholesterol Vancomycin Trough Crossmatch 12/12/16 12/12/16 12/12/16 05:17 07:20 10:30 WBC RBC Hgb 6.6 L Hct 25.5 L MCV RDW Lymph % (Auto) [place] % (Auto) Lymph # [place] # Seg Neutrophils % Seg Neuts % (Manual) Lymphocytes % (Manual) Lymphocytes # (Manual) PT INR D-Dimer Heparin Anti-Xa Level POC ABG pH POC ABG pCO2 POC ABG pO2 Sodium Potassium Chloride Carbon Dioxide BUN Creatinine Glucose POC Glucose 113 H Lactic Acid Calcium ALT Alkaline Phosphatase Troponin T C-Reactive Protein Total Protein Albumin Triglycerides HDL Cholesterol Vancomycin Trough Crossmatch See Detail 12/12/16 12/12/16 12/12/16 11:45 12:52 17:50 WBC RBC Hgb Hct MCV RDW Lymph % (Auto) [place] % (Auto) Lymph # [place] # Seg Neutrophils % Seg Neuts % (Manual) Lymphocytes % (Manual) Lymphocytes # (Manual) PT INR D-Dimer Heparin Anti-Xa Level 0.29 L POC ABG pH POC ABG pCO2 POC ABG pO2 Sodium Potassium Chloride Carbon Dioxide BUN Creatinine Glucose POC Glucose 127 H 175 H Lactic Acid Calcium ALT Alkaline Phosphatase Troponin T C-Reactive Protein Total Protein Albumin Triglycerides HDL Cholesterol Vancomycin Trough Crossmatch 12/13/16 12/13/16 12/13/16 00:01 04:45 04:45 WBC RBC 3.43 L Hgb Hct MCV RDW 19.0 H Lymph % (Auto) [place] % (Auto) Lymph # [place] # Seg Neutrophils % Seg Neuts % (Manual) Lymphocytes % (Manual) Lymphocytes # (Manual) PT INR D-Dimer Heparin Anti-Xa Level 0.10 L POC ABG pH POC ABG pCO2 POC ABG pO2 Sodium Potassium Chloride Carbon Dioxide BUN Creatinine Glucose POC Glucose 162 H Lactic Acid Calcium ALT Alkaline Phosphatase Troponin T C-Reactive Protein Total Protein Albumin Triglycerides HDL Cholesterol Vancomycin Trough Crossmatch 12/13/16 12/13/16 06:07 08:00 WBC RBC Hgb Hct MCV RDW Lymph % (Auto) [place] % (Auto) Lymph # [place] # Seg Neutrophils % Seg Neuts % (Manual) Lymphocytes % (Manual) Lymphocytes # (Manual) PT INR D-Dimer Heparin Anti-Xa Level POC ABG pH POC ABG pCO2 POC ABG pO2 Sodium Potassium Chloride Carbon Dioxide BUN 18 H Creatinine 0.6 L Glucose 117 H POC Glucose 120 H Lactic Acid Calcium 7.8 L ALT Alkaline Phosphatase Troponin T C-Reactive Protein Total Protein Albumin Triglycerides HDL Cholesterol Vancomycin Trough Crossmatch
[2016-12-13] MEDS: PULMICORT IH SCH ×2 (09:47→20:15)
--- NOTE | 2016-12-13 09:55 | Anesthesia Consultation ---
Anesthesia Consult and Med Hx Date of service: 12/13/16 - Airway Anesthetic Teeth Evaluation: Poor ROM Head & Neck: Adequate Mental/Hyoid Distance: Adequate Mallampati Class: Class II Intubation Access Assessment: Probably Good - Pre-Operative Health Status ASA Pre-Surgery Classification: ASA4 Proposed Anesthetic Plan: General - Pulmonary Hx Respiratory Symptoms: Yes (respiratory failure) Hx Pneumonia: Yes (aspiration pneumonea) - Cardiovascular System Hx Hypertension: Yes Hx Cardia Arrhythmia: Yes (atrial fibrilation) - Central Nervous System Hx Psychiatric Problems: Yes (altered mental status) - Gastrointestinal Hx Gastroesophageal Reflux Disease: Yes - Endocrine Hx Renal Disease: Yes (UTI, sepsis) - Additional Comments Anesthesia Medical History Comments: sepsis
--- NOTE | 2016-12-13 09:57 | Anesthesia Day of Surgery ---
Anesthesia Day of Surgery - Day of Surgery Patient Examined: Yes Patient H&P Reviewed: Yes Patient is NPO: Yes
[2016-12-13] MEDS: PEPCID PO SCH ×2 (10:00→22:09)
[2016-12-13] MEDS: POTASSIUM CHLORIDE FEEDTUBE SCH (10:00)
[2016-12-13] MEDS: CORDARONE PO SCH ×2 (10:00→22:09)
[2016-12-13] MEDS ORDERED: VERSED IV ONE (10:27)
[2016-12-13] MEDS ORDERED: ZEMURON IV ONE (10:27)
[2016-12-13] MEDS ORDERED: DIPRIVAN 10 MG/ML IV ONE (10:28)
[2016-12-13] MEDS ORDERED: XYLOCAINE MPF 2% ONE (10:28)
[2016-12-13] MEDS ORDERED: WATER FOR IRRIG STERILE IR ONE (10:41)
[2016-12-13] MEDS ORDERED: NACL 0.9% 1000 ML 1,000 ML ONE (10:42)
--- NOTE | 2016-12-13 11:48 | Progress Note ---
Assessment and Plan Paroxysmal atrial fibrillation-->currently sinus rhythm continue PO amiodarone 400mg BID continue heparin gtt (Xarelto unable to be crushed) Echo: LVEF 45 to 50%, Mild MR, R Heart enlargement, Mild to moderate TR, Moderate pulmonary hypertension, RVSP 55 mmHg, Dilated IVC, Pleural effusion, Minimal pericardial effusion Elevated DDimer Consider further imaging to r/o PE following trach/PEG today. S/p cardiac arrest-->appears to have been a respiratory arrest due to possible aspiration mildly elevated troponin level likely due to resuscitation efforts Acute respiratory failure Intubated Acute encephalopathy Hypokalemia Repleted Hx. of hypertension BP currently Stable now will continue monitoring Diabetes Anemia Recommend PRBC transfusion to keep Hgb around 10 and greater Currently stable cardiac status. Consider further imaging to r/o PE in setting of elevated DDimer and R heart enlargement following trach/PEG today. The patient has been seen in conjunction with Dr. Kearney who agrees with the assessment and plan of care. Subjective Date of service: 12/13/16 Principal diagnosis: acute respiratory failure Interval history: Pt resting in bed, intubated, alert and following commands appropriately. VSS. Heparin gtt held and NPO since MN in preparation for trach/PEG today. Family at bedside. Objective Last Vital Signs Temp 98.1 F 12/13/16 08:00 Pulse 59 L 12/13/16 11:00 Resp 16 12/13/16 11:00 BP 115/52 12/13/16 11:00 Pulse Ox 100 12/13/16 11:00 - Physical Examination General: No Apparent Distress (intubated) HEENT: Positive: Normocephaly, Mucus Membranes Moist Neck: Positive: neck supple, trachea midline Cardiac: Positive: Reg Rate and Rhythm, S1/S2 Lungs: Positive: Oxygen, Ventilated Respirations Neuro: Positive: Grossly Intact, Other (intubated, sedated) Abdomen: Positive: Soft Skin: Positive: Clear. Negative: Rash Extremities: Present: Other (dressings intact on bilateral arms and legs). Absent: edema - Labs and Meds CBC 12/13/16 Range/Units 04:45 WBC 8.0 (4.5-11.0) K/mm3 RBC 3.43 L (3.65-5.03) M/mm3 Hgb 10.4 D (10.1-14.3) gm/dl Hct 32.0 D (30.3-42.9) % Plt Count 304 (140-440) K/mm3 Comprehensive Metabolic Panel 12/13/16 Range/Units 08:00 Sodium 138 (137-145) mmol/L Potassium 4.0 (3.6-5.0) mmol/L Chloride 104.3 (98-107) mmol/L Carbon Dioxide 22 (22-30) mmol/L BUN 18 H (7-17) mg/dL Creatinine 0.6 L (0.7-1.2) mg/dL Glucose 117 H (65-100) mg/dL Calcium 7.8 L (8.4-10.2) mg/dL - Imaging and Cardiology EKG: image reviewed Echo: report reviewed (12/07/16: LVEF 45 to 50%, Mild MR, R Heart enlargement, Mild to moderate TR, Moderate pulmonary hypertension, RVSP 55 mmHg, Dilated IVC , Pleural effusion, Minimal pericardial effusion) - Telemetry EKG Rhythm: Sinus Rhythm
--- NOTE | 2016-12-13 11:57 | Operative Report ---
Operative Report Operative Report: Date of procedure: 12/13/2016 Pre-operative diagnosis: Malnutrition with need for nutritional support, prolonged vent dependence Post-operative diagnosis: Same Procedure name(s): Percutaneous endoscopic gastrostomy tube placement Surgeon: Emerson Chapa MD Airline Stewardess: Bob Reyes M.D. Anesthesia: General, 1% lidocaine EBL: Minimal Complications: None Instrument Count: Correct Indications: This is a 61-year-old female with a history of respiratory failure , prolonged vent dependence, malnutrition with need for nutritional support. She met the criteria for tracheostomy. Consent was obtained from the family. Risks and benefits of discussed until all questions were answered. Findings: None significant Procedure: We reviewed the informed consent. The patient was then positioned with the head up. After adequate anesthesia was reached, we inserted the endoscope of the oral cavity into the stomach. The stomach was then insufflated to maximal capacity until the rugae flattened. At this time we applied gentle palpation externally and observed this visually through the endoscope, choosing a position approximately 2 fingerbreadths below the left costal margin. This was further verified using transillumination seen externally. We infiltrated local anesthetic at the site chosen. We then made a 5 mm incision at the site, and placed Angiocath through the incision. The needle was removed, and a guidewire was placed through the Angiocath. The guidewire was grasped using an endoscopic snare and brought through the oral cavity. This was attached to a 20 [place] pull-through gastrostomy tube. We then retracted the guidewire through the abdominal wall, bringing the gastrostomy tube through the oral cavity. We secured the external portion of the tube. Using the endoscope we verified placement within the stomach cavity. The tube was then secured to the abdominal wall sterilely. The patient tolerated this well and was maintained in no apparent distress
--- NOTE | 2016-12-13 11:59 | Operative Report ---
Operative Report Operative Report: Date of procedure: 12/13/2016 Pre-operative diagnosis: Respiratory failure with vent dependence Post-operative diagnosis: Same Procedure name(s): Percutaneous tracheostomy Surgeon: Emerson Chapa MD Welder Repair: Bob Reyes M.D. Anesthesia: General, 1% lidocaine EBL: Minimal Complications: None Instrument Count: correct Indications: This is a 61-year-old female with a history respiratory failure and prolonged vent dependence. The patient met the criteria for placement of a tracheostomy. Consent was obtained from the family after risks and benefits of discussed until all questions were answered. Findings: Nonsignificant Procedure: We reviewed informed consent. The patient was then positioned in a semi-follow position the neck slightly extended. After infiltration of local anesthetic. Minimal small incision proximally one centimeter in size vertically 2 cm above the sternal notch in the neck. At this time anesthesia was prompted to partially withdraw the endotracheal tube to 16 cm at the teeth. Using a introducer needle on the syringe on gentle suction, we cannulated the trachea which was verified by a release of the suction. We placed a guidewire through the introducer needle and removed the needle we assured that we had not entrapped the endotracheal tube. We then dilated the tract using a 14 Amharic skin dilator. This was substituted for a stiff catheter and Blue Rhino dilator combination. A 8 [place] endotracheal tube was then placed over the stiff catheter and guidewire into the trachea. We removed the dilator catheter and guidewire and inserted the inner cannula. We then verified end tidal CO2. We secured the wings of the tracheostomy tube to the skin using a 2-0 Prolene. A tracheostomy collar was then applied and attached to the tracheostomy tube. The patient tolerated the procedure well. She was maintained on a ventilator in no apparent distress.
[2016-12-13] MEDS: DILAUDID IV PRN (14:35)
--- NOTE | 2016-12-13 15:28 | Progress Note ---
Assessment and Plan Assessment and plan: Acute respiratory failure secondary to to mucus plugging - Patient is is on Trach and PEG - Pulmonary is following A. fib with RVR - Cardiology consulted - On amiodarone - On HEPARIN gtt Sepsis with hypotension - Resolved Acute metabolic encephalopathy Anemia - Hemoglobin this morning was 10 Debility Patient is Full code. Disposition - Continue ICU care - will transfer her to LTCH when stable The high probability of a clinically significant, sudden or life threatening deterioration of the [neurology, cardiovascular, respiratory] system(s) required my full and direct attention, intervention and personal management. The aggregate critical care time was [31] minutes. This time is in addition to time spent performing reported procedures but includes the following: [x] Data Review and interpretation [x] Patient assessment and monitoring of vital signs [x] Documentation [x] Medication orders and managementDVT prophylaxis History Interval history: Patient was seen after PEG and trach placement, patient was somnolent. Her families including her brothers were in the room and their concerns and questions were addressed Hospitalist Physical - Physical exam Narrative exam: Patient on Trach and Vent Vital signs as documented. Head exam is unremarkable. No scleral icterus . Neck is without jugular venous distension, thyromegaly, or carotid bruits. Lungs are clear to auscultation. Cardiac exam reveals irregular rate and Rhythm. Abdominal exam reveals PEG in place. Extremities patient has minimal edema. 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 - Constitutional Vitals: Temp Pulse Resp BP Pulse Ox 97.9 F 55 L 16 99/51 96 12/13/16 12:00 12/13/16 15:11 12/13/16 14:00 12/13/16 15:11 12/13/16 15:11 General appearance: Present: no acute distress (intubated, unresponsive) Results - Labs CBC & Chem 7: 12/13/16 04:45 12/13/16 08:00 Labs: Laboratory Last Values WBC 8.0 K/mm3 (4.5-11.0) 12/13/16 04:45 RBC 3.43 M/mm3 (3.65-5.03) L 12/13/16 04:45 Hgb 10.4 gm/dl (10.1-14.3) D 12/13/16 04:45 Hct 32.0 % (30.3-42.9) D 12/13/16 04:45 MCV 93 fl (79-97) 12/13/16 04:45 MCH 30 pg (28-32) 12/13/16 04:45 MCHC 33 % (30-34) 12/13/16 04:45 RDW 19.0 % (13.2-15.2) H 12/13/16 04:45 Plt Count 304 K/mm3 (140-440) 12/13/16 04:45 Lymph % (Auto) 22.3 % (13.4-35.0) 12/09/16 03:55 [place] % (Auto) 10.4 % (0.0-7.3) H 12/09/16 03:55 Eos % (Auto) 1.7 % (0.0-4.3) 12/09/16 03:55 Baso % (Auto) 1.2 % (0.0-1.8) 12/09/16 03:55 Lymph # 2.1 K/mm3 (1.2-5.4) 12/09/16 03:55 [place] # 1.0 K/mm3 (0.0-0.8) H 12/09/16 03:55 Eos # 0.2 K/mm3 (0.0-0.4) 12/09/16 03:55 Baso # 0.1 K/mm3 (0.0-0.1) 12/09/16 03:55 Add Manual Diff Complete 11/28/16 04:52 Total Counted 100 11/28/16 04:52 Seg Neutrophils % 64.4 % (40.0-70.0) 12/09/16 03:55 Seg Neuts % (Manual) 83.0 % (40.0-70.0) H 11/28/16 04:52 Band Neutrophils % 7.0 % 11/28/16 04:52 Lymphocytes % (Manual) 6.0 % (13.4-35.0) L 11/28/16 04:52 Reactive Lymphs % (Man) 0 % 11/28/16 04:52 Monocytes % (Manual) 1.0 % (0.0-7.3) 11/28/16 04:52 Eosinophils % (Manual) 3.0 % (0.0-4.3) 11/28/16 04:52 Basophils % (Manual) 0 % (0.0-1.8) 11/28/16 04:52 Metamyelocytes % 0 % 11/28/16 04:52 Myelocytes % 0 % 11/28/16 04:52 Promyelocytes % 0 % 11/28/16 04:52 Blast Cells % 0 % 11/28/16 04:52 Nucleated RBC % Not Reportable 11/28/16 04:52 Seg Neutrophils # 5.9 K/mm3 (1.8-7.7) 12/09/16 03:55 Seg Neutrophils # Man 5.4 K/mm3 (1.8-7.7) 11/28/16 04:52 Band Neutrophils # 0.5 K/mm3 11/28/16 04:52 Lymphocytes # (Manual) 0.4 K/mm3 (1.2-5.4) L 11/28/16 04:52 Abs React Lymphs (Man) 0.0 K/mm3 11/28/16 04:52 Monocytes # (Manual) 0.1 K/mm3 (0.0-0.8) 11/28/16 04:52 Eosinophils # (Manual) 0.2 K/mm3 (0.0-0.4) 11/28/16 04:52 Basophils # (Manual) 0.0 K/mm3 (0.0-0.1) 11/28/16 04:52 Metamyelocytes # 0.0 K/mm3 11/28/16 04:52 Myelocytes # 0.0 K/mm3 11/28/16 04:52 Promyelocytes # 0.0 K/mm3 11/28/16 04:52 Blast Cells # 0.0 K/mm3 11/28/16 04:52 WBC Morphology Not Reportable 11/28/16 04:52 Hypersegmented Neuts Not Reportable 11/28/16 04:52 Hyposegmented Neuts Not Reportable 11/28/16 04:52 Hypogranular Neuts Not Reportable 11/28/16 04:52 Smudge Cells Not Reportable 11/28/16 04:52 Toxic Granulation Not Reportable 11/28/16 04:52 Toxic Vacuolation Not Reportable 11/28/16 04:52 Dohle Bodies Not Reportable 11/28/16 04:52 Pelger-Huet Anomaly Not Reportable 11/28/16 04:52 Caitlin Rods Not Reportable 11/28/16 04:52 Platelet Estimate Consistent w auto 11/28/16 04:52 Clumped Platelets Not Reportable 11/28/16 04:52 Plt Clumps, EDTA Not Reportable 11/28/16 04:52 Large Platelets Not Reportable 11/28/16 04:52 Giant Platelets Not Reportable 11/28/16 04:52 Platelet Satelliting Not Reportable 11/28/16 04:52 Plt Morphology Comment Not Reportable 11/28/16 04:52 RBC Morphology Not Reportable 11/28/16 04:52 Dimorphic RBCs Not Reportable 11/28/16 04:52 Polychromasia Not Reportable 11/28/16 04:52 Hypochromasia Not Reportable 11/28/16 04:52 Poikilocytosis Not Reportable 11/28/16 04:52 Anisocytosis Not Reportable 11/28/16 04:52 Microcytosis Not Reportable 11/28/16 04:52 Macrocytosis Few 11/28/16 04:52 Spherocytes Not Reportable 11/28/16 04:52 Pappenheimer Bodies Not Reportable 11/28/16 04:52 Sickle Cells Not Reportable 11/28/16 04:52 Target Cells Not Reportable 11/28/16 04:52 Tear Drop Cells Not Reportable 11/28/16 04:52 Ovalocytes Not Reportable 11/28/16 04:52 Helmet Cells Not Reportable 11/28/16 04:52 [place] Bodies Not Reportable 11/28/16 04:52 [place] Rings Not Reportable 11/28/16 04:52 [place] Cells Not Reportable 11/28/16 04:52 Bite Cells Not Reportable 11/28/16 04:52 Crenated Cell Not Reportable 11/28/16 04:52 Elliptocytes Not Reportable 11/28/16 04:52 Acanthocytes (Spur) Not Reportable 11/28/16 04:52 Rouleaux Not Reportable 11/28/16 04:52 Hemoglobin C Crystals Not Reportable 11/28/16 04:52 Schistocytes Not Reportable 11/28/16 04:52 Malaria parasites Not Reportable 11/28/16 04:52 Javon Bodies Not Reportable 11/28/16 04:52 Hem Pathologist Commnt No 11/28/16 04:52 PT 17.3 Sec. (12.2-14.9) H 12/08/16 10:45 INR 1.34 (0.87-1.13) H 12/08/16 10:45 APTT 34.5 Sec. (24.2-36.6) 12/08/16 10:45 D-Dimer 1403 ng/mlDDU (0-234) H 12/09/16 11:15 Heparin Anti-Xa Level 0.10 U.I./ml (0.3-0.7) L 12/13/16 04:45 POC ABG pH 7.495 (7.35-7.45) H 12/09/16 04:05 POC ABG pCO2 31.9 (35-45) L 12/09/16 04:05 POC ABG pO2 186 (80-105) H 12/09/16 04:05 POC ABG HCO3 24.6 12/09/16 04:05 POC ABG Total CO2 26 12/09/16 04:05 POC ABG O2 Sat 100 12/09/16 04:05 POC ABG Base Excess 1 12/09/16 04:05 VBG pH 7.376 (7.320-7.420) 11/26/16 18:40 FiO2 35 % 12/09/16 04:05 Sodium 138 mmol/L (137-145) 12/13/16 08:00 Potassium 4.0 mmol/L (3.6-5.0) 12/13/16 08:00 Chloride 104.3 mmol/L (98-107) 12/13/16 08:00 Carbon Dioxide 22 mmol/L (22-30) 12/13/16 08:00 Anion Gap 16 mmol/L 12/13/16 08:00 BUN 18 mg/dL (7-17) H 12/13/16 08:00 Creatinine 0.6 mg/dL (0.7-1.2) L 12/13/16 08:00 Estimated GFR > 60 ml/min 12/13/16 08:00 BUN/Creatinine Ratio 30.00 % 12/13/16 08:00 Glucose 117 mg/dL (65-100) H 12/13/16 08:00 POC Glucose 120 (70-105) H 12/13/16 06:07 Lactic Acid 1.40 mmol/L (0.7-2.0) 12/06/16 19:03 Calcium 7.8 mg/dL (8.4-10.2) L 12/13/16 08:00 Magnesium 2.00 mg/dL (1.7-2.3) 12/08/16 09:17 Total Bilirubin 0.40 mg/dL (0.1-1.2) 12/07/16 05:00 AST 30 units/L (5-40) 12/07/16 05:00 ALT 11 units/L (7-56) 12/07/16 05:00 Alkaline Phosphatase 142 units/L (35-129) H 12/07/16 05:00 Ammonia 37.0 umol/L (25-60) 11/29/16 11:15 Total Creatine Kinase 18 units/L (30-135) L 11/26/16 18:40 CK-MB (CK-2) 1.4 ng/mL (0.0-4.0) 11/26/16 18:40 CK-MB (CK-2) Rel Index 7.7 (0-4) H 11/26/16 18:40 Troponin T 0.166 ng/mL (0.00-0.029) H* 12/08/16 16:00 C-Reactive Protein 8.10 mg/dL (0.00-1.30) H 12/06/16 11:55 NT-Pro-B Natriuret Pep 66050 pg/mL (0-900) H 11/26/16 18:40 Total Protein 4.7 g/dL (6.3-8.2) L 12/07/16 05:00 Albumin 1.6 g/dL (3.9-5) L 12/07/16 05:00 Albumin/Globulin Ratio 0.5 % 12/07/16 05:00 Triglycerides 180 mg/dL (2-149) H 12/08/16 10:04 Cholesterol 122 mg/dL (50-199) 12/08/16 10:04 LDL Cholesterol Direct 65 mg/dL (50-130) 12/08/16 10:04 HDL Cholesterol 21 mg/dL (40-59) L 12/08/16 10:04 Cholesterol/HDL Ratio 5.80 % 12/08/16 10:04 Vitamin B12 768.6 pg/mL (211-911) 11/29/16 11:15 TSH 2.120 mlU/mL (0.270-4.200) 11/29/16 11:15 Urine Color Matilde (Yellow) 11/26/16 18:35 Urine Turbidity Turbid (Clear) 11/26/16 18:35 Urine pH 6.0 (5.0-7.0) 11/26/16 18:35 Ur Specific [place] 1.018 (1.003-1.030) 11/26/16 18:35 Urine Protein 100 mg/dl mg/dL (Negative) 11/26/16 18:35 Urine Glucose (UA) Neg mg/dL (Negative) 11/26/16 18:35 Urine Ketones Neg mg/dL (Negative) 11/26/16 18:35 Urine Blood Neg (Negative) 11/26/16 18:35 Urine Nitrite Neg (Negative) 11/26/16 18:35 Urine Bilirubin Neg (Negative) 11/26/16 18:35 Urine Urobilinogen < 2.0 mg/dL (<2.0) 11/26/16 18:35 Ur Leukocyte Esterase Mod (Negative) 11/26/16 18:35 Urine WBC (Auto) > 182.0 /HPF (0.0-6.0) H 11/26/16 18:35 Urine RBC (Auto) 6.0 /HPF (0.0-6.0) 11/26/16 18:35 Urine Bacteria (Auto) 4+ /HPF (Negative) 11/26/16 18:35 Urine WBC Clumps 3+ /HPF 11/26/16 18:35 Urine Mucus 3+ /HPF 11/26/16 18:35 Vancomycin Trough 41.9 ug/mL (5.0-20.0) H 11/29/16 07:05 Blood Type B POSITIVE 12/12/16 10:30 Antibody Screen TNR 12/12/16 10:30 NIRAV Antibody Screen Negative 12/12/16 10:30 Crossmatch See Detail 12/12/16 10:30
[2016-12-13] MEDS: LASIX IV SCH ×2 (17:39→22:10)
[2016-12-13] MEDS: REMERON PO SCH (22:08)
[2016-12-13] MEDS: SENOKOT PO SCH (22:09)
[2016-12-14 06:58] LABS: Hemoglobin 11.3 gm/dl (10.1-14.3)
[2016-12-14] MEDS: PULMICORT IH SCH ×2 (08:32→21:47)
--- NOTE | 2016-12-14 08:36 | Progress Note ---
Assessment and Plan 61 y/o female with acute respiratory failure requiring mechanical ventilation, now extubated with elevated BNP on admission, with history of afib on xarelto, now with acute respiratory failure requiring mechanical ventilation secondary to aspiration of a mucus plug, now cleared. 1. Continue diuresis as BP and renal function will allow. Will check BMP today. I/O if accurate show that patient is grossly positive. Has not compromise lung function yet. 2. Continue Vent weaning 3. Resume heparin vs oral anticoagulation 4. Daily net negative state if possible 5. Will discuss further placement with CM on IT rounds CCT 31 minutes. Subjective Date of service: 12/14/16 Principal diagnosis: acute respiratory failure Interval history: Trach and pegged yesterday. Tolerated procedure well. No family at bedside currently. Objective Vital Signs - 12hr 12/13/16 12/13/16 12/13/16 21:00 21:11 22:00 Temperature Pulse Rate 58 L 57 L 70 Respiratory 16 18 Rate Blood Pressure 103/48 103/48 101/46 O2 Sat by Pulse 98 98 97 Oximetry O2 Sat by Pulse Oximetry [ Assessment] 12/13/16 12/13/16 12/14/16 23:00 23:32 00:00 Temperature 98.9 F Pulse Rate 59 L 86 Respiratory 19 19 Rate Blood Pressure 112/51 104/52 O2 Sat by Pulse 97 96 Oximetry O2 Sat by Pulse 98 Oximetry [ Assessment] 12/14/16 12/14/16 12/14/16 01:00 01:13 02:00 Temperature Pulse Rate 78 75 83 Respiratory 20 17 Rate Blood Pressure 105/48 94/53 100/50 O2 Sat by Pulse 96 96 Oximetry O2 Sat by Pulse Oximetry [ Assessment] 12/14/16 12/14/16 12/14/16 03:00 04:00 04:09 Temperature 99.6 F Pulse Rate 63 66 67 Respiratory 19 20 Rate Blood Pressure 104/47 106/47 106/47 O2 Sat by Pulse 97 96 95 Oximetry O2 Sat by Pulse Oximetry [ Assessment] 12/14/16 12/14/16 12/14/16 05:00 06:00 08:26 Temperature Pulse Rate 64 83 93 H Respiratory 16 20 Rate Blood Pressure 107/47 122/60 101/52 O2 Sat by Pulse 93 94 96 Oximetry O2 Sat by Pulse Oximetry [ Assessment] Constitutional: no acute distress Eyes: non-icteric ENT: other (ETT in position) Effort: normal Ascultation: Right: rales, Bilateral: clear, diminished breath sounds, rhonchi ( rare) Percussion: Bilateral: not dull Cardiovascular: irregular rhythm Gastrointestinal: normoactive bowel sounds, non-distended Integumentary: normal Extremities: no cyanosis, no edema Neurologic: other ( stuporous, slightly up from her eyes sponge hooker and tactile stimuli) CBC and BMP: 12/14/16 06:00 12/13/16 08:00 ABG, PT/INR, D-dimer: ABG POC ABG pH 7.495 (7.35-7.45) H 12/09/16 04:05 POC ABG pCO2 31.9 (35-45) L 12/09/16 04:05 POC ABG pO2 186 (80-105) H 12/09/16 04:05 POC ABG HCO3 24.6 12/09/16 04:05 POC ABG Total CO2 26 12/09/16 04:05 POC ABG O2 Sat 100 12/09/16 04:05 PT/INR, D-dimer PT 17.3 Sec. (12.2-14.9) H 12/08/16 10:45 INR 1.34 (0.87-1.13) H 12/08/16 10:45 D-Dimer 1403 ng/mlDDU (0-234) H 12/09/16 11:15 Abnormal lab findings: Abnormal Labs 11/26/16 11/27/16 11/27/16 20:20 05:43 23:43 WBC RBC Hgb Hct MCV RDW Lymph % (Auto) [place] % (Auto) Lymph # [place] # Seg Neutrophils % Seg Neuts % (Manual) Lymphocytes % (Manual) Lymphocytes # (Manual) PT INR D-Dimer Heparin Anti-Xa Level POC ABG pH 7.574 H POC ABG pCO2 29.9 L POC ABG pO2 57 L 147 H Sodium Potassium Chloride Carbon Dioxide BUN Creatinine Glucose POC Glucose 63 L Lactic Acid Calcium ALT Alkaline Phosphatase Troponin T C-Reactive Protein Total Protein Albumin Triglycerides HDL Cholesterol Vancomycin Trough Crossmatch 11/28/16 11/28/16 11/29/16 04:52 04:52 05:15 WBC RBC 3.04 L 2.95 L Hgb 9.4 L 9.2 L Hct 28.6 L MCV 102 H D RDW 19.9 H 19.5 H Lymph % (Auto) 13.1 L [place] % (Auto) 7.9 H Lymph # 0.8 L [place] # Seg Neutrophils % 77.7 H Seg Neuts % (Manual) 83.0 H Lymphocytes % (Manual) 6.0 L Lymphocytes # (Manual) 0.4 L PT INR D-Dimer Heparin Anti-Xa Level POC ABG pH POC ABG pCO2 POC ABG pO2 Sodium Potassium Chloride 110.0 H Carbon Dioxide 20 L BUN Creatinine 0.3 L Glucose POC Glucose Lactic Acid Calcium 7.0 L ALT Alkaline Phosphatase Troponin T C-Reactive Protein Total Protein Albumin Triglycerides HDL Cholesterol Vancomycin Trough Crossmatch 11/29/16 11/29/16 11/29/16 05:15 05:23 06:18 WBC RBC Hgb Hct MCV RDW Lymph % (Auto) [place] % (Auto) Lymph # [place] # Seg Neutrophils % Seg Neuts % (Manual) Lymphocytes % (Manual) Lymphocytes # (Manual) PT INR D-Dimer Heparin Anti-Xa Level POC ABG pH 7.474 H POC ABG pCO2 30.2 L POC ABG pO2 Sodium Potassium 3.1 L D Chloride 112.3 H Carbon Dioxide BUN 6 L Creatinine 0.3 L Glucose POC Glucose 120 H Lactic Acid Calcium 7.1 L ALT Alkaline Phosphatase Troponin T C-Reactive Protein Total Protein Albumin Triglycerides HDL Cholesterol Vancomycin Trough Crossmatch 11/29/16 11/29/16 11/29/16 07:05 11:54 18:31 WBC RBC Hgb Hct MCV RDW Lymph % (Auto) [place] % (Auto) Lymph # [place] # Seg Neutrophils % Seg Neuts % (Manual) Lymphocytes % (Manual) Lymphocytes # (Manual) PT INR D-Dimer Heparin Anti-Xa Level POC ABG pH POC ABG pCO2 POC ABG pO2 Sodium Potassium Chloride Carbon Dioxide BUN Creatinine Glucose POC Glucose 122 H 179 H Lactic Acid Calcium ALT Alkaline Phosphatase Troponin T C-Reactive Protein Total Protein Albumin Triglycerides HDL Cholesterol Vancomycin Trough 41.9 H Crossmatch 11/29/16 11/30/16 11/30/16 23:16 04:01 07:40 WBC RBC 2.51 L Hgb 7.7 L Hct 24.8 L MCV 99 H RDW 19.4 H Lymph % (Auto) [place] % (Auto) Lymph # [place] # Seg Neutrophils % Seg Neuts % (Manual) Lymphocytes % (Manual) Lymphocytes # (Manual) PT INR D-Dimer Heparin Anti-Xa Level POC ABG pH 7.468 H POC ABG pCO2 30.6 L POC ABG pO2 Sodium Potassium Chloride Carbon Dioxide BUN Creatinine Glucose POC Glucose 149 H Lactic Acid Calcium ALT Alkaline Phosphatase Troponin T C-Reactive Protein Total Protein Albumin Triglycerides HDL Cholesterol Vancomycin Trough Crossmatch 11/30/16 11/30/16 11/30/16 07:40 12:42 17:30 WBC RBC Hgb Hct MCV RDW Lymph % (Auto) [place] % (Auto) Lymph # [place] # Seg Neutrophils % Seg Neuts % (Manual) Lymphocytes % (Manual) Lymphocytes # (Manual) PT INR D-Dimer Heparin Anti-Xa Level POC ABG pH POC ABG pCO2 POC ABG pO2 Sodium Potassium Chloride 113.7 H Carbon Dioxide BUN Creatinine 0.5 L D Glucose POC Glucose 134 H 114 H Lactic Acid Calcium 7.1 L ALT 6 L Alkaline Phosphatase 167 H Troponin T C-Reactive Protein Total Protein 4.0 L Albumin 1.0 L Triglycerides HDL Cholesterol Vancomycin Trough Crossmatch 11/30/16 12/01/16 12/01/16 23:39 05:52 06:36 WBC RBC 2.60 L Hgb 8.1 L Hct 25.4 L MCV 98 H RDW 19.7 H Lymph % (Auto) [place] % (Auto) 9.0 H Lymph # 1.1 L [place] # Seg Neutrophils % Seg Neuts % (Manual) Lymphocytes % (Manual) Lymphocytes # (Manual) PT INR D-Dimer Heparin Anti-Xa Level POC ABG pH POC ABG pCO2 POC ABG pO2 Sodium Potassium Chloride Carbon Dioxide BUN Creatinine Glucose POC Glucose 121 H 134 H Lactic Acid Calcium ALT Alkaline Phosphatase Troponin T C-Reactive Protein Total Protein Albumin Triglycerides HDL Cholesterol Vancomycin Trough Crossmatch 12/01/16 12/01/16 12/01/16 06:36 11:34 17:40 WBC RBC Hgb Hct MCV RDW Lymph % (Auto) [place] % (Auto) Lymph # [place] # Seg Neutrophils % Seg Neuts % (Manual) Lymphocytes % (Manual) Lymphocytes # (Manual) PT INR D-Dimer Heparin Anti-Xa Level POC ABG pH POC ABG pCO2 POC ABG pO2 Sodium Potassium Chloride 113.8 H Carbon Dioxide BUN Creatinine 0.5 L Glucose 120 H POC Glucose 167 H 117 H Lactic Acid Calcium 7.3 L ALT Alkaline Phosphatase Troponin T C-Reactive Protein Total Protein Albumin Triglycerides HDL Cholesterol Vancomycin Trough Crossmatch 12/02/16 12/02/16 12/02/16 00:35 05:03 05:44 WBC RBC Hgb Hct MCV RDW Lymph % (Auto) [place] % (Auto) Lymph # [place] # Seg Neutrophils % Seg Neuts % (Manual) Lymphocytes % (Manual) Lymphocytes # (Manual) PT INR D-Dimer Heparin Anti-Xa Level POC ABG pH POC ABG pCO2 30.9 L POC ABG pO2 77 L Sodium Potassium Chloride Carbon Dioxide BUN Creatinine Glucose POC Glucose 129 H 154 H Lactic Acid Calcium ALT Alkaline Phosphatase Troponin T C-Reactive Protein Total Protein Albumin Triglycerides HDL Cholesterol Vancomycin Trough Crossmatch 12/02/16 12/02/16 12/03/16 18:03 23:53 05:17 WBC RBC Hgb Hct MCV RDW Lymph % (Auto) [place] % (Auto) Lymph # [place] # Seg Neutrophils % Seg Neuts % (Manual) Lymphocytes % (Manual) Lymphocytes # (Manual) PT INR D-Dimer Heparin Anti-Xa Level POC ABG pH POC ABG pCO2 POC ABG pO2 Sodium Potassium Chloride Carbon Dioxide BUN Creatinine Glucose POC Glucose 135 H 158 H 177 H Lactic Acid Calcium ALT Alkaline Phosphatase Troponin T C-Reactive Protein Total Protein Albumin Triglycerides HDL Cholesterol Vancomycin Trough Crossmatch 12/03/16 12/03/16 12/03/16 05:30 09:35 11:46 WBC RBC 2.50 L Hgb 8.0 L Hct 24.8 L MCV 99 H RDW 18.8 H Lymph % (Auto) [place] % (Auto) 11.9 H Lymph # [place] # Seg Neutrophils % Seg Neuts % (Manual) Lymphocytes % (Manual) Lymphocytes # (Manual) PT INR D-Dimer Heparin Anti-Xa Level POC ABG pH POC ABG pCO2 POC ABG pO2 Sodium Potassium 3.5 L Chloride 109.9 H Carbon Dioxide BUN Creatinine 0.4 L Glucose 162 H POC Glucose 157 H Lactic Acid Calcium 7.5 L ALT Alkaline Phosphatase Troponin T C-Reactive Protein Total Protein Albumin Triglycerides HDL Cholesterol Vancomycin Trough Crossmatch 12/03/16 12/03/16 12/04/16 18:25 23:32 05:24 WBC RBC Hgb Hct MCV RDW Lymph % (Auto) [place] % (Auto) Lymph # [place] # Seg Neutrophils % Seg Neuts % (Manual) Lymphocytes % (Manual) Lymphocytes # (Manual) PT INR D-Dimer Heparin Anti-Xa Level POC ABG pH POC ABG pCO2 POC ABG pO2 Sodium Potassium Chloride Carbon Dioxide BUN Creatinine Glucose POC Glucose 134 H 152 H 176 H Lactic Acid Calcium ALT Alkaline Phosphatase Troponin T C-Reactive Protein Total Protein Albumin Triglycerides HDL Cholesterol Vancomycin Trough Crossmatch 12/04/16 12/04/16 12/04/16 05:29 08:15 08:15 WBC RBC 2.41 L Hgb 7.5 L Hct 23.7 L MCV 98 H RDW 18.4 H Lymph % (Auto) [place] % (Auto) 12.7 H Lymph # 0.9 L [place] # Seg Neutrophils % Seg Neuts % (Manual) Lymphocytes % (Manual) Lymphocytes # (Manual) PT INR D-Dimer Heparin Anti-Xa Level POC ABG pH POC ABG pCO2 POC ABG pO2 116 H Sodium Potassium 3.3 L Chloride 108.0 H Carbon Dioxide BUN Creatinine 0.4 L Glucose 160 H POC Glucose Lactic Acid Calcium 7.5 L ALT Alkaline Phosphatase Troponin T C-Reactive Protein Total Protein Albumin Triglycerides HDL Cholesterol Vancomycin Trough Crossmatch 12/04/16 12/04/16 12/04/16 11:42 15:12 16:49 WBC RBC Hgb Hct MCV RDW Lymph % (Auto) [place] % (Auto) Lymph # [place] # Seg Neutrophils % Seg Neuts % (Manual) Lymphocytes % (Manual) Lymphocytes # (Manual) PT INR D-Dimer Heparin Anti-Xa Level POC ABG pH 7.322 L POC ABG pCO2 48.9 H POC ABG pO2 59 L 77 L Sodium Potassium Chloride Carbon Dioxide BUN Creatinine Glucose POC Glucose 142 H Lactic Acid Calcium ALT Alkaline Phosphatase Troponin T C-Reactive Protein Total Protein Albumin Triglycerides HDL Cholesterol Vancomycin Trough Crossmatch 12/04/16 12/05/16 12/05/16 18:28 00:10 03:15 WBC RBC 3.17 L Hgb 9.8 L Hct MCV RDW 18.0 H Lymph % (Auto) 10.1 L [place] % (Auto) Lymph # 0.7 L [place] # Seg Neutrophils % 81.7 H Seg Neuts % (Manual) Lymphocytes % (Manual) Lymphocytes # (Manual) PT INR D-Dimer Heparin Anti-Xa Level POC ABG pH POC ABG pCO2 POC ABG pO2 Sodium Potassium Chloride Carbon Dioxide BUN Creatinine Glucose POC Glucose 136 H 138 H Lactic Acid Calcium ALT Alkaline Phosphatase Troponin T C-Reactive Protein Total Protein Albumin Triglycerides HDL Cholesterol Vancomycin Trough Crossmatch 12/05/16 12/05/16 12/05/16 03:15 05:38 12:23 WBC RBC Hgb Hct MCV RDW Lymph % (Auto) [place] % (Auto) Lymph # [place] # Seg Neutrophils % Seg Neuts % (Manual) Lymphocytes % (Manual) Lymphocytes # (Manual) PT INR D-Dimer Heparin Anti-Xa Level POC ABG pH POC ABG pCO2 POC ABG pO2 Sodium Potassium 3.3 L Chloride Carbon Dioxide BUN Creatinine 0.3 L Glucose 130 H POC Glucose 185 H 178 H Lactic Acid Calcium 7.5 L ALT Alkaline Phosphatase Troponin T C-Reactive Protein Total Protein Albumin Triglycerides HDL Cholesterol Vancomycin Trough Crossmatch 12/05/16 12/05/16 12/06/16 16:14 18:29 00:06 WBC RBC Hgb Hct MCV RDW Lymph % (Auto) [place] % (Auto) Lymph # [place] # Seg Neutrophils % Seg Neuts % (Manual) Lymphocytes % (Manual) Lymphocytes # (Manual) PT INR D-Dimer Heparin Anti-Xa Level POC ABG pH POC ABG pCO2 POC ABG pO2 Sodium Potassium Chloride Carbon Dioxide BUN Creatinine Glucose POC Glucose 145 H 147 H 163 H Lactic Acid Calcium ALT Alkaline Phosphatase Troponin T C-Reactive Protein Total Protein Albumin Triglycerides HDL Cholesterol Vancomycin Trough Crossmatch 12/06/16 12/06/16 12/06/16 04:00 05:15 06:37 WBC RBC 2.30 L Hgb 7.2 L Hct 22.7 L D MCV 99 H RDW 17.9 H Lymph % (Auto) [place] % (Auto) 9.5 H Lymph # 0.9 L [place] # Seg Neutrophils % Seg Neuts % (Manual) Lymphocytes % (Manual) Lymphocytes # (Manual) PT INR D-Dimer Heparin Anti-Xa Level POC ABG pH POC ABG pCO2 POC ABG pO2 Sodium Potassium 3.5 L Chloride Carbon Dioxide BUN Creatinine 0.4 L Glucose 138 H POC Glucose 190 H Lactic Acid Calcium 7.7 L ALT Alkaline Phosphatase Troponin T C-Reactive Protein Total Protein Albumin Triglycerides HDL Cholesterol Vancomycin Trough Crossmatch 12/06/16 12/06/16 12/06/16 11:55 11:55 11:55 WBC 15.0 H RBC 2.79 L Hgb 8.6 L Hct 28.3 L MCV 101 H RDW 18.4 H Lymph % (Auto) [place] % (Auto) Lymph # [place] # Seg Neutrophils % Seg Neuts % (Manual) Lymphocytes % (Manual) Lymphocytes # (Manual) PT INR D-Dimer Heparin Anti-Xa Level POC ABG pH POC ABG pCO2 POC ABG pO2 Sodium 136 L Potassium 5.5 H D Chloride Carbon Dioxide BUN Creatinine 0.3 L Glucose 143 H POC Glucose Lactic Acid 5.70 H* Calcium ALT Alkaline Phosphatase Troponin T C-Reactive Protein Total Protein Albumin Triglycerides HDL Cholesterol Vancomycin Trough Crossmatch 12/06/16 12/06/16 12/07/16 11:55 12:10 05:00 WBC RBC Hgb Hct MCV RDW Lymph % (Auto) [place] % (Auto) Lymph # [place] # Seg Neutrophils % Seg Neuts % (Manual) Lymphocytes % (Manual) Lymphocytes # (Manual) PT INR D-Dimer Heparin Anti-Xa Level POC ABG pH POC ABG pCO2 POC ABG pO2 Sodium Potassium Chloride Carbon Dioxide BUN Creatinine 0.4 L Glucose POC Glucose 154 H Lactic Acid Calcium 7.5 L ALT Alkaline Phosphatase 142 H Troponin T C-Reactive Protein 8.10 H Total Protein 4.7 L Albumin 1.6 L Triglycerides HDL Cholesterol Vancomycin Trough Crossmatch 12/07/16 12/07/16 12/07/16 05:00 06:14 16:52 WBC RBC 2.36 L Hgb 7.3 L Hct 23.1 L MCV 98 H D RDW 17.8 H Lymph % (Auto) [place] % (Auto) 8.5 H Lymph # 1.0 L [place] # Seg Neutrophils % 76.9 H Seg Neuts % (Manual) Lymphocytes % (Manual) Lymphocytes # (Manual) PT INR D-Dimer Heparin Anti-Xa Level POC ABG pH 7.508 H POC ABG pCO2 31.1 L POC ABG pO2 131 H Sodium Potassium Chloride Carbon Dioxide BUN Creatinine Glucose POC Glucose 130 H Lactic Acid Calcium ALT Alkaline Phosphatase Troponin T C-Reactive Protein Total Protein Albumin Triglycerides HDL Cholesterol Vancomycin Trough Crossmatch 12/07/16 12/08/16 12/08/16 23:37 04:00 04:00 WBC RBC 2.26 L Hgb 7.1 L Hct 22.2 L MCV 98 H RDW 17.6 H Lymph % (Auto) [place] % (Auto) 9.5 H Lymph # 1.0 L [place] # Seg Neutrophils % 71.7 H Seg Neuts % (Manual) Lymphocytes % (Manual) Lymphocytes # (Manual) PT INR D-Dimer Heparin Anti-Xa Level POC ABG pH POC ABG pCO2 POC ABG pO2 Sodium Potassium 3.0 L Chloride Carbon Dioxide BUN Creatinine 0.5 L Glucose 124 H POC Glucose 107 H Lactic Acid Calcium 7.7 L ALT Alkaline Phosphatase Troponin T C-Reactive Protein Total Protein Albumin Triglycerides HDL Cholesterol Vancomycin Trough Crossmatch 12/08/16 12/08/16 12/08/16 05:16 05:34 10:04 WBC RBC Hgb Hct MCV RDW Lymph % (Auto) [place] % (Auto) Lymph # [place] # Seg Neutrophils % Seg Neuts % (Manual) Lymphocytes % (Manual) Lymphocytes # (Manual) PT INR D-Dimer Heparin Anti-Xa Level POC ABG pH 7.492 H POC ABG pCO2 31.5 L POC ABG pO2 112 H Sodium Potassium Chloride Carbon Dioxide BUN Creatinine Glucose POC Glucose 148 H Lactic Acid Calcium ALT Alkaline Phosphatase Troponin T 0.146 H* C-Reactive Protein Total Protein Albumin Triglycerides 180 H HDL Cholesterol 21 L Vancomycin Trough Crossmatch 12/08/16 12/08/16 12/08/16 10:45 12:09 16:00 WBC RBC Hgb Hct MCV RDW Lymph % (Auto) [place] % (Auto) Lymph # [place] # Seg Neutrophils % Seg Neuts % (Manual) Lymphocytes % (Manual) Lymphocytes # (Manual) PT 17.3 H INR 1.34 H D-Dimer Heparin Anti-Xa Level POC ABG pH POC ABG pCO2 POC ABG pO2 Sodium Potassium Chloride Carbon Dioxide BUN Creatinine Glucose POC Glucose 205 H Lactic Acid Calcium ALT Alkaline Phosphatase Troponin T 0.166 H* C-Reactive Protein Total Protein Albumin Triglycerides HDL Cholesterol Vancomycin Trough Crossmatch 12/08/16 12/08/16 12/08/16 17:45 17:49 23:29 WBC RBC Hgb Hct MCV RDW Lymph % (Auto) [place] % (Auto) Lymph # [place] # Seg Neutrophils % Seg Neuts % (Manual) Lymphocytes % (Manual) Lymphocytes # (Manual) PT INR D-Dimer Heparin Anti-Xa Level < 0.10 L POC ABG pH POC ABG pCO2 POC ABG pO2 Sodium Potassium Chloride Carbon Dioxide BUN Creatinine Glucose POC Glucose 174 H 180 H Lactic Acid Calcium ALT Alkaline Phosphatase Troponin T C-Reactive Protein Total Protein Albumin Triglycerides HDL Cholesterol Vancomycin Trough Crossmatch 12/09/16 12/09/16 12/09/16 01:00 03:55 03:55 WBC RBC 2.39 L Hgb 7.5 L Hct 23.0 L MCV RDW 17.3 H Lymph % (Auto) [place] % (Auto) 10.4 H Lymph # [place] # 1.0 H Seg Neutrophils % Seg Neuts % (Manual) Lymphocytes % (Manual) Lymphocytes # (Manual) PT INR D-Dimer Heparin Anti-Xa Level < 0.10 L POC ABG pH POC ABG pCO2 POC ABG pO2 Sodium 135 L Potassium Chloride Carbon Dioxide BUN 18 H Creatinine Glucose 187 H POC Glucose Lactic Acid Calcium 7.4 L ALT Alkaline Phosphatase Troponin T C-Reactive Protein Total Protein Albumin Triglycerides HDL Cholesterol Vancomycin Trough Crossmatch 12/09/16 12/09/16 12/09/16 04:05 05:37 11:15 WBC RBC Hgb Hct MCV RDW Lymph % (Auto) [place] % (Auto) Lymph # [place] # Seg Neutrophils % Seg Neuts % (Manual) Lymphocytes % (Manual) Lymphocytes # (Manual) PT INR D-Dimer Heparin Anti-Xa Level < 0.10 L POC ABG pH 7.495 H POC ABG pCO2 31.9 L POC ABG pO2 186 H Sodium Potassium Chloride Carbon Dioxide BUN Creatinine Glucose POC Glucose 213 H Lactic Acid Calcium ALT Alkaline Phosphatase Troponin T C-Reactive Protein Total Protein Albumin Triglycerides HDL Cholesterol Vancomycin Trough Crossmatch 12/09/16 12/09/16 12/09/16 11:15 12:16 17:43 WBC RBC Hgb Hct MCV RDW Lymph % (Auto) [place] % (Auto) Lymph # [place] # Seg Neutrophils % Seg Neuts % (Manual) Lymphocytes % (Manual) Lymphocytes # (Manual) PT INR D-Dimer 1403 H Heparin Anti-Xa Level POC ABG pH POC ABG pCO2 POC ABG pO2 Sodium Potassium Chloride Carbon Dioxide BUN Creatinine Glucose POC Glucose 194 H 165 H Lactic Acid Calcium ALT Alkaline Phosphatase Troponin T C-Reactive Protein Total Protein Albumin Triglycerides HDL Cholesterol Vancomycin Trough Crossmatch 12/09/16 12/10/16 12/10/16 19:30 00:04 02:48 WBC RBC Hgb Hct MCV RDW Lymph % (Auto) [place] % (Auto) Lymph # [place] # Seg Neutrophils % Seg Neuts % (Manual) Lymphocytes % (Manual) Lymphocytes # (Manual) PT INR D-Dimer Heparin Anti-Xa Level < 0.10 L < 0.10 L POC ABG pH POC ABG pCO2 POC ABG pO2 Sodium Potassium Chloride Carbon Dioxide BUN Creatinine Glucose POC Glucose 143 H Lactic Acid Calcium ALT Alkaline Phosphatase Troponin T C-Reactive Protein Total Protein Albumin Triglycerides HDL Cholesterol Vancomycin Trough Crossmatch 12/10/16 12/10/16 12/10/16 05:04 05:17 09:06 WBC RBC Hgb Hct MCV RDW Lymph % (Auto) [place] % (Auto) Lymph # [place] # Seg Neutrophils % Seg Neuts % (Manual) Lymphocytes % (Manual) Lymphocytes # (Manual) PT INR D-Dimer Heparin Anti-Xa Level < 0.10 L POC ABG pH POC ABG pCO2 POC ABG pO2 Sodium 133 L Potassium Chloride Carbon Dioxide BUN 19 H Creatinine 0.6 L Glucose 136 H POC Glucose 127 H Lactic Acid Calcium 7.6 L ALT Alkaline Phosphatase Troponin T C-Reactive Protein Total Protein Albumin Triglycerides HDL Cholesterol Vancomycin Trough Crossmatch 12/10/16 12/10/16 12/10/16 12:25 17:54 18:30 WBC RBC Hgb Hct MCV RDW Lymph % (Auto) [place] % (Auto) Lymph # [place] # Seg Neutrophils % Seg Neuts % (Manual) Lymphocytes % (Manual) Lymphocytes # (Manual) PT INR D-Dimer Heparin Anti-Xa Level < 0.10 L POC ABG pH POC ABG pCO2 POC ABG pO2 Sodium Potassium Chloride Carbon Dioxide BUN Creatinine Glucose POC Glucose 169 H 170 H Lactic Acid Calcium ALT Alkaline Phosphatase Troponin T C-Reactive Protein Total Protein Albumin Triglycerides HDL Cholesterol Vancomycin Trough Crossmatch 12/10/16 12/10/16 12/11/16 23:51 Unknown 04:08 WBC RBC Hgb 7.1 L Hct 21.3 L MCV RDW Lymph % (Auto) [place] % (Auto) Lymph # [place] # Seg Neutrophils % Seg Neuts % (Manual) Lymphocytes % (Manual) Lymphocytes # (Manual) PT INR D-Dimer Heparin Anti-Xa Level POC ABG pH POC ABG pCO2 POC ABG pO2 Sodium Potassium Chloride Carbon Dioxide BUN Creatinine Glucose POC Glucose 163 H 150 H Lactic Acid Calcium ALT Alkaline Phosphatase Troponin T C-Reactive Protein Total Protein Albumin Triglycerides HDL Cholesterol Vancomycin Trough Crossmatch 12/11/16 12/11/16 12/11/16 12:11 17:09 23:42 WBC RBC Hgb Hct MCV RDW Lymph % (Auto) [place] % (Auto) Lymph # [place] # Seg Neutrophils % Seg Neuts % (Manual) Lymphocytes % (Manual) Lymphocytes # (Manual) PT INR D-Dimer Heparin Anti-Xa Level POC ABG pH POC ABG pCO2 POC ABG pO2 Sodium Potassium Chloride Carbon Dioxide BUN Creatinine Glucose POC Glucose 156 H 144 H 140 H Lactic Acid Calcium ALT Alkaline Phosphatase Troponin T C-Reactive Protein Total Protein Albumin Triglycerides HDL Cholesterol Vancomycin Trough Crossmatch 12/11/16 12/12/16 12/12/16 Unknown 02:18 02:18 WBC RBC Hgb Hct MCV RDW Lymph % (Auto) [place] % (Auto) Lymph # [place] # Seg Neutrophils % Seg Neuts % (Manual) Lymphocytes % (Manual) Lymphocytes # (Manual) PT INR D-Dimer Heparin Anti-Xa Level 0.21 L < 0.10 L POC ABG pH POC ABG pCO2 POC ABG pO2 Sodium 136 L Potassium Chloride Carbon Dioxide 21 L BUN 19 H Creatinine 0.5 L Glucose POC Glucose Lactic Acid Calcium 7.4 L ALT Alkaline Phosphatase Troponin T C-Reactive Protein Total Protein Albumin Triglycerides HDL Cholesterol Vancomycin Trough Crossmatch 12/12/16 12/12/16 12/12/16 05:17 07:20 10:30 WBC RBC Hgb 6.6 L Hct 25.5 L MCV RDW Lymph % (Auto) [place] % (Auto) Lymph # [place] # Seg Neutrophils % Seg Neuts % (Manual) Lymphocytes % (Manual) Lymphocytes # (Manual) PT INR D-Dimer Heparin Anti-Xa Level POC ABG pH POC ABG pCO2 POC ABG pO2 Sodium Potassium Chloride Carbon Dioxide BUN Creatinine Glucose POC Glucose 113 H Lactic Acid Calcium ALT Alkaline Phosphatase Troponin T C-Reactive Protein Total Protein Albumin Triglycerides HDL Cholesterol Vancomycin Trough Crossmatch See Detail 12/12/16 12/12/16 12/12/16 11:45 12:52 17:50 WBC RBC Hgb Hct MCV RDW Lymph % (Auto) [place] % (Auto) Lymph # [place] # Seg Neutrophils % Seg Neuts % (Manual) Lymphocytes % (Manual) Lymphocytes # (Manual) PT INR D-Dimer Heparin Anti-Xa Level 0.29 L POC ABG pH POC ABG pCO2 POC ABG pO2 Sodium Potassium Chloride Carbon Dioxide BUN Creatinine Glucose POC Glucose 127 H 175 H Lactic Acid Calcium ALT Alkaline Phosphatase Troponin T C-Reactive Protein Total Protein Albumin Triglycerides HDL Cholesterol Vancomycin Trough Crossmatch 12/13/16 12/13/16 12/13/16 00:01 04:45 04:45 WBC RBC 3.43 L Hgb Hct MCV RDW 19.0 H Lymph % (Auto) [place] % (Auto) Lymph # [place] # Seg Neutrophils % Seg Neuts % (Manual) Lymphocytes % (Manual) Lymphocytes # (Manual) PT INR D-Dimer Heparin Anti-Xa Level 0.10 L POC ABG pH POC ABG pCO2 POC ABG pO2 Sodium Potassium Chloride Carbon Dioxide BUN Creatinine Glucose POC Glucose 162 H Lactic Acid Calcium ALT Alkaline Phosphatase Troponin T C-Reactive Protein Total Protein Albumin Triglycerides HDL Cholesterol Vancomycin Trough Crossmatch 12/13/16 12/13/16 12/13/16 06:07 08:00 12:52 WBC RBC Hgb Hct MCV RDW Lymph % (Auto) [place] % (Auto) Lymph # [place] # Seg Neutrophils % Seg Neuts % (Manual) Lymphocytes % (Manual) Lymphocytes # (Manual) PT INR D-Dimer Heparin Anti-Xa Level POC ABG pH POC ABG pCO2 POC ABG pO2 Sodium Potassium Chloride Carbon Dioxide BUN 18 H Creatinine 0.6 L Glucose 117 H POC Glucose 120 H 139 H Lactic Acid Calcium 7.8 L ALT Alkaline Phosphatase Troponin T C-Reactive Protein Total Protein Albumin Triglycerides HDL Cholesterol Vancomycin Trough Crossmatch 12/13/16 12/14/16 17:10 00:08 WBC RBC Hgb Hct MCV RDW Lymph % (Auto) [place] % (Auto) Lymph # [place] # Seg Neutrophils % Seg Neuts % (Manual) Lymphocytes % (Manual) Lymphocytes # (Manual) PT INR D-Dimer Heparin Anti-Xa Level POC ABG pH POC ABG pCO2 POC ABG pO2 Sodium Potassium Chloride Carbon Dioxide BUN Creatinine Glucose POC Glucose 126 H 114 H Lactic Acid Calcium ALT Alkaline Phosphatase Troponin T C-Reactive Protein Total Protein Albumin Triglycerides HDL Cholesterol Vancomycin Trough Crossmatch
[2016-12-14] MEDS: FERROUS SULFATE PO SCH ×3 (08:50→21:49)
[2016-12-14] MEDS: POTASSIUM CHLORIDE FEEDTUBE SCH (09:50)
[2016-12-14] MEDS: CORDARONE PO SCH ×2 (09:51→21:50)
[2016-12-14] MEDS: PEPCID PO SCH ×2 (09:51→21:50)
[2016-12-14] MEDS: LASIX IV SCH ×2 (09:51→21:50)
[2016-12-14] MEDS: DILAUDID IV PRN (10:03)
--- NOTE | 2016-12-14 11:32 | Progress Note ---
Assessment and Plan Paroxysmal atrial fibrillation-->currently sinus rhythm continue PO amiodarone 400mg BID D/c heparin gtt and resume Xarelto - per pharmacist, this drug may be crushed but must be administered within 4 hours of being crushed. Echo: LVEF 45 to 50%, Mild MR, R Heart enlargement, Mild to moderate TR, Moderate pulmonary hypertension, RVSP 55 mmHg, Dilated IVC, Pleural effusion, Minimal pericardial effusion Elevated DDimer PE not suspected per pulmonary. S/p cardiac arrest-->appears to have been a respiratory arrest due to possible aspiration mildly elevated troponin level likely due to resuscitation efforts Acute on chronic respiratory failure Trached Acute encephalopathy Hypokalemia Repleted Hx. of hypertension BP currently Stable now will continue monitoring Diabetes Anemia Recommend PRBC transfusion to keep Hgb around 10 and greater Currently stable cardiac status. D/c heparin gtt and resume Xarelto - per pharmacist, this drug may be crushed but must be administered within 4 hours of being crushed. Primary RN notified. Per pulmonary, Dr. Munoz, presence of PE is felt to be unlikely. Therefore, no plans for further eval/imaging to r/o PE at this time. Will defer to primary/ pulmonary. The patient has been seen in conjunction with Dr. Kearney who agrees with the assessment and plan of care. Subjective Date of service: 12/14/16 Principal diagnosis: acute respiratory failure Interval history: Pt resting in bed, intubated, alert and following commands appropriately. VSS. s /p PEG and trach yesterday. Family at bedside. Objective Last Vital Signs Temp 98.6 F 12/14/16 08:00 Pulse 64 12/14/16 10:01 Resp 18 12/14/16 10:01 BP 99/51 12/14/16 09:00 Pulse Ox 97 12/14/16 10:05 - Physical Examination General: No Apparent Distress (intubated) HEENT: Positive: Normocephaly, Mucus Membranes Moist Neck: Positive: neck supple, trachea midline Cardiac: Positive: Reg Rate and Rhythm, S1/S2 Lungs: Positive: clear to auscultation Neuro: Positive: Grossly Intact, Other (intubated, sedated) Abdomen: Positive: Soft Skin: Positive: Clear. Negative: Rash Extremities: Present: Other (dressings intact on bilateral arms and legs). Absent: edema - Labs and Meds CBC 12/14/16 Range/Units 06:00 Hgb 11.3 (10.1-14.3) gm/dl Hct 34.0 (30.3-42.9) % Plt Count 340 (140-440) K/mm3 - Imaging and Cardiology EKG: image reviewed Echo: report reviewed (12/07/16: LVEF 45 to 50%, Mild MR, R Heart enlargement, Mild to moderate TR, Moderate pulmonary hypertension, RVSP 55 mmHg, Dilated IVC , Pleural effusion, Minimal pericardial effusion)
[2016-12-14] MEDS ORDERED: XARELTO PO SCH (12:00)
[2016-12-14] MEDS: XARELTO PO SCH (14:33)
--- NOTE | 2016-12-14 18:47 | Progress Note ---
Assessment and Plan Assessment and plan: Acute respiratory failure secondary to to mucus plugging - Patient is is on Trach and PEG - Pulmonary is following A. fib with RVR - Cardiology consulted - On amiodarone - On HEPARIN gtt Sepsis with hypotension - Resolved Acute metabolic encephalopathy Anemia - Hemoglobin this morning was 10 Debility Patient is Full code. Disposition - Continue ICU care - will transfer her to LTCH when stable The high probability of a clinically significant, sudden or life threatening deterioration of the [neurology, cardiovascular, respiratory] system(s) required my full and direct attention, intervention and personal management. The aggregate critical care time was [31] minutes. This time is in addition to time spent performing reported procedures but includes the following: [x] Data Review and interpretation [x] Patient assessment and monitoring of vital signs [x] Documentation [x] Medication orders and managementDVT prophylaxis History Interval history: Patient was seen after PEG and trach placement, patient was alert. Her brother was in the room and his concerns and questions were addressed Hospitalist Physical - Physical exam Narrative exam: Patient on Trach and Vent Vital signs as documented. Head exam is unremarkable. No scleral icterus . Neck is without jugular venous distension, thyromegaly, or carotid bruits. Lungs are clear to auscultation. Cardiac exam reveals irregular rate and Rhythm. Abdominal exam reveals PEG in place. Extremities patient has minimal edema. CHIEF DISPATCHER: Open her eyes. - Constitutional Vitals: Temp Pulse Resp BP Pulse Ox 99.6 F 75 24 113/53 95 12/14/16 12:00 12/14/16 18:00 12/14/16 18:00 12/14/16 18:00 12/14/16 18:00 General appearance: Present: no acute distress (intubated, unresponsive) Results - Labs CBC & Chem 7: 12/14/16 06:00 12/13/16 08:00 Labs: Laboratory Last Values WBC 8.0 K/mm3 (4.5-11.0) 12/13/16 04:45 RBC 3.43 M/mm3 (3.65-5.03) L 12/13/16 04:45 Hgb 11.3 gm/dl (10.1-14.3) 12/14/16 06:00 Hct 34.0 % (30.3-42.9) 12/14/16 06:00 MCV 93 fl (79-97) 12/13/16 04:45 MCH 30 pg (28-32) 12/13/16 04:45 MCHC 33 % (30-34) 12/13/16 04:45 RDW 19.0 % (13.2-15.2) H 12/13/16 04:45 Plt Count 340 K/mm3 (140-440) 12/14/16 06:00 Lymph % (Auto) 22.3 % (13.4-35.0) 12/09/16 03:55 [place] % (Auto) 10.4 % (0.0-7.3) H 12/09/16 03:55 Eos % (Auto) 1.7 % (0.0-4.3) 12/09/16 03:55 Baso % (Auto) 1.2 % (0.0-1.8) 12/09/16 03:55 Lymph # 2.1 K/mm3 (1.2-5.4) 12/09/16 03:55 [place] # 1.0 K/mm3 (0.0-0.8) H 12/09/16 03:55 Eos # 0.2 K/mm3 (0.0-0.4) 12/09/16 03:55 Baso # 0.1 K/mm3 (0.0-0.1) 12/09/16 03:55 Add Manual Diff Complete 11/28/16 04:52 Total Counted 100 11/28/16 04:52 Seg Neutrophils % 64.4 % (40.0-70.0) 12/09/16 03:55 Seg Neuts % (Manual) 83.0 % (40.0-70.0) H 11/28/16 04:52 Band Neutrophils % 7.0 % 11/28/16 04:52 Lymphocytes % (Manual) 6.0 % (13.4-35.0) L 11/28/16 04:52 Reactive Lymphs % (Man) 0 % 11/28/16 04:52 Monocytes % (Manual) 1.0 % (0.0-7.3) 11/28/16 04:52 Eosinophils % (Manual) 3.0 % (0.0-4.3) 11/28/16 04:52 Basophils % (Manual) 0 % (0.0-1.8) 11/28/16 04:52 Metamyelocytes % 0 % 11/28/16 04:52 Myelocytes % 0 % 11/28/16 04:52 Promyelocytes % 0 % 11/28/16 04:52 Blast Cells % 0 % 11/28/16 04:52 Nucleated RBC % Not Reportable 11/28/16 04:52 Seg Neutrophils # 5.9 K/mm3 (1.8-7.7) 12/09/16 03:55 Seg Neutrophils # Man 5.4 K/mm3 (1.8-7.7) 11/28/16 04:52 Band Neutrophils # 0.5 K/mm3 11/28/16 04:52 Lymphocytes # (Manual) 0.4 K/mm3 (1.2-5.4) L 11/28/16 04:52 Abs React Lymphs (Man) 0.0 K/mm3 11/28/16 04:52 Monocytes # (Manual) 0.1 K/mm3 (0.0-0.8) 11/28/16 04:52 Eosinophils # (Manual) 0.2 K/mm3 (0.0-0.4) 11/28/16 04:52 Basophils # (Manual) 0.0 K/mm3 (0.0-0.1) 11/28/16 04:52 Metamyelocytes # 0.0 K/mm3 11/28/16 04:52 Myelocytes # 0.0 K/mm3 11/28/16 04:52 Promyelocytes # 0.0 K/mm3 11/28/16 04:52 Blast Cells # 0.0 K/mm3 11/28/16 04:52 WBC Morphology Not Reportable 11/28/16 04:52 Hypersegmented Neuts Not Reportable 11/28/16 04:52 Hyposegmented Neuts Not Reportable 11/28/16 04:52 Hypogranular Neuts Not Reportable 11/28/16 04:52 Smudge Cells Not Reportable 11/28/16 04:52 Toxic Granulation Not Reportable 11/28/16 04:52 Toxic Vacuolation Not Reportable 11/28/16 04:52 Dohle Bodies Not Reportable 11/28/16 04:52 Pelger-Huet Anomaly Not Reportable 11/28/16 04:52 Caitlin Rods Not Reportable 11/28/16 04:52 Platelet Estimate Consistent w auto 11/28/16 04:52 Clumped Platelets Not Reportable 11/28/16 04:52 Plt Clumps, EDTA Not Reportable 11/28/16 04:52 Large Platelets Not Reportable 11/28/16 04:52 Giant Platelets Not Reportable 11/28/16 04:52 Platelet Satelliting Not Reportable 11/28/16 04:52 Plt Morphology Comment Not Reportable 11/28/16 04:52 RBC Morphology Not Reportable 11/28/16 04:52 Dimorphic RBCs Not Reportable 11/28/16 04:52 Polychromasia Not Reportable 11/28/16 04:52 Hypochromasia Not Reportable 11/28/16 04:52 Poikilocytosis Not Reportable 11/28/16 04:52 Anisocytosis Not Reportable 11/28/16 04:52 Microcytosis Not Reportable 11/28/16 04:52 Macrocytosis Few 11/28/16 04:52 Spherocytes Not Reportable 11/28/16 04:52 Pappenheimer Bodies Not Reportable 11/28/16 04:52 Sickle Cells Not Reportable 11/28/16 04:52 Target Cells Not Reportable 11/28/16 04:52 Tear Drop Cells Not Reportable 11/28/16 04:52 Ovalocytes Not Reportable 11/28/16 04:52 Helmet Cells Not Reportable 11/28/16 04:52 [place] Bodies Not Reportable 11/28/16 04:52 [place] Rings Not Reportable 11/28/16 04:52 Dave Cells Not Reportable 11/28/16 04:52 Bite Cells Not Reportable 11/28/16 04:52 Crenated Cell Not Reportable 11/28/16 04:52 Elliptocytes Not Reportable 11/28/16 04:52 Acanthocytes (Spur) Not Reportable 11/28/16 04:52 Rouleaux Not Reportable 11/28/16 04:52 Hemoglobin C Crystals Not Reportable 11/28/16 04:52 Schistocytes Not Reportable 11/28/16 04:52 Malaria parasites Not Reportable 11/28/16 04:52 Javon Bodies Not Reportable 11/28/16 04:52 Hem Pathologist Commnt No 11/28/16 04:52 PT 17.3 Sec. (12.2-14.9) H 12/08/16 10:45 INR 1.34 (0.87-1.13) H 12/08/16 10:45 APTT 34.5 Sec. (24.2-36.6) 12/08/16 10:45 D-Dimer 1403 ng/mlDDU (0-234) H 12/09/16 11:15 Heparin Anti-Xa Level < 0.10 U.I./ml (0.3-0.7) L 12/14/16 08:55 POC ABG pH 7.495 (7.35-7.45) H 12/09/16 04:05 POC ABG pCO2 31.9 (35-45) L 12/09/16 04:05 POC ABG pO2 186 (80-105) H 12/09/16 04:05 POC ABG HCO3 24.6 12/09/16 04:05 POC ABG Total CO2 26 12/09/16 04:05 POC ABG O2 Sat 100 12/09/16 04:05 POC ABG Base Excess 1 12/09/16 04:05 VBG pH 7.376 (7.320-7.420) 11/26/16 18:40 FiO2 35 % 12/09/16 04:05 Sodium 138 mmol/L (137-145) 12/13/16 08:00 Potassium 4.0 mmol/L (3.6-5.0) 12/13/16 08:00 Chloride 104.3 mmol/L (98-107) 12/13/16 08:00 Carbon Dioxide 22 mmol/L (22-30) 12/13/16 08:00 Anion Gap 16 mmol/L 12/13/16 08:00 BUN 18 mg/dL (7-17) H 12/13/16 08:00 Creatinine 0.6 mg/dL (0.7-1.2) L 12/13/16 08:00 Estimated GFR > 60 ml/min 12/13/16 08:00 BUN/Creatinine Ratio 30.00 % 12/13/16 08:00 Glucose 117 mg/dL (65-100) H 12/13/16 08:00 POC Glucose 123 (70-105) H 12/14/16 11:08 Lactic Acid 1.40 mmol/L (0.7-2.0) 12/06/16 19:03 Calcium 7.8 mg/dL (8.4-10.2) L 12/13/16 08:00 Magnesium 2.00 mg/dL (1.7-2.3) 12/08/16 09:17 Total Bilirubin 0.40 mg/dL (0.1-1.2) 12/07/16 05:00 AST 30 units/L (5-40) 12/07/16 05:00 ALT 11 units/L (7-56) 12/07/16 05:00 Alkaline Phosphatase 142 units/L (35-129) H 12/07/16 05:00 Ammonia 37.0 umol/L (25-60) 11/29/16 11:15 Total Creatine Kinase 18 units/L (30-135) L 11/26/16 18:40 CK-MB (CK-2) 1.4 ng/mL (0.0-4.0) 11/26/16 18:40 CK-MB (CK-2) Rel Index 7.7 (0-4) H 11/26/16 18:40 Troponin T 0.166 ng/mL (0.00-0.029) H* 12/08/16 16:00 C-Reactive Protein 8.10 mg/dL (0.00-1.30) H 12/06/16 11:55 NT-Pro-B Natriuret Pep 89166 pg/mL (0-900) H 11/26/16 18:40 Total Protein 4.7 g/dL (6.3-8.2) L 12/07/16 05:00 Albumin 1.6 g/dL (3.9-5) L 12/07/16 05:00 Albumin/Globulin Ratio 0.5 % 12/07/16 05:00 Triglycerides 180 mg/dL (2-149) H 12/08/16 10:04 Cholesterol 122 mg/dL (50-199) 12/08/16 10:04 LDL Cholesterol Direct 65 mg/dL (50-130) 12/08/16 10:04 HDL Cholesterol 21 mg/dL (40-59) L 12/08/16 10:04 Cholesterol/HDL Ratio 5.80 % 12/08/16 10:04 Vitamin B12 768.6 pg/mL (211-911) 11/29/16 11:15 TSH 2.120 mlU/mL (0.270-4.200) 11/29/16 11:15 Urine Color Matilde (Yellow) 11/26/16 18:35 Urine Turbidity Turbid (Clear) 11/26/16 18:35 Urine pH 6.0 (5.0-7.0) 11/26/16 18:35 Ur Specific Brock 1.018 (1.003-1.030) 11/26/16 18:35 Urine Protein 100 mg/dl mg/dL (Negative) 11/26/16 18:35 Urine Glucose (UA) Neg mg/dL (Negative) 11/26/16 18:35 Urine Ketones Neg mg/dL (Negative) 11/26/16 18:35 Urine Blood Neg (Negative) 11/26/16 18:35 Urine Nitrite Neg (Negative) 11/26/16 18:35 Urine Bilirubin Neg (Negative) 11/26/16 18:35 Urine Urobilinogen < 2.0 mg/dL (<2.0) 11/26/16 18:35 Ur Leukocyte Esterase Mod (Negative) 11/26/16 18:35 Urine WBC (Auto) > 182.0 /HPF (0.0-6.0) H 11/26/16 18:35 Urine RBC (Auto) 6.0 /HPF (0.0-6.0) 11/26/16 18:35 Urine Bacteria (Auto) 4+ /HPF (Negative) 11/26/16 18:35 Urine WBC Clumps 3+ /HPF 11/26/16 18:35 Urine Mucus 3+ /HPF 11/26/16 18:35 Vancomycin Trough 41.9 ug/mL (5.0-20.0) H 11/29/16 07:05 Blood Type B POSITIVE 12/12/16 10:30 Antibody Screen TNR 12/12/16 10:30 NIRAV Antibody Screen Negative 12/12/16 10:30 Crossmatch See Detail 12/12/16 10:30
[2016-12-14] MEDS: REMERON PO SCH (21:50)
[2016-12-14] MEDS: SENOKOT PO SCH (21:52)
[2016-12-15] MEDS: PROVENTIL IH PRN (07:57)
[2016-12-15] MEDS: PULMICORT IH SCH ×2 (07:57→19:59)
[2016-12-15] MEDS: FERROUS SULFATE PO SCH ×3 (10:32→23:39)
[2016-12-15] MEDS: POTASSIUM CHLORIDE FEEDTUBE SCH (10:32)
[2016-12-15] MEDS: CORDARONE PO SCH ×2 (10:32→23:40)
[2016-12-15] MEDS: LASIX IV SCH ×2 (10:32→23:40)
[2016-12-15] MEDS: XARELTO PO SCH (10:32)
[2016-12-15] MEDS: PEPCID PO SCH ×2 (10:33→23:39)
--- NOTE | 2016-12-15 11:09 | Progress Note ---
Assessment and Plan Paroxysmal atrial fibrillation-->currently sinus rhythm decrease PO amiodarone 200mg BID Cont Xarelto Echo: LVEF 45 to 50%, Mild MR, R Heart enlargement, Mild to moderate TR, Moderate pulmonary hypertension, RVSP 55 mmHg, Dilated IVC, Pleural effusion, Minimal pericardial effusion Elevated DDimer PE not suspected per pulmonary. S/p cardiac arrest-->appears to have been a respiratory arrest due to possible aspiration mildly elevated troponin level likely due to resuscitation efforts Acute on chronic respiratory failure Trached Acute encephalopathy Hypokalemia Repleted Hx. of hypertension BP currently Stable now will continue monitoring Diabetes Anemia Recommend PRBC transfusion to keep Hgb around 10 and greater Currently stable cardiac status. Decrease PO amio to 200mg BID. The patient has been seen in conjunction with Dr. Kearney who agrees with the assessment and plan of care. Subjective Date of service: 12/15/16 Principal diagnosis: acute respiratory failure Interval history: Pt resting in bed, NAD. VSS. s/p PEG and trach. Objective Last Vital Signs Temp 98.9 F 12/15/16 08:00 Pulse 86 12/15/16 08:18 Resp 16 12/15/16 08:18 BP 104/49 12/15/16 08:00 Pulse Ox 100 12/15/16 08:00 - Physical Examination General: No Apparent Distress (intubated) HEENT: Positive: Normocephaly, Mucus Membranes Moist Neck: Positive: neck supple, trachea midline Cardiac: Positive: Reg Rate and Rhythm, S1/S2 Lungs: Positive: clear to auscultation Neuro: Positive: Grossly Intact, Other (intubated, sedated) Abdomen: Positive: Soft Skin: Positive: Clear. Negative: Rash Extremities: Present: Other (dressings intact on bilateral arms and legs). Absent: edema - Imaging and Cardiology EKG: image reviewed Echo: report reviewed (12/07/16: LVEF 45 to 50%, Mild MR, R Heart enlargement, Mild to moderate TR, Moderate pulmonary hypertension, RVSP 55 mmHg, Dilated IVC , Pleural effusion, Minimal pericardial effusion)
[2016-12-15 11:24] LABS: Hematocrit 33.9 % (30.3-42.9); Mean Corpuscular HGB Conc 32 % (30-34); Mean Corpuscular Hemoglobin 30 pg (28-32); Mean Corpuscular Volume 92 fl (79-97); Platelet Count 320 K/mm3 (140-440); Red Blood Count 3.67 M/mm3 (3.65-5.03); Red Cell Distribution Width 18.1 % (13.2-15.2); White Blood Count 8.7 K/mm3 (4.5-11.0)
--- NOTE | 2016-12-15 11:43 | Progress Note ---
Assessment and Plan 61 y/o female with acute respiratory failure requiring mechanical ventilation, now extubated with elevated BNP on admission, with history of afib on xarelto, now with acute respiratory failure requiring mechanical ventilation secondary to aspiration of a mucus plug, now cleared. 1. Continue diuresis as BP and renal function will allow. 2. Continue Vent weaning. Should start PSV trials soon 3. Cards restarted xarelto 4. Daily net negative state if possible 5. Will discuss further placement with CM on IT rounds, per CM going to LTACH tomorrow CCT 31 minutes. Subjective Date of service: 12/15/16 Principal diagnosis: acute respiratory failure Interval history: No acute events. Stable on vent. Trach intact. Clean and dry. Objective Vital Signs - 12hr 12/15/16 12/15/16 12/15/16 00:00 01:00 02:00 Temperature 99.8 F H Pulse Rate 112 H 98 H 85 Pulse Rate [ Anterior Bilateral Throughout] Respiratory 25 H 22 15 Rate Respiratory Rate [Anterior Bilateral Throughout] Blood Pressure 115/52 99/49 102/46 O2 Sat by Pulse 99 96 96 Oximetry 12/15/16 12/15/16 12/15/16 03:00 04:00 05:00 Temperature 99.5 F Pulse Rate 89 92 H 95 H Pulse Rate [ Anterior Bilateral Throughout] Respiratory 16 22 16 Rate Respiratory Rate [Anterior Bilateral Throughout] Blood Pressure 104/52 113/53 98/45 O2 Sat by Pulse 97 98 98 Oximetry 12/15/16 12/15/16 12/15/16 06:00 07:00 07:46 Temperature Pulse Rate 88 94 H 83 Pulse Rate [ Anterior Bilateral Throughout] Respiratory 18 18 Rate Respiratory Rate [Anterior Bilateral Throughout] Blood Pressure 108/48 109/50 114/69 O2 Sat by Pulse 98 98 98 Oximetry 12/15/16 12/15/16 12/15/16 07:58 08:00 08:18 Temperature 98.9 F Pulse Rate 89 Pulse Rate [ 108 H 86 Anterior Bilateral Throughout] Respiratory 16 Rate Respiratory 17 16 Rate [Anterior Bilateral Throughout] Blood Pressure 104/49 O2 Sat by Pulse 100 Oximetry Constitutional: no acute distress Eyes: non-icteric ENT: other (ETT in position) Effort: normal Ascultation: Right: rales, Bilateral: clear, diminished breath sounds, rhonchi ( rare) Percussion: Bilateral: not dull Cardiovascular: irregular rhythm Gastrointestinal: normoactive bowel sounds, non-distended Integumentary: normal Extremities: no cyanosis, no edema Neurologic: other ( stuporous, 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 (12.2-14.9) H 12/08/16 10:45 INR 1.34 (0.87-1.13) H 12/08/16 10:45 D-Dimer 1403 ng/mlDDU (0-234) H 12/09/16 11:15 Abnormal lab findings: Abnormal Labs 11/26/16 11/27/16 11/27/16 20:20 05:43 23:43 WBC RBC Hgb Hct MCV RDW Lymph % (Auto) Smith % (Auto) Lymph # Smith # Seg Neutrophils % Seg Neuts % (Manual) Lymphocytes % (Manual) Lymphocytes # (Manual) PT INR D-Dimer Heparin Anti-Xa Level POC ABG pH 7.574 H POC ABG pCO2 29.9 L POC ABG pO2 57 L 147 H Sodium Potassium Chloride Carbon Dioxide BUN Creatinine Glucose POC Glucose 63 L Lactic Acid Calcium ALT Alkaline Phosphatase Troponin T C-Reactive Protein Total Protein Albumin Triglycerides HDL Cholesterol Vancomycin Trough Crossmatch 11/28/16 11/28/16 11/29/16 04:52 04:52 05:15 WBC RBC 3.04 L 2.95 L Hgb 9.4 L 9.2 L Hct 28.6 L MCV 102 H D RDW 19.9 H 19.5 H Lymph % (Auto) 13.1 L Smith % (Auto) 7.9 H Lymph # 0.8 L Smith # Seg Neutrophils % 77.7 H Seg Neuts % (Manual) 83.0 H Lymphocytes % (Manual) 6.0 L Lymphocytes # (Manual) 0.4 L PT INR D-Dimer Heparin Anti-Xa Level POC ABG pH POC ABG pCO2 POC ABG pO2 Sodium Potassium Chloride 110.0 H Carbon Dioxide 20 L BUN Creatinine 0.3 L Glucose POC Glucose Lactic Acid Calcium 7.0 L ALT Alkaline Phosphatase Troponin T C-Reactive Protein Total Protein Albumin Triglycerides HDL Cholesterol Vancomycin Trough Crossmatch 11/29/16 11/29/16 11/29/16 05:15 05:23 06:18 WBC RBC Hgb Hct MCV RDW Lymph % (Auto) Smith % (Auto) Lymph # Smith # Seg Neutrophils % Seg Neuts % (Manual) Lymphocytes % (Manual) Lymphocytes # (Manual) PT INR D-Dimer Heparin Anti-Xa Level POC ABG pH 7.474 H POC ABG pCO2 30.2 L POC ABG pO2 Sodium Potassium 3.1 L D Chloride 112.3 H Carbon Dioxide BUN 6 L Creatinine 0.3 L Glucose POC Glucose 120 H Lactic Acid Calcium 7.1 L ALT Alkaline Phosphatase Troponin T C-Reactive Protein Total Protein Albumin Triglycerides HDL Cholesterol Vancomycin Trough Crossmatch 11/29/16 11/29/16 11/29/16 07:05 11:54 18:31 WBC RBC Hgb Hct MCV RDW Lymph % (Auto) Smith % (Auto) Lymph # Smith # Seg Neutrophils % Seg Neuts % (Manual) Lymphocytes % (Manual) Lymphocytes # (Manual) PT INR D-Dimer Heparin Anti-Xa Level POC ABG pH POC ABG pCO2 POC ABG pO2 Sodium Potassium Chloride Carbon Dioxide BUN Creatinine Glucose POC Glucose 122 H 179 H Lactic Acid Calcium ALT Alkaline Phosphatase Troponin T C-Reactive Protein Total Protein Albumin Triglycerides HDL Cholesterol Vancomycin Trough 41.9 H Crossmatch 11/29/16 11/30/16 11/30/16 23:16 04:01 07:40 WBC RBC 2.51 L Hgb 7.7 L Hct 24.8 L MCV 99 H RDW 19.4 H Lymph % (Auto) Smith % (Auto) Lymph # Smith # Seg Neutrophils % Seg Neuts % (Manual) Lymphocytes % (Manual) Lymphocytes # (Manual) PT INR D-Dimer Heparin Anti-Xa Level POC ABG pH 7.468 H POC ABG pCO2 30.6 L POC ABG pO2 Sodium Potassium Chloride Carbon Dioxide BUN Creatinine Glucose POC Glucose 149 H Lactic Acid Calcium ALT Alkaline Phosphatase Troponin T C-Reactive Protein Total Protein Albumin Triglycerides HDL Cholesterol Vancomycin Trough Crossmatch 11/30/16 11/30/16 11/30/16 07:40 12:42 17:30 WBC RBC Hgb Hct MCV RDW Lymph % (Auto) Smith % (Auto) Lymph # Smith # Seg Neutrophils % Seg Neuts % (Manual) Lymphocytes % (Manual) Lymphocytes # (Manual) PT INR D-Dimer Heparin Anti-Xa Level POC ABG pH POC ABG pCO2 POC ABG pO2 Sodium Potassium Chloride 113.7 H Carbon Dioxide BUN Creatinine 0.5 L D Glucose POC Glucose 134 H 114 H Lactic Acid Calcium 7.1 L ALT 6 L Alkaline Phosphatase 167 H Troponin T C-Reactive Protein Total Protein 4.0 L Albumin 1.0 L Triglycerides HDL Cholesterol Vancomycin Trough Crossmatch 11/30/16 12/01/16 12/01/16 23:39 05:52 06:36 WBC RBC 2.60 L Hgb 8.1 L Hct 25.4 L MCV 98 H RDW 19.7 H Lymph % (Auto) Smith % (Auto) 9.0 H Lymph # 1.1 L Smith # Seg Neutrophils % Seg Neuts % (Manual) Lymphocytes % (Manual) Lymphocytes # (Manual) PT INR D-Dimer Heparin Anti-Xa Level POC ABG pH POC ABG pCO2 POC ABG pO2 Sodium Potassium Chloride Carbon Dioxide BUN Creatinine Glucose POC Glucose 121 H 134 H Lactic Acid Calcium ALT Alkaline Phosphatase Troponin T C-Reactive Protein Total Protein Albumin Triglycerides HDL Cholesterol Vancomycin Trough Crossmatch 12/01/16 12/01/16 12/01/16 06:36 11:34 17:40 WBC RBC Hgb Hct MCV RDW Lymph % (Auto) Smith % (Auto) Lymph # Smith # Seg Neutrophils % Seg Neuts % (Manual) Lymphocytes % (Manual) Lymphocytes # (Manual) PT INR D-Dimer Heparin Anti-Xa Level POC ABG pH POC ABG pCO2 POC ABG pO2 Sodium Potassium Chloride 113.8 H Carbon Dioxide BUN Creatinine 0.5 L Glucose 120 H POC Glucose 167 H 117 H Lactic Acid Calcium 7.3 L ALT Alkaline Phosphatase Troponin T C-Reactive Protein Total Protein Albumin Triglycerides HDL Cholesterol Vancomycin Trough Crossmatch 12/02/16 12/02/16 12/02/16 00:35 05:03 05:44 WBC RBC Hgb Hct MCV RDW Lymph % (Auto) Smith % (Auto) Lymph # Smith # Seg Neutrophils % Seg Neuts % (Manual) Lymphocytes % (Manual) Lymphocytes # (Manual) PT INR D-Dimer Heparin Anti-Xa Level POC ABG pH POC ABG pCO2 30.9 L POC ABG pO2 77 L Sodium Potassium Chloride Carbon Dioxide BUN Creatinine Glucose POC Glucose 129 H 154 H Lactic Acid Calcium ALT Alkaline Phosphatase Troponin T C-Reactive Protein Total Protein Albumin Triglycerides HDL Cholesterol Vancomycin Trough Crossmatch 12/02/16 12/02/16 12/03/16 18:03 23:53 05:17 WBC RBC Hgb Hct MCV RDW Lymph % (Auto) Smith % (Auto) Lymph # Smith # Seg Neutrophils % Seg Neuts % (Manual) Lymphocytes % (Manual) Lymphocytes # (Manual) PT INR D-Dimer Heparin Anti-Xa Level POC ABG pH POC ABG pCO2 POC ABG pO2 Sodium Potassium Chloride Carbon Dioxide BUN Creatinine Glucose POC Glucose 135 H 158 H 177 H Lactic Acid Calcium ALT Alkaline Phosphatase Troponin T C-Reactive Protein Total Protein Albumin Triglycerides HDL Cholesterol Vancomycin Trough Crossmatch 12/03/16 12/03/16 12/03/16 05:30 09:35 11:46 WBC RBC 2.50 L Hgb 8.0 L Hct 24.8 L MCV 99 H RDW 18.8 H Lymph % (Auto) Smith % (Auto) 11.9 H Lymph # Smith # Seg Neutrophils % Seg Neuts % (Manual) Lymphocytes % (Manual) Lymphocytes # (Manual) PT INR D-Dimer Heparin Anti-Xa Level POC ABG pH POC ABG pCO2 POC ABG pO2 Sodium Potassium 3.5 L Chloride 109.9 H Carbon Dioxide BUN Creatinine 0.4 L Glucose 162 H POC Glucose 157 H Lactic Acid Calcium 7.5 L ALT Alkaline Phosphatase Troponin T C-Reactive Protein Total Protein Albumin Triglycerides HDL Cholesterol Vancomycin Trough Crossmatch 12/03/16 12/03/16 12/04/16 18:25 23:32 05:24 WBC RBC Hgb Hct MCV RDW Lymph % (Auto) Smith % (Auto) Lymph # Smith # Seg Neutrophils % Seg Neuts % (Manual) Lymphocytes % (Manual) Lymphocytes # (Manual) PT INR D-Dimer Heparin Anti-Xa Level POC ABG pH POC ABG pCO2 POC ABG pO2 Sodium Potassium Chloride Carbon Dioxide BUN Creatinine Glucose POC Glucose 134 H 152 H 176 H Lactic Acid Calcium ALT Alkaline Phosphatase Troponin T C-Reactive Protein Total Protein Albumin Triglycerides HDL Cholesterol Vancomycin Trough Crossmatch 12/04/16 12/04/16 12/04/16 05:29 08:15 08:15 WBC RBC 2.41 L Hgb 7.5 L Hct 23.7 L MCV 98 H RDW 18.4 H Lymph % (Auto) Smith % (Auto) 12.7 H Lymph # 0.9 L Smith # Seg Neutrophils % Seg Neuts % (Manual) Lymphocytes % (Manual) Lymphocytes # (Manual) PT INR D-Dimer Heparin Anti-Xa Level POC ABG pH POC ABG pCO2 POC ABG pO2 116 H Sodium Potassium 3.3 L Chloride 108.0 H Carbon Dioxide BUN Creatinine 0.4 L Glucose 160 H POC Glucose Lactic Acid Calcium 7.5 L ALT Alkaline Phosphatase Troponin T C-Reactive Protein Total Protein Albumin Triglycerides HDL Cholesterol Vancomycin Trough Crossmatch 12/04/16 12/04/16 12/04/16 11:42 15:12 16:49 WBC RBC Hgb Hct MCV RDW Lymph % (Auto) Smith % (Auto) Lymph # Smith # Seg Neutrophils % Seg Neuts % (Manual) Lymphocytes % (Manual) Lymphocytes # (Manual) PT INR D-Dimer Heparin Anti-Xa Level POC ABG pH 7.322 L POC ABG pCO2 48.9 H POC ABG pO2 59 L 77 L Sodium Potassium Chloride Carbon Dioxide BUN Creatinine Glucose POC Glucose 142 H Lactic Acid Calcium ALT Alkaline Phosphatase Troponin T C-Reactive Protein Total Protein Albumin Triglycerides HDL Cholesterol Vancomycin Trough Crossmatch 12/04/16 12/05/16 12/05/16 18:28 00:10 03:15 WBC RBC 3.17 L Hgb 9.8 L Hct MCV RDW 18.0 H Lymph % (Auto) 10.1 L Smith % (Auto) Lymph # 0.7 L Smith # Seg Neutrophils % 81.7 H Seg Neuts % (Manual) Lymphocytes % (Manual) Lymphocytes # (Manual) PT INR D-Dimer Heparin Anti-Xa Level POC ABG pH POC ABG pCO2 POC ABG pO2 Sodium Potassium Chloride Carbon Dioxide BUN Creatinine Glucose POC Glucose 136 H 138 H Lactic Acid Calcium ALT Alkaline Phosphatase Troponin T C-Reactive Protein Total Protein Albumin Triglycerides HDL Cholesterol Vancomycin Trough Crossmatch 12/05/16 12/05/16 12/05/16 03:15 05:38 12:23 WBC RBC Hgb Hct MCV RDW Lymph % (Auto) Smith % (Auto) Lymph # Smith # Seg Neutrophils % Seg Neuts % (Manual) Lymphocytes % (Manual) Lymphocytes # (Manual) PT INR D-Dimer Heparin Anti-Xa Level POC ABG pH POC ABG pCO2 POC ABG pO2 Sodium Potassium 3.3 L Chloride Carbon Dioxide BUN Creatinine 0.3 L Glucose 130 H POC Glucose 185 H 178 H Lactic Acid Calcium 7.5 L ALT Alkaline Phosphatase Troponin T C-Reactive Protein Total Protein Albumin Triglycerides HDL Cholesterol Vancomycin Trough Crossmatch 12/05/16 12/05/16 12/06/16 16:14 18:29 00:06 WBC RBC Hgb Hct MCV RDW Lymph % (Auto) Smith % (Auto) Lymph # Smith # Seg Neutrophils % Seg Neuts % (Manual) Lymphocytes % (Manual) Lymphocytes # (Manual) PT INR D-Dimer Heparin Anti-Xa Level POC ABG pH POC ABG pCO2 POC ABG pO2 Sodium Potassium Chloride Carbon Dioxide BUN Creatinine Glucose POC Glucose 145 H 147 H 163 H Lactic Acid Calcium ALT Alkaline Phosphatase Troponin T C-Reactive Protein Total Protein Albumin Triglycerides HDL Cholesterol Vancomycin Trough Crossmatch 12/06/16 12/06/16 12/06/16 04:00 05:15 06:37 WBC RBC 2.30 L Hgb 7.2 L Hct 22.7 L D MCV 99 H RDW 17.9 H Lymph % (Auto) Smith % (Auto) 9.5 H Lymph # 0.9 L Smith # Seg Neutrophils % Seg Neuts % (Manual) Lymphocytes % (Manual) Lymphocytes # (Manual) PT INR D-Dimer Heparin Anti-Xa Level POC ABG pH POC ABG pCO2 POC ABG pO2 Sodium Potassium 3.5 L Chloride Carbon Dioxide BUN Creatinine 0.4 L Glucose 138 H POC Glucose 190 H Lactic Acid Calcium 7.7 L ALT Alkaline Phosphatase Troponin T C-Reactive Protein Total Protein Albumin Triglycerides HDL Cholesterol Vancomycin Trough Crossmatch 12/06/16 12/06/16 12/06/16 11:55 11:55 11:55 WBC 15.0 H RBC 2.79 L Hgb 8.6 L Hct 28.3 L MCV 101 H RDW 18.4 H Lymph % (Auto) Smith % (Auto) Lymph # Smith # Seg Neutrophils % Seg Neuts % (Manual) Lymphocytes % (Manual) Lymphocytes # (Manual) PT INR D-Dimer Heparin Anti-Xa Level POC ABG pH POC ABG pCO2 POC ABG pO2 Sodium 136 L Potassium 5.5 H D Chloride Carbon Dioxide BUN Creatinine 0.3 L Glucose 143 H POC Glucose Lactic Acid 5.70 H* Calcium ALT Alkaline Phosphatase Troponin T C-Reactive Protein Total Protein Albumin Triglycerides HDL Cholesterol Vancomycin Trough Crossmatch 12/06/16 12/06/16 12/07/16 11:55 12:10 05:00 WBC RBC Hgb Hct MCV RDW Lymph % (Auto) Smith % (Auto) Lymph # Smith # Seg Neutrophils % Seg Neuts % (Manual) Lymphocytes % (Manual) Lymphocytes # (Manual) PT INR D-Dimer Heparin Anti-Xa Level POC ABG pH POC ABG pCO2 POC ABG pO2 Sodium Potassium Chloride Carbon Dioxide BUN Creatinine 0.4 L Glucose POC Glucose 154 H Lactic Acid Calcium 7.5 L ALT Alkaline Phosphatase 142 H Troponin T C-Reactive Protein 8.10 H Total Protein 4.7 L Albumin 1.6 L Triglycerides HDL Cholesterol Vancomycin Trough Crossmatch 12/07/16 12/07/16 12/07/16 05:00 06:14 16:52 WBC RBC 2.36 L Hgb 7.3 L Hct 23.1 L MCV 98 H D RDW 17.8 H Lymph % (Auto) Smith % (Auto) 8.5 H Lymph # 1.0 L Smith # Seg Neutrophils % 76.9 H Seg Neuts % (Manual) Lymphocytes % (Manual) Lymphocytes # (Manual) PT INR D-Dimer Heparin Anti-Xa Level POC ABG pH 7.508 H POC ABG pCO2 31.1 L POC ABG pO2 131 H Sodium Potassium Chloride Carbon Dioxide BUN Creatinine Glucose POC Glucose 130 H Lactic Acid Calcium ALT Alkaline Phosphatase Troponin T C-Reactive Protein Total Protein Albumin Triglycerides HDL Cholesterol Vancomycin Trough Crossmatch 12/07/16 12/08/16 12/08/16 23:37 04:00 04:00 WBC RBC 2.26 L Hgb 7.1 L Hct 22.2 L MCV 98 H RDW 17.6 H Lymph % (Auto) Smith % (Auto) 9.5 H Lymph # 1.0 L Smith # Seg Neutrophils % 71.7 H Seg Neuts % (Manual) Lymphocytes % (Manual) Lymphocytes # (Manual) PT INR D-Dimer Heparin Anti-Xa Level POC ABG pH POC ABG pCO2 POC ABG pO2 Sodium Potassium 3.0 L Chloride Carbon Dioxide BUN Creatinine 0.5 L Glucose 124 H POC Glucose 107 H Lactic Acid Calcium 7.7 L ALT Alkaline Phosphatase Troponin T C-Reactive Protein Total Protein Albumin Triglycerides HDL Cholesterol Vancomycin Trough Crossmatch 12/08/16 12/08/16 12/08/16 05:16 05:34 10:04 WBC RBC Hgb Hct MCV RDW Lymph % (Auto) Smith % (Auto) Lymph # Smith # Seg Neutrophils % Seg Neuts % (Manual) Lymphocytes % (Manual) Lymphocytes # (Manual) PT INR D-Dimer Heparin Anti-Xa Level POC ABG pH 7.492 H POC ABG pCO2 31.5 L POC ABG pO2 112 H Sodium Potassium Chloride Carbon Dioxide BUN Creatinine Glucose POC Glucose 148 H Lactic Acid Calcium ALT Alkaline Phosphatase Troponin T 0.146 H* C-Reactive Protein Total Protein Albumin Triglycerides 180 H HDL Cholesterol 21 L Vancomycin Trough Crossmatch 12/08/16 12/08/16 12/08/16 10:45 12:09 16:00 WBC RBC Hgb Hct MCV RDW Lymph % (Auto) Smith % (Auto) Lymph # Smith # Seg Neutrophils % Seg Neuts % (Manual) Lymphocytes % (Manual) Lymphocytes # (Manual) PT 17.3 H INR 1.34 H D-Dimer Heparin Anti-Xa Level POC ABG pH POC ABG pCO2 POC ABG pO2 Sodium Potassium Chloride Carbon Dioxide BUN Creatinine Glucose POC Glucose 205 H Lactic Acid Calcium ALT Alkaline Phosphatase Troponin T 0.166 H* C-Reactive Protein Total Protein Albumin Triglycerides HDL Cholesterol Vancomycin Trough Crossmatch 12/08/16 12/08/16 12/08/16 17:45 17:49 23:29 WBC RBC Hgb Hct MCV RDW Lymph % (Auto) Smith % (Auto) Lymph # Smith # Seg Neutrophils % Seg Neuts % (Manual) Lymphocytes % (Manual) Lymphocytes # (Manual) PT INR D-Dimer Heparin Anti-Xa Level < 0.10 L POC ABG pH POC ABG pCO2 POC ABG pO2 Sodium Potassium Chloride Carbon Dioxide BUN Creatinine Glucose POC Glucose 174 H 180 H Lactic Acid Calcium ALT Alkaline Phosphatase Troponin T C-Reactive Protein Total Protein Albumin Triglycerides HDL Cholesterol Vancomycin Trough Crossmatch 12/09/16 12/09/16 12/09/16 01:00 03:55 03:55 WBC RBC 2.39 L Hgb 7.5 L Hct 23.0 L MCV RDW 17.3 H Lymph % (Auto) Smith % (Auto) 10.4 H Lymph # Smith # 1.0 H Seg Neutrophils % Seg Neuts % (Manual) Lymphocytes % (Manual) Lymphocytes # (Manual) PT INR D-Dimer Heparin Anti-Xa Level < 0.10 L POC ABG pH POC ABG pCO2 POC ABG pO2 Sodium 135 L Potassium Chloride Carbon Dioxide BUN 18 H Creatinine Glucose 187 H POC Glucose Lactic Acid Calcium 7.4 L ALT Alkaline Phosphatase Troponin T C-Reactive Protein Total Protein Albumin Triglycerides HDL Cholesterol Vancomycin Trough Crossmatch 12/09/16 12/09/16 12/09/16 04:05 05:37 11:15 WBC RBC Hgb Hct MCV RDW Lymph % (Auto) Smith % (Auto) Lymph # Smith # Seg Neutrophils % Seg Neuts % (Manual) Lymphocytes % (Manual) Lymphocytes # (Manual) PT INR D-Dimer Heparin Anti-Xa Level < 0.10 L POC ABG pH 7.495 H POC ABG pCO2 31.9 L POC ABG pO2 186 H Sodium Potassium Chloride Carbon Dioxide BUN Creatinine Glucose POC Glucose 213 H Lactic Acid Calcium ALT Alkaline Phosphatase Troponin T C-Reactive Protein Total Protein Albumin Triglycerides HDL Cholesterol Vancomycin Trough Crossmatch 12/09/16 12/09/16 12/09/16 11:15 12:16 17:43 WBC RBC Hgb Hct MCV RDW Lymph % (Auto) Smith % (Auto) Lymph # Smith # Seg Neutrophils % Seg Neuts % (Manual) Lymphocytes % (Manual) Lymphocytes # (Manual) PT INR D-Dimer 1403 H Heparin Anti-Xa Level POC ABG pH POC ABG pCO2 POC ABG pO2 Sodium Potassium Chloride Carbon Dioxide BUN Creatinine Glucose POC Glucose 194 H 165 H Lactic Acid Calcium ALT Alkaline Phosphatase Troponin T C-Reactive Protein Total Protein Albumin Triglycerides HDL Cholesterol Vancomycin Trough Crossmatch 12/09/16 12/10/16 12/10/16 19:30 00:04 02:48 WBC RBC Hgb Hct MCV RDW Lymph % (Auto) Smith % (Auto) Lymph # Smith # Seg Neutrophils % Seg Neuts % (Manual) Lymphocytes % (Manual) Lymphocytes # (Manual) PT INR D-Dimer Heparin Anti-Xa Level < 0.10 L < 0.10 L POC ABG pH POC ABG pCO2 POC ABG pO2 Sodium Potassium Chloride Carbon Dioxide BUN Creatinine Glucose POC Glucose 143 H Lactic Acid Calcium ALT Alkaline Phosphatase Troponin T C-Reactive Protein Total Protein Albumin Triglycerides HDL Cholesterol Vancomycin Trough Crossmatch 12/10/16 12/10/16 12/10/16 05:04 05:17 09:06 WBC RBC Hgb Hct MCV RDW Lymph % (Auto) Smith % (Auto) Lymph # Smith # Seg Neutrophils % Seg Neuts % (Manual) Lymphocytes % (Manual) Lymphocytes # (Manual) PT INR D-Dimer Heparin Anti-Xa Level < 0.10 L POC ABG pH POC ABG pCO2 POC ABG pO2 Sodium 133 L Potassium Chloride Carbon Dioxide BUN 19 H Creatinine 0.6 L Glucose 136 H POC Glucose 127 H Lactic Acid Calcium 7.6 L ALT Alkaline Phosphatase Troponin T C-Reactive Protein Total Protein Albumin Triglycerides HDL Cholesterol Vancomycin Trough Crossmatch 12/10/16 12/10/16 12/10/16 12:25 17:54 18:30 WBC RBC Hgb Hct MCV RDW Lymph % (Auto) Smith % (Auto) Lymph # Smith # Seg Neutrophils % Seg Neuts % (Manual) Lymphocytes % (Manual) Lymphocytes # (Manual) PT INR D-Dimer Heparin Anti-Xa Level < 0.10 L POC ABG pH POC ABG pCO2 POC ABG pO2 Sodium Potassium Chloride Carbon Dioxide BUN Creatinine Glucose POC Glucose 169 H 170 H Lactic Acid Calcium ALT Alkaline Phosphatase Troponin T C-Reactive Protein Total Protein Albumin Triglycerides HDL Cholesterol Vancomycin Trough Crossmatch 12/10/16 12/10/16 12/11/16 23:51 Unknown 04:08 WBC RBC Hgb 7.1 L Hct 21.3 L MCV RDW Lymph % (Auto) Smith % (Auto) Lymph # Smith # Seg Neutrophils % Seg Neuts % (Manual) Lymphocytes % (Manual) Lymphocytes # (Manual) PT INR D-Dimer Heparin Anti-Xa Level POC ABG pH POC ABG pCO2 POC ABG pO2 Sodium Potassium Chloride Carbon Dioxide BUN Creatinine Glucose POC Glucose 163 H 150 H Lactic Acid Calcium ALT Alkaline Phosphatase Troponin T C-Reactive Protein Total Protein Albumin Triglycerides HDL Cholesterol Vancomycin Trough Crossmatch 12/11/16 12/11/16 12/11/16 12:11 17:09 23:42 WBC RBC Hgb Hct MCV RDW Lymph % (Auto) Smith % (Auto) Lymph # Smith # Seg Neutrophils % Seg Neuts % (Manual) Lymphocytes % (Manual) Lymphocytes # (Manual) PT INR D-Dimer Heparin Anti-Xa Level POC ABG pH POC ABG pCO2 POC ABG pO2 Sodium Potassium Chloride Carbon Dioxide BUN Creatinine Glucose POC Glucose 156 H 144 H 140 H Lactic Acid Calcium ALT Alkaline Phosphatase Troponin T C-Reactive Protein Total Protein Albumin Triglycerides HDL Cholesterol Vancomycin Trough Crossmatch 12/11/16 12/12/16 12/12/16 Unknown 02:18 02:18 WBC RBC Hgb Hct MCV RDW Lymph % (Auto) Smith % (Auto) Lymph # Smith # Seg Neutrophils % Seg Neuts % (Manual) Lymphocytes % (Manual) Lymphocytes # (Manual) PT INR D-Dimer Heparin Anti-Xa Level 0.21 L < 0.10 L POC ABG pH POC ABG pCO2 POC ABG pO2 Sodium 136 L Potassium Chloride Carbon Dioxide 21 L BUN 19 H Creatinine 0.5 L Glucose POC Glucose Lactic Acid Calcium 7.4 L ALT Alkaline Phosphatase Troponin T C-Reactive Protein Total Protein Albumin Triglycerides HDL Cholesterol Vancomycin Trough Crossmatch 12/12/16 12/12/16 12/12/16 05:17 07:20 10:30 WBC RBC Hgb 6.6 L Hct 25.5 L MCV RDW Lymph % (Auto) Smith % (Auto) Lymph # Smith # Seg Neutrophils % Seg Neuts % (Manual) Lymphocytes % (Manual) Lymphocytes # (Manual) PT INR D-Dimer Heparin Anti-Xa Level POC ABG pH POC ABG pCO2 POC ABG pO2 Sodium Potassium Chloride Carbon Dioxide BUN Creatinine Glucose POC Glucose 113 H Lactic Acid Calcium ALT Alkaline Phosphatase Troponin T C-Reactive Protein Total Protein Albumin Triglycerides HDL Cholesterol Vancomycin Trough Crossmatch See Detail 12/12/16 12/12/16 12/12/16 11:45 12:52 17:50 WBC RBC Hgb Hct MCV RDW Lymph % (Auto) Smith % (Auto) Lymph # Smith # Seg Neutrophils % Seg Neuts % (Manual) Lymphocytes % (Manual) Lymphocytes # (Manual) PT INR D-Dimer Heparin Anti-Xa Level 0.29 L POC ABG pH POC ABG pCO2 POC ABG pO2 Sodium Potassium Chloride Carbon Dioxide BUN Creatinine Glucose POC Glucose 127 H 175 H Lactic Acid Calcium ALT Alkaline Phosphatase Troponin T C-Reactive Protein Total Protein Albumin Triglycerides HDL Cholesterol Vancomycin Trough Crossmatch 12/13/16 12/13/16 12/13/16 00:01 04:45 04:45 WBC RBC 3.43 L Hgb Hct MCV RDW 19.0 H Lymph % (Auto) Smith % (Auto) Lymph # Smith # Seg Neutrophils % Seg Neuts % (Manual) Lymphocytes % (Manual) Lymphocytes # (Manual) PT INR D-Dimer Heparin Anti-Xa Level 0.10 L POC ABG pH POC ABG pCO2 POC ABG pO2 Sodium Potassium Chloride Carbon Dioxide BUN Creatinine Glucose POC Glucose 162 H Lactic Acid Calcium ALT Alkaline Phosphatase Troponin T C-Reactive Protein Total Protein Albumin Triglycerides HDL Cholesterol Vancomycin Trough Crossmatch 12/13/16 12/13/16 12/13/16 06:07 08:00 12:52 WBC RBC Hgb Hct MCV RDW Lymph % (Auto) Smith % (Auto) Lymph # Smith # Seg Neutrophils % Seg Neuts % (Manual) Lymphocytes % (Manual) Lymphocytes # (Manual) PT INR D-Dimer Heparin Anti-Xa Level POC ABG pH POC ABG pCO2 POC ABG pO2 Sodium Potassium Chloride Carbon Dioxide BUN 18 H Creatinine 0.6 L Glucose 117 H POC Glucose 120 H 139 H Lactic Acid Calcium 7.8 L ALT Alkaline Phosphatase Troponin T C-Reactive Protein Total Protein Albumin Triglycerides HDL Cholesterol Vancomycin Trough Crossmatch 12/13/16 12/14/16 12/14/16 17:10 00:08 08:55 WBC RBC Hgb Hct MCV RDW Lymph % (Auto) Smith % (Auto) Lymph # Smith # Seg Neutrophils % Seg Neuts % (Manual) Lymphocytes % (Manual) Lymphocytes # (Manual) PT INR D-Dimer Heparin Anti-Xa Level < 0.10 L POC ABG pH POC ABG pCO2 POC ABG pO2 Sodium Potassium Chloride Carbon Dioxide BUN Creatinine Glucose POC Glucose 126 H 114 H Lactic Acid Calcium ALT Alkaline Phosphatase Troponin T C-Reactive Protein Total Protein Albumin Triglycerides HDL Cholesterol Vancomycin Trough Crossmatch 12/14/16 12/14/16 12/14/16 11:08 17:30 23:28 WBC RBC Hgb Hct MCV RDW Lymph % (Auto) [place] % (Auto) Lymph # Smith # Seg Neutrophils % Seg Neuts % (Manual) Lymphocytes % (Manual) Lymphocytes # (Manual) PT INR D-Dimer Heparin Anti-Xa Level POC ABG pH POC ABG pCO2 POC ABG pO2 Sodium Potassium Chloride Carbon Dioxide BUN Creatinine Glucose POC Glucose 123 H 129 H 176 H Lactic Acid Calcium ALT Alkaline Phosphatase Troponin T C-Reactive Protein Total Protein Albumin Triglycerides HDL Cholesterol Vancomycin Trough Crossmatch 12/15/16 12/15/16 05:52 11:10 WBC RBC Hgb Hct MCV RDW 18.1 H Lymph % (Auto) [place] % (Auto) Lymph # Smith # Seg Neutrophils % Seg Neuts % (Manual) Lymphocytes % (Manual) Lymphocytes # (Manual) PT INR D-Dimer Heparin Anti-Xa Level POC ABG pH POC ABG pCO2 POC ABG pO2 Sodium Potassium Chloride Carbon Dioxide BUN Creatinine Glucose POC Glucose 157 H Lactic Acid Calcium ALT Alkaline Phosphatase Troponin T C-Reactive Protein Total Protein Albumin Triglycerides HDL Cholesterol Vancomycin Trough Crossmatch
--- NOTE | 2016-12-15 19:08 | Progress Note ---
Assessment and Plan Assessment and plan: Acute respiratory failure secondary to to mucus plugging - Patient is is on Trach and PEG - Pulmonary is following A. fib with RVR - Cardiology consulted - On amiodarone - On HEPARIN gtt Sepsis with hypotension - Resolved Acute metabolic encephalopathy Anemia - Hemoglobin this morning was 10 Debility Patient is Full code. Disposition - Continue ICU care - will transfer her to LTCH when stable The high probability of a clinically significant, sudden or life threatening deterioration of the [neurology, cardiovascular, respiratory] system(s) required my full and direct attention, intervention and personal management. The aggregate critical care time was [31] minutes. This time is in addition to time spent performing reported procedures but includes the following: [x] Data Review and interpretation [x] Patient assessment and monitoring of vital signs [x] Documentation [x] Medication orders and managementDVT prophylaxis History Interval history: Patient was seen after PEG and trach placement, patient was alert. Her brother was in the room and his concerns and questions were addressed Hospitalist Physical - Physical exam Narrative exam: Patient on Trach and Vent Vital signs as documented. Head exam is unremarkable. No scleral icterus . Neck is without jugular venous distension, thyromegaly, or carotid bruits. Lungs are clear to auscultation. Cardiac exam reveals irregular rate and Rhythm. Abdominal exam reveals PEG in place. Extremities patient has minimal edema. [employer]ER: Open her eyes. - Constitutional Vitals: Temp Pulse Resp BP Pulse Ox 98.8 F 86 19 107/54 97 12/15/16 16:00 12/15/16 17:00 12/15/16 17:00 12/15/16 17:00 12/15/16 17:00 General appearance: Present: no acute distress (intubated, unresponsive) Results - Labs CBC & Chem 7: 12/15/16 11:10 12/13/16 08:00 Labs: Laboratory Last Values WBC 8.7 K/mm3 (4.5-11.0) 12/15/16 11:10 RBC 3.67 M/mm3 (3.65-5.03) 12/15/16 11:10 Hgb 11.0 gm/dl (10.1-14.3) 12/15/16 11:10 Hct 33.9 % (30.3-42.9) 12/15/16 11:10 MCV 92 fl (79-97) 12/15/16 11:10 MCH 30 pg (28-32) 12/15/16 11:10 MCHC 32 % (30-34) 12/15/16 11:10 RDW 18.1 % (13.2-15.2) H 12/15/16 11:10 Plt Count 320 K/mm3 (140-440) 12/15/16 11:10 Lymph % (Auto) 22.3 % (13.4-35.0) 12/09/16 03:55 [place] % (Auto) 10.4 % (0.0-7.3) H 12/09/16 03:55 Eos % (Auto) 1.7 % (0.0-4.3) 12/09/16 03:55 Baso % (Auto) 1.2 % (0.0-1.8) 12/09/16 03:55 Lymph # 2.1 K/mm3 (1.2-5.4) 12/09/16 03:55 [place] # 1.0 K/mm3 (0.0-0.8) H 12/09/16 03:55 Eos # 0.2 K/mm3 (0.0-0.4) 12/09/16 03:55 Baso # 0.1 K/mm3 (0.0-0.1) 12/09/16 03:55 Add Manual Diff Complete 11/28/16 04:52 Total Counted 100 11/28/16 04:52 Seg Neutrophils % 64.4 % (40.0-70.0) 12/09/16 03:55 Seg Neuts % (Manual) 83.0 % (40.0-70.0) H 11/28/16 04:52 Band Neutrophils % 7.0 % 11/28/16 04:52 Lymphocytes % (Manual) 6.0 % (13.4-35.0) L 11/28/16 04:52 Reactive Lymphs % (Man) 0 % 11/28/16 04:52 Monocytes % (Manual) 1.0 % (0.0-7.3) 11/28/16 04:52 Eosinophils % (Manual) 3.0 % (0.0-4.3) 11/28/16 04:52 Basophils % (Manual) 0 % (0.0-1.8) 11/28/16 04:52 Metamyelocytes % 0 % 11/28/16 04:52 Myelocytes % 0 % 11/28/16 04:52 Promyelocytes % 0 % 11/28/16 04:52 Blast Cells % 0 % 11/28/16 04:52 Nucleated RBC % Not Reportable 11/28/16 04:52 Seg Neutrophils # 5.9 K/mm3 (1.8-7.7) 12/09/16 03:55 Seg Neutrophils # Man 5.4 K/mm3 (1.8-7.7) 11/28/16 04:52 Band Neutrophils # 0.5 K/mm3 11/28/16 04:52 Lymphocytes # (Manual) 0.4 K/mm3 (1.2-5.4) L 11/28/16 04:52 Abs React Lymphs (Man) 0.0 K/mm3 11/28/16 04:52 Monocytes # (Manual) 0.1 K/mm3 (0.0-0.8) 11/28/16 04:52 Eosinophils # (Manual) 0.2 K/mm3 (0.0-0.4) 11/28/16 04:52 Basophils # (Manual) 0.0 K/mm3 (0.0-0.1) 11/28/16 04:52 Metamyelocytes # 0.0 K/mm3 11/28/16 04:52 Myelocytes # 0.0 K/mm3 11/28/16 04:52 Promyelocytes # 0.0 K/mm3 11/28/16 04:52 Blast Cells # 0.0 K/mm3 11/28/16 04:52 WBC Morphology Not Reportable 11/28/16 04:52 Hypersegmented Neuts Not Reportable 11/28/16 04:52 Hyposegmented Neuts Not Reportable 11/28/16 04:52 Hypogranular Neuts Not Reportable 11/28/16 04:52 Smudge Cells Not Reportable 11/28/16 04:52 Toxic Granulation Not Reportable 11/28/16 04:52 Toxic Vacuolation Not Reportable 11/28/16 04:52 Dohle Bodies Not Reportable 11/28/16 04:52 Pelger-Huet Anomaly Not Reportable 11/28/16 04:52 Caitlin Rods Not Reportable 11/28/16 04:52 Platelet Estimate Consistent w auto 11/28/16 04:52 Clumped Platelets Not Reportable 11/28/16 04:52 Plt Clumps, EDTA Not Reportable 11/28/16 04:52 Large Platelets Not Reportable 11/28/16 04:52 Giant Platelets Not Reportable 11/28/16 04:52 Platelet Satelliting Not Reportable 11/28/16 04:52 Plt Morphology Comment Not Reportable 11/28/16 04:52 RBC Morphology Not Reportable 11/28/16 04:52 Dimorphic RBCs Not Reportable 11/28/16 04:52 Polychromasia Not Reportable 11/28/16 04:52 Hypochromasia Not Reportable 11/28/16 04:52 Poikilocytosis Not Reportable 11/28/16 04:52 Anisocytosis Not Reportable 11/28/16 04:52 Microcytosis Not Reportable 11/28/16 04:52 Macrocytosis Few 11/28/16 04:52 Spherocytes Not Reportable 11/28/16 04:52 Pappenheimer Bodies Not Reportable 11/28/16 04:52 Sickle Cells Not Reportable 11/28/16 04:52 Target Cells Not Reportable 11/28/16 04:52 Tear Drop Cells Not Reportable 11/28/16 04:52 Ovalocytes Not Reportable 11/28/16 04:52 Helmet Cells Not Reportable 11/28/16 04:52 [place] Bodies Not Reportable 11/28/16 04:52 Burke Rings Not Reportable 11/28/16 04:52 Dave Cells Not Reportable 11/28/16 04:52 Bite Cells Not Reportable 11/28/16 04:52 Crenated Cell Not Reportable 11/28/16 04:52 Elliptocytes Not Reportable 11/28/16 04:52 Acanthocytes (Spur) Not Reportable 11/28/16 04:52 Rouleaux Not Reportable 11/28/16 04:52 Hemoglobin C Crystals Not Reportable 11/28/16 04:52 Schistocytes Not Reportable 11/28/16 04:52 Malaria parasites Not Reportable 11/28/16 04:52 Javon Bodies Not Reportable 11/28/16 04:52 Hem Pathologist Commnt No 11/28/16 04:52 PT 17.3 Sec. (12.2-14.9) H 12/08/16 10:45 INR 1.34 (0.87-1.13) H 12/08/16 10:45 APTT 34.5 Sec. (24.2-36.6) 12/08/16 10:45 D-Dimer 1403 ng/mlDDU (0-234) H 12/09/16 11:15 Heparin Anti-Xa Level < 0.10 U.I./ml (0.3-0.7) L 12/14/16 08:55 POC ABG pH 7.495 (7.35-7.45) H 12/09/16 04:05 POC ABG pCO2 31.9 (35-45) L 12/09/16 04:05 POC ABG pO2 186 (80-105) H 12/09/16 04:05 POC ABG HCO3 24.6 12/09/16 04:05 POC ABG Total CO2 26 12/09/16 04:05 POC ABG O2 Sat 100 12/09/16 04:05 POC ABG Base Excess 1 12/09/16 04:05 VBG pH 7.376 (7.320-7.420) 11/26/16 18:40 FiO2 35 % 12/09/16 04:05 Sodium 138 mmol/L (137-145) 12/13/16 08:00 Potassium 4.0 mmol/L (3.6-5.0) 12/13/16 08:00 Chloride 104.3 mmol/L (98-107) 12/13/16 08:00 Carbon Dioxide 22 mmol/L (22-30) 12/13/16 08:00 Anion Gap 16 mmol/L 12/13/16 08:00 BUN 18 mg/dL (7-17) H 12/13/16 08:00 Creatinine 0.6 mg/dL (0.7-1.2) L 12/13/16 08:00 Estimated GFR > 60 ml/min 12/13/16 08:00 BUN/Creatinine Ratio 30.00 % 12/13/16 08:00 Glucose 117 mg/dL (65-100) H 12/13/16 08:00 POC Glucose 118 (70-105) H 12/15/16 17:23 Lactic Acid 1.40 mmol/L (0.7-2.0) 12/06/16 19:03 Calcium 7.8 mg/dL (8.4-10.2) L 12/13/16 08:00 Magnesium 2.00 mg/dL (1.7-2.3) 12/08/16 09:17 Total Bilirubin 0.40 mg/dL (0.1-1.2) 12/07/16 05:00 AST 30 units/L (5-40) 12/07/16 05:00 ALT 11 units/L (7-56) 12/07/16 05:00 Alkaline Phosphatase 142 units/L (35-129) H 12/07/16 05:00 Ammonia 37.0 umol/L (25-60) 11/29/16 11:15 Total Creatine Kinase 18 units/L (30-135) L 11/26/16 18:40 CK-MB (CK-2) 1.4 ng/mL (0.0-4.0) 11/26/16 18:40 CK-MB (CK-2) Rel Index 7.7 (0-4) H 11/26/16 18:40 Troponin T 0.166 ng/mL (0.00-0.029) H* 12/08/16 16:00 C-Reactive Protein 8.10 mg/dL (0.00-1.30) H 12/06/16 11:55 NT-Pro-B Natriuret Pep 10344 pg/mL (0-900) H 11/26/16 18:40 Total Protein 4.7 g/dL (6.3-8.2) L 12/07/16 05:00 Albumin 1.6 g/dL (3.9-5) L 12/07/16 05:00 Albumin/Globulin Ratio 0.5 % 12/07/16 05:00 Triglycerides 180 mg/dL (2-149) H 12/08/16 10:04 Cholesterol 122 mg/dL (50-199) 12/08/16 10:04 LDL Cholesterol Direct 65 mg/dL (50-130) 12/08/16 10:04 HDL Cholesterol 21 mg/dL (40-59) L 12/08/16 10:04 Cholesterol/HDL Ratio 5.80 % 12/08/16 10:04 Vitamin B12 768.6 pg/mL (211-911) 11/29/16 11:15 TSH 2.120 mlU/mL (0.270-4.200) 11/29/16 11:15 Urine Color Matilde (Yellow) 11/26/16 18:35 Urine Turbidity Turbid (Clear) 11/26/16 18:35 Urine pH 6.0 (5.0-7.0) 11/26/16 18:35 Ur Specific [place] 1.018 (1.003-1.030) 11/26/16 18:35 Urine Protein 100 mg/dl mg/dL (Negative) 11/26/16 18:35 Urine Glucose (UA) Neg mg/dL (Negative) 11/26/16 18:35 Urine Ketones Neg mg/dL (Negative) 11/26/16 18:35 Urine Blood Neg (Negative) 11/26/16 18:35 Urine Nitrite Neg (Negative) 11/26/16 18:35 Urine Bilirubin Neg (Negative) 11/26/16 18:35 Urine Urobilinogen < 2.0 mg/dL (<2.0) 11/26/16 18:35 Ur Leukocyte Esterase Mod (Negative) 11/26/16 18:35 Urine WBC (Auto) > 182.0 /HPF (0.0-6.0) H 11/26/16 18:35 Urine RBC (Auto) 6.0 /HPF (0.0-6.0) 11/26/16 18:35 Urine Bacteria (Auto) 4+ /HPF (Negative) 11/26/16 18:35 Urine WBC Clumps 3+ /HPF 11/26/16 18:35 Urine Mucus 3+ /HPF 11/26/16 18:35 Vancomycin Trough 41.9 ug/mL (5.0-20.0) H 11/29/16 07:05 Blood Type B POSITIVE 12/12/16 10:30 Antibody Screen TNR 12/12/16 10:30 NIRAV Antibody Screen Negative 12/12/16 10:30 Crossmatch See Detail 12/12/16 10:30
[2016-12-15] MEDS: REMERON PO SCH (23:39)
[2016-12-15] MEDS: SENOKOT PO SCH (23:40)
--- NOTE | 2016-12-16 07:26 | Progress Note ---
Assessment and Plan 61 y/o female with acute respiratory failure requiring mechanical ventilation, now extubated with elevated BNP on admission, with history of afib on xarelto, now with acute respiratory failure requiring mechanical ventilation secondary to aspiration of a mucus plug, now cleared. 1. Continue diuresis as BP and renal function will allow. 2. Continue Vent weaning. Will go to T-piece likely in the next 24 hours 3. Cards restarted xarelto 4. Daily net negative state if possible 5. Will discuss further placement with CM on IT rounds, per CM going to LTACH today CCT 31 minutes. Subjective Date of service: 12/16/16 Principal diagnosis: acute respiratory failure Interval history: No acute events. Stable. Awake and alert. Would like bed lowered. Objective Vital Signs - 12hr 12/15/16 12/15/16 12/15/16 19:51 19:55 19:59 Temperature 99.4 F Pulse Rate 97 H Pulse Rate [ 84 Anterior Bilateral Throughout] Pulse Rate [ From Monitor] Respiratory Rate Respiratory 23 Rate [Anterior Bilateral Throughout] Blood Pressure 108/56 O2 Sat by Pulse 97 Oximetry O2 Sat by Pulse Oximetry [ Assessment] 12/15/16 12/15/16 12/15/16 20:00 20:11 21:00 Temperature Pulse Rate 89 98 H Pulse Rate [ 85 Anterior Bilateral Throughout] Pulse Rate [ 101 H From Monitor] Respiratory 22 18 Rate Respiratory 22 Rate [Anterior Bilateral Throughout] Blood Pressure 98/52 99/50 O2 Sat by Pulse 96 93 Oximetry O2 Sat by Pulse Oximetry [ Assessment] 12/15/16 12/15/16 12/15/16 22:00 22:01 23:00 Temperature Pulse Rate 111 H 119 H 88 Pulse Rate [ Anterior Bilateral Throughout] Pulse Rate [ From Monitor] Respiratory 25 H 22 Rate Respiratory Rate [Anterior Bilateral Throughout] Blood Pressure 115/61 101/50 O2 Sat by Pulse 91 92 Oximetry O2 Sat by Pulse Oximetry [ Assessment] 12/15/16 12/15/16 12/15/16 23:55 23:57 23:59 Temperature 98.9 F Pulse Rate 101 H Pulse Rate [ Anterior Bilateral Throughout] Pulse Rate [ From Monitor] Respiratory Rate Respiratory Rate [Anterior Bilateral Throughout] Blood Pressure 101/50 O2 Sat by Pulse 95 Oximetry O2 Sat by Pulse 95 Oximetry [ Assessment] 12/16/16 12/16/16 12/16/16 00:00 01:00 02:00 Temperature Pulse Rate 83 90 95 H Pulse Rate [ Anterior Bilateral Throughout] Pulse Rate [ 104 H From Monitor] Respiratory 22 22 25 H Rate Respiratory Rate [Anterior Bilateral Throughout] Blood Pressure 104/57 98/52 105/49 O2 Sat by Pulse 96 93 94 Oximetry O2 Sat by Pulse Oximetry [ Assessment] 12/16/16 12/16/16 12/16/16 03:00 03:24 03:52 Temperature 99.4 F Pulse Rate 83 86 Pulse Rate [ Anterior Bilateral Throughout] Pulse Rate [ From Monitor] Respiratory 20 Rate Respiratory Rate [Anterior Bilateral Throughout] Blood Pressure 104/50 104/50 O2 Sat by Pulse 94 96 Oximetry O2 Sat by Pulse Oximetry [ Assessment] 12/16/16 12/16/16 12/16/16 04:00 05:01 06:00 Temperature Pulse Rate 97 H 130 H 85 Pulse Rate [ Anterior Bilateral Throughout] Pulse Rate [ 100 H From Monitor] Respiratory 21 22 24 Rate Respiratory Rate [Anterior Bilateral Throughout] Blood Pressure 105/61 121/67 102/48 O2 Sat by Pulse 95 92 94 Oximetry O2 Sat by Pulse Oximetry [ Assessment] Constitutional: no acute distress Eyes: non-icteric ENT: other (ETT in position) Effort: normal Ascultation: Bilateral: clear, diminished breath sounds Percussion: Bilateral: not dull Cardiovascular: irregular rhythm Gastrointestinal: normoactive bowel sounds, non-distended Integumentary: normal Extremities: no cyanosis, no edema Neurologic: other ( 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 (12.2-14.9) H 12/08/16 10:45 INR 1.34 (0.87-1.13) H 12/08/16 10:45 D-Dimer 1403 ng/mlDDU (0-234) H 12/09/16 11:15 Abnormal lab findings: Abnormal Labs 11/26/16 11/27/16 11/27/16 20:20 05:43 23:43 WBC RBC Hgb Hct MCV RDW Lymph % (Auto) [place] % (Auto) Lymph # [place] # Seg Neutrophils % Seg Neuts % (Manual) Lymphocytes % (Manual) Lymphocytes # (Manual) PT INR D-Dimer Heparin Anti-Xa Level POC ABG pH 7.574 H POC ABG pCO2 29.9 L POC ABG pO2 57 L 147 H Sodium Potassium Chloride Carbon Dioxide BUN Creatinine Glucose POC Glucose 63 L Lactic Acid Calcium ALT Alkaline Phosphatase Troponin T C-Reactive Protein Total Protein Albumin Triglycerides HDL Cholesterol Vancomycin Trough Crossmatch 11/28/16 11/28/16 11/29/16 04:52 04:52 05:15 WBC RBC 3.04 L 2.95 L Hgb 9.4 L 9.2 L Hct 28.6 L MCV 102 H D RDW 19.9 H 19.5 H Lymph % (Auto) 13.1 L [place] % (Auto) 7.9 H Lymph # 0.8 L [place] # Seg Neutrophils % 77.7 H Seg Neuts % (Manual) 83.0 H Lymphocytes % (Manual) 6.0 L Lymphocytes # (Manual) 0.4 L PT INR D-Dimer Heparin Anti-Xa Level POC ABG pH POC ABG pCO2 POC ABG pO2 Sodium Potassium Chloride 110.0 H Carbon Dioxide 20 L BUN Creatinine 0.3 L Glucose POC Glucose Lactic Acid Calcium 7.0 L ALT Alkaline Phosphatase Troponin T C-Reactive Protein Total Protein Albumin Triglycerides HDL Cholesterol Vancomycin Trough Crossmatch 11/29/16 11/29/16 11/29/16 05:15 05:23 06:18 WBC RBC Hgb Hct MCV RDW Lymph % (Auto) [place] % (Auto) Lymph # [place] # Seg Neutrophils % Seg Neuts % (Manual) Lymphocytes % (Manual) Lymphocytes # (Manual) PT INR D-Dimer Heparin Anti-Xa Level POC ABG pH 7.474 H POC ABG pCO2 30.2 L POC ABG pO2 Sodium Potassium 3.1 L D Chloride 112.3 H Carbon Dioxide BUN 6 L Creatinine 0.3 L Glucose POC Glucose 120 H Lactic Acid Calcium 7.1 L ALT Alkaline Phosphatase Troponin T C-Reactive Protein Total Protein Albumin Triglycerides HDL Cholesterol Vancomycin Trough Crossmatch 11/29/16 11/29/16 11/29/16 07:05 11:54 18:31 WBC RBC Hgb Hct MCV RDW Lymph % (Auto) [place] % (Auto) Lymph # [place] # Seg Neutrophils % Seg Neuts % (Manual) Lymphocytes % (Manual) Lymphocytes # (Manual) PT INR D-Dimer Heparin Anti-Xa Level POC ABG pH POC ABG pCO2 POC ABG pO2 Sodium Potassium Chloride Carbon Dioxide BUN Creatinine Glucose POC Glucose 122 H 179 H Lactic Acid Calcium ALT Alkaline Phosphatase Troponin T C-Reactive Protein Total Protein Albumin Triglycerides HDL Cholesterol Vancomycin Trough 41.9 H Crossmatch 11/29/16 11/30/16 11/30/16 23:16 04:01 07:40 WBC RBC 2.51 L Hgb 7.7 L Hct 24.8 L MCV 99 H RDW 19.4 H Lymph % (Auto) [place] % (Auto) Lymph # [place] # Seg Neutrophils % Seg Neuts % (Manual) Lymphocytes % (Manual) Lymphocytes # (Manual) PT INR D-Dimer Heparin Anti-Xa Level POC ABG pH 7.468 H POC ABG pCO2 30.6 L POC ABG pO2 Sodium Potassium Chloride Carbon Dioxide BUN Creatinine Glucose POC Glucose 149 H Lactic Acid Calcium ALT Alkaline Phosphatase Troponin T C-Reactive Protein Total Protein Albumin Triglycerides HDL Cholesterol Vancomycin Trough Crossmatch 11/30/16 11/30/16 11/30/16 07:40 12:42 17:30 WBC RBC Hgb Hct MCV RDW Lymph % (Auto) [place] % (Auto) Lymph # [place] # Seg Neutrophils % Seg Neuts % (Manual) Lymphocytes % (Manual) Lymphocytes # (Manual) PT INR D-Dimer Heparin Anti-Xa Level POC ABG pH POC ABG pCO2 POC ABG pO2 Sodium Potassium Chloride 113.7 H Carbon Dioxide BUN Creatinine 0.5 L D Glucose POC Glucose 134 H 114 H Lactic Acid Calcium 7.1 L ALT 6 L Alkaline Phosphatase 167 H Troponin T C-Reactive Protein Total Protein 4.0 L Albumin 1.0 L Triglycerides HDL Cholesterol Vancomycin Trough Crossmatch 11/30/16 12/01/16 12/01/16 23:39 05:52 06:36 WBC RBC 2.60 L Hgb 8.1 L Hct 25.4 L MCV 98 H RDW 19.7 H Lymph % (Auto) [place] % (Auto) 9.0 H Lymph # 1.1 L [place] # Seg Neutrophils % Seg Neuts % (Manual) Lymphocytes % (Manual) Lymphocytes # (Manual) PT INR D-Dimer Heparin Anti-Xa Level POC ABG pH POC ABG pCO2 POC ABG pO2 Sodium Potassium Chloride Carbon Dioxide BUN Creatinine Glucose POC Glucose 121 H 134 H Lactic Acid Calcium ALT Alkaline Phosphatase Troponin T C-Reactive Protein Total Protein Albumin Triglycerides HDL Cholesterol Vancomycin Trough Crossmatch 12/01/16 12/01/16 12/01/16 06:36 11:34 17:40 WBC RBC Hgb Hct MCV RDW Lymph % (Auto) [place] % (Auto) Lymph # [place] # Seg Neutrophils % Seg Neuts % (Manual) Lymphocytes % (Manual) Lymphocytes # (Manual) PT INR D-Dimer Heparin Anti-Xa Level POC ABG pH POC ABG pCO2 POC ABG pO2 Sodium Potassium Chloride 113.8 H Carbon Dioxide BUN Creatinine 0.5 L Glucose 120 H POC Glucose 167 H 117 H Lactic Acid Calcium 7.3 L ALT Alkaline Phosphatase Troponin T C-Reactive Protein Total Protein Albumin Triglycerides HDL Cholesterol Vancomycin Trough Crossmatch 12/02/16 12/02/16 12/02/16 00:35 05:03 05:44 WBC RBC Hgb Hct MCV RDW Lymph % (Auto) [place] % (Auto) Lymph # [place] # Seg Neutrophils % Seg Neuts % (Manual) Lymphocytes % (Manual) Lymphocytes # (Manual) PT INR D-Dimer Heparin Anti-Xa Level POC ABG pH POC ABG pCO2 30.9 L POC ABG pO2 77 L Sodium Potassium Chloride Carbon Dioxide BUN Creatinine Glucose POC Glucose 129 H 154 H Lactic Acid Calcium ALT Alkaline Phosphatase Troponin T C-Reactive Protein Total Protein Albumin Triglycerides HDL Cholesterol Vancomycin Trough Crossmatch 12/02/16 12/02/16 12/03/16 18:03 23:53 05:17 WBC RBC Hgb Hct MCV RDW Lymph % (Auto) [place] % (Auto) Lymph # [place] # Seg Neutrophils % Seg Neuts % (Manual) Lymphocytes % (Manual) Lymphocytes # (Manual) PT INR D-Dimer Heparin Anti-Xa Level POC ABG pH POC ABG pCO2 POC ABG pO2 Sodium Potassium Chloride Carbon Dioxide BUN Creatinine Glucose POC Glucose 135 H 158 H 177 H Lactic Acid Calcium ALT Alkaline Phosphatase Troponin T C-Reactive Protein Total Protein Albumin Triglycerides HDL Cholesterol Vancomycin Trough Crossmatch 12/03/16 12/03/16 12/03/16 05:30 09:35 11:46 WBC RBC 2.50 L Hgb 8.0 L Hct 24.8 L MCV 99 H RDW 18.8 H Lymph % (Auto) [place] % (Auto) 11.9 H Lymph # [place] # Seg Neutrophils % Seg Neuts % (Manual) Lymphocytes % (Manual) Lymphocytes # (Manual) PT INR D-Dimer Heparin Anti-Xa Level POC ABG pH POC ABG pCO2 POC ABG pO2 Sodium Potassium 3.5 L Chloride 109.9 H Carbon Dioxide BUN Creatinine 0.4 L Glucose 162 H POC Glucose 157 H Lactic Acid Calcium 7.5 L ALT Alkaline Phosphatase Troponin T C-Reactive Protein Total Protein Albumin Triglycerides HDL Cholesterol Vancomycin Trough Crossmatch 12/03/16 12/03/16 12/04/16 18:25 23:32 05:24 WBC RBC Hgb Hct MCV RDW Lymph % (Auto) [place] % (Auto) Lymph # [place] # Seg Neutrophils % Seg Neuts % (Manual) Lymphocytes % (Manual) Lymphocytes # (Manual) PT INR D-Dimer Heparin Anti-Xa Level POC ABG pH POC ABG pCO2 POC ABG pO2 Sodium Potassium Chloride Carbon Dioxide BUN Creatinine Glucose POC Glucose 134 H 152 H 176 H Lactic Acid Calcium ALT Alkaline Phosphatase Troponin T C-Reactive Protein Total Protein Albumin Triglycerides HDL Cholesterol Vancomycin Trough Crossmatch 12/04/16 12/04/16 12/04/16 05:29 08:15 08:15 WBC RBC 2.41 L Hgb 7.5 L Hct 23.7 L MCV 98 H RDW 18.4 H Lymph % (Auto) [place] % (Auto) 12.7 H Lymph # 0.9 L [place] # Seg Neutrophils % Seg Neuts % (Manual) Lymphocytes % (Manual) Lymphocytes # (Manual) PT INR D-Dimer Heparin Anti-Xa Level POC ABG pH POC ABG pCO2 POC ABG pO2 116 H Sodium Potassium 3.3 L Chloride 108.0 H Carbon Dioxide BUN Creatinine 0.4 L Glucose 160 H POC Glucose Lactic Acid Calcium 7.5 L ALT Alkaline Phosphatase Troponin T C-Reactive Protein Total Protein Albumin Triglycerides HDL Cholesterol Vancomycin Trough Crossmatch 12/04/16 12/04/16 12/04/16 11:42 15:12 16:49 WBC RBC Hgb Hct MCV RDW Lymph % (Auto) [place] % (Auto) Lymph # [place] # Seg Neutrophils % Seg Neuts % (Manual) Lymphocytes % (Manual) Lymphocytes # (Manual) PT INR D-Dimer Heparin Anti-Xa Level POC ABG pH 7.322 L POC ABG pCO2 48.9 H POC ABG pO2 59 L 77 L Sodium Potassium Chloride Carbon Dioxide BUN Creatinine Glucose POC Glucose 142 H Lactic Acid Calcium ALT Alkaline Phosphatase Troponin T C-Reactive Protein Total Protein Albumin Triglycerides HDL Cholesterol Vancomycin Trough Crossmatch 12/04/16 12/05/16 12/05/16 18:28 00:10 03:15 WBC RBC 3.17 L Hgb 9.8 L Hct MCV RDW 18.0 H Lymph % (Auto) 10.1 L [place] % (Auto) Lymph # 0.7 L [place] # Seg Neutrophils % 81.7 H Seg Neuts % (Manual) Lymphocytes % (Manual) Lymphocytes # (Manual) PT INR D-Dimer Heparin Anti-Xa Level POC ABG pH POC ABG pCO2 POC ABG pO2 Sodium Potassium Chloride Carbon Dioxide BUN Creatinine Glucose POC Glucose 136 H 138 H Lactic Acid Calcium ALT Alkaline Phosphatase Troponin T C-Reactive Protein Total Protein Albumin Triglycerides HDL Cholesterol Vancomycin Trough Crossmatch 12/05/16 12/05/16 12/05/16 03:15 05:38 12:23 WBC RBC Hgb Hct MCV RDW Lymph % (Auto) [place] % (Auto) Lymph # [place] # Seg Neutrophils % Seg Neuts % (Manual) Lymphocytes % (Manual) Lymphocytes # (Manual) PT INR D-Dimer Heparin Anti-Xa Level POC ABG pH POC ABG pCO2 POC ABG pO2 Sodium Potassium 3.3 L Chloride Carbon Dioxide BUN Creatinine 0.3 L Glucose 130 H POC Glucose 185 H 178 H Lactic Acid Calcium 7.5 L ALT Alkaline Phosphatase Troponin T C-Reactive Protein Total Protein Albumin Triglycerides HDL Cholesterol Vancomycin Trough Crossmatch 12/05/16 12/05/16 12/06/16 16:14 18:29 00:06 WBC RBC Hgb Hct MCV RDW Lymph % (Auto) [place] % (Auto) Lymph # [place] # Seg Neutrophils % Seg Neuts % (Manual) Lymphocytes % (Manual) Lymphocytes # (Manual) PT INR D-Dimer Heparin Anti-Xa Level POC ABG pH POC ABG pCO2 POC ABG pO2 Sodium Potassium Chloride Carbon Dioxide BUN Creatinine Glucose POC Glucose 145 H 147 H 163 H Lactic Acid Calcium ALT Alkaline Phosphatase Troponin T C-Reactive Protein Total Protein Albumin Triglycerides HDL Cholesterol Vancomycin Trough Crossmatch 12/06/16 12/06/16 12/06/16 04:00 05:15 06:37 WBC RBC 2.30 L Hgb 7.2 L Hct 22.7 L D MCV 99 H RDW 17.9 H Lymph % (Auto) [place] % (Auto) 9.5 H Lymph # 0.9 L [place] # Seg Neutrophils % Seg Neuts % (Manual) Lymphocytes % (Manual) Lymphocytes # (Manual) PT INR D-Dimer Heparin Anti-Xa Level POC ABG pH POC ABG pCO2 POC ABG pO2 Sodium Potassium 3.5 L Chloride Carbon Dioxide BUN Creatinine 0.4 L Glucose 138 H POC Glucose 190 H Lactic Acid Calcium 7.7 L ALT Alkaline Phosphatase Troponin T C-Reactive Protein Total Protein Albumin Triglycerides HDL Cholesterol Vancomycin Trough Crossmatch 12/06/16 12/06/16 12/06/16 11:55 11:55 11:55 WBC 15.0 H RBC 2.79 L Hgb 8.6 L Hct 28.3 L MCV 101 H RDW 18.4 H Lymph % (Auto) [place] % (Auto) Lymph # [place] # Seg Neutrophils % Seg Neuts % (Manual) Lymphocytes % (Manual) Lymphocytes # (Manual) PT INR D-Dimer Heparin Anti-Xa Level POC ABG pH POC ABG pCO2 POC ABG pO2 Sodium 136 L Potassium 5.5 H D Chloride Carbon Dioxide BUN Creatinine 0.3 L Glucose 143 H POC Glucose Lactic Acid 5.70 H* Calcium ALT Alkaline Phosphatase Troponin T C-Reactive Protein Total Protein Albumin Triglycerides HDL Cholesterol Vancomycin Trough Crossmatch 12/06/16 12/06/16 12/07/16 11:55 12:10 05:00 WBC RBC Hgb Hct MCV RDW Lymph % (Auto) [place] % (Auto) Lymph # [place] # Seg Neutrophils % Seg Neuts % (Manual) Lymphocytes % (Manual) Lymphocytes # (Manual) PT INR D-Dimer Heparin Anti-Xa Level POC ABG pH POC ABG pCO2 POC ABG pO2 Sodium Potassium Chloride Carbon Dioxide BUN Creatinine 0.4 L Glucose POC Glucose 154 H Lactic Acid Calcium 7.5 L ALT Alkaline Phosphatase 142 H Troponin T C-Reactive Protein 8.10 H Total Protein 4.7 L Albumin 1.6 L Triglycerides HDL Cholesterol Vancomycin Trough Crossmatch 12/07/16 12/07/16 12/07/16 05:00 06:14 16:52 WBC RBC 2.36 L Hgb 7.3 L Hct 23.1 L MCV 98 H D RDW 17.8 H Lymph % (Auto) [place] % (Auto) 8.5 H Lymph # 1.0 L [place] # Seg Neutrophils % 76.9 H Seg Neuts % (Manual) Lymphocytes % (Manual) Lymphocytes # (Manual) PT INR D-Dimer Heparin Anti-Xa Level POC ABG pH 7.508 H POC ABG pCO2 31.1 L POC ABG pO2 131 H Sodium Potassium Chloride Carbon Dioxide BUN Creatinine Glucose POC Glucose 130 H Lactic Acid Calcium ALT Alkaline Phosphatase Troponin T C-Reactive Protein Total Protein Albumin Triglycerides HDL Cholesterol Vancomycin Trough Crossmatch 12/07/16 12/08/16 12/08/16 23:37 04:00 04:00 WBC RBC 2.26 L Hgb 7.1 L Hct 22.2 L MCV 98 H RDW 17.6 H Lymph % (Auto) [place] % (Auto) 9.5 H Lymph # 1.0 L [place] # Seg Neutrophils % 71.7 H Seg Neuts % (Manual) Lymphocytes % (Manual) Lymphocytes # (Manual) PT INR D-Dimer Heparin Anti-Xa Level POC ABG pH POC ABG pCO2 POC ABG pO2 Sodium Potassium 3.0 L Chloride Carbon Dioxide BUN Creatinine 0.5 L Glucose 124 H POC Glucose 107 H Lactic Acid Calcium 7.7 L ALT Alkaline Phosphatase Troponin T C-Reactive Protein Total Protein Albumin Triglycerides HDL Cholesterol Vancomycin Trough Crossmatch 12/08/16 12/08/16 12/08/16 05:16 05:34 10:04 WBC RBC Hgb Hct MCV RDW Lymph % (Auto) [place] % (Auto) Lymph # [place] # Seg Neutrophils % Seg Neuts % (Manual) Lymphocytes % (Manual) Lymphocytes # (Manual) PT INR D-Dimer Heparin Anti-Xa Level POC ABG pH 7.492 H POC ABG pCO2 31.5 L POC ABG pO2 112 H Sodium Potassium Chloride Carbon Dioxide BUN Creatinine Glucose POC Glucose 148 H Lactic Acid Calcium ALT Alkaline Phosphatase Troponin T 0.146 H* C-Reactive Protein Total Protein Albumin Triglycerides 180 H HDL Cholesterol 21 L Vancomycin Trough Crossmatch 12/08/16 12/08/16 12/08/16 10:45 12:09 16:00 WBC RBC Hgb Hct MCV RDW Lymph % (Auto) [place] % (Auto) Lymph # [place] # Seg Neutrophils % Seg Neuts % (Manual) Lymphocytes % (Manual) Lymphocytes # (Manual) PT 17.3 H INR 1.34 H D-Dimer Heparin Anti-Xa Level POC ABG pH POC ABG pCO2 POC ABG pO2 Sodium Potassium Chloride Carbon Dioxide BUN Creatinine Glucose POC Glucose 205 H Lactic Acid Calcium ALT Alkaline Phosphatase Troponin T 0.166 H* C-Reactive Protein Total Protein Albumin Triglycerides HDL Cholesterol Vancomycin Trough Crossmatch 12/08/16 12/08/16 12/08/16 17:45 17:49 23:29 WBC RBC Hgb Hct MCV RDW Lymph % (Auto) [place] % (Auto) Lymph # [place] # Seg Neutrophils % Seg Neuts % (Manual) Lymphocytes % (Manual) Lymphocytes # (Manual) PT INR D-Dimer Heparin Anti-Xa Level < 0.10 L POC ABG pH POC ABG pCO2 POC ABG pO2 Sodium Potassium Chloride Carbon Dioxide BUN Creatinine Glucose POC Glucose 174 H 180 H Lactic Acid Calcium ALT Alkaline Phosphatase Troponin T C-Reactive Protein Total Protein Albumin Triglycerides HDL Cholesterol Vancomycin Trough Crossmatch 12/09/16 12/09/16 12/09/16 01:00 03:55 03:55 WBC RBC 2.39 L Hgb 7.5 L Hct 23.0 L MCV RDW 17.3 H Lymph % (Auto) [place] % (Auto) 10.4 H Lymph # [place] # 1.0 H Seg Neutrophils % Seg Neuts % (Manual) Lymphocytes % (Manual) Lymphocytes # (Manual) PT INR D-Dimer Heparin Anti-Xa Level < 0.10 L POC ABG pH POC ABG pCO2 POC ABG pO2 Sodium 135 L Potassium Chloride Carbon Dioxide BUN 18 H Creatinine Glucose 187 H POC Glucose Lactic Acid Calcium 7.4 L ALT Alkaline Phosphatase Troponin T C-Reactive Protein Total Protein Albumin Triglycerides HDL Cholesterol Vancomycin Trough Crossmatch 12/09/16 12/09/16 12/09/16 04:05 05:37 11:15 WBC RBC Hgb Hct MCV RDW Lymph % (Auto) [place] % (Auto) Lymph # [place] # Seg Neutrophils % Seg Neuts % (Manual) Lymphocytes % (Manual) Lymphocytes # (Manual) PT INR D-Dimer Heparin Anti-Xa Level < 0.10 L POC ABG pH 7.495 H POC ABG pCO2 31.9 L POC ABG pO2 186 H Sodium Potassium Chloride Carbon Dioxide BUN Creatinine Glucose POC Glucose 213 H Lactic Acid Calcium ALT Alkaline Phosphatase Troponin T C-Reactive Protein Total Protein Albumin Triglycerides HDL Cholesterol Vancomycin Trough Crossmatch 12/09/16 12/09/16 12/09/16 11:15 12:16 17:43 WBC RBC Hgb Hct MCV RDW Lymph % (Auto) [place] % (Auto) Lymph # [place] # Seg Neutrophils % Seg Neuts % (Manual) Lymphocytes % (Manual) Lymphocytes # (Manual) PT INR D-Dimer 1403 H Heparin Anti-Xa Level POC ABG pH POC ABG pCO2 POC ABG pO2 Sodium Potassium Chloride Carbon Dioxide BUN Creatinine Glucose POC Glucose 194 H 165 H Lactic Acid Calcium ALT Alkaline Phosphatase Troponin T C-Reactive Protein Total Protein Albumin Triglycerides HDL Cholesterol Vancomycin Trough Crossmatch 12/09/16 12/10/16 12/10/16 19:30 00:04 02:48 WBC RBC Hgb Hct MCV RDW Lymph % (Auto) [place] % (Auto) Lymph # [place] # Seg Neutrophils % Seg Neuts % (Manual) Lymphocytes % (Manual) Lymphocytes # (Manual) PT INR D-Dimer Heparin Anti-Xa Level < 0.10 L < 0.10 L POC ABG pH POC ABG pCO2 POC ABG pO2 Sodium Potassium Chloride Carbon Dioxide BUN Creatinine Glucose POC Glucose 143 H Lactic Acid Calcium ALT Alkaline Phosphatase Troponin T C-Reactive Protein Total Protein Albumin Triglycerides HDL Cholesterol Vancomycin Trough Crossmatch 12/10/16 12/10/16 12/10/16 05:04 05:17 09:06 WBC RBC Hgb Hct MCV RDW Lymph % (Auto) [place] % (Auto) Lymph # [place] # Seg Neutrophils % Seg Neuts % (Manual) Lymphocytes % (Manual) Lymphocytes # (Manual) PT INR D-Dimer Heparin Anti-Xa Level < 0.10 L POC ABG pH POC ABG pCO2 POC ABG pO2 Sodium 133 L Potassium Chloride Carbon Dioxide BUN 19 H Creatinine 0.6 L Glucose 136 H POC Glucose 127 H Lactic Acid Calcium 7.6 L ALT Alkaline Phosphatase Troponin T C-Reactive Protein Total Protein Albumin Triglycerides HDL Cholesterol Vancomycin Trough Crossmatch 12/10/16 12/10/16 12/10/16 12:25 17:54 18:30 WBC RBC Hgb Hct MCV RDW Lymph % (Auto) [place] % (Auto) Lymph # [place] # Seg Neutrophils % Seg Neuts % (Manual) Lymphocytes % (Manual) Lymphocytes # (Manual) PT INR D-Dimer Heparin Anti-Xa Level < 0.10 L POC ABG pH POC ABG pCO2 POC ABG pO2 Sodium Potassium Chloride Carbon Dioxide BUN Creatinine Glucose POC Glucose 169 H 170 H Lactic Acid Calcium ALT Alkaline Phosphatase Troponin T C-Reactive Protein Total Protein Albumin Triglycerides HDL Cholesterol Vancomycin Trough Crossmatch 12/10/16 12/10/16 12/11/16 23:51 Unknown 04:08 WBC RBC Hgb 7.1 L Hct 21.3 L MCV RDW Lymph % (Auto) [place] % (Auto) Lymph # [place] # Seg Neutrophils % Seg Neuts % (Manual) Lymphocytes % (Manual) Lymphocytes # (Manual) PT INR D-Dimer Heparin Anti-Xa Level POC ABG pH POC ABG pCO2 POC ABG pO2 Sodium Potassium Chloride Carbon Dioxide BUN Creatinine Glucose POC Glucose 163 H 150 H Lactic Acid Calcium ALT Alkaline Phosphatase Troponin T C-Reactive Protein Total Protein Albumin Triglycerides HDL Cholesterol Vancomycin Trough Crossmatch 12/11/16 12/11/16 12/11/16 12:11 17:09 23:42 WBC RBC Hgb Hct MCV RDW Lymph % (Auto) [place] % (Auto) Lymph # [place] # Seg Neutrophils % Seg Neuts % (Manual) Lymphocytes % (Manual) Lymphocytes # (Manual) PT INR D-Dimer Heparin Anti-Xa Level POC ABG pH POC ABG pCO2 POC ABG pO2 Sodium Potassium Chloride Carbon Dioxide BUN Creatinine Glucose POC Glucose 156 H 144 H 140 H Lactic Acid Calcium ALT Alkaline Phosphatase Troponin T C-Reactive Protein Total Protein Albumin Triglycerides HDL Cholesterol Vancomycin Trough Crossmatch 12/11/16 12/12/16 12/12/16 Unknown 02:18 02:18 WBC RBC Hgb Hct MCV RDW Lymph % (Auto) [place] % (Auto) Lymph # [place] # Seg Neutrophils % Seg Neuts % (Manual) Lymphocytes % (Manual) Lymphocytes # (Manual) PT INR D-Dimer Heparin Anti-Xa Level 0.21 L < 0.10 L POC ABG pH POC ABG pCO2 POC ABG pO2 Sodium 136 L Potassium Chloride Carbon Dioxide 21 L BUN 19 H Creatinine 0.5 L Glucose POC Glucose Lactic Acid Calcium 7.4 L ALT Alkaline Phosphatase Troponin T C-Reactive Protein Total Protein Albumin Triglycerides HDL Cholesterol Vancomycin Trough Crossmatch 12/12/16 12/12/16 12/12/16 05:17 07:20 10:30 WBC RBC Hgb 6.6 L Hct 25.5 L MCV RDW Lymph % (Auto) [place] % (Auto) Lymph # [place] # Seg Neutrophils % Seg Neuts % (Manual) Lymphocytes % (Manual) Lymphocytes # (Manual) PT INR D-Dimer Heparin Anti-Xa Level POC ABG pH POC ABG pCO2 POC ABG pO2 Sodium Potassium Chloride Carbon Dioxide BUN Creatinine Glucose POC Glucose 113 H Lactic Acid Calcium ALT Alkaline Phosphatase Troponin T C-Reactive Protein Total Protein Albumin Triglycerides HDL Cholesterol Vancomycin Trough Crossmatch See Detail 12/12/16 12/12/16 12/12/16 11:45 12:52 17:50 WBC RBC Hgb Hct MCV RDW Lymph % (Auto) [place] % (Auto) Lymph # [place] # Seg Neutrophils % Seg Neuts % (Manual) Lymphocytes % (Manual) Lymphocytes # (Manual) PT INR D-Dimer Heparin Anti-Xa Level 0.29 L POC ABG pH POC ABG pCO2 POC ABG pO2 Sodium Potassium Chloride Carbon Dioxide BUN Creatinine Glucose POC Glucose 127 H 175 H Lactic Acid Calcium ALT Alkaline Phosphatase Troponin T C-Reactive Protein Total Protein Albumin Triglycerides HDL Cholesterol Vancomycin Trough Crossmatch 12/13/16 12/13/16 12/13/16 00:01 04:45 04:45 WBC RBC 3.43 L Hgb Hct MCV RDW 19.0 H Lymph % (Auto) [place] % (Auto) Lymph # [place] # Seg Neutrophils % Seg Neuts % (Manual) Lymphocytes % (Manual) Lymphocytes # (Manual) PT INR D-Dimer Heparin Anti-Xa Level 0.10 L POC ABG pH POC ABG pCO2 POC ABG pO2 Sodium Potassium Chloride Carbon Dioxide BUN Creatinine Glucose POC Glucose 162 H Lactic Acid Calcium ALT Alkaline Phosphatase Troponin T C-Reactive Protein Total Protein Albumin Triglycerides HDL Cholesterol Vancomycin Trough Crossmatch 12/13/16 12/13/16 12/13/16 06:07 08:00 12:52 WBC RBC Hgb Hct MCV RDW Lymph % (Auto) [place] % (Auto) Lymph # [place] # Seg Neutrophils % Seg Neuts % (Manual) Lymphocytes % (Manual) Lymphocytes # (Manual) PT INR D-Dimer Heparin Anti-Xa Level POC ABG pH POC ABG pCO2 POC ABG pO2 Sodium Potassium Chloride Carbon Dioxide BUN 18 H Creatinine 0.6 L Glucose 117 H POC Glucose 120 H 139 H Lactic Acid Calcium 7.8 L ALT Alkaline Phosphatase Troponin T C-Reactive Protein Total Protein Albumin Triglycerides HDL Cholesterol Vancomycin Trough Crossmatch 12/13/16 12/14/1612/14/17 17:10 00:08 08:55 WBC RBC Hgb Hct MCV RDW Lymph % (Auto) [place] % (Auto) Lymph # [place] # Seg Neutrophils % Seg Neuts % (Manual) Lymphocytes % (Manual) Lymphocytes # (Manual) PT INR D-Dimer Heparin Anti-Xa Level < 0.10 L POC ABG pH POC ABG pCO2 POC ABG pO2 Sodium Potassium Chloride Carbon Dioxide BUN Creatinine Glucose POC Glucose 126 H 114 H Lactic Acid Calcium ALT Alkaline Phosphatase Troponin T C-Reactive Protein Total Protein Albumin Triglycerides HDL Cholesterol Vancomycin Trough Crossmatch 12/14/16 12/14/16 12/14/16 11:08 17:30 23:28 WBC RBC Hgb Hct MCV RDW Lymph % (Auto) [place] % (Auto) Lymph # [place] # Seg Neutrophils % Seg Neuts % (Manual) Lymphocytes % (Manual) Lymphocytes # (Manual) PT INR D-Dimer Heparin Anti-Xa Level POC ABG pH POC ABG pCO2 POC ABG pO2 Sodium Potassium Chloride Carbon Dioxide BUN Creatinine Glucose POC Glucose 123 H 129 H 176 H Lactic Acid Calcium ALT Alkaline Phosphatase Troponin T C-Reactive Protein Total Protein Albumin Triglycerides HDL Cholesterol Vancomycin Trough Crossmatch 12/15/16 12/15/16 12/15/16 05:52 11:10 12:44 WBC RBC Hgb Hct MCV RDW 18.1 H Lymph % (Auto) [place] % (Auto) Lymph # [place] # Seg Neutrophils % Seg Neuts % (Manual) Lymphocytes % (Manual) Lymphocytes # (Manual) PT INR D-Dimer Heparin Anti-Xa Level POC ABG pH POC ABG pCO2 POC ABG pO2 Sodium Potassium Chloride Carbon Dioxide BUN Creatinine Glucose POC Glucose 157 H 184 H Lactic Acid Calcium ALT Alkaline Phosphatase Troponin T C-Reactive Protein Total Protein Albumin Triglycerides HDL Cholesterol Vancomycin Trough Crossmatch 12/15/16 12/16/16 12/16/16 17:23 00:21 05:24 WBC RBC Hgb Hct MCV RDW Lymph % (Auto) [place] % (Auto) Lymph # [place] # Seg Neutrophils % Seg Neuts % (Manual) Lymphocytes % (Manual) Lymphocytes # (Manual) PT INR D-Dimer Heparin Anti-Xa Level POC ABG pH POC ABG pCO2 POC ABG pO2 Sodium Potassium Chloride Carbon Dioxide BUN Creatinine Glucose POC Glucose 118 H 185 H 130 H Lactic Acid Calcium ALT Alkaline Phosphatase Troponin T C-Reactive Protein Total Protein Albumin Triglycerides HDL Cholesterol Vancomycin Trough Crossmatch
[2016-12-16] MEDS: PULMICORT IH SCH (07:53)
[2016-12-16] MEDS: PROVENTIL IH PRN (07:53)
--- NOTE | 2016-12-16 10:08 | Progress Note ---
Assessment and Plan Paroxysmal atrial fibrillation-->currently sinus rhythm Cont PO amiodarone 200mg BID Cont Xarelto Echo: LVEF 45 to 50%, Mild MR, R Heart enlargement, Mild to moderate TR, Moderate pulmonary hypertension, RVSP 55 mmHg, Dilated IVC, Pleural effusion, Minimal pericardial effusion Elevated DDimer PE not suspected per pulmonary. S/p cardiac arrest-->appears to have been a respiratory arrest due to possible aspiration mildly elevated troponin level likely due to resuscitation efforts Acute on chronic respiratory failure Trached Acute encephalopathy Hypokalemia Repleted Hx. of hypertension BP currently Stable now will continue monitoring Diabetes Anemia Recommend PRBC transfusion to keep Hgb around 10 and greater Currently stable cardiac status. Will see PRN. The patient has been seen in conjunction with Dr. Kearney who agrees with the assessment and plan of care. Subjective Date of service: 12/16/16 Principal diagnosis: acute respiratory failure Interval history: Pt resting in bed, NAD. VSS. s/p PEG and trach. Objective Last Vital Signs Temp 98.1 F 12/16/16 08:00 Pulse 90 12/16/16 09:00 Resp 27 H 12/16/16 09:00 BP 100/48 12/16/16 09:00 Pulse Ox 94 12/16/16 09:00 - Physical Examination General: No Apparent Distress (intubated) HEENT: Positive: Normocephaly, Mucus Membranes Moist Neck: Positive: neck supple, trachea midline Cardiac: Positive: Reg Rate and Rhythm, S1/S2 Lungs: Positive: clear to auscultation Neuro: Positive: Grossly Intact, Other (intubated, sedated) Abdomen: Positive: Soft Skin: Positive: Clear. Negative: Rash Extremities: Present: Other (dressings intact on bilateral arms and legs). Absent: edema - Labs and Meds CBC 12/15/16 Range/Units 11:10 WBC 8.7 (4.5-11.0) K/mm3 RBC 3.67 (3.65-5.03) M/mm3 Hgb 11.0 (10.1-14.3) gm/dl Hct 33.9 (30.3-42.9) % Plt Count 320 (140-440) K/mm3 - Imaging and Cardiology EKG: image reviewed Echo: report reviewed (12/07/16: LVEF 45 to 50%, Mild MR, R Heart enlargement, Mild to moderate TR, Moderate pulmonary hypertension, RVSP 55 mmHg, Dilated IVC , Pleural effusion, Minimal pericardial effusion)
--- NOTE | 2016-12-16 10:42 | Discharge Summary ---
Providers - Providers Date of Admission: 11/26/16 19:14 Date of discharge: 12/16/16 Attending physician: TRIPP GUARDADO MD 11/28/16 06:22 Consult to Wound/ET Nurse [CONS] Routine Reason For Exam: wound eval 11/28/16 17:00 Consult to Physician [CONS] Routine Consulting Provider: BAO BARTHOLOMEW Reason For Exam: AMS, on mechanical ventilation Place consult to:: Dr Bartholomew Notified:: yes Phone number called:: ext [phone] Was contact made?: Yes Time called:: 17:47 Comment:: Left voice message on Corina's phone 12/04/16 17:59 Speech Therapy Evaluation and Treat [CONS] Routine Reason For Exam: Post-extubation swallow eval 12/04/16 18:43 Consult to Wound/ET Nurse [CONS] Routine Reason For Exam: wound eval - new wound on left cheek 12/07/16 10:19 Consult to Cardiology [CONS] Stat Consulting Provider: CARLOS EDUARDO ALFARO Reason For Exam: Afib 12/07/16 19:41 Speech Therapy Evaluation and Treat [CONS] Routine Reason For Exam: post extubated. 12/10/16 12:50 Consult to Physician [CONS] Routine Consulting Provider: NELDA MURPHY I Reason For Exam: Trach and Peg Place consult to:: Rob Iglesias Notified:: Yes If yes, spoke with:: talked to Dr. 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 SNF staff notified ED because patient noticed to be confused , and minimally responsive. Pt transported to [facility] for evaluation. PT unable to provide history. Pt seen and evaluated in ED and found to be in severe distress and unable to protect her airway. Pt intubated and placed on vent support. Pt found to have sepsis, and evidence of aspiration pneumonia, and UTI. Pt treated I[facility] sepsis protocol. Patient was admitted to ICU and she was treated for aspiration pneumonia, she was sepsis and the patient get improvement and was extubated but reintubated again because of aspiration, [facility] was called and resuscitated successfully. Patient showed improvement and extubated again but she has difficulty maintaining her airways, Trach and PEG was done and transferred to LTACH. Patient has A.fib with RVR, anemia 2/2 to GI bleed . Patient was relatively stable at the time of transfer. Disposition: [id number] Time spent for discharge: 31 minutes - Discharge Diagnoses (1) Atrial fibrillation with RVR Status: Acute (2) Acute respiratory failure Status: Acute Qualifiers: Respiratory failure complication: R (3) Altered mental status Status: Acute Qualifiers: Altered mental status type: stupor Coma depth: C Coma timing: C Qualified Code(s): R40.1 - Stupor (4) Aspiration pneumonia Status: Acute Qualifiers: Aspiration pneumonia type: A Laterality: L Lung location: L (5) Cardiac arrest due to respiratory disorder Status: Acute (6) Encephalopathy acute Status: Acute (7) Pulmonary edema Status: Acute Qualifiers: Chronicity: acute Qualified Code(s): J81.0 - Acute pulmonary edema (8) Sepsis Status: Resolved Qualifiers: Sepsis type: S (9) UTI (urinary tract infection) Status: Resolved Qualifiers: Urinary tract infection type: U Hematuria presence: H Indwelling urinary catheter type: I Encounter type: E Core Measure Documentation - Palliative Care Palliative Care/ Comfort Measures: Not Applicable - Core Measures Any of the following diagnoses?: none Exam - Physical Exam Narrative exam: Patient on Trach Vital signs as documented. Head exam is unremarkable. No scleral icterus . Neck is without jugular venous distension, thyromegaly, or carotid bruits. Lungs are clear to auscultation. Cardiac exam reveals irregular rate and Rhythm. Abdominal exam reveals PEG in place. Extremities patient has minimal edema. 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 - Constitutional Vitals: Temp Pulse Resp BP Pulse Ox 98.1 F 116 H 28 H 105/61 94 12/16/16 08:00 12/16/16 10:00 12/16/16 10:00 12/16/16 10:12/16/16 10:00 Plan Activity: advance as tolerated Weight Bearing Status: Weight Bear as Tolerated Diet: low cholesterol, low salt, per dietitian instruction Wound: per wound nurse instructions Follow up with: PRIMARY CARE, [Primary Care Provider] - 3-5 Days Prescriptions: Acetaminophen [Acetaminophen SUPPOS] 650 mg KS Q4H PRN #1 supp.rect PRN Reason: Pain, Mild (1-3) ALBUTEROL NEB's [Proventil 0.083% NEBS] 2.5 mg IH Q6HRT PRN #1 nebu PRN Reason: Shortness Of Breath Amiodarone [Cordarone 200 MG TAB] 200 mg PO BID #1 tablet Bisacodyl [Dulcolax suppos] 10 mg KS QDAY PRN #1 supp.rect PRN Reason: constipation unrelieved by MOM Budesonide [Pulmicort Respules] 0.5 mg IH Q12HRT #1 nebu Famotidine [Pepcid] 20 mg PO BID #2 tablet Ferrous Sulfate [Ferrous Sulfate Oral Liq 300 Mg/5 Ml] 300 mg PO TID #1 oral.liqd Furosemide [Lasix INJ] 20 mg IV DAILY #1 vial HYDROmorphone [Dilaudid] 1 mg IV Q3H PRN #1 syringe PRN Reason: Pain , Severe (7-10) Insulin Regular, Human [HumuLIN R] 0 units SUB-Q Q6HR #1 units Lipase/Protease/Amylase [Pancreaze Dr 10,500 Unit] 1 each FEEDTUBE PRN PRN #1 capsule PRN Reason: For Clogged Feeding Tube Mirtazapine [Remeron] 15 mg PO HS #1 tablet Potassium Chloride 40 meq FEEDTUBE QDAY #1 packet Sennosides Tab [Senokot] 8.6 mg PO HS #1 tablet
[2016-12-16] MEDS: POTASSIUM CHLORIDE FEEDTUBE SCH (10:53)
[2016-12-16] MEDS: CORDARONE PO SCH (10:54)
[2016-12-16] MEDS: PEPCID PO SCH (10:54)
[2016-12-16] MEDS: LASIX IV SCH (10:54)
[2016-12-16] MEDS: FERROUS SULFATE PO SCH (10:54)
[2016-12-16] MEDS: XARELTO PO SCH (10:55)
[2016-12-16 12:44] VITALS: BP 99/50
== END 2016-12-16 14:00 | DRG 4 ==
LOC: ED 18:21 → CC1 19:14
PROVIDERS: ADMIT Internal Medicine; ATTEND Internal Medicine
PROC: 5A1955Z Respiratory Ventilation, Greater than 96 Consecutive Hours (ICD-10-PCS; 2016-11-26)
PROC: 4A033R1 Measurement of Arterial Saturation, Peripheral, Percutaneous Approach (ICD-10-PCS; 2016-11-26)
PROC: 0BH17EZ Insertion of Endotracheal Airway into Trachea, Via Natural or Artificial Opening (ICD-10-PCS; 2016-11-26)
PROC: 30233N1 Transfusion of Nonautologous Red Blood Cells into Peripheral Vein, Percutaneous Approach (ICD-10-PCS; 2016-11-26)
PROC: 0B113F4 Bypass Trachea to Cutaneous with Tracheostomy Device, Percutaneous Approach (ICD-10-PCS; principal; 2016-12-13)
PROC: 0DH63UZ Insertion of Feeding Device into Stomach, Percutaneous Approach (ICD-10-PCS; 2016-12-13)
DX: A41.9 Sepsis, unspecified organism (principal); J69.0 Pneumonitis due to inhalation of food and vomit; G93.41 Metabolic encephalopathy; I46.9 Cardiac arrest, cause unspecified; J96.21 Acute and chronic respiratory failure with hypoxia; I50.23 Acute on chronic systolic (congestive) heart failure; N39.0 Urinary tract infection, site not specified; E46 Unspecified protein-calorie malnutrition; I10 Essential (primary) hypertension; E11.9 Type 2 diabetes mellitus without complications; K21.9 Gastro-esophageal reflux disease without esophagitis; D64.9 Anemia, unspecified; I48.0 Paroxysmal atrial fibrillation; E87.6 Hypokalemia; I27.2 Other secondary pulmonary hypertension; T17.990A Other foreign object in respiratory tract, part unspecified in causing asphyxiation, initial encounter; I11.0 Hypertensive heart disease with heart failure; Z68.25 Body mass index [BMI] 25.0-25.9, adult; Z88.6 Allergy status to analgesic agent
CPT/HCPCS: 36415; 36600; 70450; 70553; 71010; 74000; 80048; 80053; 80061; 80202; 81001; 82140; 82550; 82553; 82607; 82803; 82805; 82962; 83735; 83880; 84443; 84484; 85007; 85014; 85018; 85025; 85027; 85049; 85379; 85520; 85610; 85730; 86140; 86850; 86900; 86901; 86920; 87040; 87070; 87086; 87205; 87493; 92950; 93005; 93010; 93306; 94002; 94003; 94640; 94760; 96361; 96365; 96375; A9577; C9113; G8996-GN; G8997-GN; J0171; J0282; J0295; J0330; J1170; J1644; J1650; J1815; J1940; J1956; J2060; J2250; J2543; J2704; J3010; J3370; J7030; J7040; J7050; J7060; P9016